=== PATIENT | male | born 1945 | race Caucasian/White ===

== ENCOUNTER 2022-12-17 23:14 | Inpatient (IN) | payer OTHER, MEDICARE, SELFPAY ==
[2022-12-17 23:16] VITALS: BP 150/90; PULSE 70; RESP 16; TEMP 36.4; O2SAT 97; BMI 28.4
--- NOTE | 2022-12-17 23:30 | PC.NURSE ---
patient states he was at home on the toilet and when he tried to stand up he lost his balance and fell down. patient states he thinks he landed on his left knee, small abrasion observed to left knee, patient states he has pain from upper left thigh down to foot. patient states he has history of neuropathy in bilateral feet and has no feeling, bilateral feet also noted to be swollen and pale, patient states this is normal for him. after fall patient was able to scoot self out of bathroom and used walker to get up and sit in chair, partially bearing weight, and then called EMS. patient states when he fell he also thinks he hit the side of his head on the shower but no obvious injury to head. patient denies any head, neck, or back pain. denies LOC.
--- NOTE | 2022-12-17 23:42 | ED.LOWEXI1 ---
HPI - Extremity Injury (Lower) General Chief Complaint: Extremity Injury, Lower Stated Complaint: FALL LT LEG PAIN Time Seen by Provider: 12/17/22 23:42 Source: patient Mode of arrival: ambulance Limitations: physical limitation History of Present Illness HPI Narrative: patient has neuropathy and chronic swelling of his lower extremities. Fell tonight and injured his left leg. Not able to get up because of the pain. pain mainly at the left knee. States he has no feeling of his feet or ankles denies striking his head. No headache or neck pain. No injury of his chest, back or arms Related Data Home Medications Medication Instructions Recorded Confirmed No Known Home Medications 12/17/22 12/17/22 Allergies Allergy/AdvReac Type Severity Reaction Status Date / Time No Known Drug Allergies Allergy Verified 12/17/22 23:21 Review of Systems ROS Status of ROS 10 or more systems reviewed and unremarkable except as noted in history and below [facility] Social History Smoking status: Never smoker Exam Constitutional Vital Signs, click to edit/add: Last Vital Signs Temp 97.5 F L 12/17/22 23:16 Pulse 70 12/17/22 23:16 Resp 16 12/17/22 23:16 BP 150/90 H 12/17/22 23:16 Pulse Ox 97 12/17/22 23:16 O2 Del Method Room Air 12/17/22 23:16 Common normals: no apparent distress, oriented x3, healthy appearing and alert [facility] Common normals: normocephalic and head/scalp atraumatic Eye Common normals: EOMs intact bilaterally and conjunctivae normal Chest Common normals: inspection of chest normal and palpation of chest normal Respiratory Common normals: normal respiratory effort, no use of accessory muscles and clear to auscultation bilaterally Cardio Common normals: regular rate, regular rhythm, S1 normal heart sound and S2 normal heart sound GI Common normals: Normal to inspection, nondistended, normoactive bowel sounds present, soft to palpation and non-tender Extremity Other: minor abrasion left knee. Resist ROM left knee due to pain. left hip and ankle/foot nontender 1+ edema of his left lower ext/ankle/foot. nontender left knee is tender Neuro Common normals: oriented x3, CN's II-XII intact bilaterally and moves all extremities Psych Appearance: grossly normal Course Vital Signs Vital signs: Vital Signs Temperature 97.5 F L 12/17/22 23:16 Pulse Rate 70 12/17/22 23:16 Respiratory Rate 16 12/17/22 23:16 Blood Pressure 150/90 H 12/17/22 23:16 Pulse Oximetry 97 12/17/22 23:16 Oxygen Delivery Method Room Air 12/17/22 23:16 Temperature 97.5 F L 12/17/22 23:16 Pulse Rate 70 12/17/22 23:16 Respiratory Rate 16 12/17/22 23:16 Blood Pressure 150/90 H 12/17/22 23:16 Pulse Oximetry 97 12/17/22 23:16 Oxygen Delivery Method Room Air 12/17/22 23:16 MDM - Extremity Injury (Lower) MDM Narrative Medical decision making narrative: patient has history of neuropathy of his lower extremities and edema of his legs and feet. Fell this AM and fractured his left hip. Discussed with Dr Ochoa who requested admission to the hospitalist service and he would consult. Discussed with Dr Villarreal and patient accepted for admission Discharge Plan Discharge Chief Complaint: Extremity Injury, Lower Clinical Impression: Closed fracture of left hip, Abrasion of knee, left, Bilateral edema of lower extremity, Peripheral neuropathy Patient Disposition: Admitted As Inpatient
--- NOTE | 2022-12-17 23:46 | XR_ITS ---
The [place] [id number] Patient Name: LEIGH ANN HENNESSY MRN: [id number] date: 1945 Sex: M Assigned Patient Location: ER Current Patient Location: ER Accession/Order Number: [id number] Exam Date: 12/17/2022 23:39 Report Date: 12/18/2022 01:37 At the request of: MARC ANDRADE Procedure: XR hip LT min 2V EXAM: XR femur LT 2V, XR knee LT 3V, XR hip LT min 2V HISTORY: injury COMPARISON: None. TECHNIQUE: 2 views of the left hip, 2 views of the left femur, and 3 views of the left knee were obtained. FINDINGS: There is a possible acute nondisplaced left intertrochanteric femur fracture though this is not well evaluated due to patient positioning. The left femoral head is well-seated in the acetabulum. There are mild degenerative changes of the left sacroiliac joint and left hip joint. The pubic symphysis is preserved. Evaluation for a left knee joint effusion is limited due to technique. XR/XR hip LT min 2V IMPRESSION: 1. Possible acute nondisplaced left intertrochanteric femur fracture though this is not well evaluated due to patient positioning. Please correlate with point tenderness. Consider cross-sectional imaging as clinically indicated. Electronically authenticated by: Nikkie TAI Date: 12/18/2022 01:37
--- NOTE | 2022-12-17 23:46 | XR_ITS ---
The [place] [id number] Patient Name: LEIGH ANN HENNESSY MRN: [id number] date: 1945 Sex: M Assigned Patient Location: ER Current Patient Location: ER Accession/Order Number: [id number] Exam Date: 12/17/2022 23:39 Report Date: 12/18/2022 01:37 At the request of: MARC ANDRADE Procedure: XR femur LT 2V EXAM: XR femur LT 2V, XR knee LT 3V, XR hip LT min 2V HISTORY: injury COMPARISON: None. TECHNIQUE: 2 views of the left hip, 2 views of the left femur, and 3 views of the left knee were obtained. FINDINGS: There is a possible acute nondisplaced left intertrochanteric femur fracture though this is not well evaluated due to patient positioning. The left femoral head is well-seated in the acetabulum. There are mild degenerative changes of the left sacroiliac joint and left hip joint. The pubic symphysis is preserved. Evaluation for a left knee joint effusion is limited due to technique. XR/XR femur LT 2V IMPRESSION: 1. Possible acute nondisplaced left intertrochanteric femur fracture though this is not well evaluated due to patient positioning. Please correlate with point tenderness. Consider cross-sectional imaging as clinically indicated. Electronically authenticated by: Nikkie TAI Date: 12/18/2022 01:37
--- NOTE | 2022-12-17 23:46 | XR_ITS ---
The [place] [id number] Patient Name: LEIGH ANN HENNESSY MRN: [id number] date: 1945 Sex: M Assigned Patient Location: ER Current Patient Location: ER Accession/Order Number: [id number] Exam Date: 12/17/2022 23:39 Report Date: 12/18/2022 01:37 At the request of: MARC ANDRADE Procedure: XR knee LT 3V EXAM: XR femur LT 2V, XR knee LT 3V, XR hip LT min 2V HISTORY: injury COMPARISON: None. TECHNIQUE: 2 views of the left hip, 2 views of the left femur, and 3 views of the left knee were obtained. FINDINGS: There is a possible acute nondisplaced left intertrochanteric femur fracture though this is not well evaluated due to patient positioning. The left femoral head is well-seated in the acetabulum. There are mild degenerative changes of the left sacroiliac joint and left hip joint. The pubic symphysis is preserved. Evaluation for a left knee joint effusion is limited due to technique. XR/XR knee LT 3V IMPRESSION: 1. Possible acute nondisplaced left intertrochanteric femur fracture though this is not well evaluated due to patient positioning. Please correlate with point tenderness. Consider cross-sectional imaging as clinically indicated. Electronically authenticated by: Nikkie TAI Date: 12/18/2022 01:37
--- NOTE | 2022-12-17 23:46 | XR_ITS ---
The [address] [address] Patient Name: LEIGH ANN HENNESSY MRN: [id number] date: 1945 Sex: M Assigned Patient Location: ER Current Patient Location: ER Accession/Order Number: [id number] Exam Date: 12/17/2022 23:39 Report Date: 12/18/2022 01:09 At the request of: MRAC ANDRADE Procedure: XR ankle LT min 3V EXAM: XR ankle LT min 3V HISTORY: injury COMPARISON: None. TECHNIQUE: Oblique AP and lateral radiographs of the ankle at the left FINDINGS: Soft tissue swelling about the ankle. The inferior margin of the calcaneus and base of fifth metatarsal not included in field of view. Demineralization. Small Achilles calcaneal enthesophyte. A Radiopaque density 0.6 cm at the medial posterior aspect of the right lower leg. XR/XR ankle LT min 3V IMPRESSION: 1. Soft tissue swelling about the ankle. 2. No acute osseous abnormality of the ankle. 3. The inferior aspect of the calcaneus is excluded. Electronically authenticated by: KEVIN RM Date: 12/18/2022 01:09
[2022-12-18] VITALS (22 sets, daily range): BP systolic 87–145; BP diastolic 50–84; PULSE 66–91; RESP 14–20; TEMP 36.6–37; O2SAT 90–99; BMI 28.2
--- NOTE | 2022-12-18 | XR_ITS ---
[address] [address] Patient Name: LEIGH ANN HENNESSY MRN: [id number] date: 1945 Sex: M Assigned Patient Location: MS Current Patient Location: MS Accession/Order Number: [id number] Exam Date: 12/18/2022 15:30 Report Date: 12/18/2022 17:49 At the request of: MICHELLE JONES Procedure: XR hip LT min 2V EXAM: XR hip LT min 2V HISTORY: Left proximal femur fracture. COMPARISON: X-rays 12/18/2022 TECHNIQUE: 4 views FINDINGS: IMPRESSION: 4 intraoperative fluoroscopic spot views for a gamma nail placement. Films are made available to the surgeon. Electronically authenticated by: GIRMA VARGAS Date: 12/18/2022 17:49
[2022-12-18] MEDS: ONDANSETRON PF 4 MG/2 ML VIAL IV (00:06)
[2022-12-18] MEDS: MORPHINE SULFATE 4 MG/ML VIAL IV ×2 (00:06→05:04)
--- NOTE | 2022-12-18 01:47 | CT_ITS ---
The [address] [address] Patient Name: LEIGH ANN HENNESSY MRN: [id number] date: 1945 Sex: M Assigned Patient Location: ER Current Patient Location: ER Accession/Order Number: [id number] Exam Date: 12/18/2022 02:57 Report Date: 12/18/2022 03:26 At the request of: MARC ANDRADE Procedure: CT hip LT wo con EXAM: CT hip LT wo con HISTORY: injury . Fall. Left leg pain from hip to ankle. COMPARISON: Left femur x-rays, 12/17/2022. TECHNIQUE: Nonenhanced CT imaging of the left hip was performed with sagittal and coronal reconstructions. FINDINGS: There is an acute comminuted and displaced intertrochanteric left hip fracture. No additional acute osseous injury is seen. The femoral head is well positioned in the acetabulum. The imaged left hemipelvis appears intact. CT/CT hip LT wo con IMPRESSION: Acute comminuted and mildly displaced intertrochanteric left hip fracture. No additional acute osseous injury is seen. Electronically authenticated by: ABRAN CHAIDEZ Date: 12/18/2022 03:26
[2022-12-18 04:01] LABS: Basophils Percent Auto 0.2 % (0.2-2.0); Eosinophils Absolute Auto 0.4 10^3/uL (0.0-0.7); Eosinophils Percent Auto 5.3 % (0.9-7.0); Hematocrit 38.7 % (42.0-54.0); Hemoglobin 12.1 g/dL (14.0-18.0); Immature Granulocytes Abs Auto 0.02 10^3/uL (0.00-0.03); Immature Granulocytes Pct Auto 0.2 % (0.0-0.5); Lymphocytes Absolute Auto 1.9 10^3/uL (1.2-3.8); Lymphocytes Percent Auto 23.5 % (20.5-60.0); Mean Corpuscular HGB Conc 31.3 g/dL (29.9-35.2); Mean Corpuscular Hemoglobin 30.8 pg (25.9-34.0); Mean Corpuscular Volume 98.5 fL (80.0-94.0); Mean Platelet Volume 12.1 fL (9.5-13.5); Monocytes Absolute Auto 0.7 10^3/uL (0.3-0.8); Monocytes Percent Auto 8.3 % (1.7-12.0); Neutrophils Percent Auto 62.5 % (43.0-75.0); Platelet Count 253 10^3/uL (150-450); Red Blood Count 3.93 10^6/uL (4.70-6.10); Red Cell Distribution Width 13.4 % (11.0-15.0); White Blood Count 8.1 10^3/uL (4.0-11.0)
[2022-12-18 04:04] LABS: INR 0.97; Prothrombin Time 10.3 sec (9.0-11.6)
[2022-12-18 04:13] LABS: Alanine Aminotransferase 20 U/L (16-63); Albumin Globulin Ratio 0.8; Albumin Level 3.3 g/dL (3.4-5.0); Alkaline Phosphatase 107 U/L (46-116); Anion Gap 11.3; Aspartate Amino Transferase 23 U/L (15-37); BUN Creatinine Ratio 18.2; Bilirubin Total 0.2 mg/dL (0.2-1.0); Calcium 8.4 mg/dL (8.5-10.1); Carbon Dioxide 29.1 mmol/L (21.0-32.0); Chloride 106 mmol/L (98-107); Estimated GFR (African America >60 (>=60); Estimated GFR (Non-African Ame 50 (>=60); Globulin 4.4 g/dL; Glucose 114 mg/dL (74-106); Potassium 4.4 mmol/L (3.5-5.1); Sodium 142 mmol/L (136-145); Total Protein 7.7 g/dL (6.4-8.2)
[2022-12-18] MEDS: 0.9 % SODIUM CHLORIDE 1,000 ML 100 ML IV (05:04)
[2022-12-18 05:14] LABS: Bilirubin Urine NEGATIVE (NEGATIVE); Blood Urine NEGATIVE (NEGATIVE); Clarity Urine CLEAR (CLEAR); Color Urine YELLOW (YELLOW); Glucose Urine UA NEGATIVE (NEGATIVE); Ketones Urine 15 mg/dL (NEGATIVE); Leukocyte Esterase Urine NEGATIVE (NEGATIVE); Nitrite Urine NEGATIVE (NEGATIVE); Protein Urine NEGATIVE (NEG/TRACE); Specific Gravity Urine >=1.030 (1.005-1.025); Urobilinogen Urine 0.2 EU/dL (0.2-1.0); pH Urine 5.5 (5.0-9.0)
[2022-12-18 05:27] LABS: Urine Microscopic Indicated NO
--- NOTE | 2022-12-18 07:13 | CA_ITS ---
Patient: LEIGH ANN HENNESSY Exam Date: 12/18/2022 : 1945 Gender:M Ordering : Shaikh Link Villarreal . Admission #: [id number] Family : MANUEL SHEIKH Order #: [id number] CLICK HERE TO VIEW EXAM ECHOCARDIOGRAM REPORT PROCEDURE: CA ECHO DOPPLER COMPLETE INDICATIONS: Pre op clearance COMPARISON: None. DESCRIPTION: COMPLETE ECHOCARDIOGRAM Real-time transthoracic echocardiography with 2D, M-mode, spectral and color flow Doppler performed. QUALITY: Technical quality was good. LEFT VENTRICLE: Normal chamber size. Mild concentric left ventricular hypertrophy. LV EF: Normal left ventricular ejection fraction, (>55%). DIASTOLIC: Unable to assess diastolic function. ATRIAL SEPTUM: Inadequately seen. LEFT ATRIUM: Normal chamber size. RIGHT ATRIUM: Normal chamber size. RIGHT VENTRICLE: Normal chamber size. Normal right ventricular systolic function. TRICUSPID VALVE: Normal mobility and thickness. No stenosis with no regurgitation. MITRAL VALVE: Normal mobility and thickness. No evidence of mitral valve stenosis. There is no mitral annular calcification. No mitral regurgitation. AORTIC VALVE: Normal trileaflet appearance. Mildly calcified aortic valve. Normal leaflet mobility. No evidence of aortic valve stenosis. No aortic regurgitation. AORTIC ROOT: Normal diameter and appearance. PULMONIC VALVE: Normal thickness and mobility. No stenosis. PERICARDIUM: No evidence of pericardial effusion. IVC: Not well visualized. CONCLUSION: Global left ventricular systolic function is normal; visually estimated ejection fraction is 55 to 60%.The right ventricle is normal in size and systolic function. No significant valvular abnormalities. Adult Echocardiography Procedure Report Left Ventricle LVEDD (3.7 - 5.6 cm): 4.30 cm LVESD (2.2 - 4.0 cm): 2.90 cm LVIVS thickness (0.6 - 1.2 cm): 1.15 cm LVPW thickness (0.5 - 1.0 cm): 1.15 cm LVOT Max Gradient: 3 mm[Hg] Peak Velocity (LVOT): 80.50 cm/s LVOT Diameter 2.50 cm , 2.50 cm Left Ventricular Ejection Fraction: 61.30 % Left Atrium LA Volume Index (2D A2C): 68442 mm3 Left Atrium Systolic Dimension: 4.60 cm Mitral Valve MV E to A Ratio: 0.90 Mitral Valve A-Wave Peak Velocity: 69.60 cm/s Mitral Valve E-Wave Peak Velocity: 60.70 cm/s Right Ventricle Aorta AO Root Diam: 3.70 cm Aortic Valve AoV Area (Peak Demetri): 3.27 cm2 Peak Velocity(Antegrade Flow): 121.00 cm/s Peak Gradient(Antegrade Flow): 6 mm[Hg] Tricuspid Valve Peak Velocity: 85.30 cm/s Pulmonic Valve Peak Velocity: 130.00 cm/s Peak Gradient: 7 mm[Hg] Right Atrium Dictated by: Janis Bronw M.D. on 12/19/2022 at 16:41 Approved by: Janis Brown M.D. on 12/19/2022 at 16:44
--- NOTE | 2022-12-18 07:57 | P.HP_ITS ---
H&P: HPI History of Present Illness Chief complaint: FALL LT LEG PAIN Narrative: Patient states he does slipped and fell at home, no prodromal symptoms, no chest pain no shortness of breath no syncope, did not hit his head, in ER evaluation shows left femur fracture. Case discussed with Dr. Hyde who agreed to accept patient for surgery later today. Review of Systems ROS Status of ROS 10 or more systems reviewed and unremarkable except as noted in history and below Constitutional Denies: fever or chills Ears, nose, mouth, and throat Denies: throat pain Cardiovascular Denies: chest pain Respiratory Denies: shortness of breath Gastrointestinal Denies: abdominal pain PFSH PFSH Medical History (Updated 12/18/22 @ 06:44 by Nilsa Arzate) Surgical History (Updated 12/18/22 @ 06:44 by Nilsa Arzate) Family History (Updated 12/18/22 @ 06:42 by Nilsa Arzate) Father Family history of hypertension Family history of stroke Social History (Updated 12/18/22 @ 06:41 by Nilsa Arzate) Within the past year, how often did you have a drink containing alcohol: never Score interpretation: A score less than 4 is consistent with normal alcohol c onsumption. Smoking status: Never smoker Non-prescribed substance use: denies use Previous occupational history: retired Highest level of school completed/degree received: some college, no degree Are you now , , , , never or living with a partner: In a typical week, how many times do you talk on the telephone with family, friends, or neighbors: 3 or more times per week How often do you get together with friends or relatives: 3 or more times per week How often do you attend temple or voodoo services: 1-3 times per year Little interest or pleasure in doing things: not at all Feeling down, depressed, or hopeless: not at all Feel stressed/tense/nervous/anxious/difficulty sleeping: not at all Do you think of yourself as: straight/heterosexual Gender Identity: male Meds Home Medications and Allergies Home Medications Medication Instructions Recorded Confirmed Type No Known Home Medications 12/17/22 12/17/22 History Allergies Allergy/AdvReac Type Severity Reaction Status Date / Time No Known Drug Allergies Allergy Verified 12/17/22 23:21 Exam Constitutional Vital Signs, click to edit/add: Last Vital Signs Temp 97.8 F 12/18/22 07:45 Pulse 79 12/18/22 07:45 Resp 18 12/18/22 07:45 BP 125/76 12/18/22 07:45 Pulse Ox 92 L 12/18/22 07:45 O2 Del Method Room Air 12/18/22 07:45 Documenting provider has reviewed patient's vital signs: yes Common normals: apparent distress (Mild painful distress) Respiratory Common normals: normal respiratory effort and clear to auscultation bilaterally Cardio Common normals: regular rate, regular rhythm and no murmurs Neuro Common normals: oriented x3 and CN's II-XII intact bilaterally Psych Common normals: mental status grossly normal Results Labs Labs: Short CBC 12/18/22 Range/Units 00:00 WBC 8.1 (4.0-11.0) 10^3/uL Hgb 12.1 L (14.0-18.0) g/dL Hct 38.7 L (42.0-54.0) % Plt Count 253 (150-450) 10^3/uL BMP 12/18/22 00:00 Sodium 142 Potassium 4.4 Chloride 106 Carbon Dioxide 29.1 BUN 25.0 H Creatinine 1.37 H Glucose 114 H Calcium 8.4 L Liver Function 12/18/22 Range/Units 00:00 Total Bilirubin 0.2 (0.2-1.0) mg/dL AST 23 (15-37) U/L ALT 20 (16-63) U/L Alkaline Phosphatase 107 (46-116) U/L Albumin 3.3 L (3.4-5.0) g/dL Urine 12/18/22 Range/Units 03:58 Urine Color Yellow (YELLOW) Urine Clarity Clear (CLEAR) Urine pH 5.5 (5.0-9.0) Ur Specific [place] >=1.030 A (1.005-1.025) Urine Protein Negative (NEG/TRACE) mg/dL Urine Glucose (UA) Negative (NEGATIVE) mg/dL Assessment and Plan Assessment and Plan (1) Closed fracture of left hip: (2) Peripheral neuropathy: Plan Left femur fracture-surgery later today, n.p.o. for now, resume regular diet after surgery Iron deficiency anemia on top of possible anemia of acute blood loss secondary to the hip fracture, will monitor daily Elevated BUN and creatinine possible mild dehydration-on IV fluids-monitor daily History of hypertension in the past-we will check on medications taking, blood pressure improved after initial ER evaluation Hip fracture-admit to inpatient status, will need placement postsurgery
[2022-12-18 08:15] LABS: Estimated Average Glucose 117 mg/dL; Glycohemoglobin A1C 5.7 % (4.5-6.2); INR 0.93; Partial Thromboplastin Time 23.3 sec (22.3-36.2); Prothrombin Time 9.9 sec (9.0-11.6)
--- NOTE | 2022-12-18 08:59 | ECG_ITS ---
The [facility] Test Date: 2022-12-18 Pat Name: LEIGH ANN HENNESSY Department: Room: [facility] Gender: Male Trucksmith: : 1945 Requested By: JONATHAN GIORDANO Order Number: [id number] Reading MD: JONATHAN GIORDANO Measurements Intervals [place] Rate: 84 P: 52 MN: 179 QRS: -37 QRSD: 109 T: 57 QT: 373 QTc: 441 Interpretive Statements SINUS RHYTHM WITH OCCASIONAL VENTRICULAR PREMATURE COMPLEXES MARKED LEFT AXIS DEVIATION [QRS AXIS < -30] MINIMAL VOLTAGE CRITERIA FOR LVH, CONSIDER NORMAL VARIANT [MEETS CRITERIA IN ONE OF: R(aVL), S(V1), R(V5), R(V5/V6)+S(V1)] No previous ECG available for comparison Electronically Signed On 12-19-2022 5:52:46 EDT by JONATHAN GIORDANO
--- NOTE | 2022-12-18 11:47 | SWNOTE1 ---
SW met with pt to discuss dc needs. Pt did answer a few questions, but was pretty lethargic. Pt did give permission for SW to talk with . Pt has a hip fracture and going to the OR today at 3:30. Will need SNF for therapy, pt is a precert. SW was able to speak with a daughter via phone as she was talking with nursing. Pt did give permission for nursing to speak with daughter. Daughter lives in [place] and she voiced her mother has some confusion and her step sister is in [place] right now for her birthday. Daughter is trying to be pro-active and pick a facility. During covid pt went to [facility], they wanted him to go to [facility] but he could not. They would like the [facility] this time. SW let her know SW will send referral and pt is a precert. Precert will likely get started tomorrow since surgery is at 3:30 today and therapy notes will be needed. Daughter did ask if approval happens over the weekend, SW let her know it has been happening. Pt's daughter is coming from [place] today and will be staying with pt's at the home. SW to send referral to [facility].
--- NOTE | 2022-12-18 13:21 | SWNOTE1 ---
[facility] needs pt's insurance card as we have [facility]. JERMAIN was able to find card in old system and sent to [facility].
[2022-12-18] MEDS: CEFAZOLIN SODIUM/DEXTROSE,ISO 2 GM/50 ML PIGGYBACK IV (15:33)
--- NOTE | 2022-12-18 15:33 | PM.ORCN ---
History of Present Illness HPI Consult date: 12/18/22 Consult reason: fracture Chief complaint: FALL LT LEG PAIN Narrative: Patient is a 77-year-old who reports history of bilateral lower extremity neuropathy. He slipped on the floor today fell on his left hip with acute onset of pain. He denies chest pain or shortness of breath. He denies pain elsewhere. He presented to the emergency room where x-rays and a CT scan revealed a left hip intertrochanteric fracture. Patient is being admitted for operative treatment of this injury. Review of Systems ROS Status of ROS 10 or more systems reviewed and unremarkable except as noted in history and below [facility] Medical History (Updated 12/18/22 @ 06:44 by Nilsa Arzate) Surgical History (Updated 12/18/22 @ 06:44 by Nilsa Arzate) Family History (Updated 12/18/22 @ 06:42 by Nilsa Arzate) Father Family history of hypertension Family history of stroke Social History (Updated 12/18/22 @ 06:41 by Nilsa Arzate) Within the past year, how often did you have a drink containing alcohol: never Score interpretation: A score less than 4 is consistent with normal alcohol consumption. Smoking status: Never smoker Non-prescribed substance use: denies use Previous occupational history: retired Highest level of school completed/degree received: some college, no degree Are you now , , , , never or living with a partner: In a typical week, how many times do you talk on the telephone with family, friends, or neighbors: 3 or more times per week How often do you get together with friends or relatives: 3 or more times per week How often do you attend buddhism or jewish services: 1-3 times per year Little interest or pleasure in doing things: not at all Feeling down, depressed, or hopeless: not at all Feel stressed/tense/nervous/anxious/difficulty sleeping: not at all Do you think of yourself as: straight/heterosexual Gender Identity: male Meds Home Medications and Allergies Home Medications Medication Instructions Recorded Confirmed Type No Known Home Medications 12/17/22 12/17/22 History Allergies Allergy/AdvReac Type Severity Reaction Status Date / Time No Known Drug Allergies Allergy Verified 12/17/22 23:21 Exam Narrative Exam Narrative: On exam he is in no obvious distress. Skin is intact over his left lower extremity. [place] of the left leg causes groin pain. Diminished sensation to light touch in a stocking distribution in the bilateral lower extremities. Moderate lower extremity edema. Good capillary refill. Is able to wiggle his toes. No knee or ankle tenderness. Right lower extremity has painless range of motion. Bilateral upper extremities have painless range of motion. Constitutional Vital Signs, click to edit/add: Last Vital Signs Temp 98.3 F 12/18/22 14:06 Pulse 90 12/18/22 14:45 Resp 16 12/18/22 14:45 BP 145/84 H 12/18/22 14:45 Pulse Ox 95 12/18/22 14:45 O2 Del Method Room Air 12/18/22 14:45 Results Labs Labs: Abnormal lab results 12/18/22 12/18/22 Range/Units 00:00 03:58 RBC 3.93 L (4.70-6.10) 10^6/uL Hgb 12.1 L (14.0-18.0) g/dL Hct 38.7 L (42.0-54.0) % MCV 98.5 H (80.0-94.0) fL BUN 25.0 H (7.0-18.0) mg/dL Creatinine 1.37 H (0.70-1.30) mg/dL Est GFR (Non-Af Amer) 50 L (>=60) Glucose 114 H (74-106) mg/dL Calcium 8.4 L (8.5-10.1) mg/dL Albumin 3.3 L (3.4-5.0) g/dL Ur Specific [place] >=1.030 A (1.005-1.025) Urine Ketones 15 A (NEGATIVE) mg/dL H & H 12/18/22 Range/Units 00:00 Hgb 12.1 L (14.0-18.0) g/dL Hct 38.7 L (42.0-54.0) % Coagulation 12/18/22 12/18/22 Range/Units 00:00 07:38 INR 0.97 0.93 All other labs normal. Diagnostic results Hip CT: other (CT scan of his left hip was reviewed and shows a intertrochanteric fracture) Assessment and Plan Assessment and Plan (1) Closed fracture of left hip: (2) Peripheral neuropathy: Plan For his left hip intertrochanteric fracture I recommended an intramedullary nailing. I discussed risks and benefits of this surgery with the patient. He has elected to proceed.
--- NOTE | 2022-12-18 17:31 | PC.NURSE ---
Bilateral feet warm and pink with brisk capillary refill; 3-4+ pitting edema of left foot; no edema noted in leg
--- NOTE | 2022-12-18 17:36 | P.ORPRC_ITS ---
Procedure Note Date of procedure: 12/18/22 Pre-op diagnosis: Left hip intertrochanteric fracture Post-op diagnosis: same as pre-op Procedure: Operation performed: Left hip intramedullary nailing Operative procedure: After informed consent was obtained the patient brought to the operating room where a spinal anesthetic was administered. The patient was placed on the fracture table and using traction the fracture was reduced on both AP and lateral planes. The left hip was prepped and draped in the usual sterile fashion. A 5 cm incision is made proximal to the greater trochanter in line with the femur. Hemostasis was achieved with Bovie. Fascia was incised in line with the incision. The guidepin for the Synthes TFN a was next placed at the appropriate position of the greater trochanter and confirmed in both AP and lateral planes. This was overreamed in the intertrochanteric region. Preoperatively the nail was sized to 12 mm diameter 130 degree angle. The 12 mm Synthes short nail was next placed without difficulty. Through a more distal incision the guidepin was placed in the appropriate position in the femoral head. This was measured, overreamed and then a 95 mm spiral blade was placed. The fracture site was compressed. The nail was locked and then a counterclockwise turn 180 degrees to allow for some additional compression. Through the distal incision the distal locking screw was placed in the standard fashion. The wound was irrigated. Fascia was repaired with a #2 FiberWire suture. Skin was closed in standard fashion in layers. Sterile dressing was placed. Patient was brought to the recovery room in stable condition. There were no intraoperative or immediate postoperative complications. Anesthesia: spinal Surgeon: Phong Ochoa Tractor Trailer Moving Van Driver: Roselyn Bland Estimated blood loss (mL): 75 Pathology: none sent Condition: stable Disposition: PACU
--- NOTE | 2022-12-18 17:38 | PC.NURSE ---
Spinal level lower abdomen
[2022-12-18] MEDS: LACTATED RINGER'S SOLUTION 1,000 ML 100 ML IV (18:04)
--- NOTE | 2022-12-18 18:08 | PC.NURSE ---
Spinal level at lower abdomen; bilateral lower extremities pink and warm; heels elevated off bed
--- NOTE | 2022-12-18 18:14 | PC.NURSE ---
Having tingling sensation bilateral hips; lower extremities pink and warm; unable to move legs or feet yet; anesthesia aware
[2022-12-19] VITALS (10 sets, daily range): BP systolic 92–138; BP diastolic 56–78; PULSE 72–87; RESP 15–18; TEMP 36.9–37.6; O2SAT 90–100
[2022-12-19] MEDS: LACTATED RINGER'S SOLUTION 1,000 ML 100 ML IV (03:22)
[2022-12-19 05:39] LABS: Basophils Percent Auto 0.2 % (0.2-2.0); Eosinophils Absolute Auto 0.1 10^3/uL (0.0-0.7); Eosinophils Percent Auto 1.3 % (0.9-7.0); Hematocrit 31.8 % (42.0-54.0); Hemoglobin 9.9 g/dL (14.0-18.0); Immature Granulocytes Abs Auto 0.02 10^3/uL (0.00-0.03); Immature Granulocytes Pct Auto 0.2 % (0.0-0.5); Lymphocytes Absolute Auto 1.4 10^3/uL (1.2-3.8); Lymphocytes Percent Auto 16.4 % (20.5-60.0); Mean Corpuscular HGB Conc 31.1 g/dL (29.9-35.2); Mean Corpuscular Hemoglobin 30.3 pg (25.9-34.0); Mean Corpuscular Volume 97.2 fL (80.0-94.0); Mean Platelet Volume 12.6 fL (9.5-13.5); Monocytes Absolute Auto 1.3 10^3/uL (0.3-0.8); Monocytes Percent Auto 14.6 % (1.7-12.0); Neutrophils Absolute Auto 5.7 10^3/uL (1.4-6.5); Neutrophils Percent Auto 67.3 % (43.0-75.0); Platelet Count 127 10^3/uL (150-450); Red Blood Count 3.27 10^6/uL (4.70-6.10); Red Cell Distribution Width 13.5 % (11.0-15.0); White Blood Count 8.5 10^3/uL (4.0-11.0)
[2022-12-19 06:05] LABS: Alanine Aminotransferase 24 U/L (16-63); Albumin Globulin Ratio 0.7; Albumin Level 2.5 g/dL (3.4-5.0); Alkaline Phosphatase 82 U/L (46-116); Anion Gap 8.7; Aspartate Amino Transferase 39 U/L (15-37); BUN Creatinine Ratio 16.7; Bilirubin Total 0.5 mg/dL (0.2-1.0); Calcium 7.7 mg/dL (8.5-10.1); Carbon Dioxide 27.5 mmol/L (21.0-32.0); Chloride 105 mmol/L (98-107); Estimated GFR (African America >60 (>=60); Estimated GFR (Non-African Ame >60 (>=60); Globulin 3.7 g/dL; Glucose 106 mg/dL (74-106); Potassium 4.2 mmol/L (3.5-5.1); Sodium 137 mmol/L (136-145); Total Protein 6.2 g/dL (6.4-8.2)
--- NOTE | 2022-12-19 07:17 | PM.ORPN ---
Progress Note: A&P Assessment and Plan (1) Closed fracture of left hip: Assessment and Plan: POD#1 from Left hip IM nail doing well PT for WBAT DVT prophylixs (2) Peripheral neuropathy: Subjective Subjective Interval history: Patient reports he feels better today than yesterday Exam Narrative Exam Narrative: LLE: Dressing C/D/I Wiggles toes Good cap refill thigh soft Hgb:9.9 Constitutional Vital Signs, click to edit/add: Last Vital Signs Temp 99.7 F 12/19/22 04:53 Pulse 77 12/19/22 04:53 Resp 18 12/19/22 04:53 BP 138/78 12/19/22 04:53 Pulse Ox 92 L 12/19/22 04:53 O2 Del Method Nasal Cannula 12/19/22 04:53 O2 Flow Rate 2 12/19/22 04:53 Urinary Catheter Management Urinary Catheter Management Urethral: Cath placed during this visit: yes Urethral indwelling: Yes Reason for continuing: surgical procedure Insertion date: 12/18/22 Insertion time: 12:29
[2022-12-19] MEDS: OXYCODONE HCL 5 MG TABLET PO (07:33)
--- NOTE | 2022-12-19 08:00 | P.PN_ITS ---
Progress Note: Subjective Subjective Interval history: Patient feels better than yesterday. Pain fairly well controlled. Exam Constitutional Vital Signs, click to edit/add: Last Vital Signs Temp 99.7 F 12/19/22 04:53 Pulse 72 12/19/22 07:40 Resp 18 12/19/22 07:40 BP 138/78 12/19/22 04:53 Pulse Ox 92 L 12/19/22 04:53 O2 Del Method Nasal Cannula 12/19/22 04:53 O2 Flow Rate 2 12/19/22 04:53 Documenting provider has reviewed patient's vital signs: yes Common normals: apparent distress (Mild painful distress) Respiratory Common normals: normal respiratory effort and clear to auscultation bilaterally Cardio Common normals: regular rate, regular rhythm and no murmurs Neuro Common normals: oriented x3 and CN's II-XII intact bilaterally Psych Common normals: mental status grossly normal Progress Note: Objective Labs Labs: Short CBC 12/19/22 Range/Units 04:25 WBC 8.5 (4.0-11.0) 10^3/uL Hgb 9.9 L (14.0-18.0) g/dL Hct 31.8 L (42.0-54.0) % Plt Count 127 L (150-450) 10^3/uL BMP 12/19/22 04:25 Sodium 137 Potassium 4.2 Chloride 105 Carbon Dioxide 27.5 BUN 16.0 Creatinine 0.96 Glucose 106 Calcium 7.7 L Liver Function 12/19/22 Range/Units 04:25 Total Bilirubin 0.5 (0.2-1.0) mg/dL AST 39 H (15-37) U/L ALT 24 (16-63) U/L Alkaline Phosphatase 82 (46-116) U/L Albumin 2.5 L (3.4-5.0) g/dL Progress Note: A&P Assessment and Plan (1) Closed fracture of left hip: (2) Peripheral neuropathy: Plan Left femur fracture-surgery completed yesterday, see notes from orthopedics Iron deficiency anemia on top of possible anemia of acute blood loss secondary to the hip fracture, down somewhat today, continue to monitor no need for transfusion Elevated BUN and creatinine possible mild dehydration-on IV fluids-monitor daily-saline lock History of hypertension in the past-we will check on medications taking, blood pressure improved after initial ER evaluation Hip fracture-admit to inpatient status, will need placement postsurgery
[2022-12-19] MEDS: ENSURE HP 237 ML LIQUID PO ×2 (10:07→21:15)
--- NOTE | 2022-12-19 10:40 | RESP.RT ---
use ear probe
--- NOTE | 2022-12-19 11:54 | SWNOTE1 ---
All updates and PT/OT notes sent to [facility] for precert to be started.
[2022-12-19] MEDS: CALCIUM CARBONATE 500 MG (200MG ELEMENTAL) TAB CHEW PO ×2 (15:53→21:15)
[2022-12-19] MEDS: 0.9 % SODIUM CHLORIDE 250 ML 10 ML IV (16:23)
[2022-12-19] MEDS: ENOXAPARIN SODIUM 40 MG/0.4 ML SYRINGE SUBQ (17:56)
[2022-12-20 04:51] LABS: Basophils Percent Auto 0.1 % (0.2-2.0); Eosinophils Absolute Auto 0.1 10^3/uL (0.0-0.7); Hematocrit 30.5 % (42.0-54.0); Hemoglobin 9.8 g/dL (14.0-18.0); Immature Granulocytes Abs Auto 0.04 10^3/uL (0.00-0.03); Immature Granulocytes Pct Auto 0.4 % (0.0-0.5); Lymphocytes Absolute Auto 1.6 10^3/uL (1.2-3.8); Lymphocytes Percent Auto 16.6 % (20.5-60.0); Mean Corpuscular HGB Conc 32.1 g/dL (29.9-35.2); Mean Corpuscular Hemoglobin 30.6 pg (25.9-34.0); Mean Corpuscular Volume 95.3 fL (80.0-94.0); Mean Platelet Volume 11.5 fL (9.5-13.5); Monocytes Absolute Auto 1.5 10^3/uL (0.3-0.8); Monocytes Percent Auto 16.1 % (1.7-12.0); Neutrophils Absolute Auto 6.2 10^3/uL (1.4-6.5); Neutrophils Percent Auto 65.8 % (43.0-75.0); Platelet Count 177 10^3/uL (150-450); Red Cell Distribution Width 13.2 % (11.0-15.0); White Blood Count 9.4 10^3/uL (4.0-11.0)
[2022-12-20 04:55] VITALS: BP 128/66; PULSE 82; RESP 18; TEMP 37.1; O2SAT 93
[2022-12-20 05:08] LABS: Alanine Aminotransferase 22 U/L (16-63); Albumin Globulin Ratio 0.6; Albumin Level 2.5 g/dL (3.4-5.0); Alkaline Phosphatase 75 U/L (46-116); Anion Gap 9.3; Aspartate Amino Transferase 43 U/L (15-37); BUN Creatinine Ratio 16.2; Bilirubin Total 0.5 mg/dL (0.2-1.0); Calcium 7.9 mg/dL (8.5-10.1); Carbon Dioxide 28.3 mmol/L (21.0-32.0); Chloride 103 mmol/L (98-107); Estimated GFR (African America >60 (>=60); Estimated GFR (Non-African Ame >60 (>=60); Glucose 115 mg/dL (74-106); Potassium 3.6 mmol/L (3.5-5.1); Sodium 137 mmol/L (136-145); Total Protein 6.5 g/dL (6.4-8.2)
[2022-12-20] MEDS: CALCIUM CARBONATE 500 MG (200MG ELEMENTAL) TAB CHEW PO (05:43)
[2022-12-20 08:00] VITALS: RESP 18
--- NOTE | 2022-12-20 08:08 | P.DS_ITS ---
DS: Providers Provider Date of admission: 12/18/22 12:20 Primary care physician: Tawanda Galvez MD Consults: 12/18/22 07:14 Occupational Therapy Eval and Treat Routine Reason for consultation: Hip fracture Physical Therapy Eval and Treat Routine Reason for consultation: Hip fracture 12/18/22 07:15 Consult to Orthopedics Routine Consulting Provider: Phong Ochoa Reason for consultation: hip fracture 12/18/22 07:56 Consult to Specimen Processor Routine Reason for consult:: Fpc 12/18/22 17:37 Physical Therapy Eval and Treat Routine Reason for consultation: hip fracture WBAT Has provider been notified: No DS: Diagnosis Discharge Diagnosis (1) Closed fracture of left hip: (2) Peripheral neuropathy: Plan Left femur fracture-surgery completed yesterday, see notes from orthopedics Iron deficiency anemia on top of possible anemia of acute blood loss secondary to the hip fracture, down somewhat today, continue to monitor no need for transfusion Elevated BUN and creatinine possible mild dehydration-on IV fluids-monitor daily-saline lock History of hypertension in the past-we will check on medications taking, blood pressure improved after initial ER evaluation DS: Summary Hospital Course Hospital Course: Patient was admitted status post fall resulting in left femur fracture. Was taken to the operating room the following day. No issues throughout the hospitalization. Pain well controlled at time of discharge to rehab. Time Spent with Patient Time attestation: Total time spent providing and/or coordinating discharge services: Exam Constitutional Vital Signs, click to edit/add: Last Vital Signs Temp 98.7 F 12/20/22 04:55 Pulse 82 12/20/22 04:55 Resp 18 12/20/22 04:55 BP 128/66 12/20/22 04:55 Pulse Ox 93 L 12/20/22 04:55 O2 Del Method Room Air 12/20/22 04:55 O2 Flow Rate 2 12/19/22 04:53 Documenting provider has reviewed patient's vital signs: yes Common normals: apparent distress (Mild painful distress) Respiratory Common normals: normal respiratory effort and clear to auscultation bilaterally Cardio Common normals: regular rate, regular rhythm and no murmurs Neuro Common normals: oriented x3 and CN's II-XII intact bilaterally Psych Common normals: mental status grossly normal DS: Data Data Completed and Pending Labs on day of discharge: Labs from last 24 hours 12/20/22 04:13 WBC 9.4 RBC 3.20 L Hgb 9.8 L Hct 30.5 L MCV 95.3 H MCH 30.6 MCHC 32.1 RDW 13.2 Plt Count 177 MPV 11.5 Neut % (Auto) 65.8 Lymph % (Auto) 16.6 L [place] % (Auto) 16.1 H Eos % (Auto) 1.0 Baso % (Auto) 0.1 L Neut # (Auto) 6.2 Lymph # (Auto) 1.6 [place] # (Auto) 1.5 H Eos # (Auto) 0.1 Baso # (Auto) 0.0 Abs Immat Gran (auto) 0.04 H Imm/Tot Granulo (auto) 0.4 Sodium 137 Potassium 3.6 Chloride 103 Carbon Dioxide 28.3 Anion Gap 9.3 BUN 17.0 Creatinine 1.05 Est GFR ( Amer) >60 Est GFR (Non-Af Amer) >60 BUN/Creatinine Ratio 16.2 Glucose 115 H Calcium 7.9 L Total Bilirubin 0.5 AST 43 H ALT 22 Alkaline Phosphatase 75 Total Protein 6.5 Albumin 2.5 L Globulin 4.0 Albumin/Globulin Ratio 0.6 Discharge Plan Discharge Disposition: Xfer SNF Discharge Medications: New calcium carbonate 200 mg calcium (500 mg) Tablet,Chewable 500 mg PO TID Qty: 90 11RF hydrocodone-acetaminophen 5-325 mg tablet 1 tab PO Q6H MDD 4 PRN (Reason: pain (scale score 7-10)) Qty: 120 0RF ferrous sulfate 325 mg (65 mg iron) tablet 325 mg PO BID Qty: 60 11RF No Action No Known Home Medications Metal Furrer/Vb 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 Forms: Portal Instructions Follow Up Appointments: Follow up appt. with Dr. Ochoa on Dec. 2 @ 9:10am [facility] Office #: [phone] Discharge Date/Time: 12/20/22 12:26
--- NOTE | 2022-12-20 08:17 | US_ITS ---
The [address] [address] Patient Name: LEIGH ANN HENNESSY MRN: [id number] date: 1945 Sex: M Assigned Patient Location: [place] Current Patient Location: [place] Accession/Order Number: [id number] Exam Date: 12/20/2022 08:19 Report Date: 12/20/2022 09:01 At the request of: JONATHAN GIORDANO Procedure: US venous doppler LE LT Ultrasound venous duplex scan left lower extremity CLINICAL: Left foot edema, surgery on left hip yesterday TECHNIQUE: Armenta-scale, color Doppler and Duplex examination of the left lower extremity was performed with and without provocative maneuvers. FINDINGS: Comparison: None. Sonographic examination of the left lower extremity deep venous system to include the common femoral, superficial femoral and popliteal veins, demonstrates normal compressibility, color-flow, respiratory variation, and augmentation. Normal compression of the greater saphenous vein. There is normal color-flow in the proximal profunda femoral vein. There is normal color-flow in the peroneal, posterior tibial, and anterior tibial veins. There is subcutaneous edema in the left calf. US/US venous doppler LE LT IMPRESSION: 1. No deep venous thrombosis in the left lower extremity. 2. Subcutaneous edema left calf. Electronically authenticated by: JOHNNIE MERCHANT Date: 12/20/2022 09:01
[2022-12-20] MEDS: ENSURE HP 237 ML LIQUID PO (09:50)
--- NOTE | 2022-12-20 10:16 | SWNOTE1 ---
JERMAIN completed HENS and sent over [place] med rec to [place].
--- NOTE | 2022-12-20 10:43 | SWNOTE1 ---
JERMAIN set up transportation for with trips, [facility] had no transport available. SW called and notified pt's , she will be coming with her son shortly to see pt. SW notified [facility] and nursing of time. Pt is going to [facility] skilled.
[2022-12-20] MEDS: OXYCODONE HCL 5 MG TABLET PO (11:41)
--- NOTE | 2022-12-20 11:45 | PT.DAILY ---
Physical Therapy Daily Note PT Daily Note/Assess Start: 12/20/22 11:43 Freq: Status: Active Protocol: Document 12/20/22 11:43 MARYLOU (Rec: 12/20/22 11:45 MARYLOU [id number]) Visit Not Completed Visit Not Completed Visit Not Completed Due to: Other Other Reason Visit Not Completed Pt pleasantly decline PT at this time as he is about to be DC'd to the [facility] at 1200 and would like to preserve his energy at this time. Pt edu on importance of PT and that he will need to participate in skilled setting - pt verbalized understanding . Physical Therapy Daily Note/Assessment Time In/Time Out Time In 11:43 Time Out 11:43 Pain In Pain N/A Pain Out Pain N/A GG. Functional Abilities and Goals-Complete for Swing Bed Patients Only [id number]. Self-Care [id number]. Mobility
[2022-12-20 12:12] VITALS: O2SAT 95
== END 2022-12-20 12:26 | DRG 481 ==
LOC: ER 12-18 06:14 → MS 12-18 07:59
PROVIDERS: Internal Medicine; Orthopaedic Surgery; Admitting Provider Family Medicine; Emergency Provider Internal Medicine; PCP Family Medicine; Visit Provider Family Medicine
PROC: 0QS736Z Reposition Left Upper Femur with Intramedullary Internal Fixation Device, Percutaneous Approach (ICD-10-PCS; principal; 2022-12-18 15:30)
DX: S72.142A Displaced intertrochanteric fracture of left femur, initial encounter for closed fracture (principal); D62 Acute posthemorrhagic anemia; E86.0 Dehydration; I10 Essential (primary) hypertension; G62.9 Polyneuropathy, unspecified; W01.0XXA Fall on same level from slipping, tripping and stumbling without subsequent striking against object, initial encounter; Y92.009 Unspecified place in unspecified non-institutional (private) residence as the place of occurrence of the external cause; Y93.9 Activity, unspecified; Y99.9 Unspecified external cause status; Z82.3 Family history of stroke; Z82.49 Family history of ischemic heart disease and other diseases of the circulatory system
CPT/HCPCS: 36415; 51702; 73502; 73552; 73562; 73610; 73700; 76000; 80053; 81003; 83036; 85025; 85610; 85730; 93005; 93306; 93971; 94761; 96372; 96374; 96375; 96376; 97161; 97165; 99285; C1713

== ENCOUNTER 2023-02-03 08:58 | Outpatient (OUT) | payer MEDICARE, SELFPAY ==
--- NOTE | 2023-02-03 09:07 | XR_ITS ---
The [address] [address] Patient Name: LEIGH ANN HENNESSY MRN: [id number] date: 1945 Sex: M Assigned Patient Location: [facility] Current Patient Location: [facility] Accession/Order Number: [id number] Exam Date: 02/03/2023 09:22 Report Date: 02/03/2023 13:25 At the request of: MICHELLE JONES Procedure: XR hip LT 2V w/ pelvis XR hip LT 2V w/ pelvis, 02/03/2023 9:22 AM EST, OH001 INDICATION: Intertrochanteric Fracture Of LEft Femur S72.142A COMPARISON: 01/06/2023 TECHNIQUE: 2 views of the hip obtained. An AP view of the pelvis included. FINDINGS: Internal fixation across proximal left femoral fracture is again noted. The components appear intact and unchanged in position. The osseous structures appear intact. There is normal alignment. The articular surfaces and joint spaces are preserved. There are no obvious blastic or lytic lesions. There is no evidence of significant soft tissue swelling. Evidence of old L4 compression fracture with vertebroplasty is noted. XR/XR hip LT 2V w/ pelvis IMPRESSION: Stable status post internal fixation of proximal left femoral fracture. No acute fracture or component failure is seen. Electronically authenticated by: WILFREDO RAGSDALE Date: 02/03/2023 13:25
== END 2023-02-03 08:59 | disposition home or self-care (01) ==
LOC: RAD 08:58
PROVIDERS: PCP Family Medicine; Visit Provider Orthopaedic Surgery
DX: S72.142A Displaced intertrochanteric fracture of left femur, initial encounter for closed fracture (principal)
CPT/HCPCS: 73502

== ENCOUNTER 2023-03-03 09:36 | Outpatient (OUT) | payer MEDICARE, SELFPAY ==
--- NOTE | 2023-03-03 09:52 | XR_ITS ---
The [address] [address] Patient Name: LEIGH ANN HENNESSY MRN: [id number] date: 1945 Sex: M Assigned Patient Location: [facility] Current Patient Location: Accession/Order Number: [id number] Exam Date: 03/03/2023 09:42 Report Date: 03/04/2023 07:44 At the request of: MICHELLE JONES Procedure: XR hip LT 2V w/ pelvis EXAM: XR hip LT 2V w/ pelvis HISTORY: Fracture Of Left Femur COMPARISON: 02/03/2023. TECHNIQUE: Routine views of the XR hip LT 2V w/ pelvis FINDINGS/ XR/XR hip LT 2V w/ pelvis IMPRESSION: 1. Internal fixation of the left femoral neck/ intertrochanteric fracture. Alignment is near-anatomic. Fracture lucency is less conspicuous and there is increased callus formation suggestive of healing. No evidence for hardware complication. 2. Unremarkable soft tissues. 3. Mild bilateral hip osteoarthritis. Electronically authenticated by: YECENIA GONZALEZ Date: 03/04/2023 07:44
== END 2023-03-03 09:37 | disposition home or self-care (01) ==
LOC: RAD 09:36
PROVIDERS: Visit Provider Orthopaedic Surgery
DX: S72.142D Displaced intertrochanteric fracture of left femur, subsequent encounter for closed fracture with routine healing (principal)
CPT/HCPCS: 73502

== ENCOUNTER 2023-04-03 21:10 | Inpatient (IN) | payer MEDICARE, SELFPAY ==
[2023-04-03] VITALS (24 sets, daily range): BP systolic 119–154; BP diastolic 73–91; PULSE 92–108; RESP 16–36; TEMP 36.9; O2SAT 84–100; BMI 31.2
--- OUTSIDE RECORDS SUMMARY | 2023-04-03 21:15 | XMS_ITS | CCD ---
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 Name Role Phone Unavailable Primary Care Provider Unavailabl e GIULIANA ., DR CASTILLO Primary Care Unavailable PAY ., DR GREGORY Consulting Unavailable PAY ., DR GREGORY Admitting Unavailable PAY ., DR GREGORY Attending Unavailable HOY ., DR CASTILLO Primary Care Unavailable HOY ., DR CASTILLO Admitting Unavailable HOY ., DR CASTILLO Attending Unavailable HOY ., DR CASTILLO Consulting Unavailable PAY ., DR GREGORY Consulting Unavailable [employer]ef[employer] belle Consulting Unavailable HUSAM ., RAFAEL Consulting Unavailable Problems Problem Classification Problem Date Documented Da te Episodic/Chronic Deficiency and other anemia (1 source) Iron deficiency anemia, unspecified; Translations: [IRON DEFICIENCY ANEMIA UNSPECIFIED] Onset: 05-24-2022 Episodic Diseases of white blood cells (1 source) Neutropenia, unspecified; Translations: [NEUTROPENIA UNSPECIFIED] Onset: 05-24-2022 Chronic E Codes: Fall (1 source) Fall in (into) shower or empty bathtub, initial encounter; Translations: [FALL IN SHOWER/EMPTY BATHTUB INIT] Onset: 07-15-2022 Episodic Fluid and electrolyte disorders (1 source) Dehydration; Translations: [DEHYDRATION] Onset: 05-24-2022 Episodic Malaise and fatigue (1 source) Weakness; Translations: [WEAKNESS] Onset: 05-24-2022 Episodic Open wounds of head; neck; and trunk (2 sources) Laceration without foreign body of right eyelid and periocular area, initial encounter; Translations: [Laceration without foreign body of nose, initial encounter] Onset: 07-15-2022 Episodic Other aftercare (1 source) Other intermediate frame tender (current) drug therapy; Translations: [OTH SNF CURRENT DRUG THERAPY] Onset: 05-24-2022 Episodic Other aftercare (1 source) detention (current) use of aspirin; Translations: [SNF CURRENT USE OF ASPIRIN] Onset: 05-24-2022 Episodic Other connective tissue disease (1 source) Repeated falls; Translations: [REPEATED FALLS] Onset: 05-24-2022 Episodic Other injuries and conditions due to external causes (4 sources) Other specified injuries of head, initial encounter; Translations: [OTH SPEC INJURIES HEAD INITIAL ENC] Onset: 07-10-2022 Episodic Other injuries and conditions due to external causes (1 source) History of falling; Translations: [HISTORY OF FALLING] Onset: 05-24-2022 Episodic Other nervous system disorders (1 source) Polyneuropathy, unspecified; Translations: [POLYNEUROPATHY UNSPECIFIED] Onset: 05-24-2022 Chronic Other screening for suspected conditions (not mental disorders or infectious disease) (1 source) Other specified abnormal findings of blood chemistry; Translations: [OTH SPEC ABNORMAL FINDINGS BLD CHEM] Onset: 05-24-2022 Episodic Residual codes; unclassified (1 source) Family history of asthma and other chronic lower respiratory diseases; Translations: [FAM HX ASTHMA AND OTH CHRON LOW RESP DZ] Onset: 05-24-2022 Episodic Superficial injury; contusion (3 sources) Contusion of right knee, initial encounter; Translations: [Contusion of nose, initial encounter] Onset: 07-15-2022 Episodic Viral infection (3 sources) COVID-19; Translations: [COVID-19] Onset: 04-12-2022 Results Test Name Value Interpretation Reference Range Facil ity CBC AUTO DIFFon 04-15-2022 BASO # 0.0 103/ul Normal 0.0-0.1 [facility] Comment on above: Performed By: #### M YO #### [facility] [address] [address] [address] Preeti Hyman Basophils/100 WBC (Bld) 0.2 % Normal 0.2-2.0 [facility] Comment on above: Performed By: #### M YO #### [facility] [address] [address] [address] Preeti Hyman EO # 0.2 103/ul Normal 0.0-0.7 [facility] Comment on above: Performed By: #### M YO #### [facility] [address] [place] [address] Dr. Preeti Hyman Eosinophils/100 WBC (Bld) 3.7 % Normal 0.9-7.0 [facility] Comment on above: Performed By: #### M YO #### [facility] [address] [place] [address] Dr. Preeti Hyman Erythrocyte distribution width (RBC) [Ratio] 13.5 % Normal 11.0-15.0 [facility] Comment on above: Performed By: #### M YO #### [facility] [address] [place] [address] Dr. Preeti Hyman Hematocrit (Bld) [Volume fraction] 38.3 % Critically low 42.0-54.0 [facility] Comment on above: Performed By: #### M YO #### [facility] [address] [place] [address] Dr. Preeti Hyman Hemoglobin (Bld) [Mass/Vol] 12.3 g/dL Critically low 14.0-18.0 [facility] Comment on above: Performed By: #### M YO #### [facility] [address] [place] [address] Dr. Preeti Hyman IG # 0.01 10e3/ul Normal 0.00-0.03 [facility] Comment on above: Performed By: #### M YO #### [facility] [address] [place] [address] Dr. Preeti Hyman IG % 0.2 % Normal 0.0-0.5 [facility] Comment on above: Performed By: #### M YO #### [facility] [address] [place] [address] Dr. Preeti Hyman LYMPH # 2.4 103/ul Normal 1.2-3.8 [facility] Comment on above: Performed By: #### M YO #### [facility] [address] [place] [address] Dr. Preeti Hyman Lymphocytes/100 WBC (Bld) 58.9 % Normal 20.5-60.0 [facility] Comment on above: Performed By: #### M YO #### [facility] [address] [place] [address] Dr. Preeti Hyman MANUAL DIFF REQ NO Normal [facility] Comment on above: Performed By: #### M YO #### [facility] [address] [place] [address] Dr. Preeti Hyman MCH (RBC) [Entitic mass] 29.6 pg Normal 25.9-34.0 [facility] Comment on above: Performed By: #### M YO #### [facility] [address] [place] [address] Dr. Preeti Hyman MCHC (RBC) [Mass/Vol] 32.1 g/dL Normal 29.9-35.2 [facility] Comment on above: Performed By: #### M YO #### [facility] [address] [place] [address] Dr. Preeti Hyman MCV (RBC) [Entitic vol] 92.3 fL Normal 80.0-94.0 [facility] Comment on above: Performed By: #### M YO #### [facility] [address] [place] [address] Dr. Preeti Hyman MONO # 0.5 103/ul Normal 0.3-0.8 [facility] Comment on above: Performed By: #### M YO #### [facility] [address] [place] [address] Dr. Preeti Hyman Monocytes/100 WBC (Bld) 11.6 % Normal 1.7-12.0 [facility] Comment on above: Performed By: #### M YO #### [facility] [address] [place] [address] Dr. Preeti Hyman NEUT # 1.0 103/ul Critically low 1.4-6.5 [facility] Comment on above: Performed By: #### M YO #### [facility] [address] [place] [address] Dr. Preeti Hyman Neutrophils/100 WBC (Bld) 25.4 % Critically low 43.0-75.0 [facility] Comment on above: Performed By: #### M YO #### [facility] [address] [place] [address] Dr. Preeti Hyman Platelet mean volume (Bld) [Entitic vol] 10.5 fL Normal 9.5-13.5 [facility] Comment on above: Performed By: #### M YO #### [facility] [address] [address] [address] Preeti Hyman PLT 207 103/ul Normal 150-450 [facility] Comment on above: Performed By: #### M YO #### [facility] [address] [place] [address] Dr. Preeti Hyman RBC 4.15 106/ul Critically low 4.70-6.10 [facility] Comment on above: Performed By: #### M YO #### [facility] [address] [place] [address] Dr. Preeti Hyman WBC 4.0 103/ul Normal 4.0-11.0 [facility] Comment on above: Performed By: #### M YO #### [facility] [address] [place] [address] Dr. Preeti Hyman PROF 14(COMP METB)on 023 Albumin [Mass/Vol] 3.0 g/dL Critically low 3.4-5.0 [facility] Comment on above: Performed By: #### C MP #### [facility] [address] [place] [address] Dr. Preeti Hyman Albumin/Globulin [Mass ratio] 0.8 {ratio} Normal [facility] Comment on above: Performed By: #### C MP #### [facility] [address] [place] [address] Dr. Preeti Hyman ALP [Catalytic activity/Vol] 103 U/L Normal 46-116 [facility] Comment on above: Performed By: #### C MP #### [facility] [address] [place] [address] Dr. Preeti Hyman ALT [Catalytic activity/Vol] 20 U/L Normal 16-63 [facility] Comment on above: Performed By: #### C MP #### [facility] [address] [address] [address] Preeti Hyman Anion gap [Moles/Vol] 11.2 mmol/L Normal [facility] Comment on above: Performed By: #### C MP #### [facility] [address] [address] [address] Preeti Hyman AST [Catalytic activity/Vol] 28 U/L Normal 15-37 [facility] Comment on above: Performed By: #### C MP #### [facility] [address] [address] [address] Preeti Hyman Bilirubin [Mass/Vol] 0.3 mg/dL Normal 0.2-1.0 [facility] Comment on above: Performed By: #### C MP #### [facility] [address] [place] [address] Dr. Preeti Hyman Calcium [Mass/Vol] 8.3 mg/dL Critically low 8.5-10.1 [facility] Comment on above: Performed By: #### C MP #### [facility] [address] [place] [address] Dr. Preeti Hyman Chloride [Moles/Vol] 105 mmol/L Normal 98-107 [facility] Comment on above: Performed By: #### C MP #### [facility] [address] [place] [address] Dr. Preeti Hyman CO2 [Moles/Vol] 27.5 mmol/L Normal 21.0-32.0 [facility] Comment on above: Performed By: #### C MP #### [facility] [address] [address] [address] Preeti Hyman Creatinine [Mass/Vol] 0.87 mg/dL Normal 0.70-1.30 [facility] Comment on above: Performed By: #### C MP #### [facility] [address] [place] [address] Dr. Preeti Hyman EGFR-AF [place] >60 Normal >=60 [facility] Comment on above: Performed By: #### C MP #### [facility] [address] [place] [address] Dr. Preeit Hyman EGFR-NON AF [place] >60 Normal >=60 [facility] Comment on above: Performed By: #### C MP #### [facility] [address] [address] [address] Preeti Hyman Globulin (S) [Mass/Vol] 4.0 g/dL Normal [facility] Comment on above: Performed By: #### C MP #### [facility] [address] [address] [address] Preeti Hyman Glucose [Mass/Vol] 93 mg/dL Normal 74-106 [facility] Comment on above: Performed By: #### C MP #### [facility] [address] [address] [address] Preeti Hyman Potassium [Moles/Vol] 3.7 mmol/L Normal 3.5-5.1 [facility] Comment on above: Performed By: #### C MP #### [facility] [address] [place] [address] Dr. Preeti Hyman Protein [Mass/Vol] 7.0 g/dL Normal 6.4-8.2 [facility] Comment on above: Performed By: #### C MP #### [facility] [address] [address] [address] Preeti Hyman Sodium [Moles/Vol] 140 mmol/L Normal 136-145 [facility] Comment on above: Performed By: #### C MP #### [facility] [address] [address] [address] Preeti Hyman Urea nitrogen [Mass/Vol] 16.0 mg/dL Normal 7.0-18.0 [facility] Comment on above: Performed By: #### C MP #### [facility] [address] [address] [address] Preeti Hyman Urea nitrogen/Creatinine [Mass ratio] 18.4 mg/mg Normal [facility] Comment on above: Performed By: #### C MP #### [facility] [address] [place] [address] Dr. Preeti Hyman CBC AUTO DIFFon 04-14-2022 BASO # 0.0 103/ul Normal 0.0-0.1 [facility] Comment on above: Performed By: #### C BC #### [facility] [address] [address] [address] Preeti Hyman Basophils/100 WBC (Bld) 0.2 % Normal 0.2-2.0 [facility] Comment on above: Performed By: #### C BC #### [facility] [address] [place] [address] Dr. Preeti Hyman EO # 0.1 103/ul Normal 0.0-0.7 [facility] Comment on above: Performed By: #### C BC #### [facility] [address] [place] [address] Dr. Preeti Hyman Eosinophils/100 WBC (Bld) 2.2 % Normal 0.9-7.0 [facility] Comment on above: Performed By: #### C BC #### [facility] [address] [place] [address] Dr. Preeti Hyman Erythrocyte distribution width (RBC) [Ratio] 13.4 % Normal 11.0-15.0 [facility] Comment on above: Performed By: #### C BC #### [facility] [address] [place] [address] Dr. Preeti Hyman Hematocrit (Bld) [Volume fraction] 36.3 % Critically low 42.0-54.0 [facility] Comment on above: Performed By: #### C BC #### [facility] [address] [place] [address] Dr. Preeti Hyman Hemoglobin (Bld) [Mass/Vol] 12.1 g/dL Critically low 14.0-18.0 [facility] Comment on above: Performed By: #### C BC #### [facility] [address] [place] [address] Dr. Preeti Hyman IG # 0.01 10e3/ul Normal 0.00-0.03 [facility] Comment on above: Performed By: #### C BC #### [facility] [address] [place] [address] Dr. Preeti Hyman IG % 0.2 % Normal 0.0-0.5 [facility] Comment on above: Performed By: #### C BC #### [facility] [address] [address] [address] Preeti Hyman LYMPH # 2.0 103/ul Normal 1.2-3.8 [facility] Comment on above: Performed By: #### C BC #### [facility] [address] [place] [address] Dr. Preeti Hyman Lymphocytes/100 WBC (Bld) 49.0 % Normal 20.5-60.0 [facility] Comment on above: Performed By: #### C BC #### [facility] [address] [place] [address] Dr. Preeti Hyman MANUAL DIFF REQ NO Normal [facility] Comment on above: Performed By: #### C BC #### [facility] [address] [place] [address] Dr. Preeti Hyman MCH (RBC) [Entitic mass] 30.6 pg Normal 25.9-34.0 [facility] Comment on above: Performed By: #### C BC #### [facility] [address] [place] [address] Dr. Preeti Hyman MCHC (RBC) [Mass/Vol] 33.3 g/dL Normal 29.9-35.2 [facility] Comment on above: Performed By: #### C BC #### [facility] [address] [place] [address] Dr. Preeti Hyman MCV (RBC) [Entitic vol] 91.7 fL Normal 80.0-94.0 [facility] Comment on above: Performed By: #### C BC #### [facility] [address] [place] [address] Dr. Preeti Hyman MONO # 0.5 103/ul Normal 0.3-0.8 [facility] Comment on above: Performed By: #### C BC #### [facility] [address] [place] [address] Dr. Preeti Hyman Monocytes/100 WBC (Bld) 12.1 % Critically high 1.7-12.0 [facility] Comment on above: Performed By: #### C BC #### [facility] [address] [address] [address] Preeti Hyman NEUT # 1.5 103/ul Normal 1.4-6.5 [facility] Comment on above: Performed By: #### C BC #### [facility] [address] [address] [address] Preeti Hyman Neutrophils/100 WBC (Bld) 36.3 % Critically low 43.0-75.0 [facility] Comment on above: Performed By: #### C BC #### [facility] [address] [address] [address] Preeti Hyman Platelet mean volume (Bld) [Entitic vol] 10.6 fL Normal 9.5-13.5 [facility] Comment on above: Performed By: #### C BC #### [facility] [address] [place] [address] Dr. Preeti Hyman PLT 203 103/ul Normal 150-450 [facility] Comment on above: Performed By: #### C BC #### [facility] [address] [place] [address] Dr. Preeti Hyman RBC 3.96 106/ul Critically low 4.70-6.10 [facility] Comment on above: Performed By: #### C BC #### [facility] [address] [address] [address] Preeti Hyman WBC 4.1 103/ul Normal 4.0-11.0 [facility] Comment on above: Performed By: #### C BC #### [facility] [address] [place] [address] Dr. Preeti Hyman PROF 14(COMP METB)on 023 Albumin [Mass/Vol] 2.9 g/dL Critically low 3.4-5.0 [facility] Comment on above: Performed By: #### C MP #### [facility] [address] [place] [address] Dr. Preeti Hyman Albumin/Globulin [Mass ratio] 0.8 {ratio} Normal [facility] Comment on above: Performed By: #### C MP #### [facility] [address] [address] [address] Preeti Hyman ALP [Catalytic activity/Vol] 99 U/L Normal 46-116 [facility] Comment on above: Performed By: #### C MP #### [facility] [address] [address] [address] Preeti Hyman ALT [Catalytic activity/Vol] 16 U/L Normal 16-63 [facility] Comment on above: Performed By: #### C MP #### [facility] [address] [place] [address] Dr. Preeti Hyman Anion gap [Moles/Vol] 11.2 mmol/L Normal [facility] Comment on above: Performed By: #### C MP #### [facility] [address] [place] [address] Dr. Preeti Hyman AST [Catalytic activity/Vol] 27 U/L Normal 15-37 [facility] Comment on above: Performed By: #### C MP #### [facility] [address] [place] [address] Dr. Preeti Hyman Bilirubin [Mass/Vol] 0.2 mg/dL Normal 0.2-1.0 [facility] Comment on above: Performed By: #### C MP #### [facility] [address] [place] [address] Dr. Preeti Hyman Calcium [Mass/Vol] 8.1 mg/dL Critically low 8.5-10.1 [facility] Comment on above: Performed By: #### C MP #### [facility] [address] [place] [address] Dr. Preeti Hyman Chloride [Moles/Vol] 106 mmol/L Normal 98-107 [facility] Comment on above: Performed By: #### C MP #### [facility] [address] [place] [address] Dr. Preeti Hyman CO2 [Moles/Vol] 26.5 mmol/L Normal 21.0-32.0 [facility] Comment on above: Performed By: #### C MP #### [facility] [address] [place] [address] Dr. Preeti Hyman Creatinine [Mass/Vol] 0.98 mg/dL Normal 0.70-1.30 [facility] Comment on above: Performed By: #### C MP #### [facility] [address] [place] [address] Dr. Preeti Hyman EGFR-AF [place] >60 Normal >=60 [facility] Comment on above: Performed By: #### C MP #### [facility] [address] [address] [address] Preeti Hyman EGFR-NON AF [place] >60 Normal >=60 [facility] Comment on above: Performed By: #### C MP #### [facility] [address] [place] [address] Dr. Preeti Hyman Globulin (S) [Mass/Vol] 3.7 g/dL Normal [facility] Comment on above: Performed By: #### C MP #### [facility] [address] [place] [address] Dr. Pereti Hyman Glucose [Mass/Vol] 94 mg/dL Normal 74-106 [facility] Comment on above: Performed By: #### C MP #### [facility] [address] [place] [address] Dr. Preeti Hyman Potassium [Moles/Vol] 3.7 mmol/L Normal 3.5-5.1 [facility] Comment on above: Performed By: #### C MP #### [facility] [address] [place] [address] Dr. Preeti Hyman Protein [Mass/Vol] 6.6 g/dL Normal 6.4-8.2 [facility] Comment on above: Performed By: #### C MP #### [facility] [address] [place] [address] Dr. Preeti Hyman Sodium [Moles/Vol] 140 mmol/L Normal 136-145 [facility] Comment on above: Performed By: #### C MP #### [facility] [address] [place] [address] Dr. Preeti Hyman Urea nitrogen [Mass/Vol] 12.0 mg/dL Normal 7.0-18.0 [facility] Comment on above: Performed By: #### C MP #### [facility] [address] [place] [address] Dr. Preeti Hyman Urea nitrogen/Creatinine [Mass ratio] 12.2 mg/mg Normal [facility] Comment on above: Performed By: #### C MP #### [facility] [address] [place] [address] Dr. Preeti Hyman CBC AUTO DIFFon 04-13-2022 BASO # 0.0 103/ul Normal 0.0-0.1 [facility] Comment on above: Performed By: #### M YO #### [facility] [address] [place] [address] Dr. Preeti Hyman Basophils/100 WBC (Bld) 0.5 % Normal 0.2-2.0 [facility] Comment on above: Performed By: #### M YO #### [facility] [address] [place] [address] Dr. Preeti Hyman EO # 0.2 103/ul Normal 0.0-0.7 [facility] Comment on above: Performed By: #### M YO #### [facility] [address] [place] [address] Dr. Preeti Hyman Eosinophils/100 WBC (Bld) 3.9 % Normal 0.9-7.0 [facility] Comment on above: Performed By: #### M YO #### [facility] [address] [place] [address] Dr. Preeti Hyman Erythrocyte distribution width (RBC) [Ratio] 13.6 % Normal 11.0-15.0 [facility] Comment on above: Performed By: #### M YO #### [facility] [address] [place] [address] Dr. Preeti Hyman Hematocrit (Bld) [Volume fraction] 38.5 % Critically low 42.0-54.0 [facility] Comment on above: Performed By: #### M YO #### [facility] [address] [place] [address] Dr. Preeti Hyman Hemoglobin (Bld) [Mass/Vol] 12.8 g/dL Critically low 14.0-18.0 [facility] Comment on above: Performed By: #### M YO #### [facility] [address] [place] [address] Dr. Preeti Hyman IG # 0.01 10e3/ul Normal 0.00-0.03 [facility] Comment on above: Performed By: #### M YO #### [facility] [address] [place] [address] Dr. Preeti Hyman IG % 0.3 % Normal 0.0-0.5 [facility] Comment on above: Performed By: #### M YO #### [facility] [address] [place] [address] Dr. Preeti Hyman LYMPH # 1.7 103/ul Normal 1.2-3.8 [facility] Comment on above: Performed By: #### M YO #### [facility] [address] [place] [address] Dr. Preeti Hyman Lymphocytes/100 WBC (Bld) 43.6 % Normal 20.5-60.0 [facility] Comment on above: Performed By: #### M YO #### [facility] [address] [place] [address] Dr. Preeti Hyman MANUAL DIFF REQ NO Normal [facility] Comment on above: Performed By: #### M YO #### [facility] [address] [place] [address] Dr. Preeti Hyman MCH (RBC) [Entitic mass] 30.8 pg Normal 25.9-34.0 [facility] Comment on above: Performed By: #### M YO #### [facility] [address] [place] [address] Dr. Preeti Hyman MCHC (RBC) [Mass/Vol] 33.2 g/dL Normal 29.9-35.2 [facility] Comment on above: Performed By: #### M YO #### [facility] [address] [place] [address] Dr. Preeti Hyman MCV (RBC) [Entitic vol] 92.5 fL Normal 80.0-94.0 [facility] Comment on above: Performed By: #### M YO #### [facility] [address] [address] [address] Preeti Hyman MONO # 0.7 103/ul Normal 0.3-0.8 [facility] Comment on above: Performed By: #### M YO #### [facility] [address] [address] [address] Preeti Hyman Monocytes/100 WBC (Bld) 17.3 % Critically high 1.7-12.0 [facility] Comment on above: Performed By: #### M YO #### [facility] [address] [address] [address] Preeti Hyman NEUT # 1.3 103/ul Critically low 1.4-6.[address] [facility] Comment on above: Performed By: #### M YO #### [facility] [address] [place] [address] Dr. Preeti Hyman Neutrophils/100 WBC (Bld) 34.4 % Critically low 43.0-75.0 [facility] Comment on above: Performed By: #### M YO #### [facility] [address] [place] [address] Dr. Preeti Hyman Platelet mean volume (Bld) [Entitic vol] 10.8 fL Normal 9.5-13.5 [facility] Comment on above: Performed By: #### M YO #### [facility] [address] [address] [address] Preeti Hyman PLT 192 103/ul Normal 150-450 [facility] Comment on above: Performed By: #### M YO #### [facility] [address] [address] [address] Preeti Hyman RBC 4.16 106/ul Critically low 4.70-6.10 [facility] Comment on above: Performed By: #### M YO #### [facility] [address] [address] [address] Preeti Hyman WBC 3.8 103/ul Critically low 4.0-11.0 [facility] Comment on above: Performed By: #### M YO #### [facility] [address] [address] [address] Preeti Hyman MYOGLOBINon 04-13-2022 MONISHA 107 ng/mL Critically high 16-96 [facility] Comment on above: Performed By: #### M YO #### [facility] [address] [place] [address] Dr. Preeti Hyman PROF 14(COMP METB)on 023 Albumin [Mass/Vol] 3.0 g/dL Critically low 3.4-5.0 [facility] Comment on above: Performed By: #### C MP #### [facility] [address] [place] [address] Dr. Preeti Hyman Albumin/Globulin [Mass ratio] 0.8 {ratio} Normal [facility] Comment on above: Performed By: #### C MP #### [facility] [address] [place] [address] Dr. Preeti Hyman ALP [Catalytic activity/Vol] 107 U/L Normal 46-116 [facility] Comment on above: Performed By: #### C MP #### [facility] [address] [place] [address] Dr. Preeti Hyman ALT [Catalytic activity/Vol] 17 U/L Normal 16-63 [facility] Comment on above: Performed By: #### C MP #### [facility] [address] [place] [address] Dr. Preeti Hyman Anion gap [Moles/Vol] 11.4 mmol/L Normal [facility] Comment on above: Performed By: #### C MP #### [facility] [address] [place] [address] Dr. Preeti Hyman AST [Catalytic activity/Vol] 28 U/L Normal 15-37 [facility] Comment on above: Performed By: #### C MP #### [facility] [address] [place] [address] Dr. Preeti Hyman Bilirubin [Mass/Vol] 0.2 mg/dL Normal 0.2-1.0 [facility] Comment on above: Performed By: #### C MP #### [facility] [address] [address] [address] Preeti Hyman Calcium [Mass/Vol] 8.0 mg/dL Critically low 8.5-10.1 Th e [facility] Comment on above: Performed By: #### C MP #### [facility] [address] [address] [address] Preeti Hyman Chloride [Moles/Vol] 106 mmol/L Normal 98-107 [facility] Comment on above: Performed By: #### C MP #### [facility] [address] [address] [address] Preeti Hyman CO2 [Moles/Vol] 27.5 mmol/L Normal 21.0-32.0 [facility] Comment on above: Performed By: #### C MP #### [facility] [address] [place] [address] Dr. Preeti Hyman Creatinine [Mass/Vol] 1.00 mg/dL Normal 0.70-1.30 [facility] Comment on above: Performed By: #### C MP #### [facility] [address] [place] [address] Dr. Preeti Hyman EGFR-AF [place] >60 Normal >=60 [facility] Comment on above: Performed By: #### C MP #### [facility] [address] [place] [address] Dr. Preeti Hyman EGFR-NON AF [place] >60 Normal >=60 [facility] Comment on above: Performed By: #### C MP #### [facility] [address] [place] [address] Dr. Preeti Hyman Globulin (S) [Mass/Vol] 4.0 g/dL Normal [facility] Comment on above: Performed By: #### C MP #### [facility] [address] [place] [address] Dr. Preeti Hyman Glucose [Mass/Vol] 87 mg/dL Normal 74-106 [facility] Comment on above: Performed By: #### C MP #### [facility] [address] [place] [address] Dr. Preeti Hyman Potassium [Moles/Vol] 3.9 mmol/L Normal 3.5-5.1 [facility] Comment on above: Performed By: #### C MP #### [facility] [address] [place] [address] Dr. Preeti Hyman Protein [Mass/Vol] 7.0 g/dL Normal 6.4-8.2 [facility] Comment on above: Performed By: #### C MP #### [facility] [address] [address] [address] Preeti Hyman Sodium [Moles/Vol] 141 mmol/L Normal 136-145 [facility] Comment on above: Performed By: #### C MP #### [facility] [address] [place] [address] Dr. Preeti Hyman Urea nitrogen [Mass/Vol] 16.0 mg/dL Normal 7.0-18.0 [facility] Comment on above: Performed By: #### C MP #### [facility] [address] [place] [address] Dr. Preeti Hymna Urea nitrogen/Creatinine [Mass ratio] 16.0 mg/mg Normal [facility] Comment on above: Performed By: #### C MP #### [facility] [address] [place] [address] Dr. Preeti Hyman T4on 04-13-2022 T4 [Mass/Vol] 7.20 ug/dL Normal 4.50-12.10 [facility] Comment on above: Performed By: #### T 4 #### [facility] [address] [place] [address] Dr. Preeti Hyman TSHon 04-13-2022 TSH 2.126 uIU/mL Normal 0.358-3.740 [facility] Comment on above: Performed By: #### M YO #### [facility] [address] [place] [address] Dr. Preeti Hyman CARDIAC KALEIGH ADMITon 023 CK [Catalytic activity/Vol] 237 U/L Normal 39-308 [facility] Comment on above: Performed By: #### M YO #### [facility] [address] [place] [address] Dr. Preeti Hyman CK.MB [Mass/Vol] 2.15 ng/mL Normal <=3.60 The [facility] Comment on above: Performed By: #### M YO #### [facility] [address] [place] [address] Dr. Preeti Hyman HSTROP 9.8 pg/mL Normal 4.0-76.1 [facility] Comment on above: Result Comment: CUT- OFF POINTS HAVE BEEN ESTABLISHED BASED ON THE FOURTH UNIVERSAL DEFINITIONS OF MYOCARDIAL INFARCTION. THE UPPER REFERENCE LIMIT (URL) OF TROPONIN, DEFINED THE 99TH PERCENTILE OF cTnI DISTRIBUTION IN A REFERENCE POPULATION, HAS BEEN CONFIRMED THE DECISION THRESHOLD FOR [place] DIAGNOSIS. Performed By: #### M YO #### [facility] [address] [place] [address] Dr. Preeti Hyman MONISHA 191 ng/mL Critically high 16-96 The [facility] Comment on above: Performed By: #### M YO #### [facility] [address] [place] [address] Dr. Preeti Hyman CBC AUTO DIFFon 04-12-2022 BASO # 0.0 103/ul Normal 0.0-0.1 [facility] Comment on above: Performed By: #### C BC #### [facility] [address] [place] [address] Dr. Preeti Hyman Basophils/100 WBC (Bld) 0.2 % Normal 0.2-2.0 [facility] Comment on above: Performed By: #### C BC #### [facility] [address] [place] [address] Dr. Preeti Hyman EO # 0.0 103/ul Normal 0.0-0.7 [facility] Comment on above: Performed By: #### C BC #### [facility] [address] [place] [address] Dr. Preeti Hyman Eosinophils/100 WBC (Bld) 0.5 % Critically low 0.9-7.0 [facility] Comment on above: Performed By: #### C BC #### [facility] [address] [place] [address] Dr. Preeti Hyman Erythrocyte distribution width (RBC) [Ratio] 13.6 % Normal 11.0-15.0 [facility] Comment on above: Performed By: #### C BC #### [facility] [address] [place] [address] Dr. Preeti Hyman Hematocrit (Bld) [Volume fraction] 40.8 % Critically low 42.0-54.0 [facility] Comment on above: Performed By: #### C BC #### [facility] [address] [place] [address] Dr. Preeti Hyman Hemoglobin (Bld) [Mass/Vol] 13.2 g/dL Critically low 14.0-18.0 [facility] Comment on above: Performed By: #### C BC #### [facility] [address] [place] [address] Dr. Preeti Hyman IG # 0.02 10e3/ul Normal 0.00-0.03 [facility] Comment on above: Performed By: #### C BC #### [facility] [address] [place] [address] Dr. Preeti Hyman IG % 0.5 % Normal 0.0-0.5 [facility] Comment on above: Performed By: #### C BC #### [facility] [address] [place] [address] Dr. Preeti Hyman LYMPH # 1.5 103/ul Normal 1.2-3.8 [facility] Comment on above: Performed By: #### C BC #### [facility] [address] [place] [address] Dr. Preeti Hyman Lymphocytes/100 WBC (Bld) 36.1 % Normal 20.5-60.0 [facility] Comment on above: Performed By: #### C BC #### [facility] [address] [place] [address] Dr. Preeti Hyman MANUAL DIFF REQ NO Normal [facility] Comment on above: Performed By: #### C BC #### [facility] [address] [place] [address] Dr. Preeti Hyman MCH (RBC) [Entitic mass] 30.1 pg Normal 25.9-34.0 [facility] Comment on above: Performed By: #### C BC #### [facility] [address] [place] [address] Dr. Preeti Hyman MCHC (RBC) [Mass/Vol] 32.4 g/dL Normal 29.9-35.2 [facility] Comment on above: Performed By: #### C BC #### [facility] [address] [place] [address] Dr. Preeti Hyman MCV (RBC) [Entitic vol] 92.9 fL Normal 80.0-94.0 [facility] Comment on above: Performed By: #### C BC #### [facility] [address] [place] [address] Dr. Preeti Hyman MONO # 1.0 103/ul Critically high 0.3-0.8 [facility] Comment on above: Performed By: #### C BC #### [facility] [address] [place] [address] Dr. Preeti Hyman Monocytes/100 WBC (Bld) 23.6 % Critically high 1.7-12.0 [facility] Comment on above: Performed By: #### C BC #### [facility] [address] [place] [address] Dr. Preeti Hyman NEUT # 1.6 103/ul Normal 1.4-6.5 [facility] Comment on above: Performed By: #### C BC #### [facility] [address] [place] [address] Dr. Preeti Hyman Neutrophils/100 WBC (Bld) 39.1 % Critically low 43.0-75.0 [facility] Comment on above: Performed By: #### C BC #### [facility] [address] [place] [address] Dr. Preeti Hyman Platelet mean volume (Bld) [Entitic vol] 10.9 fL Normal 9.5-13.5 [facility] Comment on above: Performed By: #### C BC #### [facility] [address] [place] [address] Dr. Preeti Hyman PLT 171 103/ul Normal 150-450 [facility] Comment on above: Performed By: #### C BC #### [facility] [address] [place] [address] Dr. Preeti Hyman RBC 4.39 106/ul Critically low 4.70-6.10 [facility] Comment on above: Performed By: #### C BC #### [facility] [address] [place] [address] Dr. Preeti Hyman WBC 4.2 103/ul Normal 4.0-11.0 [facility] Comment on above: Performed By: #### C BC #### [facility] [address] [place] [address] Dr. Preeti Hyman [facility] SARS-CoV-2 (COVID-19) RNA GAVINO+probe Ql (Unsp spec) Detected Abnormal NOT DETECTED [facility] Comment on above: Result Comment: This test is not yet approved or cleared by the [place] FDA. When there are no FDA-approved or cleared tests available, and other criteria are met, FDA can make tests available under an emergency access mechanism called an Emergency Use Authorization (EUA). The EUA for this test is supported by the [place] of Health and Human Service's declaration that circumstances exist to justify the emergency use of in vitro diagnostics for the detection and/or diagnosis of the virus that causes COVID-19. This EUA will remain in effect for the duration of the COVID-19 declaration justifying emergency of IVDs, unless it is terminated or revoked by the FDA (after which the test may no longer be used). Performed By: #### M YO #### [facility] [address] [place] [address] Dr. Preeti Hyman ER URINE PROFILEon 3 Bilirubin Ql (U) Negative Normal NEGATIVE The [facility] Comment on above: Performed By: #### E RUR #### [facility] [address] [place] [address] Dr. Preeti Hyman Clarity (U) CLEAR Normal CLEAR [facility] Comment on above: Performed By: #### E RUR #### [facility] [address] [place] [address] Dr. Preeti Hyman Color (U) LT. YELLOW Normal YELLOW [facility] Comment on above: Performed By: #### E RUR #### [facility] [address] [place] [address] Dr. Preeti MADERA A micrscopic examination will be performed if indicated. Normal [facility] Comment on above: Performed By: #### E RUR #### [facility] [address] [place] [address] Dr. Preeti Hyman Glucose Ql (U) Negative Normal NEGATIVE [facility] Comment on above: Performed By: #### E RUR #### [facility] [address] [place] [address] Dr. Preeti Hyman Hemoglobin Ql (U) Negative Normal NEGATIVE [facility] Comment on above: Performed By: #### E RUR #### [facility] [address] [place] [address] Dr. Preeti Hyman Ketones Ql (U) Negative Normal NEGATIVE [facility] Comment on above: Performed By: #### E RUR #### [facility] [address] [place] [address] Dr. Preeti Hyman LEUKOCYTES Negative Normal NEGATIVE [facility] Comment on above: Performed By: #### E RUR #### [facility] [address] [place] [address] Dr. Preeti Hyman Nitrite Ql (U) Negative Normal NEGATIVE [facility] Comment on above: Performed By: #### E RUR #### [facility] [address] [place] [address] Dr. Preeti Hyman pH (U) 5.5 [pH] Normal 5-9 [facility] Comment on above: Performed By: #### E RUR #### [facility] [address] [place] [address] Dr. Preeti Hyman SPEC GRAVITY 1.015 Normal 1.005-<=1.025 The [facility] Comment on above: Performed By: #### E RUR #### [facility] [address] [place] [address] Dr. Preeti Hyman UA PROTEIN Negative Normal NEGATIVE/ TRACE [facility] Comment on above: Performed By: #### E RUR #### [facility] [address] [place] [address] Dr. Preeti Hyman UR MICRO IND NOT INDICATED Normal [facility] Comment on above: Performed By: #### E RUR #### [facility] [address] [place] [address] Dr. Preeti Hyman Urobilinogen Qn (U) 0.2 {Comfort'U}/dL Normal 0.2 - 1. 0 [facility] Comment on above: Performed By: #### E RUR #### [facility] [address] [place] [address] Dr. Preeti Hyman INFLUENZA A AND B AGon 04-12 INFLUANE SEE BELOW Normal [facility] Comment on above: Result Comment: Nega tive for Flu A protein angiten. Infection due to Flu A cannot be ruled out. Flu A angiten in the sample may be below the detection limit of the test. Performed By: #### I NFLUAB #### [facility] [address] [place] [address] Dr. Preeti Hyman INFLUBNEGH SEE BELOW Normal [facility] Comment on above: Result Comment: Nega tive for Flu B protein antigen. Infection due to Flu B cannot be ruled out. Flu B antigen in the sample may be below the detection limit of the test. Performed By: #### I NFLUAB #### [facility] [address] [place] [address] Dr. Preeti Hyman INFLUENZA A AG Negative Normal NEGATIVE SEE COMMENT [facility] Comment on above: Performed By: #### I NFLUAB #### [facility] [address] [place] [address] Dr. Preeti Hyman INFLUENZA B AG Negative Normal NEGATIVE SEE COMMENT [facility] Comment on above: Performed By: #### I NFLUAB #### [facility] [address] [place] [address] Dr. Preeit Hyman LIPASEon 04-12-2022 Lipase [Catalytic activity/Vol] 101.0 U/L Normal 73.0-393.0 [facility] Comment on above: Performed By: #### C MP, CMADM, LIPA #### [facility] [address] [place] [address] Dr. Preeti Hyman PROF 14(COMP METB)on 023 Albumin [Mass/Vol] 3.3 g/dL Critically low 3.4-5.0 Th e [facility] Comment on above: Performed By: #### M YO #### [facility] [address] [place] [address] Dr. Preeti Hyman Albumin/Globulin [Mass ratio] 0.8 {ratio} Normal [facility] Comment on above: Performed By: #### M YO #### [facility] [address] [place] [address] Dr. Preeti Hyman ALP [Catalytic activity/Vol] 114 U/L Normal 46-116 [facility] Comment on above: Performed By: #### M YO #### [facility] [address] [place] [address] Dr. Preeti Hyman ALT [Catalytic activity/Vol] 19 U/L Normal 16-63 [facility] Comment on above: Performed By: #### M YO #### [facility] [address] [place] [address] Dr. Preeti Hyman Anion gap [Moles/Vol] 10.2 mmol/L Normal [facility] Comment on above: Performed By: #### M YO #### [facility] [address] [place] [address] Dr. Preeti Hyman AST [Catalytic activity/Vol] 25 U/L Normal 15-37 [facility] Comment on above: Performed By: #### M YO #### [facility] [address] [place] [address] Dr. Preeti Hyman Bilirubin [Mass/Vol] 0.1 mg/dL Critically low 0.2-1.0 [facility] Comment on above: Performed By: #### M YO #### [facility] [address] [place] [address] Dr. Preeti Hyman Calcium [Mass/Vol] 8.2 mg/dL Critically low 8.5-10.1 Th [facility] Comment on above: Performed By: #### M YO #### [facility] [address] [place] [address] Dr. Preeti Hyman Chloride [Moles/Vol] 103 mmol/L Normal 98-107 [facility] Comment on above: Performed By: #### M YO #### [facility] [address] [place] [address] Dr. Preeti Hyman CO2 [Moles/Vol] 29.3 mmol/L Normal 21.0-32.0 [facility] Comment on above: Performed By: #### M YO #### [facility] [address] [place] [address] Dr. Preeti Hyman Creatinine [Mass/Vol] 1.24 mg/dL Normal 0.70-1.30 [facility] Comment on above: Performed By: #### M YO #### [facility] [address] [place] [address] Dr. Preeti Hyman EGFR-AF [place] >60 Normal >=60 [facility] Comment on above: Performed By: #### M YO #### [facility] [address] [place] [address] Dr. Preeti Hyman EGFR-NON AF [place] 57 mL/min/1.73m2 Critically low >=60 [facility] Comment on above: Performed By: #### M YO #### [facility] [address] [place] [address] Dr. Preeti Hyman Globulin (S) [Mass/Vol] 4.3 g/dL Normal [facility] Comment on above: Performed By: #### M YO #### [facility] [address] [address] [address] Preeti Hyman Glucose [Mass/Vol] 129 mg/dL Critically high 74-106 T [facility] Comment on above: Performed By: #### M YO #### [facility] [address] [place] [address] Dr. Preeti Hyman Potassium [Moles/Vol] 4.3 mmol/L Normal 3.5-5.1 [facility] Comment on above: Performed By: #### M YO #### [facility] [address] [address] [address] Preeti Hyman Protein [Mass/Vol] 7.6 g/dL Normal 6.4-8.2 [facility] Comment on above: Performed By: #### M YO #### [facility] [address] [address] [address] Preeti Hyman Sodium [Moles/Vol] 139 mmol/L Normal 136-145 [facility] Comment on above: Performed By: #### M YO #### [facility] [address] [address] [address] Preeti Hyman Urea nitrogen [Mass/Vol] 16.0 mg/dL Normal 7.0-18.0 [facility] Comment on above: Performed By: #### M YO #### [facility] [address] [address] [address] Preeti Hyman Urea nitrogen/Creatinine [Mass ratio] 12.9 mg/mg Normal [facility] Comment on above: Performed By: #### M YO #### [facility] [address] [address] [address] Preeti Hyman XR CHEST 1 Von 04-12-2022 XR CHEST 1 V EXAM: XR CHEST 1 V a t 1504 hours HISTORY: COUGH COMPARISON: 06/04/2019 TECHNIQUE: AP upright portable chest x-ray FINDINGS: The study is limited by shallow inspiration. The heart appears enlarged with some prominence of the central pulmonary vasculature. There is no clear evidence of a focal infiltrate, effusion or pneumothorax. The osseous structures are grossly intact. IMPRESSION: The mild cardiac enlargement and prominence of the central pulmonary vasculature are probably related to shallow inspiration. A definite infiltrate or overt cardiac decompensation is not identified in the overall appearance is essentially unchanged. A follow-up study encouraging the patient to take a deep inspiration is recommended. Electronically authenticated by: KOKO HUNTLEY Date: 2022-04-12 15:35 Normal [facility] Encounters Encounter Date Encounter Type Care Provider Facility Start: 07-10-2022 End: 07-10-[address] JONATHAN GIORDANO . Facility:[facility] Start: 04-23-2022 Patient encounter procedure David Matos ELECTRIC FRYING PAN REPAIRER.SHOE SINGER Work Phone: [facility] Start: 04-23-2022 Progress Note David OWENS RN.SHOE SINGER Work Phone: [facility] Start: 04-19-2022 Patient encounter procedure David Matos APRN.SHOE SINGER Work Phone: [facility] Start: 04-19-2022 Progress Note David OWENS RN.SHOE SINGER Work Phone: [facility] Start: 04-17-2022 Patient encounter procedure Itri Regino Rodney Work Phone: [facility] Start: 04-17-2022 Progress Note Itri A Rodney Work Phone: [facility] [employer] Start: 04-12-2022 End: 04-17-2022 Evaluation and management of inpatient DR JONATHAN GIORDANO . Facility: Payers Date Payer Category Payer Medicare UHC MEDICARE UHC MEDICARE ADVANTAGE PPO [id number] 2022-Present [phone] [address] [address] [place] [address] PPO [id number] 2019 Unknown [id number] 1960 Medicare [id number] 1945 Unknown [id number] 1945 Unknown [id number] Social History Date Type Detail Facility [facility] Start: 1945 Sex Assigned At Not on file [facility] History of Present illness Narrative 04-23-2022 David Matos APRN.SHOE SINGER - 04/23/2022 12:00 AM EST Note Date & Type Note Facility 04-23-2022 History of Presen t illness Narrative [facility] NOTE NAME: JONNY HENNESSY NO.: [id number] DATE OF SERVICE: 04/23/2022 [facility] DATE OF : 1945 REASON FOR VISIT: The patient is a resident of [facility]. This is a skilled visit for COVID-19, recurrent falls and other medical concerns. The patient has graduated from isolation yesterday, is now off of isolation precautions. Patient's roommate continues to be in isolation until Friday. Prior to entering the room, donned full PPE, entered patient's room and found patient calm, alert, sitting that in chair and taking morning meal. The patient states he has no concerns and is requesting to go home. The patient states he has been up walking around with assistance of walker in his room. The patient states does have neuropathy and does have some elements of unsteadiness, but states this is not unusual. States he lives in a single roni dwelling and does have a handicap accessible bathroom. The patient states at this time he has no pain. No cough, no shortness of breath. No fever, chills, or nausea. States he has been eating and drinking well, states bowels have been moving. Denies urinary symptoms. Medications have been reviewed. EXAMINATION: Temperature is 97.5, blood pressure 149/71, pulse 78, respirations 18, and pulse ox 95% on room air. Weight 217 pounds. Respiratory: Respirations are easy and unlabored with patient at rest. Lung sounds are clear. Heart: Heart rate and rhythm regular. Abdomen: Soft, nontender to palpation. Bowel sounds are present x4. Extremities: Not edematous with some compression stockings noted to be on. IMPRESSION AND PLAN: 1. Personal history of coronavirus disease-19. The patient has no symptoms at this time. He has albuterol inhaler as needed. Continue to encourage fluids. The patient is being looked on for discharge at this time. 2. Recurrent falls with generalized weakness. No fall have been reported since being in the [facility]. The patient states has been up and ambulating normally. 3. Peripheral neuropathy. This is not new for patient and does take Tylenol as needed. 4. Anemia. Hemoglobin is 13.7, hematocrit 40.6. 5. Abnormal laboratory findings. BUN and creatinine ratio is slightly high. Hemoglobin and hematocrit are slightly low. All other laboratories are within normal range. LABORATORY DATA: Labs reviewed from April 19, 2022. Basic metabolic panel; abnormals are BUN, creatinine ratio 23. All other labs are within normal range. CBC without diff; abnormals are hemoglobin 13.7 and hematocrit 40.6. All other labs are within normal range. DICTATED BY: JULIA Bates JOB# [id number] cc:[facility] documented in this encounter [facility] History of Present illness Narrative 04-19-2022 David Matos APRN.SHOE SINGER - 04/19/2022 12:00 AM EST Note Date & Type Note Facility 04-19-2022 History of Presen t illness Narrative [facility] NOTE NAME: JONNY HENNESSY NO.: [id number] DATE OF SERVICE: 04/19/2022 [facility] DATE OF : 1945 REASON FOR VISIT: The patient is a resident of [facility]. This is a skilled visit for COVID-19 and other medical concerns. Prior to entering the room, donned full PPE, entered patient's room and found the patient calm, alert, sitting in chair. The patient does not appear to be in distress or discomfort. The patient is pleasant in conversation and smiling, appears to be in good spirits. The patient states he has no complaints and states has been up walking with a walker and states feels also he has increased in his stamina. The patient states no pain, no cough, no shortness of breath. No fever, chills, or nausea. States appetite is good and bowels have been moving. States has been drinking fluids. Denies urinary symptoms. MEDICATIONS: Have been reviewed. EXAMINATION: Temp 98.0, blood pressure 137/79, pulse 74, respirations 17, pulse ox 96% on room air, weight 217 pounds. Respiratory: Respirations are easy and unlabored with patient at rest. Lung sounds are clear. Heart: Heart rate and rhythm regular. Abdomen: Soft and nontender with palpation. Bowel sounds present x4. Extremities: Very mildly edematous with compression stockings noted to be on. IMPRESSION AND PLAN: 1. COVID-19. The patient is currently under isolation, has guaifenesin and albuterol. Continue to encourage fluids. The patient is stable without complaints at this time. 2. Recurrent falls. The patient will continue with therapy services. 3. Peripheral neuropathy, on Tylenol as needed. 4. Iron deficiency anemia and abnormal lab findings. The patient will have followup lab work performed. DICTATED BY: JULIA Bates/Ozzy JOB# [id number] cc:[facility] documented in this encounter [facility] History of Present illness Narrative 04-17-2022 Itri A Rodney - 04/17/2022 12:00 AM EST Note Date & Type Note Facility 04-17-2022 History of Presen t illness Narrative [facility] NOTE NAME: JONNY HENNESSY NO.: [id number] DATE OF SERVICE: 04/17/2022 [facility] DATE OF : 1945 NEW PATIENT HISTORY AND PHYSICAL HISTORY OF PRESENT ILLNESS: The patient is a 76-year-old male who is admitted to us from [facility] with a diagnosis of acute COVID infection, acute/recurrent falls, dehydration, severe peripheral neuropathy, history of bronchitis, previous cataract surgery, status post lumbar spine L4 kyphoplasty 2018, and generalized weakness. He initially presented to the hospital with progressive weakness with recurrent falls. Evaluation in the hospital did reveal him to be positive for COVID infection. Family members at home currently were also positive. The patient was started on Paxlovid. He was also given IV fluids for mild dehydration. He was also noted to have mild anemia. His condition stabilized and improved and he is now admitted to our facility for continued therapy prior to returning back to his home where he lives with family. REVIEW OF SYSTEMS: He is currently sitting up in bed. He is alert and responsive. He does admit to still feeling quite weak. He has had a slight cough and sore throat with his COVID infection. He denies any past smoking history. No change in his vision or hearing. He denies any head trauma or loss of consciousness with his recent falls. He is not aware of any heart problems. No chest pain or angina, palpitations, previous heart attacks, heart surgeries or pacemakers. He denies hypertension. His appetite has been fair. No bleeding ulcers, hepatitis, or melena. No prior strokes or seizures, diabetes mellitus, bleeding problems or blood clots. Once again, he has had severe neuropathy involving his lower extremities, for which he has undergone workup in the past as an outpatient. FAMILY HISTORY: Significant for hypertension. SOCIAL/FUNCTIONAL HISTORY: He denies smoking or alcohol abuse. 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 Once again, he has been living with family. MEDICATIONS: Albuterol inhaler p.r.n., aspirin 81 mg 2 tablets daily, Paxlovid b.i.d. through April 17, 2022, and MiraLax p.r.n. ALLERGIES: No known drug allergies. EXAMINATION: Afebrile, vital signs are stable. He is in no distress. He appears chronically ill. HEENT: Extraocular muscles intact, sclerae are nonicteric. Ears intact. Lungs: Clear with decreased breath sounds at the bases. Heart: Regular. Abdomen: Soft. Nontender. Extremities: With no edema. No ischemia or cyanosis. He does have significant generalized weakness in his lower extremities. IMPRESSIONS: 1. Acute COVID infection - the patient will complete current course of Paxlovid. Monitor his respiratory status closely. His only symptoms at this time include a mild cough and a sore throat. He is vaccinated and booster x2. 2. Acute/recurrent falls - most likely related to his generalized weakness as well as underlying peripheral neuropathy involving his lower extremities. Fall precautions are present. He will be receiving rehab services including physical therapy for gait training and strengthening. 3. Mild iron deficiency anemia - no signs of active bleeding. We will obtain followup CBC, monitor blood counts closely. 4. Elevated myoglobin - most likely related to his falls. His overall condition and prognosis is quite guarded. We will obtain followup labs including CBC and BMP. He will be returning home upon completion of his therapy. DICTATED BY: MD ROXANE Pierce/Ozzy JOB# [id number] cc:[facility] documented in this encounter [facility] Summary Purpose Family History No Family History Records Found Advance Directives No Advanced Directives Records Found Additional Source Comments Source Comments (unrecognize d section and content) In the event this informatio n is protected by the Federal Confidentiality of Alcohol and Drug Abuse Patient Records regulations: The Federal rules restrict any use of the information to criminally investigate or prosecute any alcohol or drug abuse patient.[facility] the event this information is protected by the Federal Confidentiality of Alcohol and Drug Abuse Patient Records regulations: The Federal rules restrict any use of the information to criminally investigate or prosecute any alcohol or drug abuse patient.[facility] the event this information is protected by the Federal Confidentiality of Alcohol and Drug Abuse Patient Records regulations: The Federal rules restrict any use of the information to criminally investigate or prosecute any alcohol or drug abuse patient.[facility] (unrecognized sect ion and content) No Status Records Found INFORMATION SOURCE (unrecogn ized section and content) DATE CREATED AUTHOR 07/15/2022 [facility] FOR RECORDS PERTAINING TO PATIENTS WHO ARE OR HAVE BEEN ENROLLED IN A CHEMICAL DEPENDENCY/SUBSTANCEABUSE PROGRAM, SOME INFORMATION MAY BE OMITTED. This clinical summary was aggregated from multiple sources. Caution should be exercised in using it in the provision of clinical care. This summary normalizes information from multiple sources, and as a consequence, information in this document may materially change the coding, format and clinical context of patient data. In addition, data may be omitted in some cases. CLINICAL DECISIONS SHOULD BE BASED ON THE PRIMARY CLINICAL RECORDS. [facility] [employer] [facility] provides no warranty or guarantee of the accuracy or completeness of information in this document.
--- NOTE | 2023-04-03 21:21 | XR_ITS ---
The [address] [address] Patient Name: LEIGH ANN HENNESSY MRN: [id number] date: 1945 Sex: M Assigned Patient Location: ED.MAIN Current Patient Location: ER Accession/Order Number: [id number] Exam Date: 04/03/2023 22:33 Report Date: 04/03/2023 22:58 At the request of: CLARITA MARKER Procedure: XR chest 1V EXAM: XR chest 1V HISTORY: SOB COMPARISON: Chest x-ray 04/12/2022 TECHNIQUE: Single AP radiograph of the chest FINDINGS: No pneumothorax. Left basilar linear opacities favored to represent atelectasis. Normal heart size. No effusion. No acute osseous abnormality. XR/XR chest 1V IMPRESSION: Linear opacity at the left lung base favored to represent atelectasis. Otherwise, no acute cardiopulmonary process. Electronically authenticated by: ANGELO PATE Date: 04/03/2023 22:58
--- NOTE | 2023-04-03 21:21 | ECG_ITS ---
The [facility] Test Date: 2023-04-03 Pat Name: LEIGH ANN HENNESSY Department: Room: - Gender: Male Band Tacker: : 1945 Requested By: [id number] Order Number: [id number] Reading MD: CHUCK MILLAN Measurements Intervals [place] Rate: 100 P: 70 [place]: 162 QRS: -43 QRSD: 110 T: 72 QT: 348 QTc: 405 Interpretive Statements 1120 Sinus tachycardia 7200 Abnormal left axis deviation 9140 abnormal rhythm ECG Compared to ECG 12/18/2022 09:33:12 Sinus rhythm no longer present Ventricular premature complex(es) no longer present Electronically Signed On 04-04-2023 7:08:20 EST by CHUCK MILLAN
[2023-04-03] MEDS: 0.9 % SODIUM CHLORIDE 1,000 ML 1000 ML IV (21:33)
[2023-04-03] MEDS: ONDANSETRON PF 4 MG/2 ML VIAL IV (21:33)
--- NOTE | 2023-04-03 21:33 | ED_ITS ---
HPI - SOB/Dyspnea General Chief Complaint: Shortness of Breath/Dyspnea Stated Complaint: cough Time Seen by Provider: 04/03/23 21:19 Source: family and other Source comment: ems REPORT Mode of arrival: ambulance Limitations: other Limitations comment: Pt on CPAP on arrival History of Present Illness HPI Narrative: This 77-year-old male is brought to emergency department by EMS from home. History is obtained from the paramedics who obtained information from the patient's daughter. Apparently he has recently been admitted to the [facility] for pneumonia. He was home tonight and was in the shower when his daughter heard him vomiting and then he had trouble breathing. Upon EMS arrival he was having difficulty breathing and was given 2 nebulizer treatments of placed on CPAP. Upon arrival he states he is having trouble breathing but denies any chest pain. He does not recall if he choked on his vomit when he threw up. Patient's [id number] arrived after he arrived. He has been home from the [facility] for 3 weeks. He has been having respiratory issues for the past several weeks and has chronic respiratory issues. She states that coughs very thick, caffeine like clear and sometimes yellow secretions and has trouble sometimes coughing them up. She is fairly certain that he aspirated tonight after vomiting. She states that he requested her to call the ambulance because he could not breathe. She states she now appears to be doing better and has pinked up and appears to be breathing more easily. He has been on Augmentin for 15 days[address] PCP [address] Dr Galvez Related Data Home Medications Medication Instructions Recorded Confirmed No Known Home Medications 12/17/22 12/17/22 Previous Rx's Medication Instructions Recorded calcium carbonate 200 mg calcium 500 mg (2.5 x 200 mg calcium (500 12/20/22 (500 mg) chewable tablet mg)) PO TID #90 tabs ferrous sulfate 325 mg (65 mg 325 mg PO BID #60 tabs 12/20/22 iron) tablet hydrocodone 5 mg-acetaminophen 325 1 tab PO Q6H PRN pain (scale score 12/20/22 mg tablet 7-10) #120 tabs Allergies Allergy/AdvReac Type Severity Reaction Status Date / Time No Known Drug Allergies Allergy Verified 12/17/22 23:21 Review of Systems ROS Status of ROS 10 or more systems reviewed and unremark able except as noted in history and below [facility] Medical History (Updated 04/04/23 @ 00:51 by Gloria Castillo MD) Neuropathy ?G62.9 - Polyneuropathy, unspecified (ICD-10) Peripheral neuropathy ?G62.9 - Polyneuropathy, unspecified (ICD-10) Bilateral edema of lower extremity ?R60.0 - Localized edema (ICD-10) Abrasion of knee, left ?S80.212A - Abrasion, left knee, initial encounter (ICD-10) Closed fracture of left hip ?S72.002A - Fracture of unspecified part of neck of left femur, initial encounter for closed fracture (ICD-10) Surgical History (Updated 12/18/22 @ 06:44 by Nilsa Arzate) Hx of tonsillectomy ?Z90.89 - Acquired absence of other organs (ICD-10) Previous back surgery ?Z98.890 - Other specified postprocedural states (ICD-10) Family History (Updated 12/18/22 @ 06:42 by Nilsa Arzate) Father Family history of hypertension Family history of stroke Social History (Updated 12/18/22 @ 06:41 by Nilsa Arzate) Within the past year, how often did you have a drink containing alcohol: never Score interpretation: A score less than 4 is consistent with normal alcohol consumption. Smoking status: Never smoker Non-prescribed substance use: denies use Previous occupational history: retired Highest level of school completed/degree received: some college, no degree Are you now , , , , never or living with a partner: In a typical week, how many times do you talk on the telephone with family, friends, or neighbors: 3 or more times per week How often do you get together with friends or relatives: 3 or more times per week How often do you attend druze or sikhism services: 1-3 times per year Little interest or pleasure in doing things: not at all Feeling down, depressed, or hopeless: not at all Feel stressed/tense/nervous/anxious/difficulty sleeping: not at all Do you think of yourself as: straight/heterosexual Gender Identity: male Exam Narrative Exam Narrative: Nurses note and vital signs reviewed; Patient is afebrile, mildly tachycardic with a pulse of 106, he is on CPAP, blood gas pending General: Skin: Warm, dry, no pallor noted. There is no rash noted. Head: Normocephalic, atraumatic Eye: Normal conjunctiva, no drainage, EOMI. PERRL Ears, Nose, Mouth, and Throat: oral mucosa is moist. Nares patent. Mouth without vesicles. Ear canals patent. Tm's without Erythema Cardiovascular: Regular Rate and Rhythm Respiratory: Patient is in no distress, no accessory muscle use, lungs are clear to auscultation, no wheezing, rales or rhonchi Back: non-tender, no CVA tenderness bilaterally to percussion. GI: Normal bowel sounds, no tenderness to palpation, no masses appreciated. No rebound, guarding, or rigidity noted. Musculoskeletal: The patient has no evidence of calf tenderness, no pitting edema, symmetrical pulses noted bilaterally Neurological: A&O x4, normal speech Psychiatric: Cooperative Constitutional Vital Signs, click to edit/add: Last Vital Signs Temp 98.5 F 04/03/23 23:27 Pulse 95 H 04/04/23 00:20 Resp 22 04/04/23 00:20 BP 123/76 04/04/23 00:15 Pulse Ox 98 04/04/23 00:20 O2 Del Method CPAP 04/03/23 21:52 FiO2 50 04/03/23 21:10 Course Vital Signs Vital signs: Vital Signs Pulse Oximetry 84 L 04/03/23 21:08 Temperature 98.5 F 04/03/23 23:27 Pulse Rate 95 H 04/04/23 00:20 Respiratory Rate 22 04/04/23 00:20 Blood Pressure 123/76 04/04/23 00:15 Pulse Oximetry 98 04/04/23 00:20 Oxygen Delivery Method CPAP 04/03/23 21:52 Fraction of Inspired Oxygen 50 04/03/23 21:10 MDM - SOB/Dyspnea MDM Narrative Medical decision making narrative: This 77-year-old male with a history of chronic lung disease who was recently at the [facility] after he was diagnosed with pneumonia. The patient is nonweightbearing and wheelchair bound due to severe neuropathy. He is currently living at home. He was in the shower tonight and his stepdaughter heard him vomiting and then he had severe difficulty breathing. She called EMS his request. Upon EMS arrival they stated that he was almost agonal. He was given 2 breathing treatments and placed on CPAP with clinical improvement. His stepdaughter is fairly certain that he aspirated when he vomited. Upon arrival he was taken to room 4. He was maintained on the CPAP except when he has to cough and spit up phlegm. An EKG done upon arrival Sinus tachycardia. An IV had been placed by EMS and he had been given 125 mg of Solu-Medrol prior to arrival. Routine labs were ordered and are reviewed. He has a normal white count and hemoglobin. He has a normal troponin. 2 sets of blood cultures were ordered and are pending. Lactic acid was slightly elevated at 2.3. He had a normal pH on his blood gas, with a mild elevation in his pCO2 at 48, oxygen saturation was 99% on his ABG however he was on CPAP when it was drawn. When he was briefly removed from the CPAP, he was noted to desaturate. Chest x-ray was reviewed by radiology and does not show any sign of acute infiltrate at this time however does show some chronic changes. In light of the witness aspiration he was medicated with IV Zosyn, empiric coverage for aspiration pneumonia. He has remained awake and alert and hemodynamic stable in the emergency department. He is alert, conversant and appropriate without respiratory distress on the CPAP. The case was discussed with the hospitalist and he is accepted for admission to the ICU. Medical Records Medical records narrative: The [address] [address] XRay Report Signed Patient: LEIGH ANN HENNESSY MR#: [id number] : 1945 Acct:[id number] Age/Sex: 77 / M ADM Date: 04/03/23 Loc: ER Attending Dr: Ordering Physician: Gloria Castillo Date of Service: 04/03/23 Procedure(s): XR chest 1V Accession Number(s): [id number] cc: Gloria Castillo; Physician,Non-Staff M.D.~ The [address] [id number] Patient Name: LEIGH ANN HENNESSY MRN: [id number] date: 1945 Sex: M Assigned Patient Location: ED.MAIN Current Patient Location: ER Accession/Order Number: [id number] Exam Date: 04/03/2023 22:33 Report Date: 04/03/2023 22:58 At the request of: GLORIA CASTILLO Procedure: XR chest 1V EXAM: XR chest 1V HISTORY: SOB COMPARISON: Chest x-ray 04/12/2022 TECHNIQUE: Single AP radiograph of the chest FINDINGS: No pneumothorax. Left basilar linear opacities favored to represent atelectasis. Normal heart size. No effusion. No acute osseous abnormality. XR/XR chest 1V IMPRESSION: Linear opacity at the left lung base favored to represent atelectasis. Otherwise, no acute cardiopulmonary process. Electronically authenticated by: ANGELO PATE Date: 04/03/2023 22:58 Lab Data Attestation: I reviewed the patient's lab results. Labs: Lab Results 04/03/23 04/03/23 Range/Units 21:36 22:04 WBC 10.4 (4.0-11.0) 10^3/uL RBC 4.11 L (4.70-6.10) 10^6/uL Hgb 12.4 L (14.0-18.0) g/dL Hct 39.6 L (42.0-54.0) % MCV 96.4 H (80.0-94.0) fL MCH 30.2 (25.9-34.0) pg MCHC 31.3 (29.9-35.2) g/dL RDW 13.5 (11.0-15.0) % Plt Count 285 (150-450) 10^3/uL MPV 10.5 (9.5-13.5) fL Neut % (Auto) 83.7 H (43.0-75.0) % Lymph % (Auto) 9.8 L (20.5-60.0) % [place] % (Auto) 3.5 (1.7-12.0) % Eos % (Auto) 2.4 (0.9-7.0) % Baso % (Auto) 0.2 (0.2-2.0) % Neut # (Auto) 8.7 H (1.4-6.5) 10^3/uL Lymph # (Auto) 1.0 L (1.2-3.8) 10^3/uL [place] # (Auto) 0.4 (0.3-0.8) 10^3/uL Eos # (Auto) 0.3 (0.0-0.7) 10^3/uL Baso # (Auto) 0.0 (0.0-0.1) 10^3/uL Abs Immat Gran (auto) 0.04 H (0.00-0.03) 10^3/uL Imm/Tot Granulo (auto) 0.4 (0.0-0.5) % Puncture Site R radial ABG pH 7.344 L (7.350-7.450) ABG pCO2 48.8 H (35.0-45.0) mmHg ABG pO2 125.0 H (80.0-100.0) mmHg ABG HCO3 26.5 H (22.0-26.0) mmol/L ABG O2 Saturation 99.2 % ABG Base Excess 0.8 (-2.0-2.0) mmol/L Cesar Test Positive (POSITIVE) FiO2 50 % BiPAP 16/8 Sodium 137 (136-145) mmol/L Potassium 4.1 (3.5-5.1) mmol/L Chloride 102 (98-107) mmol/L Carbon Dioxide 30.3 (21.0-32.0) mmol/L Anion Gap 8.8 BUN 14.0 (7.0-18.0) mg/dL Creatinine 1.08 (0.70-1.30) mg/dL Est GFR ( Amer) >60 (>=60) Est GFR (Non-Af Amer) >60 (>=60) BUN/Creatinine Ratio 13.0 Glucose 156 H (74-106) mg/dL Lactate 2.3 H* (0.4-2.0) mmol/L Calcium 9.1 (8.5-10.1) mg/dL Total Bilirubin 0.2 (0.2-1.0) mg/dL AST 32 (15-37) U/L ALT 33 (16-63) U/L Alkaline Phosphatase 152 H (46-116) U/L Troponin I High Sens 30.4 (4.0-76.1) pg/mL NT-Pro-B Natriuret Pep 39.0 (<=1800.0) pg/mL Total Protein 8.7 H (6.4-8.2) g/dL Albumin 3.2 L (3.4-5.0) g/dL Globulin 5.5 g/dL Albumin/Globulin Ratio 0.6 ECG Data Attestation: I personally reviewed and interpreted this ECG as follows: (Sinus tachycardia at 100 bpm, left axis deviation, nonspecific ST changes, no acute ST segment elevation or T-wave inversion) Critical Care Time Critical Care Time Total Critical Care Time: 35 Attestation: . Discharge Plan Discharge Chief Complaint: Shortness of Breath/Dyspnea Clinical Impression: Aspiration into airway, Acute respiratory distress Patient Disposition: Admitted as Observation Time of Disposition Decision: 00:50 Condition: Fair Discharge Date/Time: 04/04/23 00:36
--- NOTE | 2023-04-03 21:42 | PC.NURSE ---
Pt presents to ER via EMS on CPAP Transferred to out CPAP Machine by RT Noble - Current settings 13/11 at 50% Pt has been home from the [facility] for 3 weeks Pt was at the [facility] hip fracture for rehab where he contracted pneumonia Per step daughter at bedside pt has been having a lot of thick mucus over the last several weeks that prevents him from wanting to eat or drink Pt's step daughter states tonight she was in the shower and heard him yelling for her Pt had thrown up and seemingly choked on it She states pt was anxious, flailing, and unable to breathe EMS arrived and immediately placed him on CPAP Pt has been on Augmenting for 15 days, 5 days left of treatment prophylactically prescribed by Dr. Galvez due to his respiratory symptoms On arrival pt is A&Ox4 able to follow commands pt is anxious and fearful An 18 gauge IV was established by squad in route, pt was given 125 of solu medrol and 2 breathing treatments by EMS Pt's daughter also states that pt has to sit up all the time, if he lies back he is unable to breathe, pt is wheelchair bound due to severe neuropathy and sleeps in a recliner
[2023-04-03 21:44] LABS: ABG PCO2 48.8 mmHg (35.0-45.0); Allen Test POSITIVE (POSITIVE); BIPAP Pressure 16/8; Base Excess ABG 0.8 mmol/L (-2.0-2.0); Fractionated Inspired Oxygen 50 %; HCO3 ABG 26.5 mmol/L (22.0-26.0); O2 Mode BIPAP; Oxygen Saturation ABG 99.2 %; Puncture Site R RADIAL; pH ABG 7.344 (7.350-7.450)
[2023-04-03] MEDS: PIPERACILLIN SODIUM/TAZOBACTAM 3.375 GM in 0.9 % SODIUM CHLORIDE 50 ML IV (22:14)
[2023-04-03 22:29] LABS: Basophils Percent Auto 0.2 % (0.2-2.0); Eosinophils Absolute Auto 0.3 10^3/uL (0.0-0.7); Eosinophils Percent Auto 2.4 % (0.9-7.0); Hematocrit 39.6 % (42.0-54.0); Hemoglobin 12.4 g/dL (14.0-18.0); Immature Granulocytes Abs Auto 0.04 10^3/uL (0.00-0.03); Immature Granulocytes Pct Auto 0.4 % (0.0-0.5); Lymphocytes Percent Auto 9.8 % (20.5-60.0); Mean Corpuscular HGB Conc 31.3 g/dL (29.9-35.2); Mean Corpuscular Hemoglobin 30.2 pg (25.9-34.0); Mean Corpuscular Volume 96.4 fL (80.0-94.0); Mean Platelet Volume 10.5 fL (9.5-13.5); Monocytes Absolute Auto 0.4 10^3/uL (0.3-0.8); Monocytes Percent Auto 3.5 % (1.7-12.0); Neutrophils Absolute Auto 8.7 10^3/uL (1.4-6.5); Neutrophils Percent Auto 83.7 % (43.0-75.0); Platelet Count 285 10^3/uL (150-450); Red Blood Count 4.11 10^6/uL (4.70-6.10); Red Cell Distribution Width 13.5 % (11.0-15.0); White Blood Count 10.4 10^3/uL (4.0-11.0)
[2023-04-03 22:55] LABS: Troponin I High Sensitivity 30.4 pg/mL (4.0-76.1)
[2023-04-03 22:56] LABS: Alanine Aminotransferase 33 U/L (16-63); Albumin Globulin Ratio 0.6; Albumin Level 3.2 g/dL (3.4-5.0); Alkaline Phosphatase 152 U/L (46-116); Anion Gap 8.8; Aspartate Amino Transferase 32 U/L (15-37); Bilirubin Total 0.2 mg/dL (0.2-1.0); Calcium 9.1 mg/dL (8.5-10.1); Carbon Dioxide 30.3 mmol/L (21.0-32.0); Chloride 102 mmol/L (98-107); Estimated GFR (African America >60 (>=60); Estimated GFR (Non-African Ame >60 (>=60); Globulin 5.5 g/dL; Glucose 156 mg/dL (74-106); Potassium 4.1 mmol/L (3.5-5.1); Sodium 137 mmol/L (136-145); Total Protein 8.7 g/dL (6.4-8.2)
[2023-04-03 22:57] LABS: Lactate/Lactic Acid 2.3 mmol/L (0.4-2.0)
[2023-04-03] MEDS: MAGNESIUM SULFATE IN WATER 2 GM/50 ML PREMIX IV (23:08)
[2023-04-04] VITALS (110 sets, daily range): BP systolic 111–146; BP diastolic 66–87; PULSE 86–108; RESP 0–33; TEMP 36.6–37.2; O2SAT 91–99; BMI 29.3
--- OUTSIDE RECORDS SUMMARY | 2023-04-04 00:42 | XMS_ITS | CCD ---
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 Preeti Hyman Basophils/100 WBC (Bld) 0.2 % Normal 0.2-2.0 [facility] Comment on above: Performed By: #### M YO #### [facility] [address] [address] [address] Preeti Hyman EO # 0.2 103/ul Normal 0.0-0.7 [facility] Comment on above: Performed By: #### M YO #### [facility] [address] [place] [address] Dr. Preeti Hyman Eosinophils/100 WBC (Bld) 3.7 % Normal 0.9-7.0 [facility] Comment on above: Performed By: #### M YO #### [facility] [address] [place] [address] Dr. Preeti Hyman Erythrocyte distribution width (RBC) [Ratio] 13.5 % Normal 11.0-15.0 [facility] Comment on above: Performed By: #### M YO #### [facility] [address] [place] [address] Dr. Preeti Hyman Hematocrit (Bld) [Volume fraction] 38.3 % Critically low 42.0-54.0 [facility] Comment on above: Performed By: #### M YO #### [facility] [address] [place] [address] Dr. Preeti Hyman Hemoglobin (Bld) [Mass/Vol] 12.3 g/dL Critically low 14.0-18.0 [facility] Comment on above: Performed By: #### M YO #### [facility] [address] [place] [address] Dr. Preeti Hyman IG # 0.01 10e3/ul Normal 0.00-0.03 [facility] Comment on above: Performed By: #### M YO #### [facility] [address] [place] [address] Dr. Preeti Hyman IG % 0.2 % Normal 0.0-0.5 [facility] Comment on above: Performed By: #### M YO #### [facility] [address] [place] [address] Dr. Preeti Hyman LYMPH # 2.4 103/ul Normal 1.2-3.8 [facility] Comment on above: Performed By: #### M YO #### [facility] [address] [place] [address] Dr. Preeti Hyman Lymphocytes/100 WBC (Bld) 58.9 % Normal 20.5-60.0 [facility] Comment on above: Performed By: #### M YO #### [facility] [address] [place] [address] Dr. Preeti Hyman MANUAL DIFF REQ NO Normal [facility] Comment on above: Performed By: #### M YO #### [facility] [address] [place] [address] Dr. Preeti Hyman MCH (RBC) [Entitic mass] 29.6 pg Normal 25.9-34.0 [facility] Comment on above: Performed By: #### M YO #### [facility] [address] [place] [address] Dr. Preeti Hyman MCHC (RBC) [Mass/Vol] 32.1 g/dL Normal 29.9-35.2 [facility] Comment on above: Performed By: #### M YO #### [facility] [address] [place] [address] Dr. Preeti Hyman MCV (RBC) [Entitic vol] 92.3 fL Normal 80.0-94.0 [facility] Comment on above: Performed By: #### M YO #### [facility] [address] [place] [address] Dr. Preeti Hyman MONO # 0.5 103/ul Normal 0.3-0.8 [facility] Comment on above: Performed By: #### M YO #### [facility] [address] [place] [address] Dr. Preeti Hyman Monocytes/100 WBC (Bld) 11.6 % Normal 1.7-12.0 [facility] Comment on above: Performed By: #### M YO #### [facility] [address] [place] [address] Dr. Preeti Hyman NEUT # 1.0 103/ul Critically low 1.4-6.5 [facility] Comment on above: Performed By: #### M YO #### [facility] [address] [place] [address] Dr. Preeti Hyman Neutrophils/100 WBC (Bld) 25.4 % Critically low 43.0-75.0 [facility] Comment on above: Performed By: #### M YO #### [facility] [address] [place] [address] Dr. Preeti Hyman Platelet mean volume (Bld) [Entitic vol] 10.5 fL Normal 9.5-13.5 [facility] Comment on above: Performed By: #### M YO #### [facility] [address] [address] [address] Preeti Hyman PLT 207 103/ul Normal 150-450 [facility] Comment on above: Performed By: #### M YO #### [facility] [address] [place] [address] Dr. Preeti Hyman RBC 4.15 106/ul Critically low 4.70-6.10 [facility] Comment on above: Performed By: #### M YO #### [facility] [address] [place] [address] Dr. Preeti Hyamn WBC 4.0 103/ul Normal 4.0-11.0 [facility] Comment on above: Performed By: #### M YO #### [facility] [address] [place] [address] Dr. Preeti Hyman PROF 14(COMP METB)on 023 Albumin [Mass/Vol] 3.0 g/dL Critically low 3.4-5.0 [facility] Comment on above: Performed By: #### C MP #### [facility] [address] [place] [address] Dr. Preeti Hyman Albumin/Globulin [Mass ratio] 0.8 {ratio} Normal [facility] Comment on above: Performed By: #### C MP #### [facility] [address] [place] [address] Dr. Preeti Hyman ALP [Catalytic activity/Vol] 103 U/L Normal 46-116 [facility] Comment on above: Performed By: #### C MP #### [facility] [address] [place] [address] Dr. Preeti Hyman ALT [Catalytic activity/Vol] 20 U/L Normal 16-63 [facility] Comment on above: Performed By: #### C MP #### [facility] [address] [address] [address] Preeti yHman Anion gap [Moles/Vol] 11.2 mmol/L Normal [facility] Comment on above: Performed By: #### C MP #### [facility] [address] [address] [address] Preeti Hyman AST [Catalytic activity/Vol] 28 U/L Normal 15-37 [facility] Comment on above: Performed By: #### C MP #### [facility] [address] [address] [address] Preeti Hyman Bilirubin [Mass/Vol] 0.3 mg/dL Normal 0.2-1.0 [facility] Comment on above: Performed By: #### C MP #### [facility] [address] [place] [address] Dr. Preeti Hyman Calcium [Mass/Vol] 8.3 mg/dL Critically low 8.5-10.1 [facility] Comment on above: Performed By: #### C MP #### [facility] [address] [place] [address] Dr. Preeti Hyman Chloride [Moles/Vol] 105 mmol/L Normal 98-107 [facility] Comment on above: Performed By: #### C MP #### [facility] [address] [place] [address] Dr. Preeti Hyman CO2 [Moles/Vol] 27.5 mmol/L Normal 21.0-32.0 [facility] Comment on above: Performed By: #### C MP #### [facility] [address] [address] [address] Preeti Hyman Creatinine [Mass/Vol] 0.87 mg/dL Normal 0.70-1.30 [facility] Comment on above: Performed By: #### C MP #### [facility] [address] [place] [address] Dr. Preeti Hyman EGFR-AF SWISS >60 Normal >=60 [facility] Comment on above: Performed By: #### C MP #### [facility] [address] [place] [address] Dr. Preeti Hyman EGFR-NON AF SWISS >60 Normal >=60 [facility] Comment on above: Performed By: #### C MP #### [facility] [address] [address] [address] Preeti Hyman Globulin (S) [Mass/Vol] 4.0 g/dL Normal [facility] Comment on above: Performed By: #### C MP #### [facility] [address] [address] [address] Preeti Hyman Glucose [Mass/Vol] 93 mg/dL Normal 74-106 [facility] Comment on above: Performed By: #### C MP #### [facility] [address] [address] [address] Preeti Hyman Potassium [Moles/Vol] 3.7 mmol/L Normal 3.5-5.1 [facility] Comment on above: Performed By: #### C MP #### [facility] [address] [place] [address] Dr. Preeti Hyman Protein [Mass/Vol] 7.0 g/dL Normal 6.4-8.2 [facility] Comment on above: Performed By: #### C MP #### [facility] [address] [address] [address] Preeti Hyman Sodium [Moles/Vol] 140 mmol/L Normal 136-145 [facility] Comment on above: Performed By: #### C MP #### [facility] [address] [address] [address] Preeti Hyman Urea nitrogen [Mass/Vol] 16.0 mg/dL Normal 7.0-18.0 [facility] Comment on above: Performed By: #### C MP #### [facility] [address] [address] [address] Preeti Hyman Urea nitrogen/Creatinine [Mass ratio] 18.4 mg/mg Normal [facility] Comment on above: Performed By: #### C MP #### [facility] [address] [place] [address] Dr. Preeti Hyman CBC AUTO DIFFon 04-14-2022 BASO # 0.0 103/ul Normal 0.0-0.1 [facility] Comment on above: Performed By: #### C BC #### [facility] [address] [address] [address] Preeti Hyman Basophils/100 WBC (Bld) 0.2 % Normal 0.2-2.0 [facility] Comment on above: Performed By: #### C BC #### [facility] [address] [place] [address] Dr. Preeti Hyman EO # 0.1 103/ul Normal 0.0-0.7 [facility] Comment on above: Performed By: #### C BC #### [facility] [address] [place] [address] Dr. Preeti Hyman Eosinophils/100 WBC (Bld) 2.2 % Normal 0.9-7.0 [facility] Comment on above: Performed By: #### C BC #### [facility] [address] [place] [address] Dr. Preeti Hyman Erythrocyte distribution width (RBC) [Ratio] 13.4 % Normal 11.0-15.0 [facility] Comment on above: Performed By: #### C BC #### [facility] [address] [place] [address] Dr. Preeti Hyman Hematocrit (Bld) [Volume fraction] 36.3 % Critically low 42.0-54.0 [facility] Comment on above: Performed By: #### C BC #### [facility] [address] [place] [address] Dr. Preeti Hyman Hemoglobin (Bld) [Mass/Vol] 12.1 g/dL Critically low 14.0-18.0 [facility] Comment on above: Performed By: #### C BC #### [facility] [address] [place] [address] Dr. Preeti Hyman IG # 0.01 10e3/ul Normal 0.00-0.03 [facility] Comment on above: Performed By: #### C BC #### [facility] [address] [place] [address] Dr. Preeti Hyman IG % 0.2 % Normal 0.0-0.5 [facility] Comment on above: Performed By: #### C BC #### [facility] [address] [address] [address] Preeti Hyman LYMPH # 2.0 103/ul Normal 1.2-3.8 [facility] Comment on above: Performed By: #### C BC #### [facility] [address] [place] [address] Dr. Preeti Hyman Lymphocytes/100 WBC (Bld) 49.0 % Normal 20.5-60.0 [facility] Comment on above: Performed By: #### C BC #### [facility] [address] [place] [address] Dr. Preeti Hyman MANUAL DIFF REQ NO Normal [facility] Comment on above: Performed By: #### C BC #### [facility] [address] [place] [address] Dr. Preeti Hyman MCH (RBC) [Entitic mass] 30.6 pg Normal 25.9-34.0 [facility] Comment on above: Performed By: #### C BC #### [facility] [address] [place] [address] Dr. Preeti Hyman MCHC (RBC) [Mass/Vol] 33.3 g/dL Normal 29.9-35.2 [facility] Comment on above: Performed By: #### C BC #### [facility] [address] [place] [address] Dr. Preeti Hyman MCV (RBC) [Entitic vol] 91.7 fL Normal 80.0-94.0 [facility] Comment on above: Performed By: #### C BC #### [facility] [address] [place] [address] Dr. Preeti Hyman MONO # 0.5 103/ul Normal 0.3-0.8 [facility] Comment on above: Performed By: #### C BC #### [facility] [address] [place] [address] Dr. Preeti Hyman Monocytes/100 WBC (Bld) 12.1 % Critically high 1.7-12.0 [facility] Comment on above: Performed By: #### C BC #### [facility] [address] [address] [address] Preeti Hyman NEUT # 1.5 103/ul Normal 1.4-6.5 [facility] Comment on above: Performed By: #### C BC #### [facility] [address] [address] [address] Preeti Hyman Neutrophils/100 WBC (Bld) 36.3 % Critically low 43.0-75.0 [facility] Comment on above: Performed By: #### C BC #### [facility] [address] [address] [address] Preeti Hyman Platelet mean volume (Bld) [Entitic vol] 10.6 fL Normal 9.5-13.5 [facility] Comment on above: Performed By: #### C BC #### [facility] [address] [place] [address] Dr. Preeti Hyman PLT 203 103/ul Normal 150-450 [facility] Comment on above: Performed By: #### C BC #### [facility] [address] [place] [address] Dr. Preeti Hyman RBC 3.96 106/ul Critically low 4.70-6.10 [facility] Comment on above: Performed By: #### C BC #### [facility] [address] [address] [address] Preeti Hyman WBC 4.1 103/ul Normal 4.0-11.0 [facility] Comment on above: Performed By: #### C BC #### [facility] [address] [place] [address] Dr. Preeti Hyman PROF 14(COMP METB)on 023 Albumin [Mass/Vol] 2.9 g/dL Critically low 3.4-5.0 [facility] Comment on above: Performed By: #### C MP #### [facility] [address] [place] [address] Dr. Preeti Hyman Albumin/Globulin [Mass ratio] 0.8 {ratio} Normal [facility] Comment on above: Performed By: #### C MP #### [facility] [address] [address] [address] Preeti Hyman ALP [Catalytic activity/Vol] 99 U/L Normal 46-116 [facility] Comment on above: Performed By: #### C MP #### [facility] [address] [address] [address] Preeti Hyman ALT [Catalytic activity/Vol] 16 U/L Normal 16-63 [facility] Comment on above: Performed By: #### C MP #### [facility] [address] [place] [address] Dr. Preeti Hyman Anion gap [Moles/Vol] 11.2 mmol/L Normal [facility] Comment on above: Performed By: #### C MP #### [facility] [address] [place] [address] Dr. Preeti Hyman AST [Catalytic activity/Vol] 27 U/L Normal 15-37 [facility] Comment on above: Performed By: #### C MP #### [facility] [address] [place] [address] Dr. Preeti Hyman Bilirubin [Mass/Vol] 0.2 mg/dL Normal 0.2-1.0 [facility] Comment on above: Performed By: #### C MP #### [facility] [address] [place] [address] Dr. Preeti Hyman Calcium [Mass/Vol] 8.1 mg/dL Critically low 8.5-10.1 Th [facility] Comment on above: Performed By: #### C MP #### [facility] [address] [place] [address] Dr. Preeti Hyman Chloride [Moles/Vol] 106 mmol/L Normal 98-107 [facility] Comment on above: Performed By: #### C MP #### [facility] [address] [place] [address] Dr. Preeti Hyman CO2 [Moles/Vol] 26.5 mmol/L Normal 21.0-32.0 [facility] Comment on above: Performed By: #### C MP #### [facility] [address] [place] [address] Dr. Preeti Hyman Creatinine [Mass/Vol] 0.98 mg/dL Normal 0.70-1.30 [facility] Comment on above: Performed By: #### C MP #### [facility] [address] [place] [address] Dr. Preeti Hyman EGFR-AF SWISS >60 Normal >=60 [facility] Comment on above: Performed By: #### C MP #### [facility] [address] [address] [address] Preeti Hyman EGFR-NON AF SWISS >60 Normal >=60 [facility] Comment on above: Performed By: #### C MP #### [facility] [address] [place] [address] Dr. Preeti Hyman Globulin (S) [Mass/Vol] 3.7 g/dL Normal [facility] Comment on above: Performed By: #### C MP #### [facility] [address] [place] [address] Dr. Preeti Hyman Glucose [Mass/Vol] 94 mg/dL Normal 74-106 [facility] Comment on above: Performed By: #### C MP #### [facility] [address] [place] [address] Dr. Preeti Hyman Potassium [Moles/Vol] 3.7 mmol/L Normal 3.5-5.1 [facility] Comment on above: Performed By: #### C MP #### [facility] [address] [place] [address] Dr. Preeti Hyman Protein [Mass/Vol] 6.6 g/dL Normal 6.4-8.2 [facility] Comment on above: Performed By: #### C MP #### [facility] [address] [place] [address] Dr. Preeti Hyman Sodium [Moles/Vol] 140 mmol/L Normal 136-145 [facility] Comment on above: Performed By: #### C MP #### [facility] [address] [place] [address] Dr. Preeti Hyman Urea nitrogen [Mass/Vol] 12.0 mg/dL Normal 7.0-18.0 [facility] Comment on above: Performed By: #### C MP #### [facility] [address] [place] [address] Dr. Preeti Hyman Urea nitrogen/Creatinine [Mass ratio] 12.2 mg/mg Normal [facility] Comment on above: Performed By: #### C MP #### [facility] [address] [place] [address] Dr. Preeti Hyman CBC AUTO DIFFon 04-13-2022 BASO # 0.0 103/ul Normal 0.0-0.1 [facility] Comment on above: Performed By: #### M YO #### [facility] [address] [place] [address] Dr. Preeti Hyman Basophils/100 WBC (Bld) 0.5 % Normal 0.2-2.0 [facility] Comment on above: Performed By: #### M YO #### [facility] [address] [place] [address] Dr. Preeti Hyman EO # 0.2 103/ul Normal 0.0-0.7 [facility] Comment on above: Performed By: #### M YO #### [facility] [address] [place] [address] Dr. Preeti Hyman Eosinophils/100 WBC (Bld) 3.9 % Normal 0.9-7.0 [facility] Comment on above: Performed By: #### M YO #### [facility] [address] [place] [address] Dr. Preeti Hyman Erythrocyte distribution width (RBC) [Ratio] 13.6 % Normal 11.0-15.0 [facility] Comment on above: Performed By: #### M YO #### [facility] [address] [place] [address] Dr. Preeti Hyman Hematocrit (Bld) [Volume fraction] 38.5 % Critically low 42.0-54.0 [facility] Comment on above: Performed By: #### M YO #### [facility] [address] [place] [address] Dr. Preeti Hyman Hemoglobin (Bld) [Mass/Vol] 12.8 g/dL Critically low 14.0-18.0 [facility] Comment on above: Performed By: #### M YO #### [facility] [address] [place] [address] Dr. Preeti Hyman IG # 0.01 10e3/ul Normal 0.00-0.03 [facility] Comment on above: Performed By: #### M YO #### [facility] [address] [place] [address] Dr. Preeti Hyman IG % 0.3 % Normal 0.0-0.5 [facility] Comment on above: Performed By: #### M YO #### [facility] [address] [place] [address] Dr. Preeti Hyman LYMPH # 1.7 103/ul Normal 1.2-3.8 [facility] Comment on above: Performed By: #### M YO #### [facility] [address] [place] [address] Dr. Preeti Hyman Lymphocytes/100 WBC (Bld) 43.6 % Normal 20.5-60.0 [facility] Comment on above: Performed By: #### M YO #### [facility] [address] [place] [address] Dr. Preeti Hyman MANUAL DIFF REQ NO Normal [facility] Comment on above: Performed By: #### M YO #### [facility] [address] [place] [address] Dr. Preeti Hyman MCH (RBC) [Entitic mass] 30.8 pg Normal 25.9-34.0 [facility] Comment on above: Performed By: #### M YO #### [facility] [address] [place] [address] Dr. Preeti Hyman MCHC (RBC) [Mass/Vol] 33.2 g/dL Normal 29.9-35.2 [facility] Comment on above: Performed By: #### M YO #### [facility] [address] [place] [address] Dr. Preeti Hyman MCV (RBC) [Entitic vol] 92.5 fL Normal 80.0-94.0 [facility] Comment on above: Performed By: #### M YO #### [facility] [address] [address] [address] Preeti Hyman MONO # 0.7 103/ul Normal 0.3-0.8 [facility] Comment on above: Performed By: #### M YO #### [facility] [address] [address] [address] Preeti Hyman Monocytes/100 WBC (Bld) 17.3 % Critically high 1.7-12.0 [facility] Comment on above: Performed By: #### M YO #### [facility] [address] [address] [address] Preeti Hyman NEUT # 1.3 103/ul Critically low 1.4-6.5 [facility] Comment on above: Performed By: #### M YO #### [facility] [address] [place] [address] Dr. Preeti Hyman Neutrophils/100 WBC (Bld) 34.4 % Critically low 43.0-75.0 [facility] Comment on above: Performed By: #### M YO #### [facility] [address] [place] [address] Dr. Preeti Hyman Platelet mean volume (Bld) [Entitic vol] 10.8 fL Normal 9.5-13.5 [facility] Comment on above: Performed By: #### M YO #### [facility] [address] [address] [address] Preeti Hyman PLT 192 103/ul Normal 150-450 [facility] Comment on above: Performed By: #### M YO #### [facility] [address] [address] [address] Preeti Hyman RBC 4.16 106/ul Critically low 4.70-6.10 [facility] Comment on above: Performed By: #### M YO #### [facility] [address] [address] [address] Preeti Hyman WBC 3.8 103/ul Critically low 4.0-11.0 The [facility] Comment on above: Performed By: #### M YO #### [facility] [address] [address] [address] Preeti Hyman MYOGLOBINon 04-13-2022 MONISHA 107 ng/mL Critically high 16-96 [facility] Comment on above: Performed By: #### M YO #### [facility] [address] [place] [address] Dr. Preeti Hyman PROF 14(COMP METB)on 023 Albumin [Mass/Vol] 3.0 g/dL Critically low 3.4-5.0 Th [facility] Comment on above: Performed By: #### C MP #### [facility] [address] [place] [address] Dr. Preeti Hyman Albumin/Globulin [Mass ratio] 0.8 {ratio} Normal [facility] Comment on above: Performed By: #### C MP #### [facility] [address] [place] [address] Dr. Preeti Hyman ALP [Catalytic activity/Vol] 107 U/L Normal 46-116 [facility] Comment on above: Performed By: #### C MP #### [facility] [address] [place] [address] Dr. Preeti Hyman ALT [Catalytic activity/Vol] 17 U/L Normal 16-63 [facility] Comment on above: Performed By: #### C MP #### [facility] [address] [place] [address] Dr. Preeti Hyman Anion gap [Moles/Vol] 11.4 mmol/L Normal [facility] Comment on above: Performed By: #### C MP #### [facility] [address] [place] [address] Dr. Preeti Hyman AST [Catalytic activity/Vol] 28 U/L Normal 15-37 [facility] Comment on above: Performed By: #### C MP #### [facility] [address] [place] [address] Dr. Preeti Hyman Bilirubin [Mass/Vol] 0.2 mg/dL Normal 0.2-1.0 [facility] Comment on above: Performed By: #### C MP #### [facility] [address] [address] [address] Preeti Hyman Calcium [Mass/Vol] 8.0 mg/dL Critically low 8.5-10.1 Th e [facility] Comment on above: Performed By: #### C MP #### [facility] [address] [address] [address] Preeti Hyman Chloride [Moles/Vol] 106 mmol/L Normal 98-107 [facility] Comment on above: Performed By: #### C MP #### [facility] [address] [address] [address] Preeti Hyman CO2 [Moles/Vol] 27.5 mmol/L Normal 21.0-32.0 [facility] Comment on above: Performed By: #### C MP #### [facility] [address] [place] [address] Dr. Preeti Hyman Creatinine [Mass/Vol] 1.00 mg/dL Normal 0.70-1.30 [facility] Comment on above: Performed By: #### C MP #### [facility] [address] [place] [address] Dr. Preeti Hyman EGFR-AF SWISS >60 Normal >=60 [facility] Comment on above: Performed By: #### C MP #### [facility] [address] [place] [address] Dr. Preeti Hyman EGFR-NON AF SWISS >60 Normal >=60 [facility] Comment on above: Performed By: #### C MP #### [facility] [address] [place] [address] Dr. Preeti Hyman Globulin (S) [Mass/Vol] 4.0 g/dL Normal [facility] Comment on above: Performed By: #### C MP #### [facility] [address] [place] [address] Dr. Preeti Hyman Glucose [Mass/Vol] 87 mg/dL Normal 74-106 [facility] Comment on above: Performed By: #### C MP #### [facility] [address] [place] [address] Dr. Preeti Hyman Potassium [Moles/Vol] 3.9 mmol/L Normal 3.5-5.1 [facility] Comment on above: Performed By: #### C MP #### [facility] [address] [place] [address] Dr. Preeti Hyman Protein [Mass/Vol] 7.0 g/dL Normal 6.4-8.2 [facility] Comment on above: Performed By: #### C MP #### [facility] [address] [address] [address] Preeti Hyman Sodium [Moles/Vol] 141 mmol/L Normal 136-145 The [facility] Comment on above: Performed By: #### C MP #### [facility] [address] [place] [address] Dr. Preeit Hyman Urea nitrogen [Mass/Vol] 16.0 mg/dL Normal 7.0-18.0 [facility] Comment on above: Performed By: #### C MP #### [facility] [address] [place] [address] Dr. Preeti Hyman Urea nitrogen/Creatinine [Mass ratio] 16.0 mg/mg Normal [facility] Comment on above: Performed By: #### C MP #### [facility] [address] [place] [address] Dr. Preeti Hyman T4on 04-13-2022 T4 [Mass/Vol] 7.20 ug/dL Normal 4.50-12.10 [facility] Comment on above: Performed By: #### T 4 #### [facility] [address] [place] [address] Dr. Preeti Hyman TSHon 04-13-2022 TSH 2.126 uIU/mL Normal 0.358-3.740 [facility] Comment on above: Performed By: #### M YO #### [facility] [address] [place] [address] Dr. Preeti Hyman CARDIAC KALEIGH ADMITon 023 CK [Catalytic activity/Vol] 237 U/L Normal 39-308 [facility] Comment on above: Performed By: #### M YO #### [facility] [address] [place] [address] Dr. Preeti Hyman CK.MB [Mass/Vol] 2.15 ng/mL Normal <=3.60 [facility] Comment on above: Performed By: #### M YO #### [facility] [address] [place] [address] Dr. Preeti Hyman HSTROP 9.8 pg/mL Normal 4.0-76.1 The [facility] Comment on above: Result Comment: CUT- OFF POINTS HAVE BEEN ESTABLISHED BASED ON THE FOURTH UNIVERSAL DEFINITIONS OF MYOCARDIAL INFARCTION. THE UPPER REFERENCE LIMIT (URL) OF TROPONIN, DEFINED THE 99TH PERCENTILE OF cTnI DISTRIBUTION IN A REFERENCE POPULATION, HAS BEEN CONFIRMED THE DECISION THRESHOLD FOR CO DIAGNOSIS. Performed By: #### M YO #### [facility] [address] [place] [address] Dr. Preeti Hyman MONISHA 191 ng/mL Critically high 16-96 [facility] Comment on above: Performed By: #### M YO #### [facility] [address] [place] [address] Dr. Preeti Hyman CBC AUTO DIFFon 04-12-2022 BASO # 0.0 103/ul Normal 0.0-0.1 [facility] Comment on above: Performed By: #### C BC #### [facility] [address] [place] [address] Dr. Preeti Hyman Basophils/100 WBC (Bld) 0.2 % Normal 0.2-2.0 [facility] Comment on above: Performed By: #### C BC #### [facility] [address] [place] [address] Dr. Preeti Hyman EO # 0.0 103/ul Normal 0.0-0.7 The [facility] Comment on above: Performed By: #### C BC #### [facility] [address] [place] [address] Dr. Preeti Hyman Eosinophils/100 WBC (Bld) 0.5 % Critically low 0.9-7.0 The [facility] Comment on above: Performed By: #### C BC #### [facility] [address] [place] [address] Dr. Preeti Hyman Erythrocyte distribution width (RBC) [Ratio] 13.6 % Normal 11.0-15.0 [facility] Comment on above: Performed By: #### C BC #### [facility] [address] [place] [address] Dr. Preeti Hyman Hematocrit (Bld) [Volume fraction] 40.8 % Critically low 42.0-54.0 [facility] Comment on above: Performed By: #### C BC #### [facility] [address] [place] [address] Dr. Preeti Hyman Hemoglobin (Bld) [Mass/Vol] 13.2 g/dL Critically low 14.0-18.0 [facility] Comment on above: Performed By: #### C BC #### [facility] [address] [place] [address] Dr. Preeti Hyman IG # 0.02 10e3/ul Normal 0.00-0.03 [facility] Comment on above: Performed By: #### C BC #### [facility] [address] [place] [address] Dr. Preeti Hyman IG % 0.5 % Normal 0.0-0.5 [facility] Comment on above: Performed By: #### C BC #### [facility] [address] [place] [address] Dr. Preeti Hyman LYMPH # 1.5 103/ul Normal 1.2-3.8 [facility] Comment on above: Performed By: #### C BC #### [facility] [address] [place] [address] Dr. Preeti Hyman Lymphocytes/100 WBC (Bld) 36.1 % Normal 20.5-60.0 [facility] Comment on above: Performed By: #### C BC #### [facility] [address] [place] [address] Dr. Preeti Hyman MANUAL DIFF REQ NO Normal [facility] Comment on above: Performed By: #### C BC #### [facility] [address] [place] [address] Dr. Preeti Hyman MCH (RBC) [Entitic mass] 30.1 pg Normal 25.9-34.0 [facility] Comment on above: Performed By: #### C BC #### [facility] [address] [place] [address] Dr. Preeti Hyman MCHC (RBC) [Mass/Vol] 32.4 g/dL Normal 29.9-35.2 [facility] Comment on above: Performed By: #### C BC #### [facility] [address] [place] [address] Dr. Preeti Hyman MCV (RBC) [Entitic vol] 92.9 fL Normal 80.0-94.0 [facility] Comment on above: Performed By: #### C BC #### [facility] [address] [place] [address] Dr. Preeti Hyman MONO # 1.0 103/ul Critically high 0.3-0.8 [facility] Comment on above: Performed By: #### C BC #### [facility] [address] [place] [address] Dr. Preeti Hyman Monocytes/100 WBC (Bld) 23.6 % Critically high 1.7-12.0 [facility] Comment on above: Performed By: #### C BC #### [facility] [address] [place] [address] Dr. Preeti Hyman NEUT # 1.6 103/ul Normal 1.4-6.5 The [facility] Comment on above: Performed By: #### C BC #### [facility] [address] [place] [address] Dr. Preeti Hyman Neutrophils/100 WBC (Bld) 39.1 % Critically low 43.0-75.0 The [facility] Comment on above: Performed By: #### C BC #### [facility] [address] [place] [address] Dr. Preeti Hyman Platelet mean volume (Bld) [Entitic vol] 10.9 fL Normal 9.5-13.5 [facility] Comment on above: Performed By: #### C BC #### [facility] [address] [place] [address] Dr. Preeti Hyman PLT 171 103/ul Normal 150-450 The [facility] Comment on above: Performed By: #### C BC #### [facility] [address] [place] [address] Dr. Preeti Hyman RBC 4.39 106/ul Critically low 4.70-6.10 [facility] Comment on above: Performed By: #### C BC #### [facility] [address] [place] [address] Dr. Preeti Hyman WBC 4.2 103/ul Normal 4.0-11.0 [facility] Comment on above: Performed By: #### C BC #### [facility] [address] [place] [address] Dr. Preeti Hyman [facility] SARS-CoV-2 (COVID-19) RNA GAVINO+probe Ql (Unsp spec) Detected Abnormal NOT DETECTED The [facility] Comment on above: Result Comment: This test is not yet approved or cleared by the [place] FDA. When there are no FDA-approved or cleared tests available, and other criteria are met, FDA can make tests available under an emergency access mechanism called an Emergency Use Authorization (EUA). The EUA for this test is supported by the [place] of Health and Human Service's declaration that [...] used). Performed By: #### M YO #### [facility] [address] [place] [address] Dr. Preeti Hyman ER URINE PROFILEon 3 Bilirubin Ql (U) Negative Normal NEGATIVE [facility] Comment on above: Performed By: #### E RUR #### [facility] [address] [place] [address] Dr. Preeti Hyman Clarity (U) CLEAR Normal CLEAR The [facility] Comment on above: Performed By: #### E RUR #### [facility] [address] [place] [address] Dr. Preeti Hyman Color (U) LT. YELLOW Normal YELLOW The [facility] Comment on above: Performed By: #### E RUR #### [facility] [address] [place] [address] Dr. Preeti MADERA A micrscopic examination will be performed if indicated. Normal The [facility] Comment on above: Performed By: #### E RUR #### [facility] [address] [place] [address] Dr. Preeti Hyman Glucose Ql (U) Negative Normal NEGATIVE [facility] Comment on above: Performed By: #### E RUR #### [facility] [address] [place] [address] Dr. Preeti Hyman Hemoglobin Ql (U) Negative Normal NEGATIVE [facility] Comment on above: Performed By: #### E RUR #### [facility] [address] [place] [address] Dr. Preeti Hyman Ketones Ql (U) Negative Normal NEGATIVE [facility] Comment on above: Performed By: #### E RUR #### [facility] [address] [place] [address] Dr. Preeti Hyman LEUKOCYTES Negative Normal NEGATIVE [facility] Comment on above: Performed By: #### E RUR #### [facility] [address] [place] [address] Dr. Preeti Hyman Nitrite Ql (U) Negative Normal NEGATIVE [facility] Comment on above: Performed By: #### E RUR #### [facility] [address] [place] [address] Dr. Preeti Hyman pH (U) 5.5 [pH] Normal 5-9 The [facility] Comment on above: Performed By: #### E RUR #### [facility] [address] [place] [address] Dr. Preeti Hyman SPEC GRAVITY 1.015 Normal 1.005-<=1.025 [facility] Comment on above: Performed By: #### E RUR #### [facility] [address] [place] [address] Dr. Preeti Hyman UA PROTEIN Negative Normal NEGATIVE/ TRACE [facility] Comment on above: Performed By: #### E RUR #### [facility] [address] [place] [address] Dr. Preeti Hyman UR MICRO IND NOT INDICATED Normal [facility] Comment on above: Performed By: #### E RUR #### [facility] [address] [place] [address] Dr. Preeti Hyman Urobilinogen Qn (U) 0.2 {Comfort'U}/dL Normal 0.2 - 1. 0 The [facility] Comment on above: Performed By: #### E RUR #### [facility] [address] [place] [address] Dr. Preeti Hyman INFLUENZA A AND B AGon 04-12 INFLUANE SEE BELOW Normal [facility] Comment on above: Result Comment: Nega tive for Flu A protein angiten. Infection due to Flu A cannot be ruled out. Flu A angiten in the sample may be below the detection limit of the test. Performed By: #### I NFLUAB #### [facility] [address] [place] [address] Dr. Preeti Hyman INFLUBNEGH SEE BELOW Normal [facility] Comment on above: Result Comment: Nega tive for Flu B protein antigen. Infection due to Flu B cannot be ruled out. Flu B antigen in the sample may be below the detection limit of the test. Performed By: #### I NFLUAB #### [facility] [address] [place] [address] Dr. Preeti Hyman INFLUENZA A AG Negative Normal NEGATIVE SEE COMMENT [facility] Comment on above: Performed By: #### I NFLUAB #### [facility] [address] [place] [address] Dr. Preeti Hyman INFLUENZA B AG Negative Normal NEGATIVE SEE COMMENT [facility] Comment on above: Performed By: #### I NFLUAB #### [facility] [address] [place] [address] Dr. Preeti Hyman LIPASEon 04-12-2022 Lipase [Catalytic activity/Vol] 101.0 U/L Normal 73.0-393.0 [facility] Comment on above: Performed By: #### C MP, CMADM, LIPA #### [facility] [address] [place] [address] Dr. Preeti Hyman PROF 14(COMP METB)on 023 Albumin [Mass/Vol] 3.3 g/dL Critically low 3.4-5.0 Th e [facility] Comment on above: Performed By: #### M YO #### [facility] [address] [place] [address] Dr. Preeti Hyman Albumin/Globulin [Mass ratio] 0.8 {ratio} Normal [facility] Comment on above: Performed By: #### M YO #### [facility] [address] [place] [address] Dr. Preeti Hyman ALP [Catalytic activity/Vol] 114 U/L Normal 46-116 [facility] Comment on above: Performed By: #### M YO #### [facility] [address] [place] [address] Dr. Preeti Hyman ALT [Catalytic activity/Vol] 19 U/L Normal 16-63 [facility] Comment on above: Performed By: #### M YO #### [facility] [address] [place] [address] Dr. Preeti Hyman Anion gap [Moles/Vol] 10.2 mmol/L Normal [facility] Comment on above: Performed By: #### M YO #### [facility] [address] [place] [address] Dr. Preeti Hyman AST [Catalytic activity/Vol] 25 U/L Normal 15-37 [facility] Comment on above: Performed By: #### M YO #### [facility] [address] [place] [address] Dr. Preeti Hyman Bilirubin [Mass/Vol] 0.1 mg/dL Critically low 0.2-1.0 [facility] Comment on above: Performed By: #### M YO #### [facility] [address] [place] [address] Dr. Preeti Hyman Calcium [Mass/Vol] 8.2 mg/dL Critically low 8.5-10.1 Th [facility] Comment on above: Performed By: #### M YO #### [facility] [address] [place] [address] Dr. Preeti Hyman Chloride [Moles/Vol] 103 mmol/L Normal 98-107 [facility] Comment on above: Performed By: #### M YO #### [facility] [address] [place] [address] Dr. Preeti Hyman CO2 [Moles/Vol] 29.3 mmol/L Normal 21.0-32.0 [facility] Comment on above: Performed By: #### M YO #### [facility] [address] [place] [address] Dr. Preeti Hyman Creatinine [Mass/Vol] 1.24 mg/dL Normal 0.70-1.30 [facility] Comment on above: Performed By: #### M YO #### [facility] [address] [place] [address] Dr. Preeti Hyman EGFR-AF SWISS >60 Normal >=60 [facility] Comment on above: Performed By: #### M YO #### [facility] [address] [place] [address] Dr. Preeti Hyman EGFR-NON AF SWISS 57 mL/min/1.73m2 Critically low >=60 [facility] Comment on above: Performed By: #### M YO #### [facility] [address] [place] [address] Dr. Preeti Hyman Globulin (S) [Mass/Vol] 4.3 g/dL Normal [facility] Comment on above: Performed By: #### M YO #### [facility] [address] [address] [address] Preeti Hyman Glucose [Mass/Vol] 129 mg/dL Critically high 74-106 T [facility] Comment on above: Performed By: #### M YO #### [facility] [address] [place] [address] Dr. Preeti Hyman Potassium [Moles/Vol] 4.3 mmol/L Normal 3.5-5.1 [facility] Comment on above: Performed By: #### M YO #### [facility] [address] [address] [address] Preeti Hyman Protein [Mass/Vol] 7.6 g/dL Normal 6.4-8.2 [facility] Comment on above: Performed By: #### M YO #### [facility] [address] [address] Dr. Preeti Hyman Sodium [Moles/Vol] 139 mmol/L Normal 136-145 [facility] Comment on above: Performed By: #### M YO #### [facility] [address] [address] [address] Preeti Hyman Urea nitrogen [Mass/Vol] 16.0 mg/dL Normal 7.0-18.0 [facility] Comment on above: Performed By: #### M YO #### [facility] [address] [address] [address] Preeti Hyman Urea nitrogen/Creatinine [Mass ratio] 12.9 mg/mg Normal [facility] Comment on above: Performed By: #### M YO #### [facility] [address] [address] [address] Preeti Hyman XR CHEST 1 Von [...] by: KOKO HUNTLEY Date: 2022-04-12 15:35 Normal [facility] Encounters Encounter Date Encounter Type Care Provider Facility Start: 07-10-2022 End: 07-10-[address] JONATHAN GIORDANO . Facility:[facility] Start: 04-23-2022 Patient encounter procedure David Matos TAB CARD PRESS OPERATOR.EXTRA GANG SUPERVISOR Work Phone: [facility] Start: 04-23-2022 Progress Note David OWENS RN.EXTRA GANG SUPERVISOR Work Phone: [facility] Start: 04-19-2022 Patient encounter procedure David Matos APRN.EXTRA GANG SUPERVISOR Work Phone: [facility] Start: 04-19-2022 Progress Note David OWENS RN.EXTRA GANG SUPERVISOR Work Phone: [facility] Start: 04-17-2022 Patient encounter procedure Itri Regino Rodney Work Phone: [facility] Start: 04-17-2022 Progress Note Itri A Rodney Work Phone: [facility] Start: 04-12-2022 End: 04-17-2022 Evaluation and management of inpatient DR JONATHAN GIORDANO . Facility: Payers Date Payer Category Payer Medicare UHC MEDICARE UHC MEDICARE ADVANTAGE PPO [id number] 2022-Present [phone] [address] [address] [place] [address] PPO [id number] 2019 Unknown [id number] 1960 Medicare [id number] 1945 Unknown [id number] 1945 Unknown [id number] Social History Date Type Detail Facility [facility] Start: 1945 Sex Assigned At Not on file [facility] History of Present illness Narrative 04-23-2022 David Matos APRN.EXTRA GANG SUPERVISOR - 04/23/2022 12:00 AM EST Note Date & Type Note Facility 04-23-2022 History of Presen t illness Narrative [facility] NOTE NAME: JONNY HENNESSY NO.: [id number] DATE OF SERVICE: 04/23/2022 [facility] DATE OF : 1945 REASON FOR VISIT: The patient is a resident of [facility]. This is a skilled visit for [...] have been reported since being in the [facility]. The patient states has been up [...] normal range. DICTATED BY: JULIA Bates JOB# [id number] cc:[facility] documented in this encounter [facility] History of Present illness Narrative 04-19-2022 David Matos APRN.EXTRA GANG SUPERVISOR - 04/19/2022 12:00 AM EST Note Date & Type Note Facility 04-19-2022 History of Presen t illness Narrative [facility] NOTE NAME: JONNY HENNESSY NO.: [id number] DATE OF SERVICE: 04/19/2022 [facility] DATE OF : 1945 REASON FOR VISIT: The patient is a resident of [facility]. This is a skilled visit for [...] work performed. DICTATED BY: JULIA Bates/Ozzy JOB# [id number] cc:[facility] documented in this encounter [facility] History of Present illness Narrative 04-17-2022 Itri A Rodney - 04/17/2022 12:00 AM EST Note Date & Type Note Facility 04-17-2022 History of Presen t illness Narrative [facility] NOTE NAME: JONNY HENNESSY NO.: [id number] DATE OF SERVICE: 04/17/2022 [facility] DATE OF : 1945 NEW PATIENT HISTORY AND PHYSICAL HISTORY OF PRESENT ILLNESS: The patient is a 76-year-old male who is admitted to us from [facility] with a diagnosis of acute COVID [...] therapy. DICTATED BY: MD ROXANE Pierce/Ozzy JOB# [id number] cc:[facility] documented in this encounter [facility] Summary Purpose Family History No Family [...] or prosecute any alcohol or drug abuse patient.[facility] the event this information is protected by the Federal Confidentiality of Alcohol and Drug Abuse Patient Records regulations: The Federal rules restrict any use of the information to criminally investigate or prosecute any alcohol or drug abuse patient.[facility] the event this information is protected by the Federal Confidentiality of Alcohol and Drug Abuse Patient Records regulations: The Federal rules restrict any use of the information to criminally investigate or prosecute any alcohol or drug abuse patient.[facility] (unrecognized sect ion and content) No Status Records Found INFORMATION SOURCE (unrecogn ized section and content) DATE CREATED AUTHOR 07/15/2022 [facility] RECORDS PERTAINING TO PATIENTS WHO [...] BE BASED ON THE PRIMARY CLINICAL RECORDS. [facility] [employer] [facility]. provides no warranty or guarantee of the accuracy or completeness of information in this document.
[2023-04-04] MEDS: METHYLPREDNISOLONE SOD SUCC PF 40 MG/ML VIAL IVP ×4 (02:04→22:19)
[2023-04-04] MEDS: 0.9 % SODIUM CHLORIDE 1,000 ML 100 ML IV ×3 (02:04→22:20)
[2023-04-04 02:30] LABS: Lactate/Lactic Acid 1.7 mmol/L (0.4-2.0)
[2023-04-04] MEDS: IPRATROPIUM/ALBUTEROL SULFATE 3 ML AMPUL.NEB IH ×5 (03:49→23:37)
[2023-04-04 04:03] LABS: Basophils Percent Auto 0.1 % (0.2-2.0); Hematocrit 36.5 % (42.0-54.0); Hemoglobin 11.6 g/dL (14.0-18.0); Immature Granulocytes Abs Auto 0.08 10^3/uL (0.00-0.03); Immature Granulocytes Pct Auto 0.5 % (0.0-0.5); Lymphocytes Absolute Auto 0.5 10^3/uL (1.2-3.8); Lymphocytes Percent Auto 2.9 % (20.5-60.0); Mean Corpuscular HGB Conc 31.8 g/dL (29.9-35.2); Mean Corpuscular Hemoglobin 30.2 pg (25.9-34.0); Mean Corpuscular Volume 95.1 fL (80.0-94.0); Mean Platelet Volume 10.4 fL (9.5-13.5); Monocytes Absolute Auto 0.4 10^3/uL (0.3-0.8); Monocytes Percent Auto 2.8 % (1.7-12.0); Neutrophils Absolute Auto 14.4 10^3/uL (1.4-6.5); Neutrophils Percent Auto 93.7 % (43.0-75.0); Platelet Count 265 10^3/uL (150-450); Red Blood Count 3.84 10^6/uL (4.70-6.10); Red Cell Distribution Width 13.5 % (11.0-15.0); White Blood Count 15.4 10^3/uL (4.0-11.0)
[2023-04-04 04:23] LABS: Alanine Aminotransferase 31 U/L (16-63); Albumin Globulin Ratio 0.6; Albumin Level 2.7 g/dL (3.4-5.0); Alkaline Phosphatase 125 U/L (46-116); Anion Gap 8.9; Aspartate Amino Transferase 27 U/L (15-37); BUN Creatinine Ratio 14.3; Bilirubin Total 0.2 mg/dL (0.2-1.0); Calcium 8.6 mg/dL (8.5-10.1); Chloride 103 mmol/L (98-107); Estimated GFR (African America >60 (>=60); Estimated GFR (Non-African Ame >60 (>=60); Globulin 4.9 g/dL; Glucose 171 mg/dL (74-106); Potassium 3.9 mmol/L (3.5-5.1); Sodium 135 mmol/L (136-145); Total Protein 7.6 g/dL (6.4-8.2)
[2023-04-04 04:26] LABS: Lactate/Lactic Acid 1.3 mmol/L (0.4-2.0)
[2023-04-04] MEDS: PIPERACILLIN SODIUM/TAZOBACTAM 3.375 GM in 0.9 % SODIUM CHLORIDE 50 ML IV ×3 (06:10→22:19)
--- NOTE | 2023-04-04 09:27 | CM.NOTE ---
Rounding with Dr. Sterling, pt. is on oxygen at this time. Discussed looking into medications and possible medication changes. RN ordered respiratory panel at this time per Dr. Sterling's request. No plan for dischage today. RN also reports she ordered PT and OT eval for the patient this morning. Will continue to await their recommendations for discharge.
[2023-04-04] MEDS: FERROUS SULFATE 325 MG TABLET PO ×2 (09:40→22:19)
[2023-04-04] MEDS: ENOXAPARIN SODIUM 40 MG/0.4 ML SYRINGE SUBQ (09:40)
[2023-04-04 09:49] LABS: Adenovirus NOT DETECTED (NOT DETECTE); Bordetella parapertussis NOT DETECTED (NOT DETECTE); Coronavirus 229E NOT DETECTED (NOT DETECTE); Coronavirus HKU1 NOT DETECTED (NOT DETECTE); Coronavirus NL63 NOT DETECTED (NOT DETECTE); Coronavirus OC43 NOT DETECTED (NOT DETECTE); Human Metapneumovirus NOT DETECTED (NOT DETECTE); Human Rhinovirus/Enterovirus NOT DETECTED (NOT DETECTE); Influenza A NOT DETECTED (NOT DETECTE); Influenza B NOT DETECTED (NOT DETECTE); Mycoplasma pneumoniae NOT DETECTED (NOT DETECTE); Parainfluenza Virus 1 NOT DETECTED (NOT DETECTE); Parainfluenza Virus 2 NOT DETECTED (NOT DETECTE); Parainfluenza Virus 3 NOT DETECTED (NOT DETECTE); Parainfluenza Virus 4 NOT DETECTED (NOT DETECTE); Respiratory Syncytial Virus NOT DETECTED (NOT DETECTE); SARS-CoV-2 NOT DETECTED (NOT DETECTE)
--- NOTE | 2023-04-04 11:22 | P.HP_ITS ---
H&P: HPI History of Present Illness Chief complaint: cough Narrative: 77 y/o male to ER with SOB. Recently treated for pneumonia and c/o thick sputum since. Denies history of COPD or prior breathing problems. Patient was in bathroom and had emesis. Noted to have severe SOB and problems breathing after and called EMS. Daughter was concerned patient aspirated. EMS noted severe respiratory distress and placed on CPAP. To ER and transitioned to BiPAP. Chest x-ray with questionable opacity and normal WBC. Lactate elevated. Given IV fluid and antibiotics then admitted. Started zosyn for likely aspiration pneumonia. Started steroids and breathing treatments. Feels much better this am. Off BiPAP and on nasal canula. Less SOB and mild cough. WBC elevated this am. Review of Systems ROS Constitutional Denies: fever, chills or fatigue Cardiovascular Denies: chest pain, palpitations or edema Respiratory Reports: shortness of breath, cough and wheezing Gastrointestinal Reports: vomiting; Denies: abdominal pain, nausea or diarrhea Genitourinary Denies: painful urination [facility] Medical History (Updated 04/04/23 @ 08:17 by Cordell Sterling MD) Aspiration into airway ?T17.908A - Unspecified foreign body in respiratory tract, part unspecified causing other injury, initial encounter (ICD-10) Neuropathy ?G62.9 - Polyneuropathy, unspecified (ICD-10) Peripheral neuropathy ?G62.9 - Polyneuropathy, unspecified (ICD-10) Bilateral edema of lower extremity ?R60.0 - Localized edema (ICD-10) Abrasion of knee, left ?S80.212A - Abrasion, left knee, initial encounter (ICD-10) Closed fracture of left hip ?S72.002A - Fracture of unspecified part of neck of left femur, initial encounter for closed fracture (ICD-10) Surgical History (Updated 12/18/22 @ 06:44 by Nilsa Arzate) Hx of tonsillectomy ?Z90.89 - Acquired absence of other organs (ICD-10) Previous back surgery ?Z98.890 - Other specified postprocedural states (ICD-10) Family History (Updated 12/18/22 @ 06:42 by Nilsa Arzate) Father Family history of hypertension Family history of stroke Social History (Updated 12/18/22 @ 06:41 by Nilsa Arzate) Within the past year, how often did you have a drink containing alcohol: never Score interpretation: A score less than 4 is consistent with normal alcohol consumption. Smoking status: Never smoker Non-prescribed substance use: denies use Previous occupational history: retired Highest level of school completed/degree received: some college, no degree Are you now , , , , never or living with a partner: In a typical week, how many times do you talk on the telephone with family, friends, or neighbors: 3 or more times per week How often do you get together with friends or relatives: 3 or more times per week How often do you attend sikh or yazdanism services: 1-3 times per year Little interest or pleasure in doing things: not at all Feeling down, depressed, or hopeless: not at all Feel stressed/tense/nervous/anxious/difficulty sleeping: not at all Do you think of yourself as: straight/heterosexual Gender Identity: male Meds Home Medications and Allergies Home Medications Medication Instructions Recorded Confirmed Type calcium carbonate 200 mg calcium 500 mg (2.5 x 200 mg calcium (500 12/20/22 Rx (500 mg) chewable tablet mg)) PO TID #90 tabs ferrous sulfate 325 mg (65 mg 325 mg PO BID #60 tabs 12/20/22 Rx iron) tablet albuterol sulfate 2.5 mg/3 mL 2.5 mg inhalation Q6H PRN 04/04/23 04/04/23 History (0.083 %) solution for nebulization shortness of breath or wheezing amoxicillin 875 mg-potassium 1 tab PO Q12H 04/04/23 04/04/23 History clavulanate 125 mg tablet Allergies Allergy/AdvReac Type Severity Reaction Status Date / Time No Known Drug Allergies Allergy Verified 12/17/22 23:21 Exam Constitutional Vital Signs, click to edit/add: Last Vital Signs Temp 98.8 F 04/04/23 00:57 Pulse 106 H 04/04/23 10:30 Resp 22 04/04/23 04:01 BP 113/69 04/04/23 07:09 Pulse Ox 91 L 04/04/23 10:20 O2 Del Method Room Air 04/04/23 10:10 O2 Flow Rate 3 04/04/23 07:54 FiO2 50 04/03/23 21:10 Documenting provider has reviewed patient's vital signs: yes Common normals: no apparent distress, oriented x3 and alert HENMT Common normals: normocephalic Eye Common normals: PERRL and EOMs intact bilaterally Respiratory Common normals: normal respiratory effort and clear to auscultation bilaterally Cardio Common normals: regular rate, regular rhythm, no gallops, no murmurs and no rub GI Common normals: Normal to inspection, nondistended, normoactive bowel sounds present and non-tender Extremity Common normals: no pedal edema Results Labs Labs: Short CBC 04/03/23 04/04/23 Range/Units 22:04 03:55 WBC 10.4 15.4 H (4.0-11.0) 10^3/uL Hgb 12.4 L 11.6 L (14.0-18.0) g/dL Hct 39.6 L 36.5 L (42.0-54.0) % Plt Count 285 265 (150-450) 10^3/uL BMP 04/03/23 04/04/23 22:04 03:55 Sodium 137 135 L Potassium 4.1 3.9 Chloride 102 103 Carbon Dioxide 30.3 27.0 BUN 14.0 14.0 Creatinine 1.08 0.98 Glucose 156 H 171 H Calcium 9.1 8.6 Liver Function 04/03/23 04/04/23 Range/Units 22:04 03:55 Total Bilirubin 0.2 0.2 (0.2-1.0) mg/dL AST 32 27 (15-37) U/L ALT 33 31 (16-63) U/L Alkaline Phosphatase 152 H 125 H (46-116) U/L Albumin 3.2 L 2.7 L (3.4-5.0) g/dL ABG ABG results: 04/03/23 21:36 ABG pH 7.344 L ABG pCO2 48.8 H ABG pO2 125.0 H ABG HCO3 26.5 H ABG O2 Saturation 99.2 ABG Base Excess 0.8 Assessment and Plan Assessment and Plan (1) Aspiration pneumonitis: (2) Acute hypoxic respiratory failure: (3) Acute respiratory distress: Plan Recent emesis and likely aspiration pneumonia. Continue antibiotics, steroids, and breathing treatments. Wean O2 as tolerated. Resume home medication. Start PT/OT for weakness. Plan at least a 2 midnight stay for inpatient medially necessary services.
--- NOTE | 2023-04-04 11:37 | CM.NOTE ---
Important Message From Medicare discussed with pt, pt verbalizes understanding and signs paper. Original given to pt and copy placed in pt's chart.
[2023-04-04] MEDS: POLYETHYLENE GLYCOL 3350 17 GM POWDER PACKET PO (13:34)
[2023-04-04] MEDS: CALCIUM CARBONATE 500 MG (200MG ELEMENTAL) TAB CHEW PO ×2 (13:35→22:19)
--- NOTE | 2023-04-04 14:38 | DIETREC ---
Recommendation: Ensure clear 1 container po daily for additional protein R/T serum albumin 2.7 low
[2023-04-05] VITALS (21 sets, daily range): BP systolic 140–164; BP diastolic 75–90; PULSE 87–102; RESP 18–24; TEMP 36.5–36.7; O2SAT 92–96
[2023-04-05] MEDS: METHYLPREDNISOLONE SOD SUCC PF 40 MG/ML VIAL IVP ×4 (03:29→20:30)
[2023-04-05] MEDS: IPRATROPIUM/ALBUTEROL SULFATE 3 ML AMPUL.NEB IH ×6 (03:37→23:51)
--- NOTE | 2023-04-05 05:00 | XR_ITS ---
The [address] [address] Patient Name: LEIGH ANN HENNESSY MRN: [id number] date: 1945 Sex: M Assigned Patient Location: [place] Current Patient Location: [place] Accession/Order Number: [id number] Exam Date: 04/05/2023 05:17 Report Date: 04/05/2023 07:56 At the request of: ROBERT SEAY Procedure: XR chest 1V PROCEDURE: XR chest 1V DATE: 04/05/2023 4:17 AM LINING REPAIRER COMPARISONS: 04/03/2023 CLINICAL INDICATION: 77 years Male Aspiration FINDINGS: Diaphragms are elevated consistent with less than optimal inspiratory radiograph. This diaphragm elevation is even more prominent than previous exam. The heart appears somewhat prominent but is accentuated by high diaphragm position. Perihilar and infrahilar increased interstitial markings likely represent atelectasis due to limited inspiratory radiograph. Possible small left pleural effusion. No evidence of right pleural effusion. No evidence of pneumothorax. XR/XR chest 1V IMPRESSION: Limited inspiratory radiograph as discussed above. Electronically authenticated by: SUHAIL HARRIS Date: 04/05/2023 07:56
[2023-04-05] MEDS: CALCIUM CARBONATE 500 MG (200MG ELEMENTAL) TAB CHEW PO ×3 (05:34→21:21)
[2023-04-05] MEDS: PIPERACILLIN SODIUM/TAZOBACTAM 3.375 GM in 0.9 % SODIUM CHLORIDE 50 ML IV ×3 (05:34→21:21)
[2023-04-05 07:35] LABS: Basophils Percent Auto 0.1 % (0.2-2.0); Hematocrit 33.1 % (42.0-54.0); Hemoglobin 10.1 g/dL (14.0-18.0); Immature Granulocytes Abs Auto 0.07 10^3/uL (0.00-0.03); Immature Granulocytes Pct Auto 0.6 % (0.0-0.5); Lymphocytes Absolute Auto 0.5 10^3/uL (1.2-3.8); Lymphocytes Percent Auto 4.3 % (20.5-60.0); Mean Corpuscular HGB Conc 30.5 g/dL (29.9-35.2); Mean Corpuscular Hemoglobin 29.2 pg (25.9-34.0); Mean Corpuscular Volume 95.7 fL (80.0-94.0); Mean Platelet Volume 10.7 fL (9.5-13.5); Monocytes Absolute Auto 0.3 10^3/uL (0.3-0.8); Monocytes Percent Auto 2.6 % (1.7-12.0); Neutrophils Absolute Auto 11.1 10^3/uL (1.4-6.5); Neutrophils Percent Auto 92.4 % (43.0-75.0); Platelet Count 235 10^3/uL (150-450); Red Blood Count 3.46 10^6/uL (4.70-6.10); Red Cell Distribution Width 13.8 % (11.0-15.0)
[2023-04-05 07:50] LABS: Anion Gap 12.6; BUN Creatinine Ratio 19.8; Calcium 8.6 mg/dL (8.5-10.1); Carbon Dioxide 24.4 mmol/L (21.0-32.0); Chloride 105 mmol/L (98-107); Estimated GFR (African America >60 (>=60); Estimated GFR (Non-African Ame >60 (>=60); Glucose 164 mg/dL (74-106); Sodium 138 mmol/L (136-145)
[2023-04-05] MEDS: 0.9 % SODIUM CHLORIDE 1,000 ML 100 ML IV (08:50)
[2023-04-05] MEDS: ENOXAPARIN SODIUM 40 MG/0.4 ML SYRINGE SUBQ (08:51)
[2023-04-05] MEDS: FERROUS SULFATE 325 MG TABLET PO ×2 (08:51→20:30)
--- NOTE | 2023-04-05 09:49 | P.PN_ITS ---
Progress Note: Subjective Subjective Interval history: Patient feels breathing is somewhat better. Able to be weaned off of supplemental oxygen. Exam Constitutional Vital Signs, click to edit/add: Last Vital Signs Temp 97.8 F 04/05/23 05:57 Pulse 91 H 04/05/23 08:04 Resp 18 04/05/23 05:57 BP 140/75 04/05/23 05:57 Pulse Ox 94 L 04/05/23 08:04 O2 Del Method Room Air 04/05/23 08:04 O2 Flow Rate 3 04/04/23 07:54 FiO2 50 04/03/23 21:10 Documenting provider has reviewed patient's vital signs: yes Common normals: no apparent distress Chest Common normals: inspection of chest normal Respiratory Common normals: normal respiratory effort Auscultation: rhonchi Cardio Common normals: regular rate and regular rhythm Progress Note: Objective Labs Labs: Short CBC 04/05/23 Range/Units 06:34 WBC 12.0 H (4.0-11.0) 10^3/uL Hgb 10.1 L (14.0-18.0) g/dL Hct 33.1 L (42.0-54.0) % Plt Count 235 (150-450) 10^3/uL BMP 04/05/23 06:34 Sodium 138 Potassium 4.0 Chloride 105 Carbon Dioxide 24.4 BUN 20.0 H Creatinine 1.01 Glucose 164 H Calcium 8.6 Progress Note: A&P Assessment and Plan (1) Aspiration pneumonitis: (2) Acute hypoxic respiratory failure: (3) Acute respiratory distress: Plan Sinus tachycardia, respiratory distress, lactic acidosis with acute hypoxic respiratory failure with acute respiratory distress secondary to aspiration pneumonia-continue with current care is able to be weaned off of supplemental oxygen., If continues to improve between today and tomorrow likely discharge back home tomorrow Iron deficiency anemia-monitor daily Hyponatremia-monitor daily Hyperglycemia-monitor daily Urinary Catheter Management Urinary Catheter Management Urethral: Cath placed during this visit: yes Urethral indwelling: No Insertion date: 04/05/23 Insertion time: 05:54
--- NOTE | 2023-04-05 10:07 | PT.DAILY ---
Physical Therapy Daily Note PT Daily Note/Assess Start: 04/05/23 10:03 Freq: Status: Active Protocol: Document 04/05/23 10:04 MARYLOU (Rec: 04/05/23 10:07 MARYLOU [id number]) Physical Therapy Daily Note/Assessment Time In/Time Out Time In 09:01 Time Out 09:15 Pain In Pain N/A Pain Out Pain N/A Subjective Subjective Pt supine upon arrival. Agrees to PT. Therapeutic Exercise Time Therapeutic Exercise Minutes (minutes) 3 Therapeutic Exercise Units 0 Therapeutic Exercise Treatment Therapeutic Exercise Treatment Seated bilat LE strengthening ex complete while sitting unsupported at EOB 10x ea. No LOB. Therapeutic Activity Time Therapeutic Activity Minutes (minutes) 8 Therapeutic Activity Units 1 Therapeutic Activity Treatment Bed Mobility Ability Moderate Assist Chair Transfer Ability Minimum Assist Therapeutic Activity Comments Supine>sit ModA to advance upper body to sit EOB. While sitting EOB pt completes bilat LE strengthening ex without LOB. Sit>stand to RW Cristel with initial posterior LOB with Cristel to correct. Static standing 3 min. Then steps taken, 4x steps forward 4x steps back this was complete 5x without rest break. CGA with dynamic gait activity while pt using RW. Pt then returned to sitting EOB. HE is able to perform sit>supine SBA. Remains supine with call light in reach and needs met. Total Physical Therapy Time Total Therapy Minutes 11 Total Physical Therapy Units 1 Summary Daily Note Summary Improved transfer ability/ stability today.
[2023-04-06] VITALS (7 sets, daily range): BP systolic 129; BP diastolic 70; PULSE 80–103; RESP 18–24; TEMP 36.7; O2SAT 91–93
[2023-04-06] MEDS: METHYLPREDNISOLONE SOD SUCC PF 40 MG/ML VIAL IVP ×2 (02:46→09:56)
[2023-04-06] MEDS: IPRATROPIUM/ALBUTEROL SULFATE 3 ML AMPUL.NEB IH ×2 (03:48→07:15)
[2023-04-06] MEDS: CALCIUM CARBONATE 500 MG (200MG ELEMENTAL) TAB CHEW PO (05:03)
[2023-04-06] MEDS: PIPERACILLIN SODIUM/TAZOBACTAM 3.375 GM in 0.9 % SODIUM CHLORIDE 50 ML IV (05:03)
[2023-04-06 06:14] LABS: Basophils Percent Auto 0.1 % (0.2-2.0); Hematocrit 33.3 % (42.0-54.0); Hemoglobin 10.4 g/dL (14.0-18.0); Immature Granulocytes Abs Auto 0.03 10^3/uL (0.00-0.03); Immature Granulocytes Pct Auto 0.3 % (0.0-0.5); Lymphocytes Absolute Auto 0.6 10^3/uL (1.2-3.8); Lymphocytes Percent Auto 5.6 % (20.5-60.0); Mean Corpuscular HGB Conc 31.2 g/dL (29.9-35.2); Mean Corpuscular Hemoglobin 29.5 pg (25.9-34.0); Mean Corpuscular Volume 94.6 fL (80.0-94.0); Mean Platelet Volume 10.8 fL (9.5-13.5); Monocytes Absolute Auto 0.4 10^3/uL (0.3-0.8); Monocytes Percent Auto 3.3 % (1.7-12.0); Neutrophils Absolute Auto 9.5 10^3/uL (1.4-6.5); Neutrophils Percent Auto 90.7 % (43.0-75.0); Platelet Count 245 10^3/uL (150-450); Red Blood Count 3.52 10^6/uL (4.70-6.10); Red Cell Distribution Width 14.1 % (11.0-15.0); White Blood Count 10.5 10^3/uL (4.0-11.0)
[2023-04-06 06:25] LABS: Anion Gap 9.3; BUN Creatinine Ratio 20.4; Calcium 8.9 mg/dL (8.5-10.1); Carbon Dioxide 26.4 mmol/L (21.0-32.0); Chloride 107 mmol/L (98-107); Estimated GFR (African America >60 (>=60); Estimated GFR (Non-African Ame >60 (>=60); Glucose 149 mg/dL (74-106); Potassium 3.7 mmol/L (3.5-5.1); Sodium 139 mmol/L (136-145)
[2023-04-06] MEDS: ENOXAPARIN SODIUM 40 MG/0.4 ML SYRINGE SUBQ (09:56)
[2023-04-06] MEDS: FERROUS SULFATE 325 MG TABLET PO (09:56)
--- NOTE | 2023-04-06 10:10 | P.DS_ITS ---
DS: Providers Provider Date of admission: 04/04/23 00:42 Primary care physician: Tawanda Galvez MD Consults: 04/04/23 Occupational Therapy Eval and Treat Routine Reason for consultation: NWCindy L Hip Fracture Has provider been notified: Yes Physical Therapy Eval and Treat Routine Reason for consultation: NWB L Hip fracture Has provider been notified: Yes Speech Therapy Eval and Treat Routine Reason for consultation: aspiration concerns Has provider been notified: Yes DS: Diagnosis Discharge Diagnosis (1) Aspiration pneumonitis: (2) Acute hypoxic respiratory failure: (3) Acute respiratory distress: Plan Sinus tachycardia, respiratory distress, lactic acidosis with acute hypoxic r espiratory failure with acute respiratory distress secondary to aspiration pneumonia Iron deficiency anemia Hyponatremia Hyperglycemia DS: Summary Hospital Course Hospital Course: Admitted with increasing cough and shortness of breath, in ER found to have acute hypoxia secondary to aspiration pneumonia. Patient was admitted and treated with IV antibiotics and aerosol treatments. Improved slowly. Able to be weaned off of supplemental oxygen in the last 24 hours. At this point is ambulating safely in the room he will be able to be discharged home in improving condition. Medications see list. Follow-up with me in the office within the next week. Time Spent with Patient Time attestation: Total time spent providing and/or coordinating discharge services: Exam Constitutional Vital Signs, click to edit/add: Last Vital Signs Temp 98.0 F 04/06/23 05:30 Pulse 97 H 04/06/23 08:00 Resp 18 04/06/23 05:30 BP 129/70 04/06/23 05:30 Pulse Ox 91 L 04/06/23 05:30 O2 Del Method Room Air 04/06/23 05:30 O2 Flow Rate 3 04/04/23 07:54 FiO2 50 04/03/23 21:10 Documenting provider has reviewed patient's vital signs: yes Common normals: no apparent distress Chest Common normals: inspection of chest normal Respiratory Common normals: normal respiratory effort Auscultation: rhonchi Cardio Common normals: regular rate and regular rhythm DS: Data Data Completed and Pending Labs on day of discharge: Labs from last 24 hours 04/06/23 04:58 WBC 10.5 RBC 3.52 L Hgb 10.4 L Hct 33.3 L MCV 94.6 H MCH 29.5 MCHC 31.2 RDW 14.1 Plt Count 245 MPV 10.8 Neut % (Auto) 90.7 H Lymph % (Auto) 5.6 L Hidalgo % (Auto) 3.3 Eos % (Auto) 0.0 L Baso % (Auto) 0.1 L Neut # (Auto) 9.5 H Lymph # (Auto) 0.6 L Hidalgo # (Auto) 0.4 Eos # (Auto) 0.0 Baso # (Auto) 0.0 Abs Immat Gran (auto) 0.03 Imm/Tot Granulo (auto) 0.3 Sodium 139 Potassium 3.7 Chloride 107 Carbon Dioxide 26.4 Anion Gap 9.3 BUN 19.0 H Creatinine 0.93 Est GFR ( Amer) >60 Est GFR (Non-Af Amer) >60 BUN/Creatinine Ratio 20.4 Glucose 149 H Calcium 8.9 Preliminary micro results at discharge 04/03/23 22:14 - Preliminary Blood NO GROWTH AT 36-48 HOURS. FINAL TO FOLLOW. 04/03/23 22:04 Blood Culture Result 1 - Preliminary Blood NO GROWTH AT 36-48 HOURS. FINAL TO FOLLOW. Discharge Plan Discharge Disposition: Home, Self-Care Condition: Fair Discharge Medications: New prednisone 10 mg tablet 40 mg PO DAILY Qty: 32 0RF Rx Instructions: 4/day for 3 days, 3/day for 3 days, 2/day for 3 days, 1/day for 3 days, 1/2 /day for 4 days levofloxacin 500 mg tablet 500 mg PO DAILY 10 Days Qty: 10 0RF Continued albuterol sulfate 2.5 mg /3 mL (0.083 %) solution for nebulization 2.5 mg inhalation Q6H PRN (Reason: shortness of breath or wheezing) calcium carbonate 200 mg calcium (500 mg) Tablet,Chewable 500 mg PO TID Qty: 90 11RF ferrous sulfate 325 mg (65 mg iron) tablet 325 mg PO BID Qty: 60 11RF Discontinued amoxicillin-pot clavulanate 875-125 mg tablet 1 tab PO Q12H Rx Instructions: STARTED ON 03/25/23 FOR 10 DAYS Activity: increase activity as tolerated Diet: advance to your usual diet Patient Instructions: Aspiration Pneumonia (DC) 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
--- NOTE | 2023-04-07 13:52 | CM.NOTE ---
Attempted to do Discharge follow up phone call. No answer.
--- NOTE | 2023-04-08 14:56 | CM.DCFOLLOWU ---
2nd attempt- straight to voicemail
--- NOTE | 2023-04-09 14:10 | CM.DCFOLLOWU ---
3rd attempt no answer
== END 2023-04-06 12:00 | disposition home health service (06) | DRG 177 ==
LOC: ER 22:23 → ICU 04-04 00:40 → MS 04-04 14:42
PROVIDERS: Family Medicine; Nurse Practitioner Acute Care; Admitting Provider Family Medicine; Emergency Provider Emergency Medicine; PCP Family Medicine; Visit Provider Family Medicine
DX: J69.0 Pneumonitis due to inhalation of food and vomit (principal); J96.01 Acute respiratory failure with hypoxia; E87.20 Acidosis, unspecified; E87.1 Hypo-osmolality and hyponatremia; D50.9 Iron deficiency anemia, unspecified; R73.9 Hyperglycemia, unspecified; G62.9 Polyneuropathy, unspecified; Z87.01 Personal history of pneumonia (recurrent); Z82.49 Family history of ischemic heart disease and other diseases of the circulatory system; Z82.3 Family history of stroke; Z99.3 Dependence on wheelchair
CPT/HCPCS: 0202U; 36415; 36600; 51702; 51798; 71045; 80048; 80053; 82805; 83605; 83880; 84484; 85025; 87040; 87070; 92610; 93005; 94640; 94660; 94667; 94668; 94761; 96361; 96365; 96366; 96367; 96372; 96375; 96376; 97161; 97165; 97530; 97535; 99285; J1650; J2405; J2543; J2920; J3475

== ENCOUNTER 2023-04-21 08:50 | Outpatient (OUT) | payer MEDICARE, SELFPAY ==
--- NOTE | 2023-04-21 | XR_ITS ---
[address] [address] Patient Name: LEIGH ANN HENNESSY MRN: [id number] date: 1945 Sex: M Assigned Patient Location: [facility] Current Patient Location: [facility] Accession/Order Number: [id number] Exam Date: 04/21/2023 08:55 Report Date: 04/21/2023 09:33 At the request of: MICHELLE JONES Procedure: XR hip LT 2V w/ pelvis EXAM: XR hip LT 2V w/ pelvis HISTORY: LEFT HIP PAIN COMPARISON: 03/03/2023 TECHNIQUE: 2 views Findings/impression: Redemonstration of intertrochanteric fracture status post internal fixation with evidence of continued healing. Mild degenerative changes of the hip joint. No dislocation. Mild soft tissue swelling. Electronically authenticated by: KALEIGH GUARDADO Date: 04/21/2023 09:33
--- OUTSIDE RECORDS SUMMARY | 2023-04-21 08:53 | XMS_ITS | CCD ---
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 Preeti Hyman Basophils/100 WBC (Bld) 0.2 % Normal 0.2-2.0 [facility] Comment on above: Performed By: #### M YO #### [facility] [address] [address] [address] Preeti Hyman EO # 0.2 103/ul Normal 0.0-0.7 [facility] Comment on above: Performed By: #### M YO #### [facility] [address] [place] [address] Dr. Preeti Hyman Eosinophils/100 WBC (Bld) 3.7 % Normal 0.9-7.0 [facility] Comment on above: Performed By: #### M YO #### [facility] [address] [place] [address] Dr. Preeti Hyman Erythrocyte distribution width (RBC) [Ratio] 13.5 % Normal 11.0-15.0 [facility] Comment on above: Performed By: #### M YO #### [facility] [address] [place] [address] Dr. Preeti Hyman Hematocrit (Bld) [Volume fraction] 38.3 % Critically low 42.0-54.0 [facility] Comment on above: Performed By: #### M YO #### [facility] [address] [place] [address] Dr. Preeti Hyman Hemoglobin (Bld) [Mass/Vol] 12.3 g/dL Critically low 14.0-18.0 [facility] Comment on above: Performed By: #### M YO #### [facility] [address] [place] [address] Dr. Preeti Hyman IG # 0.01 10e3/ul Normal 0.00-0.03 [facility] Comment on above: Performed By: #### M YO #### [facility] [address] [place] [address] Dr. Preeti Hyman IG % 0.2 % Normal 0.0-0.5 [facility] Comment on above: Performed By: #### M YO #### [facility] [address] [place] [address] Dr. Preeti Hyman LYMPH # 2.4 103/ul Normal 1.2-3.8 [facility] Comment on above: Performed By: #### M YO #### [facility] [address] [place] [address] Dr. Preeti Hyman Lymphocytes/100 WBC (Bld) 58.9 % Normal 20.5-60.0 [facility] Comment on above: Performed By: #### M YO #### [facility] [address] [place] [address] Dr. Preeti Hyman MANUAL DIFF REQ NO Normal [facility] Comment on above: Performed By: #### M YO #### [facility] [address] [place] [address] Dr. Preeti Hyman MCH (RBC) [Entitic mass] 29.6 pg Normal 25.9-34.0 [facility] Comment on above: Performed By: #### M YO #### [facility] [address] [place] [address] Dr. Preeti Hyman MCHC (RBC) [Mass/Vol] 32.1 g/dL Normal 29.9-35.2 [facility] Comment on above: Performed By: #### M YO #### [facility] [address] [place] [address] Dr. Preeti Hyman MCV (RBC) [Entitic vol] 92.3 fL Normal 80.0-94.0 [facility] Comment on above: Performed By: #### M YO #### [facility] [address] [place] [address] Dr. Preeti Hyman MONO # 0.5 103/ul Normal 0.3-0.8 [facility] Comment on above: Performed By: #### M YO #### [facility] [address] [place] [address] Dr. Preeti Hyman Monocytes/100 WBC (Bld) 11.6 % Normal 1.7-12.0 [facility] Comment on above: Performed By: #### M YO #### [facility] [address] [place] [address] Dr. Preeti Hyman NEUT # 1.0 103/ul Critically low 1.4-6.5 [facility] Comment on above: Performed By: #### M YO #### [facility] [address] [place] [address] Dr. Preeti Hyman Neutrophils/100 WBC (Bld) 25.4 % Critically low 43.0-75.0 [facility] Comment on above: Performed By: #### M YO #### [facility] [address] [place] [address] Dr. Preeti Hyman Platelet mean volume (Bld) [Entitic vol] 10.5 fL Normal 9.5-13.5 [facility] Comment on above: Performed By: #### M YO #### [facility] [address] [address] [address] Preeti Hyman PLT 207 103/ul Normal 150-450 [facility] Comment on above: Performed By: #### M YO #### [facility] [address] [place] [address] Dr. Preeti Hyman RBC 4.15 106/ul Critically low 4.70-6.10 [facility] Comment on above: Performed By: #### M YO #### [facility] [address] [place] [address] Dr. Preeti Hyman WBC 4.0 103/ul Normal 4.0-11.0 [facility] Comment on above: Performed By: #### M YO #### [facility] [address] [place] [address] Dr. Preeti Hyman PROF 14(COMP METB)on 023 Albumin [Mass/Vol] 3.0 g/dL Critically low 3.4-5.0 [facility] Comment on above: Performed By: #### C MP #### [facility] [address] [place] [address] Dr. Preeti Hyman Albumin/Globulin [Mass ratio] 0.8 {ratio} Normal [facility] Comment on above: Performed By: #### C MP #### [facility] [address] [place] [address] Dr. Preeti Hyman ALP [Catalytic activity/Vol] 103 U/L Normal 46-116 [facility] Comment on above: Performed By: #### C MP #### [facility] [address] [place] [address] Dr. Preeti Hyman ALT [Catalytic activity/Vol] 20 U/L Normal 16-63 [facility] Comment on above: Performed By: #### C MP #### [facility] [address] [address] [address] Preeti Hyman Anion gap [Moles/Vol] 11.2 mmol/L Normal [facility] Comment on above: Performed By: #### C MP #### [facility] [address] [address] [address] Preeti Hyman AST [Catalytic activity/Vol] 28 U/L Normal 15-37 [facility] Comment on above: Performed By: #### C MP #### [facility] [address] [address] [address] Preeti Hyman Bilirubin [Mass/Vol] 0.3 mg/dL Normal 0.2-1.0 [facility] Comment on above: Performed By: #### C MP #### [facility] [address] [place] [address] Dr. Preeti Hyman Calcium [Mass/Vol] 8.3 mg/dL Critically low 8.5-10.1 [facility] Comment on above: Performed By: #### C MP #### [facility] [address] [place] [address] Dr. Preeti Hyman Chloride [Moles/Vol] 105 mmol/L Normal 98-107 [facility] Comment on above: Performed By: #### C MP #### [facility] [address] [place] [address] Dr. Preeti Hyman CO2 [Moles/Vol] 27.5 mmol/L Normal 21.0-32.0 [facility] Comment on above: Performed By: #### C MP #### [facility] [address] [address] [address] Preeti Hyman Creatinine [Mass/Vol] 0.87 mg/dL Normal 0.70-1.30 [facility] Comment on above: Performed By: #### C MP #### [facility] [address] [place] [address] Dr. Preeti Hyman EGFR-AF BARBADIAN >60 Normal >=60 [facility] Comment on above: Performed By: #### C MP #### [facility] [address] [place] [address] Dr. Preeti Hyman EGFR-NON AF BARBADIAN >60 Normal >=60 [facility] Comment on above: Performed By: #### C MP #### [facility] [address] [address] [address] Preeti Hyman Globulin (S) [Mass/Vol] 4.0 g/dL Normal [facility] Comment on above: Performed By: #### C MP #### [facility] [address] [address] [address] Preeti Hyman Glucose [Mass/Vol] 93 mg/dL Normal 74-106 [facility] Comment on above: Performed By: #### C MP #### [facility] [address] [address] [address] Preeti Hyman Potassium [Moles/Vol] 3.7 mmol/L Normal 3.5-5.1 [facility] Comment on above: Performed By: #### C MP #### [facility] [address] [place] [address] Dr. Preeti Hyman Protein [Mass/Vol] 7.0 g/dL Normal 6.4-8.2 [facility] Comment on above: Performed By: #### C MP #### [facility] [address] [address] [address] Preeti Hyman Sodium [Moles/Vol] 140 mmol/L Normal 136-145 [facility] Comment on above: Performed By: #### C MP #### [facility] [address] [address] [address] Preeti Hyman Urea nitrogen [Mass/Vol] 16.0 mg/dL Normal 7.0-18.0 [facility] Comment on above: Performed By: #### C MP #### [facility] [address] [address] [address] Preeti Hyman Urea nitrogen/Creatinine [Mass ratio] 18.4 mg/mg Normal [facility] Comment on above: Performed By: #### C MP #### [facility] [address] [place] [address] Dr. Preeti Hyman CBC AUTO DIFFon 04-14-2022 BASO # 0.0 103/ul Normal 0.0-0.1 [facility] Comment on above: Performed By: #### C BC #### [facility] [address] [address] [address] Preeti Hyman Basophils/100 WBC (Bld) 0.2 % Normal 0.2-2.0 [facility] Comment on above: Performed By: #### C BC #### [facility] [address] [place] [address] Dr. Preeti Hyman EO # 0.1 103/ul Normal 0.0-0.7 [facility] Comment on above: Performed By: #### C BC #### [facility] [address] [place] [address] Dr. Preeti Hyman Eosinophils/100 WBC (Bld) 2.2 % Normal 0.9-7.0 [facility] Comment on above: Performed By: #### C BC #### [facility] [address] [place] [address] Dr. Preeti Hyman Erythrocyte distribution width (RBC) [Ratio] 13.4 % Normal 11.0-15.0 [facility] Comment on above: Performed By: #### C BC #### [facility] [address] [place] [address] Dr. Preeti Hyman Hematocrit (Bld) [Volume fraction] 36.3 % Critically low 42.0-54.0 [facility] Comment on above: Performed By: #### C BC #### [facility] [address] [place] [address] Dr. Preeti Hyman Hemoglobin (Bld) [Mass/Vol] 12.1 g/dL Critically low 14.0-18.0 [facility] Comment on above: Performed By: #### C BC #### [facility] [address] [place] [address] Dr. Preeti Hyman IG # 0.01 10e3/ul Normal 0.00-0.03 [facility] Comment on above: Performed By: #### C BC #### [facility] [address] [place] [address] Dr. Preeti Hyman IG % 0.2 % Normal 0.0-0.5 [facility] Comment on above: Performed By: #### C BC #### [facility] [address] [address] [address] Preeti Hyman LYMPH # 2.0 103/ul Normal 1.2-3.8 [facility] Comment on above: Performed By: #### C BC #### [facility] [address] [place] [address] Dr. Preeti Hyman Lymphocytes/100 WBC (Bld) 49.0 % Normal 20.5-60.0 [facility] Comment on above: Performed By: #### C BC #### [facility] [address] [place] [address] Dr. Preeti Hyman MANUAL DIFF REQ NO Normal [facility] Comment on above: Performed By: #### C BC #### [facility] [address] [place] [address] Dr. Preeti Hyman MCH (RBC) [Entitic mass] 30.6 pg Normal 25.9-34.0 [facility] Comment on above: Performed By: #### C BC #### [facility] [address] [place] [address] Dr. Preeti Hyman MCHC (RBC) [Mass/Vol] 33.3 g/dL Normal 29.9-35.2 [facility] Comment on above: Performed By: #### C BC #### [facility] [address] [place] [address] Dr. Preeti Hyman MCV (RBC) [Entitic vol] 91.7 fL Normal 80.0-94.0 [facility] Comment on above: Performed By: #### C BC #### [facility] [address] [place] [address] Dr. Preeti Hyman MONO # 0.5 103/ul Normal 0.3-0.8 [facility] Comment on above: Performed By: #### C BC #### [facility] [address] [place] [address] Dr. Preeti Hyman Monocytes/100 WBC (Bld) 12.1 % Critically high 1.7-12.0 [facility] Comment on above: Performed By: #### C BC #### [facility] [address] [address] [address] Preeti Hyman NEUT # 1.5 103/ul Normal 1.4-6.5 [facility] Comment on above: Performed By: #### C BC #### [facility] [address] [address] [address] Preeti Hyman Neutrophils/100 WBC (Bld) 36.3 % Critically low 43.0-75.0 [facility] Comment on above: Performed By: #### C BC #### [facility] [address] [address] [address] Preeti Hyman Platelet mean volume (Bld) [Entitic vol] 10.6 fL Normal 9.5-13.5 [facility] Comment on above: Performed By: #### C BC #### [facility] [address] [place] [address] Dr. Preeti Hyman PLT 203 103/ul Normal 150-450 [facility] Comment on above: Performed By: #### C BC #### [facility] [address] [place] [address] Dr. Preeti Hyman RBC 3.96 106/ul Critically low 4.70-6.10 [facility] Comment on above: Performed By: #### C BC #### [facility] [address] [address] [address] Preeti Hyman WBC 4.1 103/ul Normal 4.0-11.0 [facility] Comment on above: Performed By: #### C BC #### [facility] [address] [place] [address] Dr. Preeti Hyman PROF 14(COMP METB)on 023 Albumin [Mass/Vol] 2.9 g/dL Critically low 3.4-5.0 [facility] Comment on above: Performed By: #### C MP #### [facility] [address] [place] [address] Dr. Preeti Hyman Albumin/Globulin [Mass ratio] 0.8 {ratio} Normal [facility] Comment on above: Performed By: #### C MP #### [facility] [address] [address] [address] Preeti Hyman ALP [Catalytic activity/Vol] 99 U/L Normal 46-116 [facility] Comment on above: Performed By: #### C MP #### [facility] [address] [address] [address] Preeti Hyman ALT [Catalytic activity/Vol] 16 U/L Normal 16-63 [facility] Comment on above: Performed By: #### C MP #### [facility] [address] [place] [address] Dr. Preeti Hyman Anion gap [Moles/Vol] 11.2 mmol/L Normal [facility] Comment on above: Performed By: #### C MP #### [facility] [address] [place] [address] Dr. Preeti Hyman AST [Catalytic activity/Vol] 27 U/L Normal 15-37 [facility] Comment on above: Performed By: #### C MP #### [facility] [address] [place] [address] Dr. Preeti Hyman Bilirubin [Mass/Vol] 0.2 mg/dL Normal 0.2-1.0 [facility] Comment on above: Performed By: #### C MP #### [facility] [address] [place] [address] Dr. Preeti Hyman Calcium [Mass/Vol] 8.1 mg/dL Critically low 8.5-10.1 [facility] Comment on above: Performed By: #### C MP #### [facility] [address] [place] [address] Dr. Preeti Hyman Chloride [Moles/Vol] 106 mmol/L Normal 98-107 [facility] Comment on above: Performed By: #### C MP #### [facility] [address] [place] [address] Dr. Preeti Hyman CO2 [Moles/Vol] 26.5 mmol/L Normal 21.0-32.0 [facility] Comment on above: Performed By: #### C MP #### [facility] [address] [place] [address] Dr. Preeti Hyman Creatinine [Mass/Vol] 0.98 mg/dL Normal 0.70-1.30 [facility] Comment on above: Performed By: #### C MP #### [facility] [address] [place] [address] Dr. Preeit Hyman EGFR-AF BARBADIAN >60 Normal >=60 [facility] Comment on above: Performed By: #### C MP #### [facility] [address] [address] [address] Preeti Hyman EGFR-NON AF BARBADIAN >60 Normal >=60 [facility] Comment on above: Performed By: #### C MP #### [facility] [address] [place] [address] Dr. Preeti Hyman Globulin (S) [Mass/Vol] 3.7 g/dL Normal [facility] Comment on above: Performed By: #### C MP #### [facility] [address] [place] [address] Dr. Preeti Hyman Glucose [Mass/Vol] 94 mg/dL Normal 74-106 [facility] Comment on above: Performed By: #### C MP #### [facility] [address] [place] [address] Dr. Preeti Hyman Potassium [Moles/Vol] 3.7 mmol/L Normal 3.5-5.1 [facility] Comment on above: Performed By: #### C MP #### [facility] [address] [place] [address] Dr. Preeti Hyman Protein [Mass/Vol] 6.6 g/dL Normal 6.4-8.2 [facility] Comment on above: Performed By: #### C MP #### [facility] [address] [place] [address] Dr. Preeti Hyman Sodium [Moles/Vol] 140 mmol/L Normal 136-145 [facility] Comment on above: Performed By: #### C MP #### [facility] [address] [place] [address] Dr. Preeti Hyman Urea nitrogen [Mass/Vol] 12.0 mg/dL Normal 7.0-18.0 [facility] Comment on above: Performed By: #### C MP #### [facility] [address] [place] [address] Dr. Preeti Hyman Urea nitrogen/Creatinine [Mass ratio] 12.2 mg/mg Normal [facility] Comment on above: Performed By: #### C MP #### [facility] [address] [place] [address] Dr. Preeti Hyman CBC AUTO DIFFon 04-13-2022 BASO # 0.0 103/ul Normal 0.0-0.1 [facility] Comment on above: Performed By: #### M YO #### [facility] [address] [place] [address] Dr. Preeti Hyman Basophils/100 WBC (Bld) 0.5 % Normal 0.2-2.0 [facility] Comment on above: Performed By: #### M YO #### [facility] [address] [place] [address] Dr. Preeti Hyman EO # 0.2 103/ul Normal 0.0-0.7 [facility] Comment on above: Performed By: #### M YO #### [facility] [address] [place] [address] Dr. Preeti Hyman Eosinophils/100 WBC (Bld) 3.9 % Normal 0.9-7.0 [facility] Comment on above: Performed By: #### M YO #### [facility] [address] [place] [address] Dr. Preeti Hyman Erythrocyte distribution width (RBC) [Ratio] 13.6 % Normal 11.0-15.0 [facility] Comment on above: Performed By: #### M YO #### [facility] [address] [place] [address] Dr. Preeti Hyman Hematocrit (Bld) [Volume fraction] 38.5 % Critically low 42.0-54.0 [facility] Comment on above: Performed By: #### M YO #### [facility] [address] [place] [address] Dr. Preeti Hyman Hemoglobin (Bld) [Mass/Vol] 12.8 g/dL Critically low 14.0-18.0 [facility] Comment on above: Performed By: #### M YO #### [facility] [address] [place] [address] Dr. Preeti Hyman IG # 0.01 10e3/ul Normal 0.00-0.03 [facility] Comment on above: Performed By: #### M YO #### [facility] [address] [place] [address] Dr. Preeti Hyman IG % 0.3 % Normal 0.0-0.5 [facility] Comment on above: Performed By: #### M YO #### [facility] [address] [place] [address] Dr. Preeti Hyman LYMPH # 1.7 103/ul Normal 1.2-3.8 [facility] Comment on above: Performed By: #### M YO #### [facility] [address] [place] [address] Dr. Preeti Hyman Lymphocytes/100 WBC (Bld) 43.6 % Normal 20.5-60.0 [facility] Comment on above: Performed By: #### M YO #### [facility] [address] [place] [address] Dr. Preeti Hyman MANUAL DIFF REQ NO Normal [facility] Comment on above: Performed By: #### M YO #### [facility] [address] [place] [address] Dr. Preeti Hyman MCH (RBC) [Entitic mass] 30.8 pg Normal 25.9-34.0 [facility] Comment on above: Performed By: #### M YO #### [facility] [address] [place] [address] Dr. Preeti Hyman MCHC (RBC) [Mass/Vol] 33.2 g/dL Normal 29.9-35.2 [facility] Comment on above: Performed By: #### M YO #### [facility] [address] [place] [address] Dr. Preeti Hyman MCV (RBC) [Entitic vol] 92.5 fL Normal 80.0-94.0 [facility] Comment on above: Performed By: #### M YO #### [facility] [address] [address] [address] Preeti Hyman MONO # 0.7 103/ul Normal 0.3-0.8 [facility] Comment on above: Performed By: #### M YO #### [facility] [address] [address] [address] Preeti Hyman Monocytes/100 WBC (Bld) 17.3 % Critically high 1.7-12.0 [facility] Comment on above: Performed By: #### M YO #### [facility] [address] [address] [address] Preeti Hyman NEUT # 1.3 103/ul Critically low 1.4-6.5 [facility] Comment on above: Performed By: #### M YO #### [facility] [address] [place] [address] Dr. Preeti Hyman Neutrophils/100 WBC (Bld) 34.4 % Critically low 43.0-75.0 [facility] Comment on above: Performed By: #### M YO #### [facility] [address] [place] [address] Dr. Preeti Hyman Platelet mean volume (Bld) [Entitic vol] 10.8 fL Normal 9.5-13.5 [facility] Comment on above: Performed By: #### M YO #### [facility] [address] [address] [address] Preeti Hyman PLT 192 103/ul Normal 150-450 [facility] Comment on above: Performed By: #### M YO #### [facility] [address] [address] [address] Preeti Hyman RBC 4.16 106/ul Critically low 4.70-6.10 [facility] Comment on above: Performed By: #### M YO #### [facility] [address] [address] [address] Preeti Hyman WBC 3.8 103/ul Critically low 4.0-11.0 [facility] Comment on above: Performed By: #### M YO #### [facility] [address] [address] [address] Preeti Hyman MYOGLOBINon 04-13-2022 MONISHA 107 ng/mL Critically high 16-96 [facility] Comment on above: Performed By: #### M YO #### [facility] [address] [place] [address] Dr. Preeti Hyman PROF 14(COMP METB)on 023 Albumin [Mass/Vol] 3.0 g/dL Critically low 3.4-5.0 [facility] Comment on above: Performed By: #### C MP #### [facility] [address] [place] [address] Dr. Preeti Hyman Albumin/Globulin [Mass ratio] 0.8 {ratio} Normal [facility] Comment on above: Performed By: #### C MP #### [facility] [address] [place] [address] Dr. Preeti Hyman ALP [Catalytic activity/Vol] 107 U/L Normal 46-116 [facility] Comment on above: Performed By: #### C MP #### [facility] [address] [place] [address] Dr. Preeti Hyman ALT [Catalytic activity/Vol] 17 U/L Normal 16-63 [facility] Comment on above: Performed By: #### C MP #### [facility] [address] [place] [address] Dr. Preeti Hyman Anion gap [Moles/Vol] 11.4 mmol/L Normal [facility] Comment on above: Performed By: #### C MP #### [facility] [address] [place] [address] Dr. Preeti Hyman AST [Catalytic activity/Vol] 28 U/L Normal 15-37 [facility] Comment on above: Performed By: #### C MP #### [facility] [address] [place] [address] Dr. Preeti Hyman Bilirubin [Mass/Vol] 0.2 mg/dL Normal 0.2-1.0 [facility] Comment on above: Performed By: #### C MP #### [facility] [address] [address] [address] Preeti Hyman Calcium [Mass/Vol] 8.0 mg/dL Critically low 8.5-10.1 [facility] Comment on above: Performed By: #### C MP #### [facility] [address] [address] [address] Preeti Hyman Chloride [Moles/Vol] 106 mmol/L Normal 98-107 [facility] Comment on above: Performed By: #### C MP #### [facility] [address] [address] [address] Preeti Hyman CO2 [Moles/Vol] 27.5 mmol/L Normal 21.0-32.0 [facility] Comment on above: Performed By: #### C MP #### [facility] [address] [place] [address] Dr. Preeti Hyman Creatinine [Mass/Vol] 1.00 mg/dL Normal 0.70-1.30 [facility] Comment on above: Performed By: #### C MP #### [facility] [address] [place] [address] Dr. Preeti Hyman EGFR-AF BARBADIAN >60 Normal >=60 [facility] Comment on above: Performed By: #### C MP #### [facility] [address] [place] [address] Dr. Preeti Hyman EGFR-NON AF BARBADIAN >60 Normal >=60 [facility] Comment on above: Performed By: #### C MP #### [facility] [address] [place] [address] Dr. Preeti Hyman Globulin (S) [Mass/Vol] 4.0 g/dL Normal [facility] Comment on above: Performed By: #### C MP #### [facility] [address] [place] [address] Dr. Preeti Hyman Glucose [Mass/Vol] 87 mg/dL Normal 74-106 [facility] Comment on above: Performed By: #### C MP #### [facility] [address] [place] [address] Dr. Preeti Hyman Potassium [Moles/Vol] 3.9 mmol/L Normal 3.5-5.1 [facility] Comment on above: Performed By: #### C MP #### [facility] [address] [place] [address] Dr. Preeti Hyman Protein [Mass/Vol] 7.0 g/dL Normal 6.4-8.2 [facility] Comment on above: Performed By: #### C MP #### [facility] [address] [address] [address] Preeti Hyman Sodium [Moles/Vol] 141 mmol/L Normal 136-145 [facility] Comment on above: Performed By: #### C MP #### [facility] [address] [place] [address] Dr. Preeti Hyman Urea nitrogen [Mass/Vol] 16.0 mg/dL Normal 7.0-18.0 [facility] Comment on above: Performed By: #### C MP #### [facility] [address] [place] [address] Dr. Preeti Hyman Urea nitrogen/Creatinine [Mass ratio] 16.0 mg/mg Normal [facility] Comment on above: Performed By: #### C MP #### [facility] [address] [place] [address] Dr. Preeti Hyman T4on 04-13-2022 T4 [Mass/Vol] 7.20 ug/dL Normal 4.50-12.10 [facility] Comment on above: Performed By: #### T 4 #### [facility] [address] [place] [address] Dr. Preeti Hyman TSHon 04-13-2022 TSH 2.126 uIU/mL Normal 0.358-3.740 [facility] Comment on above: Performed By: #### M YO #### [facility] [address] [place] [address] Dr. Preeti Hyman CARDIAC KALEIGH ADMITon 023 CK [Catalytic activity/Vol] 237 U/L Normal 39-308 [facility] Comment on above: Performed By: #### M YO #### [facility] [address] [place] [address] Dr. Preeti Hyman CK.MB [Mass/Vol] 2.15 ng/mL Normal <=3.60 [facility] Comment on above: Performed By: #### M YO #### [facility] [address] [place] [address] Dr. Preeti Hyman HSTROP 9.8 pg/mL Normal 4.0-76.1 [facility] Comment on above: Result Comment: CUT- OFF POINTS HAVE BEEN ESTABLISHED BASED ON THE FOURTH UNIVERSAL DEFINITIONS OF MYOCARDIAL INFARCTION. THE UPPER REFERENCE LIMIT (URL) OF TROPONIN, DEFINED THE 99TH PERCENTILE OF cTnI DISTRIBUTION IN A REFERENCE POPULATION, HAS BEEN CONFIRMED THE DECISION THRESHOLD FOR NM DIAGNOSIS. Performed By: #### M YO #### [facility] [address] [place] [address] Dr. Preeti Hyman MONISHA 191 ng/mL Critically high 16-96 [facility] Comment on above: Performed By: #### M YO #### [facility] [address] [place] [address] Dr. Preeti Hyman CBC AUTO DIFFon 04-12-2022 BASO # 0.0 103/ul Normal 0.0-0.1 [facility] Comment on above: Performed By: #### C BC #### [facility] [address] [place] [address] Dr. Preeti Hyman Basophils/100 WBC (Bld) 0.2 % Normal 0.2-2.0 [facility] Comment on above: Performed By: #### C BC #### [facility] [address] [place] [address] Dr. Preeti Hyman EO # 0.0 103/ul Normal 0.0-0.7 [facility] Comment on above: Performed By: #### C BC #### [facility] [address] [place] [address] Dr. Preeti Hyman Eosinophils/100 WBC (Bld) 0.5 % Critically low 0.9-7.0 [facility] Comment on above: Performed By: #### C BC #### [facility] [address] [place] [address] Dr. Preeti Hyman Erythrocyte distribution width (RBC) [Ratio] 13.6 % Normal 11.0-15.0 [facility] Comment on above: Performed By: #### C BC #### [facility] [address] [place] [address] Dr. Preeti Hyman Hematocrit (Bld) [Volume fraction] 40.8 % Critically low 42.0-54.0 [facility] Comment on above: Performed By: #### C BC #### [facility] [address] [place] [address] Dr. Preeti Hyman Hemoglobin (Bld) [Mass/Vol] 13.2 g/dL Critically low 14.0-18.0 [facility] Comment on above: Performed By: #### C BC #### [facility] [address] [place] [address] Dr. Preeti Hyman IG # 0.02 10e3/ul Normal 0.00-0.03 [facility] Comment on above: Performed By: #### C BC #### [facility] [address] [place] [address] Dr. Preeti Hyman IG % 0.5 % Normal 0.0-0.5 [facility] Comment on above: Performed By: #### C BC #### [facility] [address] [place] [address] Dr. Preeti Hyman LYMPH # 1.5 103/ul Normal 1.2-3.8 [facility] Comment on above: Performed By: #### C BC #### [facility] [address] [place] [address] Dr. Preeti Hyman Lymphocytes/100 WBC (Bld) 36.1 % Normal 20.5-60.0 [facility] Comment on above: Performed By: #### C BC #### [facility] [address] [place] [address] Dr. Preeti Hyman MANUAL DIFF REQ NO Normal [facility] Comment on above: Performed By: #### C BC #### [facility] [address] [place] [address] Dr. Preeti Hyman MCH (RBC) [Entitic mass] 30.1 pg Normal 25.9-34.0 [facility] Comment on above: Performed By: #### C BC #### [facility] [address] [place] [address] Dr. Preeti Hyman MCHC (RBC) [Mass/Vol] 32.4 g/dL Normal 29.9-35.2 [facility] Comment on above: Performed By: #### C BC #### [facility] [address] [place] [address] Dr. Preeti Hyman MCV (RBC) [Entitic vol] 92.9 fL Normal 80.0-94.0 [facility] Comment on above: Performed By: #### C BC #### [facility] [address] [place] [address] Dr. Preeti Hyman MONO # 1.0 103/ul Critically high 0.3-0.8 [facility] Comment on above: Performed By: #### C BC #### [facility] [address] [place] [address] Dr. Preeti Hyman Monocytes/100 WBC (Bld) 23.6 % Critically high 1.7-12.0 [facility] Comment on above: Performed By: #### C BC #### [facility] [address] [place] [address] Dr. Preeti Hyman NEUT # 1.6 103/ul Normal 1.4-6.5 [facility] Comment on above: Performed By: #### C BC #### [facility] [address] [place] [address] Dr. Preeti Hyman Neutrophils/100 WBC (Bld) 39.1 % Critically low 43.0-75.0 [facility] Comment on above: Performed By: #### C BC #### [facility] [address] [place] [address] Dr. Preeti Hyman Platelet mean volume (Bld) [Entitic vol] 10.9 fL Normal 9.5-13.5 [facility] Comment on above: Performed By: #### C BC #### [facility] [address] [place] [address] Dr. Preeti Hyman PLT 171 103/ul Normal 150-450 [facility] Comment on above: Performed By: #### C BC #### [facility] [address] [place] [address] Dr. Preeti Hyman RBC 4.39 106/ul Critically low 4.70-6.10 [facility] Comment on above: Performed By: #### C BC #### [facility] [address] [place] [address] Dr. Preeti Hyman WBC 4.2 103/ul Normal 4.0-11.0 [facility] Comment on above: Performed By: #### C BC #### [facility] [address] [place] [address] Dr. Preeti Hyman [facility]-19 [facility]31 SARS-CoV-2 (COVID-19) RNA GAVINO+probe Ql (Unsp spec) Detected Abnormal NOT DETECTED [facility] Comment on above: Result Comment: This test is not yet approved or cleared by the [place] FDA. When there are no FDA-approved or cleared tests available, and other criteria are met, FDA can make tests available under an emergency access mechanism called an Emergency Use Authorization (EUA). The EUA for this test is supported by the Museum Assistant of Health and Human Service's declaration that [...] used). Performed By: #### M YO #### [facility] [address] [place] [address] Dr. Preeti Hyman ER URINE PROFILEon 3 Bilirubin Ql (U) Negative Normal NEGATIVE [facility] Comment on above: Performed By: #### E RUR #### [facility] [address] [place] [address] Dr. Preeti Hyman Clarity (U) CLEAR Normal CLEAR [facility] Comment on above: Performed By: #### E RUR #### [facility] [address] [place] [address] Dr. Preeti Hyman Color (U) LT. YELLOW Normal YELLOW [facility] Comment on above: Performed By: #### E RUR #### [facility] [address] [place] [address] Dr. Preeti MADERA A micrscopic examination will be performed if indicated. Normal [facility] Comment on above: Performed By: #### E RUR #### [facility] [address] [place] [address] Dr. Preeti Hyman Glucose Ql (U) Negative Normal NEGATIVE [facility] Comment on above: Performed By: #### E RUR #### [facility] [address] [place] [address] Dr. Preeti Hyman Hemoglobin Ql (U) Negative Normal NEGATIVE [facility] Comment on above: Performed By: #### E RUR #### [facility] [address] [place] [address] Dr. Preeti Hyman Ketones Ql (U) Negative Normal NEGATIVE [facility] Comment on above: Performed By: #### E RUR #### [facility] [address] [place] [address] Dr. Preeti Hyman LEUKOCYTES Negative Normal NEGATIVE [facility] Comment on above: Performed By: #### E RUR #### [facility] [address] [place] [address] Dr. Preeti Hyman Nitrite Ql (U) Negative Normal NEGATIVE [facility] Comment on above: Performed By: #### E RUR #### [facility] [address] [place] [address] Dr. Preeti Hyman pH (U) 5.5 [pH] Normal 5-9 [facility] Comment on above: Performed By: #### E RUR #### [facility] [address] [place] [address] Dr. Preeti Hyman SPEC GRAVITY 1.015 Normal 1.005-<=1.025 [facility] Comment on above: Performed By: #### E RUR #### [facility] [address] [place] [address] Dr. Preeti Hyman UA PROTEIN Negative Normal NEGATIVE/ TRACE [facility] Comment on above: Performed By: #### E RUR #### [facility] [address] [place] [address] Dr. Preeti Hyman UR MICRO IND NOT INDICATED Normal [facility] Comment on above: Performed By: #### E RUR #### [facility] [address] [place] [address] Dr. Preeti Hyman Urobilinogen Qn (U) 0.2 {Comfort'U}/dL Normal 0.2 - 1. 0 [facility] Comment on above: Performed By: #### E RUR #### [facility] [address] [place] [address] Dr. Preeti Hyman INFLUENZA A AND B AGon 04-12 INFLUANE SEE BELOW Normal [facility] Comment on above: Result Comment: Nega tive for Flu A protein angiten. Infection due to Flu A cannot be ruled out. Flu A angiten in the sample may be below the detection limit of the test. Performed By: #### I NFLUAB #### [facility] [address] [place] [address] Dr. Preeti Hyman INFLUBNEGH SEE BELOW Normal [facility] Comment on above: Result Comment: Nega tive for Flu B protein antigen. Infection due to Flu B cannot be ruled out. Flu B antigen in the sample may be below the detection limit of the test. Performed By: #### I NFLUAB #### [facility] [address] [place] [address] Dr. Preeti Hyman INFLUENZA A AG Negative Normal NEGATIVE SEE COMMENT [facility] Comment on above: Performed By: #### I NFLUAB #### [facility] [address] [place] [address] Dr. Preeti Hyman INFLUENZA B AG Negative Normal NEGATIVE SEE COMMENT [facility] Comment on above: Performed By: #### I NFLUAB #### [facility] [address] [place] [address] Dr. Preeti Hyman LIPASEon 04-12-2022 Lipase [Catalytic activity/Vol] 101.0 U/L Normal 73.0-393.0 [facility] Comment on above: Performed By: #### C MP, CMADM, LIPA #### [facility] [address] [place] [address] Dr. Preeti Hyman PROF 14(COMP METB)on 023 Albumin [Mass/Vol] 3.3 g/dL Critically low 3.4-5.0 [facility] Comment on above: Performed By: #### M YO #### [facility] [address] [place] [address] Dr. Preeti Hyman Albumin/Globulin [Mass ratio] 0.8 {ratio} Normal [facility] Comment on above: Performed By: #### M YO #### [facility] [address] [place] [address] Dr. Preeti Hyman ALP [Catalytic activity/Vol] 114 U/L Normal 46-116 [facility] Comment on above: Performed By: #### M YO #### [facility] [address] [place] [address] Dr. Preeti Hyman ALT [Catalytic activity/Vol] 19 U/L Normal 16-63 [facility] Comment on above: Performed By: #### M YO #### [facility] [address] [place] [address] Dr. Preeti Hyman Anion gap [Moles/Vol] 10.2 mmol/L Normal [facility] Comment on above: Performed By: #### M YO #### [facility] [address] [place] [address] Dr. Preeti Hyman AST [Catalytic activity/Vol] 25 U/L Normal 15-37 [facility] Comment on above: Performed By: #### M YO #### [facility] [address] [place] [address] Dr. Preeti Hyman Bilirubin [Mass/Vol] 0.1 mg/dL Critically low 0.2-1.0 [facility] Comment on above: Performed By: #### M YO #### [facility] [address] [place] [address] Dr. Preeti Hyman Calcium [Mass/Vol] 8.2 mg/dL Critically low 8.5-10.1 [facility] Comment on above: Performed By: #### M YO #### [facility] [address] [place] [address] Dr. Preeti Hyman Chloride [Moles/Vol] 103 mmol/L Normal 98-107 [facility] Comment on above: Performed By: #### M YO #### [facility] [address] [place] [address] Dr. Preeti Hyman CO2 [Moles/Vol] 29.3 mmol/L Normal 21.0-32.0 [facility] Comment on above: Performed By: #### M YO #### [facility] [address] [place] [address] Dr. Preeti Hyman Creatinine [Mass/Vol] 1.24 mg/dL Normal 0.70-1.30 [facility] Comment on above: Performed By: #### M YO #### [facility] [address] [place] [address] Dr. Preeti Hyman EGFR-AF BARBADIAN >60 Normal >=60 [facility] Comment on above: Performed By: #### M YO #### [facility] [address] [place] [address] Dr. Preeti Hyman EGFR-NON AF BARBADIAN 57 mL/min/1.73m2 Critically low >=60 [facility] Comment on above: Performed By: #### M YO #### [facility] [address] [place] [address] Dr. Preeti Hyman Globulin (S) [Mass/Vol] 4.3 g/dL Normal [facility] Comment on above: Performed By: #### M YO #### [facility] [address] [address] [address] Preeti Hyman Glucose [Mass/Vol] 129 mg/dL Critically high 74-106 [facility] Comment on above: Performed By: #### M YO #### [facility] [address] [place] [address] Dr. Preeti Hyman Potassium [Moles/Vol] 4.3 mmol/L Normal 3.5-5.1 [facility] Comment on above: Performed By: #### M YO #### [facility] [address] [address] [address] Preeti Hyman Protein [Mass/Vol] 7.6 g/dL Normal 6.4-8.2 [facility] Comment on above: Performed By: #### M YO #### [facility] [address] [address] [address] Preeti Hyman Sodium [Moles/Vol] 139 mmol/L Normal 136-145 [facility] Comment on above: Performed By: #### M YO #### [facility] [address] [address] [address] Preeti Hyman Urea nitrogen [Mass/Vol] 16.0 mg/dL Normal 7.0-18.0 [facility] Comment on above: Performed By: #### M YO #### [facility] [address] [address] [address] Preeti Hyman Urea nitrogen/Creatinine [Mass ratio] 12.9 mg/mg Normal [facility] Comment on above: Performed By: #### M YO #### [facility] [address] [address] [address] Preeti Hyman XR CHEST 1 Von [...] by: KOKO HUNTLEY Date: 2022-04-12 15:35 Normal [facility] Encounters Encounter Date Encounter Type Care Provider Facility Start: 07-10-2022 End: 07-10-[address] JONATHAN GIORDANO . Facility:[facility] Start: 04-23-2022 Patient encounter procedure David Matos EMOTIONAL SUPPORT TEACHER.EVENTS ADMINISTRATIVE ASSISTANT Work Phone: [facility] Start: 04-23-2022 Progress Note David OWENS RN.EVENTS ADMINISTRATIVE ASSISTANT Work Phone: [facility] Start: 04-19-2022 Patient encounter procedure David Matos APRN.EVENTS ADMINISTRATIVE ASSISTANT Work Phone: [facility] Start: 04-19-2022 Progress Note David OWENS RN.EVENTS ADMINISTRATIVE ASSISTANT Work Phone: [facility] Start: 04-17-2022 Patient encounter procedure Itri Regino Rodney Work Phone: [facility] Start: 04-17-2022 Progress Note Itri A Rodney Work Phone: [facility] Start: 04-12-2022 End: 04-17-2022 Evaluation and management of inpatient DR JONATHAN GIORDANO . Facility: Payers Date Payer Category Payer Medicare UHC MEDICARE UHC MEDICARE ADVANTAGE PPO [id number] 2022-Present [phone] [address] [address] [place] [address] PPO [id number] 2019 Unknown [id number] 1960 Medicare [id number] 1945 Unknown [id number] 1945 Unknown [id number] Social History Date Type Detail Facility Tobacco smoking stat [email or web address] Tobacco smoking consumption unknown [facility] Start: 1945 Sex Assigned At Not on file [facility] History of Present illness Narrative 04-23-2022 David Matos APRN.EVENTS ADMINISTRATIVE ASSISTANT - 04/23/2022 12:00 AM EST Note Date & Type Note Facility 04-23-2022 History of Presen t illness Narrative [facility] NOTE NAME: JONNY HENNESSY NO.: [id number] DATE OF SERVICE: 04/23/2022 [facility] DATE OF : 1945 REASON FOR VISIT: The patient is a resident of [facility]. This is a skilled visit for [...] have been reported since being in the [facility]. The patient states has been up [...] normal range. DICTATED BY: JULIA Bates JOB# [id number] cc:[facility] documented in this encounter [facility] History of Present illness Narrative 04-19-2022 David Matos APRN.EVENTS ADMINISTRATIVE ASSISTANT - 04/19/2022 12:00 AM EST Note Date & Type Note Facility 04-19-2022 History of Presen t illness Narrative [facility] NOTE NAME: JONNY HENNESSY NO.: [id number] DATE OF SERVICE: 04/19/2022 [facility] DATE OF : 1945 REASON FOR VISIT: The patient is a resident of [facility]. This is a skilled visit for [...] work performed. DICTATED BY: JULIA Bates/Ozzy JOB# [id number] cc:[facility] documented in this encounter [facility] History of Present illness Narrative 04-17-2022 Itri A Rodney - 04/17/2022 12:00 AM EST Note Date & Type Note Facility 04-17-2022 History of Presen t illness Narrative [facility] NOTE NAME: JONNY HENNESSY NO.: [id number] DATE OF SERVICE: 04/17/2022 [facility] DATE OF : 1945 NEW PATIENT HISTORY AND PHYSICAL HISTORY OF PRESENT ILLNESS: The patient is a 76-year-old male who is admitted to us from [facility] with a diagnosis of acute COVID [...] therapy. DICTATED BY: MD ROXANE Pierce/Ozzy JOB# [id number] cc:[facility] documented in this encounter [facility] Summary Purpose Family History No Family History [...] or prosecute any alcohol or drug abuse patient.[facility] the event this information is protected by the Federal Confidentiality of Alcohol and Drug Abuse Patient Records regulations: The Federal rules restrict any use of the information to criminally investigate or prosecute any alcohol or drug abuse patient.[facility] the event this information is protected by the Federal Confidentiality of Alcohol and Drug Abuse Patient Records regulations: The Federal rules restrict any use of the information to criminally investigate or prosecute any alcohol or drug abuse patient.[facility] (unrecognized sect ion and content) No Status Records Found INFORMATION SOURCE (unrecogn ized section and content) DATE CREATED AUTHOR 07/15/2022 [facility] PERTAINING TO PATIENTS WHO [...] BE BASED ON THE PRIMARY CLINICAL RECORDS. [facility] [employer]. provides no warranty or guarantee of the accuracy or completeness of information in this document.
== END 2023-04-21 08:51 | disposition home or self-care (01) ==
LOC: RAD 08:50
PROVIDERS: PCP Family Medicine; Visit Provider Orthopaedic Surgery
DX: S72.142D Displaced intertrochanteric fracture of left femur, subsequent encounter for closed fracture with routine healing (principal)
CPT/HCPCS: 73502

== ENCOUNTER 2023-05-31 05:49 | Inpatient (IN) | payer MEDICARE, SELFPAY ==
[2023-05-31] VITALS (25 sets, daily range): BP systolic 101–148; BP diastolic 61–78; PULSE 70–98; RESP 18–32; TEMP 36.4–37.2; O2SAT 90–100; BMI 29.7; BMI 28.4
--- OUTSIDE RECORDS SUMMARY | 2023-05-31 05:56 | XMS_ITS | CCD ---
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 Preeti Hyman Basophils/100 WBC (Bld) 0.2 % Normal 0.2-2.0 [facility] Comment on above: Performed By: #### M YO #### [facility] [address] [address] [address] Preeti Hyman EO # 0.2 103/ul Normal 0.0-0.7 [facility] Comment on above: Performed By: #### M YO #### [facility] [address] [place] [address] Dr. Preeti Hyman Eosinophils/100 WBC (Bld) 3.7 % Normal 0.9-7.0 [facility] Comment on above: Performed By: #### M YO #### [facility] [address] [place] [address] Dr. Preeti Hyman Erythrocyte distribution width (RBC) [Ratio] 13.5 % Normal 11.0-15.0 [facility] Comment on above: Performed By: #### M YO #### [facility] [address] [place] [address] Dr. Preeti Hyman Hematocrit (Bld) [Volume fraction] 38.3 % Critically low 42.0-54.0 [facility] Comment on above: Performed By: #### M YO #### [facility] [address] [place] [address] Dr. Preeti Hyman Hemoglobin (Bld) [Mass/Vol] 12.3 g/dL Critically low 14.0-18.0 [facility] Comment on above: Performed By: #### M YO #### [facility] [address] [place] [address] Dr. Preeti Hyman IG # 0.01 10e3/ul Normal 0.00-0.03 [facility] Comment on above: Performed By: #### M YO #### [facility] [address] [place] [address] Dr. Preeti Hyman IG % 0.2 % Normal 0.0-0.5 [facility] Comment on above: Performed By: #### M YO #### [facility] [address] [place] [address] Dr. Preeti Hyman LYMPH # 2.4 103/ul Normal 1.2-3.8 [facility] Comment on above: Performed By: #### M YO #### [facility] [address] [place] [address] Dr. Preeti Hyman Lymphocytes/100 WBC (Bld) 58.9 % Normal 20.5-60.0 [facility] Comment on above: Performed By: #### M YO #### [facility] [address] [place] [address] Dr. Preeti Hyman MANUAL DIFF REQ NO Normal [facility] Comment on above: Performed By: #### M YO #### [facility] [address] [place] [address] Dr. Preeti Hyman MCH (RBC) [Entitic mass] 29.6 pg Normal 25.9-34.0 [facility] Comment on above: Performed By: #### M YO #### [facility] [address] [place] [address] Dr. Preeti Hyman MCHC (RBC) [Mass/Vol] 32.1 g/dL Normal 29.9-35.2 [facility] Comment on above: Performed By: #### M YO #### [facility] [address] [place] [address] Dr. Preeti Hyman MCV (RBC) [Entitic vol] 92.3 fL Normal 80.0-94.0 [facility] Comment on above: Performed By: #### M YO #### [facility] [address] [place] [address] Dr. Preeti Hyman MONO # 0.5 103/ul Normal 0.3-0.8 [facility] Comment on above: Performed By: #### M YO #### [facility] [address] [place] [address] Dr. Preeti Hyman Monocytes/100 WBC (Bld) 11.6 % Normal 1.7-12.0 [facility] Comment on above: Performed By: #### M YO #### [facility] [address] [place] [address] Dr. Preeti Hyman NEUT # 1.0 103/ul Critically low 1.4-6.5 [facility] Comment on above: Performed By: #### M YO #### [facility] [address] [place] [address] Dr. Preeti Hyman Neutrophils/100 WBC (Bld) 25.4 % Critically low 43.0-75.0 [facility] Comment on above: Performed By: #### M YO #### [facility] [address] [place] [address] Dr. Preeti Hyman Platelet mean volume (Bld) [Entitic vol] 10.5 fL Normal 9.5-13.5 [facility] Comment on above: Performed By: #### M YO #### [facility] [address] [address] [address] Preeti Hyman PLT 207 103/ul Normal 150-450 [facility] Comment on above: Performed By: #### M YO #### [facility] [address] [place] [address] Dr. Preeti Hyman RBC 4.15 106/ul Critically low 4.70-6.10 [facility] Comment on above: Performed By: #### M YO #### [facility] [address] [place] [address] Dr. Preeti Hyman WBC 4.0 103/ul Normal 4.0-11.0 [facility] Comment on above: Performed By: #### M YO #### [facility] [address] [place] [address] Dr. Preeti Hyman PROF 14(COMP METB)on 023 Albumin [Mass/Vol] 3.0 g/dL Critically low 3.4-5.0 [facility] Comment on above: Performed By: #### C MP #### [facility] [address] [place] [address] Dr. Preeti Hyman Albumin/Globulin [Mass ratio] 0.8 {ratio} Normal [facility] Comment on above: Performed By: #### C MP #### [facility] [address] [place] [address] Dr. Preeti Hyman ALP [Catalytic activity/Vol] 103 U/L Normal 46-116 [facility] Comment on above: Performed By: #### C MP #### [facility] [address] [place] [address] Dr. Preeti Hyman ALT [Catalytic activity/Vol] 20 U/L Normal 16-63 [facility] Comment on above: Performed By: #### C MP #### [facility] [address] [address] [address] Preeti Hyman Anion gap [Moles/Vol] 11.2 mmol/L Normal [facility] Comment on above: Performed By: #### C MP #### [facility] [address] [address] [address] Preeti Hyman AST [Catalytic activity/Vol] 28 U/L Normal 15-37 [facility] Comment on above: Performed By: #### C MP #### [facility] [address] [address] [address] Preeti Hyman Bilirubin [Mass/Vol] 0.3 mg/dL Normal 0.2-1.0 [facility] Comment on above: Performed By: #### C MP #### [facility] [address] [place] [address] Dr. Preeti Hyman Calcium [Mass/Vol] 8.3 mg/dL Critically low 8.5-10.1 [facility] Comment on above: Performed By: #### C MP #### [facility] [address] [place] [address] Dr. Preeti Hyman Chloride [Moles/Vol] 105 mmol/L Normal 98-107 [facility] Comment on above: Performed By: #### C MP #### [facility] [address] [place] [address] Dr. Preeti Hyman CO2 [Moles/Vol] 27.5 mmol/L Normal 21.0-32.0 [facility] Comment on above: Performed By: #### C MP #### [facility] [address] [address] [address] Preeti Hyman Creatinine [Mass/Vol] 0.87 mg/dL Normal 0.70-1.30 [facility] Comment on above: Performed By: #### C MP #### [facility] [address] [place] [address] Dr. Preeti Hyman EGFR-AF BELIZEAN >60 Normal >=60 [facility] Comment on above: Performed By: #### C MP #### [facility] [address] [place] [address] Dr. Preeti Hyman EGFR-NON AF BELIZEAN >60 Normal >=60 [facility] Comment on above: Performed By: #### C MP #### [facility] [address] [address] [address] Preeti Hyman Globulin (S) [Mass/Vol] 4.0 g/dL Normal [facility] Comment on above: Performed By: #### C MP #### [facility] [address] [address] [address] Preeti Hyman Glucose [Mass/Vol] 93 mg/dL Normal 74-106 [facility] Comment on above: Performed By: #### C MP #### [facility] [address] [address] [address] Preeti Hyman Potassium [Moles/Vol] 3.7 mmol/L Normal 3.5-5.1 [facility] Comment on above: Performed By: #### C MP #### [facility] [address] [place] [address] Dr. Preeti Hyman Protein [Mass/Vol] 7.0 g/dL Normal 6.4-8.2 [facility] Comment on above: Performed By: #### C MP #### [facility] [address] [address] [address] Preeti Hyman Sodium [Moles/Vol] 140 mmol/L Normal 136-145 [facility] Comment on above: Performed By: #### C MP #### [facility] [address] [address] [address] Preeti Hyman Urea nitrogen [Mass/Vol] 16.0 mg/dL Normal 7.0-18.0 [facility] Comment on above: Performed By: #### C MP #### [facility] [address] [address] [address] Preeti Hyman Urea nitrogen/Creatinine [Mass ratio] 18.4 mg/mg Normal [facility] Comment on above: Performed By: #### C MP #### [facility] [address] [place] [address] Dr. Preeti Hyman CBC AUTO DIFFon 04-14-2022 BASO # 0.0 103/ul Normal 0.0-0.1 [facility] Comment on above: Performed By: #### C BC #### [facility] [address] [address] [address] Preeti Hyman Basophils/100 WBC (Bld) 0.2 % Normal 0.2-2.0 [facility] Comment on above: Performed By: #### C BC #### [facility] [address] [place] [address] Dr. Preeti Hyman EO # 0.1 103/ul Normal 0.0-0.7 [facility] Comment on above: Performed By: #### C BC #### [facility] [address] [place] [address] Dr. Preeti Hyman Eosinophils/100 WBC (Bld) 2.2 % Normal 0.9-7.0 [facility] Comment on above: Performed By: #### C BC #### [facility] [address] [place] [address] Dr. Preeti Hyman Erythrocyte distribution width (RBC) [Ratio] 13.4 % Normal 11.0-15.0 [facility] Comment on above: Performed By: #### C BC #### [facility] [address] [place] [address] Dr. Preeti Hyman Hematocrit (Bld) [Volume fraction] 36.3 % Critically low 42.0-54.0 [facility] Comment on above: Performed By: #### C BC #### [facility] [address] [place] [address] Dr. Preeti Hyman Hemoglobin (Bld) [Mass/Vol] 12.1 g/dL Critically low 14.0-18.0 [facility] Comment on above: Performed By: #### C BC #### [facility] [address] [place] [address] Dr. Preeti Hyman IG # 0.01 10e3/ul Normal 0.00-0.03 [facility] Comment on above: Performed By: #### C BC #### [facility] [address] [place] [address] Dr. Preeti Hyman IG % 0.2 % Normal 0.0-0.5 [facility] Comment on above: Performed By: #### C BC #### [facility] [address] [address] [address] Preeti Hyman LYMPH # 2.0 103/ul Normal 1.2-3.8 [facility] Comment on above: Performed By: #### C BC #### [facility] [address] [place] [address] Dr. Preeti Hyman Lymphocytes/100 WBC (Bld) 49.0 % Normal 20.5-60.0 [facility] Comment on above: Performed By: #### C BC #### [facility] [address] [place] [address] Dr. Preeti Hyman MANUAL DIFF REQ NO Normal [facility] Comment on above: Performed By: #### C BC #### [facility] [address] [place] [address] Dr. Preeti Hyman MCH (RBC) [Entitic mass] 30.6 pg Normal 25.9-34.0 [facility] Comment on above: Performed By: #### C BC #### [facility] [address] [place] [address] Dr. Preeti Hyman MCHC (RBC) [Mass/Vol] 33.3 g/dL Normal 29.9-35.2 [facility] Comment on above: Performed By: #### C BC #### [facility] [address] [place] [address] Dr. Preeti Hyman MCV (RBC) [Entitic vol] 91.7 fL Normal 80.0-94.0 [facility] Comment on above: Performed By: #### C BC #### [facility] [address] [place] [address] Dr. Preeti Hyman MONO # 0.5 103/ul Normal 0.3-0.8 [facility] Comment on above: Performed By: #### C BC #### [facility] [address] [place] [address] Dr. Preeti Hyman Monocytes/100 WBC (Bld) 12.1 % Critically high 1.7-12.0 [facility] Comment on above: Performed By: #### C BC #### [facility] [address] [address] [address] Preeti Hyman NEUT # 1.5 103/ul Normal 1.4-6.5 [facility] Comment on above: Performed By: #### C BC #### [facility] [address] [address] [address] Preeti Hyman Neutrophils/100 WBC (Bld) 36.3 % Critically low 43.0-75.0 [facility] Comment on above: Performed By: #### C BC #### [facility] [address] [address] [address] Preeti Hyman Platelet mean volume (Bld) [Entitic vol] 10.6 fL Normal 9.5-13.5 [facility] Comment on above: Performed By: #### C BC #### [facility] [address] [place] [address] Dr. Preeti Hyman PLT 203 103/ul Normal 150-450 [facility] Comment on above: Performed By: #### C BC #### [facility] [address] [place] [address] Dr. Preeti Hyman RBC 3.96 106/ul Critically low 4.70-6.10 [facility] Comment on above: Performed By: #### C BC #### [facility] [address] [address] [address] Preeti Hyman WBC 4.1 103/ul Normal 4.0-11.0 [facility] Comment on above: Performed By: #### C BC #### [facility] [address] [place] [address] Dr. Preeti Hyman PROF 14(COMP METB)on 023 Albumin [Mass/Vol] 2.9 g/dL Critically low 3.4-5.0 [facility] Comment on above: Performed By: #### C MP #### [facility] [address] [place] [address] Dr. Preeti Hyman Albumin/Globulin [Mass ratio] 0.8 {ratio} Normal [facility] Comment on above: Performed By: #### C MP #### [facility] [address] [address] [address] Preeti Hyman ALP [Catalytic activity/Vol] 99 U/L Normal 46-116 [facility] Comment on above: Performed By: #### C MP #### [facility] [address] [address] [address] Preeti Hyman ALT [Catalytic activity/Vol] 16 U/L Normal 16-63 [facility] Comment on above: Performed By: #### C MP #### [facility] [address] [place] [address] Dr. Preeti Hyman Anion gap [Moles/Vol] 11.2 mmol/L Normal [facility] Comment on above: Performed By: #### C MP #### [facility] [address] [place] [address] Dr. Preeti Hyman AST [Catalytic activity/Vol] 27 U/L Normal 15-37 [facility] Comment on above: Performed By: #### C MP #### [facility] [address] [place] [address] Dr. Preeti Hyman Bilirubin [Mass/Vol] 0.2 mg/dL Normal 0.2-1.0 [facility] Comment on above: Performed By: #### C MP #### [facility] [address] [place] [address] Dr. Preeti Hyman Calcium [Mass/Vol] 8.1 mg/dL Critically low 8.5-10.1 [facility] Comment on above: Performed By: #### C MP #### [facility] [address] [place] [address] Dr. Preeti Hyman Chloride [Moles/Vol] 106 mmol/L Normal 98-107 [facility] Comment on above: Performed By: #### C MP #### [facility] [address] [place] [address] Dr. Preeti Hyman CO2 [Moles/Vol] 26.5 mmol/L Normal 21.0-32.0 [facility] Comment on above: Performed By: #### C MP #### [facility] [address] [place] [address] Dr. Preeti Hyman Creatinine [Mass/Vol] 0.98 mg/dL Normal 0.70-1.30 [facility] Comment on above: Performed By: #### C MP #### [facility] [address] [place] [address] Dr. Preeti Hyman EGFR-AF BELIZEAN >60 Normal >=60 [facility] Comment on above: Performed By: #### C MP #### [facility] [address] [address] [address] Preeti Hyman EGFR-NON AF BELIZEAN >60 Normal >=60 [facility] Comment on above: Performed By: #### C MP #### [facility] [address] [place] [address] Dr. Preeti Hyman Globulin (S) [Mass/Vol] 3.7 g/dL Normal [facility] Comment on above: Performed By: #### C MP #### [facility] [address] [place] [address] Dr. Preeti Hyman Glucose [Mass/Vol] 94 mg/dL Normal 74-106 [facility] Comment on above: Performed By: #### C MP #### [facility] [address] [place] [address] Dr. Preeti Hyman Potassium [Moles/Vol] 3.7 mmol/L Normal 3.5-5.1 [facility] Comment on above: Performed By: #### C MP #### [facility] [address] [place] [address] Dr. Preeti Hyman Protein [Mass/Vol] 6.6 g/dL Normal 6.4-8.2 [facility] Comment on above: Performed By: #### C MP #### [facility] [address] [place] [address] Dr. Preeti Hyman Sodium [Moles/Vol] 140 mmol/L Normal 136-145 [facility] Comment on above: Performed By: #### C MP #### [facility] [address] [place] [address] Dr. Preeti Hyman Urea nitrogen [Mass/Vol] 12.0 mg/dL Normal 7.0-18.0 [facility] Comment on above: Performed By: #### C MP #### [facility] [address] [place] [address] Dr. Preeti Hyman Urea nitrogen/Creatinine [Mass ratio] 12.2 mg/mg Normal [facility] Comment on above: Performed By: #### C MP #### [facility] [address] [place] [address] Dr. Preeti Hyman CBC AUTO DIFFon 04-13-2022 BASO # 0.0 103/ul Normal 0.0-0.1 [facility] Comment on above: Performed By: #### M YO #### [facility] [address] [place] [address] Dr. Preeti Hyman Basophils/100 WBC (Bld) 0.5 % Normal 0.2-2.0 [facility] Comment on above: Performed By: #### M YO #### [facility] [address] [place] [address] Dr. Preeti Hyman EO # 0.2 103/ul Normal 0.0-0.7 [facility] Comment on above: Performed By: #### M YO #### [facility] [address] [place] [address] Dr. Preeti Hyman Eosinophils/100 WBC (Bld) 3.9 % Normal 0.9-7.0 [facility] Comment on above: Performed By: #### M YO #### [facility] [address] [place] [address] Dr. Preeti Hyman Erythrocyte distribution width (RBC) [Ratio] 13.6 % Normal 11.0-15.0 [facility] Comment on above: Performed By: #### M YO #### [facility] [address] [place] [address] Dr. Preeti Hyman Hematocrit (Bld) [Volume fraction] 38.5 % Critically low 42.0-54.0 [facility] Comment on above: Performed By: #### M YO #### [facility] [address] [place] [address] Dr. Preeti Hyman Hemoglobin (Bld) [Mass/Vol] 12.8 g/dL Critically low 14.0-18.0 [facility] Comment on above: Performed By: #### M YO #### [facility] [address] [place] [address] Dr. Preeti Hyman IG # 0.01 10e3/ul Normal 0.00-0.03 [facility] Comment on above: Performed By: #### M YO #### [facility] [address] [place] [address] Dr. Preeti Hyman IG % 0.3 % Normal 0.0-0.5 [facility] Comment on above: Performed By: #### M YO #### [facility] [address] [place] [address] Dr. Preeti Hyman LYMPH # 1.7 103/ul Normal 1.2-3.8 [facility] Comment on above: Performed By: #### M YO #### [facility] [address] [place] [address] Dr. Preeti Hyman Lymphocytes/100 WBC (Bld) 43.6 % Normal 20.5-60.0 [facility] Comment on above: Performed By: #### M YO #### [facility] [address] [place] [address] Dr. Preeti Hyman MANUAL DIFF REQ NO Normal [facility] Comment on above: Performed By: #### M YO #### [facility] [address] [place] [address] Dr. Preeti Hyman MCH (RBC) [Entitic mass] 30.8 pg Normal 25.9-34.0 [facility] Comment on above: Performed By: #### M YO #### [facility] [address] [place] [address] Dr. Preeti Hyman MCHC (RBC) [Mass/Vol] 33.2 g/dL Normal 29.9-35.2 [facility] Comment on above: Performed By: #### M YO #### [facility] [address] [place] [address] Dr. Preeti Hyman MCV (RBC) [Entitic vol] 92.5 fL Normal 80.0-94.0 [facility] Comment on above: Performed By: #### M YO #### [facility] [address] [address] [address] Preeti Hyman MONO # 0.7 103/ul Normal 0.3-0.8 [facility] Comment on above: Performed By: #### M YO #### [facility] [address] [address] [address] Preeti Hyman Monocytes/100 WBC (Bld) 17.3 % Critically high 1.7-12.0 [facility] Comment on above: Performed By: #### M YO #### [facility] [address] [address] [address] Preeti Hyman NEUT # 1.3 103/ul Critically low 1.4-6.5 [facility] Comment on above: Performed By: #### M YO #### [facility] [address] [place] [address] Dr. Preeti Hyman Neutrophils/100 WBC (Bld) 34.4 % Critically low 43.0-75.0 [facility] Comment on above: Performed By: #### M YO #### [facility] [address] [place] [address] Dr. Preeti Hyman Platelet mean volume (Bld) [Entitic vol] 10.8 fL Normal 9.5-13.5 [facility] Comment on above: Performed By: #### M YO #### [facility] [address] [address] [address] Preeti Hyman PLT 192 103/ul Normal 150-450 [facility] Comment on above: Performed By: #### M YO #### [facility] [address] [address] [address] Preeti Hyman RBC 4.16 106/ul Critically low 4.70-6.10 [facility] Comment on above: Performed By: #### M YO #### [facility] [address] [address] [address] Preeti Hyman WBC 3.8 103/ul Critically low 4.0-11.0 [facility] Comment on above: Performed By: #### M YO #### [facility] [address] [address] [address] Preeti Hyman MYOGLOBINon 04-13-2022 MONISHA 107 ng/mL Critically high 16-96 [facility] Comment on above: Performed By: #### M YO #### [facility] [address] [place] [address] Dr. Preeti Hyman PROF 14(COMP METB)on 023 Albumin [Mass/Vol] 3.0 g/dL Critically low 3.4-5.0 Th [facility] Comment on above: Performed By: #### C MP #### [facility] [address] [place] [address] Dr. Preeti Hyman Albumin/Globulin [Mass ratio] 0.8 {ratio} Normal [facility] Comment on above: Performed By: #### C MP #### [facility] [address] [place] [address] Dr. Preeti Hyman ALP [Catalytic activity/Vol] 107 U/L Normal 46-116 [facility] Comment on above: Performed By: #### C MP #### [facility] [address] [place] [address] Dr. Preeti Hyman ALT [Catalytic activity/Vol] 17 U/L Normal 16-63 [facility] Comment on above: Performed By: #### C MP #### [facility] [address] [place] [address] Dr. Preeti Hyman Anion gap [Moles/Vol] 11.4 mmol/L Normal [facility] Comment on above: Performed By: #### C MP #### [facility] [address] [place] [address] Dr. Preeti Hyman AST [Catalytic activity/Vol] 28 U/L Normal 15-37 [facility] Comment on above: Performed By: #### C MP #### [facility] [address] [place] [address] Dr. Preeti Hyman Bilirubin [Mass/Vol] 0.2 mg/dL Normal 0.2-1.0 [facility] Comment on above: Performed By: #### C MP #### [facility] [address] [address] [address] Preeti Hyman Calcium [Mass/Vol] 8.0 mg/dL Critically low 8.5-10.1 Th e [facility] Comment on above: Performed By: #### C MP #### [facility] [address] [address] [address] Preeti Hyman Chloride [Moles/Vol] 106 mmol/L Normal 98-107 [facility] Comment on above: Performed By: #### C MP #### [facility] [address] [address] [address] Preeti Hyman CO2 [Moles/Vol] 27.5 mmol/L Normal 21.0-32.0 [facility] Comment on above: Performed By: #### C MP #### [facility] [address] [place] [address] Dr. Preeti Hyman Creatinine [Mass/Vol] 1.00 mg/dL Normal 0.70-1.30 [facility] Comment on above: Performed By: #### C MP #### [facility] [address] [place] [address] Dr. Preeti Hyman EGFR-AF BELIZEAN >60 Normal >=60 [facility] Comment on above: Performed By: #### C MP #### [facility] [address] [place] [address] Dr. Preeti Hyman EGFR-NON AF BELIZEAN >60 Normal >=60 [facility] Comment on above: Performed By: #### C MP #### [facility] [address] [place] [address] Dr. Preeti Hyman Globulin (S) [Mass/Vol] 4.0 g/dL Normal [facility] Comment on above: Performed By: #### C MP #### [facility] [address] [place] [address] Dr. Preeti Hyman Glucose [Mass/Vol] 87 mg/dL Normal 74-106 [facility] Comment on above: Performed By: #### C MP #### [facility] [address] [place] [address] Dr. Preeti Hyman Potassium [Moles/Vol] 3.9 mmol/L Normal 3.5-5.1 [facility] Comment on above: Performed By: #### C MP #### [facility] [address] [place] [address] Dr. Preeti Hyman Protein [Mass/Vol] 7.0 g/dL Normal 6.4-8.2 [facility] Comment on above: Performed By: #### C MP #### [facility] [address] [address] [address] Preeti Hyman Sodium [Moles/Vol] 141 mmol/L Normal 136-145 [facility] Comment on above: Performed By: #### C MP #### [facility] [address] [place] [address] Dr. Preeti Hyman Urea nitrogen [Mass/Vol] 16.0 mg/dL Normal 7.0-18.0 [facility] Comment on above: Performed By: #### C MP #### [facility] [address] [place] [address] Dr. Preeti Hyman Urea nitrogen/Creatinine [Mass ratio] 16.0 mg/mg Normal [facility] Comment on above: Performed By: #### C MP #### [facility] [address] [place] [address] Dr. Preeti Hyman T4on 04-13-2022 T4 [Mass/Vol] 7.20 ug/dL Normal 4.50-12.10 [facility] Comment on above: Performed By: #### T 4 #### [facility] [address] [place] [address] Dr. Preeti Hyman TSHon 04-13-2022 TSH 2.126 uIU/mL Normal 0.358-3.740 [facility] Comment on above: Performed By: #### M YO #### [facility] [address] [place] [address] Dr. Preeti Hyman CARDIAC KALEIGH ADMITon 023 CK [Catalytic activity/Vol] 237 U/L Normal 39-308 [facility] Comment on above: Performed By: #### M YO #### [facility] [address] [place] [address] Dr. Preeti Hyman CK.MB [Mass/Vol] 2.15 ng/mL Normal <=3.60 [facility] Comment on above: Performed By: #### M YO #### [facility] [address] [place] [address] Dr. Preeti Hyman HSTROP 9.8 pg/mL Normal 4.0-76.1 [facility] Comment on above: Result Comment: CUT- OFF POINTS HAVE BEEN ESTABLISHED BASED ON THE FOURTH UNIVERSAL DEFINITIONS OF MYOCARDIAL INFARCTION. THE UPPER REFERENCE LIMIT (URL) OF TROPONIN, DEFINED THE 99TH PERCENTILE OF cTnI DISTRIBUTION IN A REFERENCE POPULATION, HAS BEEN CONFIRMED THE DECISION THRESHOLD FOR MO DIAGNOSIS. Performed By: #### M YO #### [facility] [address] [place] [address] Dr. Preeti Hyman MONISHA 191 ng/mL Critically high 16-96 [facility] Comment on above: Performed By: #### M YO #### [facility] [address] [place] [address] Dr. Preeti Hyman CBC AUTO DIFFon 04-12-2022 BASO # 0.0 103/ul Normal 0.0-0.1 [facility] Comment on above: Performed By: #### C BC #### [facility] [address] [place] [address] Dr. Preeti Hyman Basophils/100 WBC (Bld) 0.2 % Normal 0.2-2.0 [facility] Comment on above: Performed By: #### C BC #### [facility] [address] [place] [address] Dr. Preeti Hyman EO # 0.0 103/ul Normal 0.0-0.7 [facility] Comment on above: Performed By: #### C BC #### [facility] [address] [place] [address] Dr. Preeti Hyman Eosinophils/100 WBC (Bld) 0.5 % Critically low 0.9-7.0 [facility] Comment on above: Performed By: #### C BC #### [facility] [address] [place] [address] Dr. Preeti Hyman Erythrocyte distribution width (RBC) [Ratio] 13.6 % Normal 11.0-15.0 [facility] Comment on above: Performed By: #### C BC #### [facility] [address] [place] [address] Dr. Preeti Hyman Hematocrit (Bld) [Volume fraction] 40.8 % Critically low 42.0-54.0 [facility] Comment on above: Performed By: #### C BC #### [facility] [address] [place] [address] Dr. Preeti Hyman Hemoglobin (Bld) [Mass/Vol] 13.2 g/dL Critically low 14.0-18.0 [facility] Comment on above: Performed By: #### C BC #### [facility] [address] [place] [address] Dr. Preeti Hyman IG # 0.02 10e3/ul Normal 0.00-0.03 [facility] Comment on above: Performed By: #### C BC #### [facility] [address] [place] [address] Dr. Preeti Hyman IG % 0.5 % Normal 0.0-0.5 [facility] Comment on above: Performed By: #### C BC #### [facility] [address] [place] [address] Dr. Preeti Hyman LYMPH # 1.5 103/ul Normal 1.2-3.8 [facility] Comment on above: Performed By: #### C BC #### [facility] [address] [place] [address] Dr. Preeti Hyman Lymphocytes/100 WBC (Bld) 36.1 % Normal 20.5-60.0 [facility] Comment on above: Performed By: #### C BC #### [facility] [address] [place] [address] Dr. Preeti Hyman MANUAL DIFF REQ NO Normal [facility] Comment on above: Performed By: #### C BC #### [facility] [address] [place] [address] Dr. Preeti Hyman MCH (RBC) [Entitic mass] 30.1 pg Normal 25.9-34.0 [facility] Comment on above: Performed By: #### C BC #### [facility] [address] [place] [address] Dr. Preeti Hyman MCHC (RBC) [Mass/Vol] 32.4 g/dL Normal 29.9-35.2 [facility] Comment on above: Performed By: #### C BC #### [facility] [address] [place] [address] Dr. Preeti Hyman MCV (RBC) [Entitic vol] 92.9 fL Normal 80.0-94.0 [facility] Comment on above: Performed By: #### C BC #### [facility] [address] [place] [address] Dr. Preeti Hyman MONO # 1.0 103/ul Critically high 0.3-0.8 [facility] Comment on above: Performed By: #### C BC #### [facility] [address] [place] [address] Dr. Preeti Hyman Monocytes/100 WBC (Bld) 23.6 % Critically high 1.7-12.0 [facility] Comment on above: Performed By: #### C BC #### [facility] [address] [place] [address] Dr. Preeti Hyman NEUT # 1.6 103/ul Normal 1.4-6.5 [facility] Comment on above: Performed By: #### C BC #### [facility] [address] [place] [address] Dr. Preeti Hyman Neutrophils/100 WBC (Bld) 39.1 % Critically low 43.0-75.0 [facility] Comment on above: Performed By: #### C BC #### [facility] [address] [place] [address] Dr. Preeti Hyman Platelet mean volume (Bld) [Entitic vol] 10.9 fL Normal 9.5-13.5 [facility] Comment on above: Performed By: #### C BC #### [facility] [address] [place] [address] Dr. Preeti Hyman PLT 171 103/ul Normal 150-450 [facility] Comment on above: Performed By: #### C BC #### [facility] [address] [place] [address] Dr. Preeti Hyman RBC 4.39 106/ul Critically low 4.70-6.10 [facility] Comment on above: Performed By: #### C BC #### [facility] [address] [place] [address] Dr. Preeti Hyman WBC 4.2 103/ul Normal 4.0-11.0 [facility] Comment on above: Performed By: #### C BC #### [facility] [address] [place] [address] Dr. Preeti Hyman [facility] SARS-CoV-2 (COVID-19) RNA GAVINO+probe Ql (Unsp spec) Detected Abnormal NOT DETECTED [facility] Comment on above: Result Comment: This test is not yet approved or cleared by the [place] FDA. When there are no FDA-approved or cleared tests available, and other criteria are met, FDA can make tests available under an emergency access mechanism called an Emergency Use Authorization (EUA). The EUA for this test is supported by the Manager Mission of Health and Human Service's declaration that [...] used). Performed By: #### M YO #### [facility] [address] [place] [address] Dr. Preeti Hyman ER URINE PROFILEon 3 Bilirubin Ql (U) Negative Normal NEGATIVE [facility] Comment on above: Performed By: #### E RUR #### [facility] [address] [place] [address] Dr. Preeti Hyman Clarity (U) CLEAR Normal CLEAR [facility] Comment on above: Performed By: #### E RUR #### [facility] [address] [place] [address] Dr. Preeti Hyman Color (U) LT. YELLOW Normal YELLOW [facility] Comment on above: Performed By: #### E RUR #### [facility] [address] [place] [address] Dr. Preeti MADERA A micrscopic examination will be performed if indicated. Normal [facility] Comment on above: Performed By: #### E RUR #### [facility] [address] [place] [address] Dr. Preeti Hyman Glucose Ql (U) Negative Normal NEGATIVE [facility] Comment on above: Performed By: #### E RUR #### [facility] [address] [place] [address] Dr. Preeti Hyman Hemoglobin Ql (U) Negative Normal NEGATIVE [facility] Comment on above: Performed By: #### E RUR #### [facility] [address] [place] [address] Dr. Preeti Hyman Ketones Ql (U) Negative Normal NEGATIVE [facility] Comment on above: Performed By: #### E RUR #### [facility] [address] [place] [address] Dr. Preeti Hyman LEUKOCYTES Negative Normal NEGATIVE [facility] Comment on above: Performed By: #### E RUR #### [facility] [address] [place] [address] Dr. Preeti Hyman Nitrite Ql (U) Negative Normal NEGATIVE [facility] Comment on above: Performed By: #### E RUR #### [facility] [address] [place] [address] Dr. Preeti Hyman pH (U) 5.5 [pH] Normal 5-9 [facility] Comment on above: Performed By: #### E RUR #### [facility] [address] [place] [address] Dr. Preeti Hyman SPEC GRAVITY 1.015 Normal 1.005-<=1.025 [facility] Comment on above: Performed By: #### E RUR #### [facility] [address] [place] [address] Dr. Preeti Hyman UA PROTEIN Negative Normal NEGATIVE/ TRACE [facility] Comment on above: Performed By: #### E RUR #### [facility] [address] [place] [address] Dr. Preeti Hyman UR MICRO IND NOT INDICATED Normal [facility] Comment on above: Performed By: #### E RUR #### [facility] [address] [place] [address] Dr. Preeti Hyman Urobilinogen Qn (U) 0.2 {Comfort'U}/dL Normal 0.2 - 1. 0 [facility] Comment on above: Performed By: #### E RUR #### [facility] [address] [place] [address] Dr. Preeti Hyman INFLUENZA A AND B AGon 04-12 INFLUANE SEE BELOW Normal [facility] Comment on above: Result Comment: Nega tive for Flu A protein angiten. Infection due to Flu A cannot be ruled out. Flu A angiten in the sample may be below the detection limit of the test. Performed By: #### I NFLUAB #### [facility] [address] [place] [address] Dr. Preeti Hyman INFLUBNEGH SEE BELOW Normal [facility] Comment on above: Result Comment: Nega tive for Flu B protein antigen. Infection due to Flu B cannot be ruled out. Flu B antigen in the sample may be below the detection limit of the test. Performed By: #### I NFLUAB #### [facility] [address] [place] [address] Dr. Preeti Hyman INFLUENZA A AG Negative Normal NEGATIVE SEE COMMENT [facility] Comment on above: Performed By: #### I NFLUAB #### [facility] [address] [place] [address] Dr. Preeti Hyman INFLUENZA B AG Negative Normal NEGATIVE SEE COMMENT [facility] Comment on above: Performed By: #### I NFLUAB #### [facility] [address] [place] [address] Dr. Preeti Hyman LIPASEon 04-12-2022 Lipase [Catalytic activity/Vol] 101.0 U/L Normal 73.0-393.0 [facility] Comment on above: Performed By: #### C MP, CMADM, LIPA #### [facility] [address] [place] [address] Dr. Preeti Hyman PROF 14(COMP METB)on 023 Albumin [Mass/Vol] 3.3 g/dL Critically low 3.4-5.0 Th e [facility] Comment on above: Performed By: #### M YO #### [facility] [address] [place] [address] Dr. Preeti Hyman Albumin/Globulin [Mass ratio] 0.8 {ratio} Normal [facility] Comment on above: Performed By: #### M YO #### [facility] [address] [place] [address] Dr. Preeti Hyman ALP [Catalytic activity/Vol] 114 U/L Normal 46-116 [facility] Comment on above: Performed By: #### M YO #### [facility] [address] [place] [address] Dr. Preeti Hyman ALT [Catalytic activity/Vol] 19 U/L Normal 16-63 [facility] Comment on above: Performed By: #### M YO #### [facility] [address] [place] [address] Dr. Preeti Hyman Anion gap [Moles/Vol] 10.2 mmol/L Normal [facility] Comment on above: Performed By: #### M YO #### [facility] [address] [place] [address] Dr. Preeti Hyman AST [Catalytic activity/Vol] 25 U/L Normal 15-37 [facility] Comment on above: Performed By: #### M YO #### [facility] [address] [place] [address] Dr. Preeti Hyman Bilirubin [Mass/Vol] 0.1 mg/dL Critically low 0.2-1.0 [facility] Comment on above: Performed By: #### M YO #### [facility] [address] [place] [address] Dr. Preeti Hyman Calcium [Mass/Vol] 8.2 mg/dL Critically low 8.5-10.1 Th [facility] Comment on above: Performed By: #### M YO #### [facility] [address] [place] [address] Dr. Preeti Hyman Chloride [Moles/Vol] 103 mmol/L Normal 98-107 [facility] Comment on above: Performed By: #### M YO #### [facility] [address] [place] [address] Dr. Preeti Hyman CO2 [Moles/Vol] 29.3 mmol/L Normal 21.0-32.0 [facility] Comment on above: Performed By: #### M YO #### [facility] [address] [place] [address] Dr. Preeti Hyman Creatinine [Mass/Vol] 1.24 mg/dL Normal 0.70-1.30 [facility] Comment on above: Performed By: #### M YO #### [facility] [address] [place] [address] Dr. Preeti Hyman EGFR-AF BELIZEAN >60 Normal >=60 [facility] Comment on above: Performed By: #### M YO #### [facility] [address] [place] [address] Dr. Preeti Hyman EGFR-NON AF BELIZEAN 57 mL/min/1.73m2 Critically low >=60 [facility] Comment on above: Performed By: #### M YO #### [facility] [address] [place] [address] Dr. Preeti Hyman Globulin (S) [Mass/Vol] 4.3 g/dL Normal [facility] Comment on above: Performed By: #### M YO #### [facility] [address] [address] [address] Preeti Hyman Glucose [Mass/Vol] 129 mg/dL Critically high 74-106 [facility] Comment on above: Performed By: #### M YO #### [facility] [address] [place] [address] Dr. Preeti Hyman Potassium [Moles/Vol] 4.3 mmol/L Normal 3.5-5.1 [facility] Comment on above: Performed By: #### M YO #### [facility] [address] [address] [address] Preeti Hyman Protein [Mass/Vol] 7.6 g/dL Normal 6.4-8.2 [facility] Comment on above: Performed By: #### M YO #### [facility] [address] [address] [address] Preeti Hyman Sodium [Moles/Vol] 139 mmol/L Normal 136-145 [facility] Comment on above: Performed By: #### M YO #### [facility] [address] [address] [address] Preeti Hyman Urea nitrogen [Mass/Vol] 16.0 mg/dL Normal 7.0-18.0 [facility] Comment on above: Performed By: #### M YO #### [facility] [address] [address] [address] Preeti Hyman Urea nitrogen/Creatinine [Mass ratio] 12.9 mg/mg Normal [facility] Comment on above: Performed By: #### M YO #### [facility] [address] [address] [address] Preeti Hyman XR CHEST 1 Von [...] by: KOKO HUNTLEY Date: 2022-04-12 15:35 Normal [facility] Encounters Encounter Date Encounter Type Care Provider Facility Start: 07-10-2022 End: 07-10-[address] JONATHAN GIORDANO . 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[employer] Work Phone: [facility] Start: 04-23-2022 Progress Note Dvaid OWENS RN.[employer] Work Phone: [facility] Start: 04-19-2022 Patient encounter procedure David Matos APRN.[employer] Work Phone: [facility] Start: 04-19-2022 Progress Note David OWENS RN.POSTMASTER RELIEF Work Phone: [facility] Department Start: 04-17-2022 Patient encounter procedure Itri Regino Rodney Work Phone: [facility] Start: 04-17-2022 Progress Note Itri A Rodney Work Phone: [facility] Start: 04-12-2022 End: 04-17-2022 Evaluation and management of inpatient DR JONATHAN GIORDANO . Facility: Payers Date Payer Category Payer Medicare UHC MEDICARE UHC MEDICARE ADVANTAGE PPO [id number] 2022-Present [phone] [address] [address] [place] [address] PPO [id number] 2019 Unknown [id number] 1960 Medicare [id number] 1945 Unknown [id number] 1945 Unknown [id number] Social History Date Type Detail Facility [facility] consumption [facility] Start: 1945 Sex Assigned At Not on file [facility] History of Present illness Narrative 04-23-2022 David Matos APRN.POSTMASTER RELIEF - 04/23/2022 12:00 AM EST Note Date & Type Note Facility 04-23-2022 History of Presen t illness Narrative [facility] NOTE NAME: JONNY HENNESSY NO.: [id number] DATE OF SERVICE: 04/23/2022 [facility] DATE OF : 1945 REASON FOR VISIT: The patient is a resident of [facility]. This is a skilled visit for [...] have been reported since being in the [facility]. The patient states has been up [...] normal range. DICTATED BY: JULIA Bates JOB# [id number] cc:[facility] documented in this encounter [facility] History of Present illness Narrative 04-19-2022 David Matos APRN.[employer]MASTER RELIEF - 04/19/2022 12:00 AM EST Note Date & Type Note Facility 04-19-2022 History of Presen t illness Narrative [facility] NOTE NAME: JONNY HENNESSY NO.: [id number] DATE OF SERVICE: 04/19/2022 [facility] DATE OF : 1945 REASON FOR VISIT: The patient is a resident of [facility]. This is a skilled visit for [...] work performed. DICTATED BY: JULIA Bates/Ozzy JOB# [id number] cc:[facility] documented in this encounter [facility] History of Present illness Narrative 04-17-2022 Itri A Rodney - 04/17/2022 12:00 AM EST Note Date & Type Note Facility 04-17-2022 History of Presen t illness Narrative [facility] NOTE NAME: JONNY HENNESSY NO.: [id number] DATE OF SERVICE: 04/17/2022 Supa Foy DATE OF : 1945 NEW PATIENT HISTORY AND PHYSICAL HISTORY OF PRESENT ILLNESS: The patient is a 76-year-old male who is admitted to us from [facility] with a diagnosis of acute COVID infection, [...] therapy. DICTATED BY: MD ROXANE Pierce/Ozzy JOB# [id number] cc:Supa Foy documented in this encounter [facility] Summary Purpose Family History No Family History [...] or prosecute any alcohol or drug abuse patient.[facility] the event this information is protected by the Federal Confidentiality of Alcohol and Drug Abuse Patient Records regulations: The Federal rules restrict any use of the information to criminally investigate or prosecute any alcohol or drug abuse patient.[facility] the event this information is protected by the Federal Confidentiality of Alcohol and Drug Abuse Patient Records regulations: The Federal rules restrict any use of the information to criminally investigate or prosecute any alcohol or drug abuse patient.[facility] (unrecognized sect ion and content) No Status Records Found INFORMATION SOURCE (unrecogn ized section and content) DATE CREATED AUTHOR 07/15/2022 [facility] FOR RECORDS PERTAINING TO PATIENTS WHO ARE [...] BE BASED ON THE PRIMARY CLINICAL RECORDS. [facility] [employer] [facility]. provides no warranty or guarantee of the accuracy or completeness of information in this document.
--- NOTE | 2023-05-31 06:05 | XR_ITS ---
The [address] [address] Patient Name: LEIGH ANN HENNESSY MRN: [id number] date: 1945 Sex: M Assigned Patient Location: ER Current Patient Location: ER Accession/Order Number: [id number] Exam Date: 05/31/2023 06:24 Report Date: 05/31/2023 06:38 At the request of: LIN DACOSTA Procedure: XR chest 1V EXAMINATION: XR chest 1V HISTORY: shortness of breath COMPARISON: 04/05/2023 TECHNIQUE: AP portable erect FINDINGS: LUNGS: Low lung volumes. Left basilar infiltrate obscuring the hemidiaphragm VASCULATURE: No increased pulmonary vasculature. PLEURA: No pneumothorax, effusion, or pleural thickening. CARDIAC: No cardiomegaly or cardiac silhouette abnormality. MEDIASTINUM: No visible mass or adenopathy. BONES: No fracture or visible bone lesion. OTHER: Negative. XR/XR chest 1V IMPRESSION: Left basilar infiltrate Electronically authenticated by: GIRMA GUERRA Date: 05/31/2023 06:38
--- NOTE | 2023-05-31 06:05 | ECG_ITS ---
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
--- NOTE | 2023-05-31 06:11 | ED.SOB1 ---
HPI - SOB/Dyspnea General Chief Complaint: Shortness of Breath/Dyspnea Stated Complaint: Congestion Time Seen by Provider: 05/31/23 06:00 Source: patient Mode of arrival: ambulance Limitations: no limitations History of Present Illness HPI Narrative: Patient brought in by EMS for evaluation and treatment. CC = shortness of breath. Patient states that he has been having harsh cough for several days. This morning he woke with increased shortness of breath and pain in my lungs . He is producing clear white sputum. He has harsh breath sounds and audible wheezes. EMS reported borderline room air pulse ox - around 90%. They gave him IV Solumedrol and a duoneb treatment in route from [place]. On arrival he states that he is not any better . Related Data Home Medications Medication Instructions Recorded Confirmed albuterol sulfate 2.5 mg/3 mL 2.5 mg inhalation Q6H PRN 04/04/23 05/31/23 (0.083 %) solution for nebulization shortness of breath or wheezing Previous Rx's Medication Instructions Recorded calcium carbonate 200 mg calcium 500 mg (2.5 x 200 mg calcium (500 12/20/22 (500 mg) chewable tablet mg)) PO TID #90 tabs Allergies Allergy/AdvReac Type Severity Reaction Status Date / Time No Known Drug Allergies Allergy Verified 05/31/23 06:02 [facility] Medical History (Updated 05/31/23 @ 06:55 by Zion Casillas) Acute hypoxic respiratory failure ?J96.01 - Acute respiratory failure with hypoxia (ICD-10) Aspiration pneumonitis ?J69.0 - Pneumonitis due to inhalation of food and vomit (ICD-10) Acute respiratory distress ?R06.03 - Acute respiratory distress (ICD-10) Aspiration into airway ?T17.908A - Unspecified foreign body in respiratory tract, part unspecified causing other injury, initial encounter (ICD-10) Neuropathy ?G62.9 - Polyneuropathy, unspecified (ICD-10) Peripheral neuropathy ?G62.9 - Polyneuropathy, unspecified (ICD-10) Bilateral edema of lower extremity ?R60.0 - Localized edema (ICD-10) Abrasion of knee, left ?S80.212A - Abrasion, left knee, initial encounter (ICD-10) Closed fracture of left hip ?S72.002A - Fracture of unspecified part of neck of left femur, initial encounter for closed fracture (ICD-10) Surgical History (Updated 12/18/22 @ 06:44 by Nilsa Arzate) Hx of tonsillectomy ?Z90.89 - Acquired absence of other organs (ICD-10) Previous back surgery ?Z98.890 - Other specified postprocedural states (ICD-10) Family History (Updated 12/18/22 @ 06:42 by Nilsa Arzate) Father Family history of hypertension Family history of stroke Social History (Updated 12/18/22 @ 06:41 by Nilsa Arzate) Within the past year, how often did you have a drink containing alcohol: never Score interpretation: A score less than 4 is consistent with normal alcohol consumption. Smoking status: Never smoker Non-prescribed substance use: denies use Previous occupational history: retired Highest level of school completed/degree received: some college, no degree Are you now , , , , never or living with a partner: In a typical week, how many times do you talk on the telephone with family, friends, or neighbors: 3 or more times per week How often do you get together with friends or relatives: 3 or more times per week How often do you attend protestant or congregational services: 1-3 times per year Little interest or pleasure in doing things: not at all Feeling down, depressed, or hopeless: not at all Feel stressed/tense/nervous/anxious/difficulty sleeping: not at all Do you think of yourself as: straight/heterosexual Gender Identity: male Exam Narrative Exam Narrative: Nurses notes and vital signs reviewed and patient is not hypoxic - 93% on RA. afebrile General: Well-appearing and in no apparent distress. Skin: Warm, dry, no pallor noted. Eye: Pupils are equal, round and EOMI. No scleral icterus. Ears, Nose, Mouth, and Throat: Oral mucosa is moist Cardiovascular: Regular Rate and Rhythm without murmur, gallop or rub. Respiratory: Tachypnea with mild accessory muscle use but no respiratory distress. Lungs with harsh sounds throughout - rhonchi with expiratory wheezes and bibasilar crackles. Musculoskeletal: normal ROM, no calf or popliteal tenderness, no lower extremity edema/swelling GI: Abdomen is soft, non-distended. Normal bowel sounds. No tenderness to palpation. No rebound, guarding, or rigidity noted. Neurological: A&O x4. No cranial nerve dysfunction observed. No truncal ataxia. Moves all extremities. Sensation intact. Psychiatric: Cooperative and interactive. Normal mood and affect. Constitutional Vital Signs, click to edit/add: Last Vital Signs Temp 98.2 F 05/31/23 05:54 Pulse 73 05/31/23 05:54 Resp 26 H 05/31/23 05:54 BP 101/61 05/31/23 05:54 Pulse Ox 93 L 05/31/23 05:54 O2 Del Method Room Air 05/31/23 06:09 O2 Flow Rate 93 05/31/23 06:09 Course Vital Signs Vital signs: Vital Signs Temperature 98.2 F 05/31/23 05:54 Pulse Rate 73 05/31/23 05:54 Respiratory Rate 26 H 05/31/23 05:54 Blood Pressure 101/61 05/31/23 05:54 Pulse Oximetry 93 L 05/31/23 05:54 Oxygen Delivery Method Room Air 05/31/23 05:54 Temperature 98.2 F 05/31/23 05:54 Pulse Rate 73 05/31/23 05:54 Respiratory Rate 26 H 05/31/23 05:54 Blood Pressure 101/61 05/31/23 05:54 Pulse Oximetry 93 L 05/31/23 05:54 Oxygen Delivery Method Room Air 05/31/23 06:09 Oxygen Delivery Flow Rate 93 05/31/23 06:09 MDM - SOB/Dyspnea MDM Narrative Medical decision making narrative: Patient was placed on medical record consultant and EKG obtained. Blood drawn and sent for evaluation, including procalcitonin, lactate and blood cultures per sepsis protocol due to tachypnea. Portable chest x-ray obtained. Albuterol neb treatment ordered. CBC normal. CXR with Left Basilar Infiltrate. Blood cultures pending. He was ordered to receive IV Rocephin. Remainder of blood test results and urine results pending. Patient signed out to Dr Nascimento at 7am shift change. Plan is to admit the patient to Dr Galvez's service. Medical Records Attestation: I reviewed the patient's medical records. Medical records narrative: I reviewed the patient's visit from April 03, 2023 in which she had pneumonia, respiratory distress and was admitted Lab Data Attestation: I reviewed the patient's lab results. Labs: Lab Results 05/31/23 Range/Units 06:00 WBC 8.9 (4.0-11.0) 10^3/uL RBC 3.97 L (4.70-6.10) 10^6/uL Hgb 11.7 L (14.0-18.0) g/dL Hct 37.4 L (42.0-54.0) % MCV 94.2 H (80.0-94.0) fL MCH 29.5 (25.9-34.0) pg MCHC 31.3 (29.9-35.2) g/dL RDW 13.3 (11.0-15.0) % Plt Count 289 (150-450) 10^3/uL MPV 10.8 (9.5-13.5) fL Neut % (Auto) 57.0 (43.0-75.0) % Lymph % (Auto) 25.3 (20.5-60.0) % Mellette % (Auto) 10.8 (1.7-12.0) % Eos % (Auto) 6.3 (0.9-7.0) % Baso % (Auto) 0.4 (0.2-2.0) % Neut # (Auto) 5.1 (1.4-6.5) 10^3/uL Lymph # (Auto) 2.3 (1.2-3.8) 10^3/uL Mellette # (Auto) 1.0 H (0.3-0.8) 10^3/uL Eos # (Auto) 0.6 (0.0-0.7) 10^3/uL Baso # (Auto) 0.0 (0.0-0.1) 10^3/uL Abs Immat Gran (auto) 0.02 (0.00-0.03) 10^3/uL Imm/Tot Granulo (auto) 0.2 (0.0-0.5) % Imaging Data Chest x-ray: Radiologist's impression: ITS Impressions Chest X-Ray 05/31/23 06:05 IMPRESSION: Left basilar infiltrate Electronically authenticated by: GIRMA GUERRA Date: 05/31/2023 06:38 ECG Data Attestation: I personally reviewed and interpreted this ECG as follows: Interpretation: EKG interpretation: Emergency Department physician interpretation. Normal sinus rhythm at 74bpm. RVH. No ST segment elevation or depression. Discharge Plan Discharge Chief Complaint: Shortness of Breath/Dyspnea Clinical Impression: Community acquired pneumonia Patient Disposition: Still a Patient Prescriptions / Home Meds: No Action albuterol sulfate 2.5 mg /3 mL (0.083 %) solution for nebulization 2.5 mg inhalation Q6H PRN (Reason: shortness of breath or wheezing) calcium carbonate 200 mg calcium (500 mg) Tablet,Chewable 500 mg PO TID Qty: 90 11RF Referrals: Tawanda Galvez MD [Primary Care Provider] - 1 week
[2023-05-31 06:31] LABS: Basophils Percent Auto 0.4 % (0.2-2.0); Eosinophils Absolute Auto 0.6 10^3/uL (0.0-0.7); Eosinophils Percent Auto 6.3 % (0.9-7.0); Hematocrit 37.4 % (42.0-54.0); Hemoglobin 11.7 g/dL (14.0-18.0); Immature Granulocytes Abs Auto 0.02 10^3/uL (0.00-0.03); Immature Granulocytes Pct Auto 0.2 % (0.0-0.5); Lymphocytes Absolute Auto 2.3 10^3/uL (1.2-3.8); Lymphocytes Percent Auto 25.3 % (20.5-60.0); Mean Corpuscular HGB Conc 31.3 g/dL (29.9-35.2); Mean Corpuscular Hemoglobin 29.5 pg (25.9-34.0); Mean Corpuscular Volume 94.2 fL (80.0-94.0); Mean Platelet Volume 10.8 fL (9.5-13.5); Monocytes Percent Auto 10.8 % (1.7-12.0); Neutrophils Absolute Auto 5.1 10^3/uL (1.4-6.5); Platelet Count 289 10^3/uL (150-450); Red Blood Count 3.97 10^6/uL (4.70-6.10); Red Cell Distribution Width 13.3 % (11.0-15.0); White Blood Count 8.9 10^3/uL (4.0-11.0)
[2023-05-31 06:31] LABS: Adenovirus NOT DETECTED (NOT DETECTE); Bordetella parapertussis NOT DETECTED (NOT DETECTE); Coronavirus 229E NOT DETECTED (NOT DETECTE); Coronavirus HKU1 NOT DETECTED (NOT DETECTE); Coronavirus NL63 NOT DETECTED (NOT DETECTE); Coronavirus OC43 NOT DETECTED (NOT DETECTE); Human Metapneumovirus NOT DETECTED (NOT DETECTE); Human Rhinovirus/Enterovirus NOT DETECTED (NOT DETECTE); Influenza A NOT DETECTED (NOT DETECTE); Influenza B NOT DETECTED (NOT DETECTE); Mycoplasma pneumoniae NOT DETECTED (NOT DETECTE); Parainfluenza Virus 1 NOT DETECTED (NOT DETECTE); Parainfluenza Virus 2 NOT DETECTED (NOT DETECTE); Parainfluenza Virus 3 NOT DETECTED (NOT DETECTE); Parainfluenza Virus 4 NOT DETECTED (NOT DETECTE); Respiratory Syncytial Virus NOT DETECTED (NOT DETECTE); SARS-CoV-2 NOT DETECTED (NOT DETECTE)
[2023-05-31] MEDS: ALBUTEROL SULFATE 2.5 MG/3 ML VIAL NEB IH (06:44)
[2023-05-31 06:53] LABS: Alanine Aminotransferase 19 U/L (16-63); Albumin Globulin Ratio 0.6; Albumin Level 2.8 g/dL (3.4-5.0); Alkaline Phosphatase 124 U/L (46-116); Anion Gap 10.5; Aspartate Amino Transferase 19 U/L (15-37); Bilirubin Total 0.4 mg/dL (0.2-1.0); Calcium 8.6 mg/dL (8.5-10.1); Carbon Dioxide 30.4 mmol/L (21.0-32.0); Chloride 104 mmol/L (98-107); Estimated GFR (African America >60 (>=60); Estimated GFR (Non-African Ame >60 (>=60); Globulin 4.9 g/dL; Glucose 111 mg/dL (74-106); Potassium 3.9 mmol/L (3.5-5.1); Sodium 141 mmol/L (136-145); Total Protein 7.7 g/dL (6.4-8.2)
[2023-05-31 06:55] LABS: Lactate/Lactic Acid 1.7 mmol/L (0.4-2.0)
[2023-05-31 06:55] LABS: Bilirubin Urine NEGATIVE (NEGATIVE); Blood Urine NEGATIVE (NEGATIVE); Clarity Urine CLEAR (CLEAR); Color Urine YELLOW (YELLOW); Glucose Urine UA NEGATIVE (NEGATIVE); Ketones Urine NEGATIVE (NEGATIVE); Leukocyte Esterase Urine NEGATIVE (NEGATIVE); Nitrite Urine NEGATIVE (NEGATIVE); Protein Urine NEGATIVE (NEG/TRACE); Specific Gravity Urine >=1.030 (1.005-1.025); Urobilinogen Urine 0.2 EU/dL (0.2-1.0); pH Urine 5.5 (5.0-9.0)
[2023-05-31 06:58] LABS: Urine Microscopic Indicated NO
[2023-05-31 06:59] LABS: Troponin I High Sensitivity 5.7 pg/mL (4.0-76.1)
[2023-05-31] MEDS: CEFTRIAXONE 1,000 MG in 0.9 % SODIUM CHLORIDE 50 ML 100 MG IV ×2 (07:08→11:57)
[2023-05-31 07:10] LABS: PROCALCITONIN <0.05 ng/mL (0.00-0.50)
--- OUTSIDE RECORDS SUMMARY | 2023-05-31 07:29 | XMS_ITS | CCD ---
Author Name Unknown Address [address] [place] [address] Organization [facility] Care Team Providers Care Senior Qualitative Researcher Name Role Phone Unavailable Primary Care Provider [...] 07-15-2022 Episodic Other aftercare (1 source) Other medical terminologist (current) drug therapy; Translations: [[facility] CURRENT DRUG THERAPY] Onset: 05-24-2022 Episodic Other aftercare (1 source) long-term (current) use of aspirin; Translations: [[employer] CURRENT USE OF ASPIRIN] Onset: 05-24-2022 Episodic [...] 04-15-2022 BASO # 0.0 103/ul Normal 0.0-0.1 [facility] Comment on above: Performed By: #### M YO #### [facility] [address] [address] [address] Preeti Hyman Basophils/100 WBC (Bld) 0.2 % Normal 0.2-2.0 [facility] Comment on above: Performed By: #### M YO #### [facility] [address] [address] [address] Preeti Hyman EO # 0.2 103/ul Normal 0.0-0.7 [facility] Comment on above: Performed By: #### M YO #### [facility] [address] [place] [address] Dr. Preeti Hyman Eosinophils/100 WBC (Bld) 3.7 % Normal 0.9-7.0 [facility] Comment on above: Performed By: #### M YO #### [facility] [address] [place] [address] Dr. Preeti Hyman Erythrocyte distribution width (RBC) [Ratio] 13.5 % Normal 11.0-15.0 [facility] Comment on above: Performed By: #### M YO #### [facility] [address] [place] [address] Dr. Preeti Hyman Hematocrit (Bld) [Volume fraction] 38.3 % Critically low 42.0-54.0 [facility] Comment on above: Performed By: #### M YO #### [facility] [address] [place] [address] Dr. Preeti Hyman Hemoglobin (Bld) [Mass/Vol] 12.3 g/dL Critically low 14.0-18.0 [facility] Comment on above: Performed By: #### M YO #### [facility] [address] [place] [address] Dr. Preeti Hyman IG # 0.01 10e3/ul Normal 0.00-0.03 [facility] Comment on above: Performed By: #### M YO #### [facility] [address] [place] [address] Dr. Preeti Hyman IG % 0.2 % Normal 0.0-0.5 [facility] Comment on above: Performed By: #### M YO #### [facility] [address] [place] [address] Dr. Preeti Hyman LYMPH # 2.4 103/ul Normal 1.2-3.8 [facility] Comment on above: Performed By: #### M YO #### [facility] [address] [place] [address] Dr. Preeti Hyman Lymphocytes/100 WBC (Bld) 58.9 % Normal 20.5-60.0 [facility] Comment on above: Performed By: #### M YO #### [facility] [address] [place] [address] Dr. Preeti Hyman MANUAL DIFF REQ NO Normal [facility] Comment on above: Performed By: #### M YO #### [facility] [address] [place] [address] Dr. Preeti Hyman MCH (RBC) [Entitic mass] 29.6 pg Normal 25.9-34.0 [facility] Comment on above: Performed By: #### M YO #### [facility] [address] [place] [address] Dr. Preeti Hyman MCHC (RBC) [Mass/Vol] 32.1 g/dL Normal 29.9-35.2 [facility] Comment on above: Performed By: #### M YO #### [facility] [address] [place] [address] Dr. Preeti Hyman MCV (RBC) [Entitic vol] 92.3 fL Normal 80.0-94.0 [facility] Comment on above: Performed By: #### M YO #### [facility] [address] [place] [address] Dr. Preeti Hyman MONO # 0.5 103/ul Normal 0.3-0.8 [facility] Comment on above: Performed By: #### M YO #### [facility] [address] [place] [address] Dr. Preeti Hyman Monocytes/100 WBC (Bld) 11.6 % Normal 1.7-12.0 [facility] Comment on above: Performed By: #### M YO #### [facility] [address] [place] [address] Dr. Preeti Hyman NEUT # 1.0 103/ul Critically low 1.4-6.5 [facility] Comment on above: Performed By: #### M YO #### [facility] [address] [place] [address] Dr. Preeti Hyman Neutrophils/100 WBC (Bld) 25.4 % Critically low 43.0-75.0 [facility] Comment on above: Performed By: #### M YO #### [facility] [address] [place] [address] Dr. Preeti Hyman Platelet mean volume (Bld) [Entitic vol] 10.5 fL Normal 9.5-13.5 [facility] Comment on above: Performed By: #### M YO #### [facility] [address] [address] [address] Preeti Hyman PLT 207 103/ul Normal 150-450 [facility] Comment on above: Performed By: #### M YO #### [facility] [address] [place] [address] Dr. Preeti Hyman RBC 4.15 106/ul Critically low 4.70-6.10 [facility] Comment on above: Performed By: #### M YO #### [facility] [address] [place] [address] Dr. Preeti Hyman WBC 4.0 103/ul Normal 4.0-11.0 [facility] Comment on above: Performed By: #### M YO #### [facility] [address] [place] [address] Dr. Preeti Hyman PROF 14(COMP METB)on 023 Albumin [Mass/Vol] 3.0 g/dL Critically low 3.4-5.0 [facility] Comment on above: Performed By: #### C MP #### [facility] [address] [place] [address] Dr. Preeti Hyman Albumin/Globulin [Mass ratio] 0.8 {ratio} Normal [facility] Comment on above: Performed By: #### C MP #### [facility] [address] [place] [address] Dr. Preeti Hyman ALP [Catalytic activity/Vol] 103 U/L Normal 46-116 [facility] Comment on above: Performed By: #### C MP #### [facility] [address] [place] [address] Dr. Preeti Hyman ALT [Catalytic activity/Vol] 20 U/L Normal 16-63 [facility] Comment on above: Performed By: #### C MP #### [facility] [address] [address] [address] Preeti Hyman Anion gap [Moles/Vol] 11.2 mmol/L Normal [facility] Comment on above: Performed By: #### C MP #### [facility] [address] [address] [address] Preeti Hyman AST [Catalytic activity/Vol] 28 U/L Normal 15-37 [facility] Comment on above: Performed By: #### C MP #### [facility] [address] [address] [address] Preeti Hyman Bilirubin [Mass/Vol] 0.3 mg/dL Normal 0.2-1.0 [facility] Comment on above: Performed By: #### C MP #### [facility] [address] [place] [address] Dr. Preeti Hyman Calcium [Mass/Vol] 8.3 mg/dL Critically low 8.5-10.[address] [facility] Comment on above: Performed By: #### C MP #### [facility] [address] [place] [address] Dr. Preeti Hyman Chloride [Moles/Vol] 105 mmol/L Normal 98-107 [facility] Comment on above: Performed By: #### C MP #### [facility] [address] [place] [address] Dr. Preeti Hyman CO2 [Moles/Vol] 27.5 mmol/L Normal 21.0-32.[address] [facility] Comment on above: Performed By: #### C MP #### [facility] [address] [address] [address] Preeti Hyman Creatinine [Mass/Vol] 0.87 mg/dL Normal 0.70-1.30 [facility] Comment on above: Performed By: #### C MP #### [facility] [address] [place] [address] Dr. Preeti Hyman EGFR-AF KITTITIAN >60 Normal >=[address] [facility] Comment on above: Performed By: #### C MP #### [facility] [address] [place] [address] Dr. Preeti Hyman EGFR-NON AF KITT[place]IAN >60 Normal >=60 [facility] Comment on above: Performed By: #### C MP #### [facility] [address] [address] [address] Preeti Hyman Globulin (S) [Mass/Vol] 4.0 g/dL Normal [facility] Comment on above: Performed By: #### C MP #### [facility] [address] [address] [address] Preeti Hyman Glucose [Mass/Vol] 93 mg/dL Normal 74-106 [facility] Comment on above: Performed By: #### C MP #### [facility] [address] [address] [address] Preeti Hyman Potassium [Moles/Vol] 3.7 mmol/L Normal 3.5-5.1 [facility] Comment on above: Performed By: #### C MP #### [facility] [address] [place] [address] Dr. Preeti Hyman Protein [Mass/Vol] 7.0 g/dL Normal 6.4-8.2 [facility] Comment on above: Performed By: #### C MP #### [facility] [address] [address] [address] Preeti Hyman Sodium [Moles/Vol] 140 mmol/L Normal 136-145 [facility] Comment on above: Performed By: #### C MP #### [facility] [address] [address] [address] Preeti Hyman Urea nitrogen [Mass/Vol] 16.0 mg/dL Normal 7.0-18.0 [facility] Comment on above: Performed By: #### C MP #### [facility] [address] [address] [address] Preeti Hyman Urea nitrogen/Creatinine [Mass ratio] 18.4 mg/mg Normal [facility] Comment on above: Performed By: #### C MP #### [facility] [address] [place] [address] Dr. Preeti Hyman CBC AUTO DIFFon 04-14-2022 BASO # 0.0 103/ul Normal 0.0-0.1 [facility] Comment on above: Performed By: #### C BC #### [facility] [address] [address] [address] Preeti Hyman Basophils/100 WBC (Bld) 0.2 % Normal 0.2-2.0 [facility] Comment on above: Performed By: #### C BC #### [facility] [address] [place] [address] Dr. Preeti Hyman EO # 0.1 103/ul Normal 0.0-0.7 [facility] Comment on above: Performed By: #### C BC #### [facility] [address] [place] [address] Dr. Preeti Hyman Eosinophils/100 WBC (Bld) 2.2 % Normal 0.9-7.0 [facility] Comment on above: Performed By: #### C BC #### [facility] [address] [place] [address] Dr. Preeti Hyman Erythrocyte distribution width (RBC) [Ratio] 13.4 % Normal 11.0-15.0 [facility] Comment on above: Performed By: #### C BC #### [facility] [address] [place] [address] Dr. Preeti Hyman Hematocrit (Bld) [Volume fraction] 36.3 % Critically low 42.0-54.0 [facility] Comment on above: Performed By: #### C BC #### [facility] [address] [place] [address] Dr. Preeti Hyman Hemoglobin (Bld) [Mass/Vol] 12.1 g/dL Critically low 14.0-18.0 [facility] Comment on above: Performed By: #### C BC #### [facility] [address] [place] [address] Dr. Preeti Hyman IG # 0.01 10e3/ul Normal 0.00-0.03 [facility] Comment on above: Performed By: #### C BC #### [facility] [address] [place] [address] Dr. Preeti Hyman IG % 0.2 % Normal 0.0-0.5 [facility] Comment on above: Performed By: #### C BC #### [facility] [address] [address] [address] Preeti Hyman LYMPH # 2.0 103/ul Normal 1.2-3.8 [facility] Comment on above: Performed By: #### C BC #### [facility] [address] [place] [address] Dr. Preeti Hyman Lymphocytes/100 WBC (Bld) 49.0 % Normal 20.5-60.0 [facility] Comment on above: Performed By: #### C BC #### [facility] [address] [place] [address] Dr. Preeti Hyman MANUAL DIFF REQ NO Normal [facility] Comment on above: Performed By: #### C BC #### [facility] [address] [place] [address] Dr. Preeti Hyman MCH (RBC) [Entitic mass] 30.6 pg Normal 25.9-34.0 [facility] Comment on above: Performed By: #### C BC #### [facility] [address] [place] [address] Dr. Preeti Hyman MCHC (RBC) [Mass/Vol] 33.3 g/dL Normal 29.9-35.2 [facility] Comment on above: Performed By: #### C BC #### [facility] [address] [place] [address] Dr. Preeti Hyman MCV (RBC) [Entitic vol] 91.7 fL Normal 80.0-94.0 [facility] Comment on above: Performed By: #### C BC #### [facility] [address] [place] [address] Dr. Preeti Hyman MONO # 0.5 103/ul Normal 0.3-0.8 [facility] Comment on above: Performed By: #### C BC #### [facility] [address] [place] [address] Dr. Preeti Hyman Monocytes/100 WBC (Bld) 12.1 % Critically high 1.7-12.0 [facility] Comment on above: Performed By: #### C BC #### [facility] [address] [address] [address] Preeti Hyman NEUT # 1.5 103/ul Normal 1.4-6.5 [facility] Comment on above: Performed By: #### C BC #### [facility] [address] [address] [address] Preeti Hyman Neutrophils/100 WBC (Bld) 36.3 % Critically low 43.0-75.0 [facility] Comment on above: Performed By: #### C BC #### [facility] [address] [address] [address] Preeti Hyman Platelet mean volume (Bld) [Entitic vol] 10.6 fL Normal 9.5-13.5 [facility] Comment on above: Performed By: #### C BC #### [facility] [address] [place] [address] Dr. Preeti Hyman PLT 203 103/ul Normal 150-450 [facility] Comment on above: Performed By: #### C BC #### [facility] [address] [place] [address] Dr. Preeti Hyman RBC 3.96 106/ul Critically low 4.70-6.10 [facility] Comment on above: Performed By: #### C BC #### [facility] [address] [address] [address] Preeti Hyman WBC 4.1 103/ul Normal 4.0-11.0 [facility] Comment on above: Performed By: #### C BC #### [facility] [address] [place] [address] Dr. Preeti Hyman PROF 14(COMP METB)on 023 Albumin [Mass/Vol] 2.9 g/dL Critically low 3.4-5.0 [facility] Comment on above: Performed By: #### C MP #### [facility] [address] [place] [address] Dr. Preeti Hyman Albumin/Globulin [Mass ratio] 0.8 {ratio} Normal [facility] Comment on above: Performed By: #### C MP #### [facility] [address] [address] [address] Preeti Hyman ALP [Catalytic activity/Vol] 99 U/L Normal 46-116 [facility] Comment on above: Performed By: #### C MP #### [facility] [address] [address] [address] Preeti Hyman ALT [Catalytic activity/Vol] 16 U/L Normal 16-63 [facility] Comment on above: Performed By: #### C MP #### [facility] [address] [place] [address] Dr. Preeti Hyman Anion gap [Moles/Vol] 11.2 mmol/L Normal [facility] Comment on above: Performed By: #### C MP #### [facility] [address] [place] [address] Dr. Preeti Hyman AST [Catalytic activity/Vol] 27 U/L Normal 15-37 [facility] Comment on above: Performed By: #### C MP #### [facility] [address] [place] [address] Dr. Preeti Hyman Bilirubin [Mass/Vol] 0.2 mg/dL Normal 0.2-1.0 [facility] Comment on above: Performed By: #### C MP #### [facility] [address] [place] [address] Dr. Preeti Hyman Calcium [Mass/Vol] 8.1 mg/dL Critically low 8.5-10.[address] [facility] Comment on above: Performed By: #### C MP #### [facility] [address] [place] [address] Dr. Preeti Hyman Chloride [Moles/Vol] 106 mmol/L Normal 98-107 [facility] Comment on above: Performed By: #### C MP #### [facility] [address] [place] [address] Dr. Preeti Hyman CO2 [Moles/Vol] 26.5 mmol/L Normal 21.0-32.0 [facility] Comment on above: Performed By: #### C MP #### [facility] [address] [place] [address] Dr. Preeti Hyman Creatinine [Mass/Vol] 0.98 mg/dL Normal 0.70-1.30 [facility] Comment on above: Performed By: #### C MP #### [facility] [address] [place] [address] Dr. Preeti Hyman EGFR-AF [place]ITT[place] >60 Normal >=[address] [facility] Comment on above: Performed By: #### C MP #### [facility] [address] [address] [address] Preeti Hyman EGFR-NON AF [place] >60 Normal >=60 [facility] Comment on above: Performed By: #### C MP #### [facility] [address] [place] [address] Dr. Preeti Hyman Globulin (S) [Mass/Vol] 3.7 g/dL Normal [facility] Comment on above: Performed By: #### C MP #### [facility] [address] [place] [address] Dr. Preeti Hyman Glucose [Mass/Vol] 94 mg/dL Normal 74-106 [facility] Comment on above: Performed By: #### C MP #### [facility] [address] [place] [address] Dr. Preeti Hyman Potassium [Moles/Vol] 3.7 mmol/L Normal 3.5-5.1 [facility] Comment on above: Performed By: #### C MP #### [facility] [address] [place] [address] Dr. Preeti Hyman Protein [Mass/Vol] 6.6 g/dL Normal 6.4-8.2 [facility] Comment on above: Performed By: #### C MP #### [facility] [address] [place] [address] Dr. Preeti Hyman Sodium [Moles/Vol] 140 mmol/L Normal 136-145 [facility] Comment on above: Performed By: #### C MP #### [facility] [address] [place] [address] Dr. Preeti Hyman Urea nitrogen [Mass/Vol] 12.0 mg/dL Normal 7.0-18.0 [facility] Comment on above: Performed By: #### C MP #### [facility] [address] [place] [address] Dr. Preeti Hyman Urea nitrogen/Creatinine [Mass ratio] 12.2 mg/mg Normal [facility] Comment on above: Performed By: #### C MP #### [facility] [address] [place] [address] Dr. Preeti Hyman CBC AUTO DIFFon 04-13-2022 BASO # 0.0 103/ul Normal 0.0-0.1 [facility] Comment on above: Performed By: #### M YO #### [facility] [address] [place] [address] Dr. Preeti Hyman Basophils/100 WBC (Bld) 0.5 % Normal 0.2-2.0 [facility] Comment on above: Performed By: #### M YO #### [facility] [address] [place] [address] Dr. Preeti Hyman EO # 0.2 103/ul Normal 0.0-0.7 [facility] Comment on above: Performed By: #### M YO #### [facility] [address] [place] [address] Dr. Preeti Hyman Eosinophils/100 WBC (Bld) 3.9 % Normal 0.9-7.0 [facility] Comment on above: Performed By: #### M YO #### [facility] [address] [place] [address] Dr. Preeti Hyman Erythrocyte distribution width (RBC) [Ratio] 13.6 % Normal 11.0-15.0 [facility] Comment on above: Performed By: #### M YO #### [facility] [address] [place] [address] Dr. Preeti Hyman Hematocrit (Bld) [Volume fraction] 38.5 % Critically low 42.0-54.0 [facility] Comment on above: Performed By: #### M YO #### [facility] [address] [place] [address] Dr. Preeti Hyman Hemoglobin (Bld) [Mass/Vol] 12.8 g/dL Critically low 14.0-18.0 [facility] Comment on above: Performed By: #### M YO #### [facility] [address] [place] [address] Dr. Preeti Hyman IG # 0.01 10e3/ul Normal 0.00-0.03 [facility] Comment on above: Performed By: #### M YO #### [facility] [address] [place] [address] Dr. Preeti Hyman IG % 0.3 % Normal 0.0-0.5 [facility] Comment on above: Performed By: #### M YO #### [facility] [address] [place] [address] Dr. Preeti Hyman LYMPH # 1.7 103/ul Normal 1.2-3.8 [facility] Comment on above: Performed By: #### M YO #### [facility] [address] [place] [address] Dr. Preeti Hyman Lymphocytes/100 WBC (Bld) 43.6 % Normal 20.5-60.0 [facility] Comment on above: Performed By: #### M YO #### [facility] [address] [place] [address] Dr. Preeti Hyman MANUAL DIFF REQ NO Normal [facility] Comment on above: Performed By: #### M YO #### [facility] [address] [place] [address] Dr. Preeti Hyman MCH (RBC) [Entitic mass] 30.8 pg Normal 25.9-34.0 [facility] Comment on above: Performed By: #### M YO #### [facility] [address] [place] [address] Dr. Preeti Hyman MCHC (RBC) [Mass/Vol] 33.2 g/dL Normal 29.9-35.2 [facility] Comment on above: Performed By: #### M YO #### [facility] [address] [place] [address] Dr. Preeti Hyman MCV (RBC) [Entitic vol] 92.5 fL Normal 80.0-94.0 [facility] Comment on above: Performed By: #### M YO #### [facility] [address] [address] [address] Preeti Hyman MONO # 0.7 103/ul Normal 0.3-0.8 [facility] Comment on above: Performed By: #### M YO #### [facility] [address] [address] [address] Preeti Hyman Monocytes/100 WBC (Bld) 17.3 % Critically high 1.7-12.0 [facility] Comment on above: Performed By: #### M YO #### [facility] [address] [address] [address] Preeti Hyman NEUT # 1.3 103/ul Critically low 1.4-6.5 [facility] Comment on above: Performed By: #### M YO #### [facility] [address] [place] [address] Dr. Preeti Hyman Neutrophils/100 WBC (Bld) 34.4 % Critically low 43.0-75.0 [facility] Comment on above: Performed By: #### M YO #### [facility] [address] [place] [address] Dr. Preeti Hyman Platelet mean volume (Bld) [Entitic vol] 10.8 fL Normal 9.5-13.5 [facility] Comment on above: Performed By: #### M YO #### [facility] [address] [address] [address] Preeti Hyman PLT 192 103/ul Normal 150-450 [facility] Comment on above: Performed By: #### M YO #### [facility] [address] [address] [address] Preeti Hymna RBC 4.16 106/ul Critically low 4.70-6.10 [facility] Comment on above: Performed By: #### M YO #### [facility] [address] [address] [address] Preeti Hyman WBC 3.8 103/ul Critically low 4.0-11.0 [facility] Comment on above: Performed By: #### M YO #### [facility] [address] [address] [address] Preeti Hyman MYOGLOBINon 04-13-2022 MONISHA 107 ng/mL Critically high 16-96 [facility] Comment on above: Performed By: #### M YO #### [facility] [address] [place] [address] Dr. Preeti Hyman PROF 14(COMP METB)on 023 Albumin [Mass/Vol] 3.0 g/dL Critically low 3.4-5.[address] [facility] Comment on above: Performed By: #### C MP #### [facility] [address] [place] [address] Dr. Preeti Hyman Albumin/Globulin [Mass ratio] 0.8 {ratio} Normal [facility] Comment on above: Performed By: #### C MP #### [facility] [address] [place] [address] Dr. Preeti Hyman ALP [Catalytic activity/Vol] 107 U/L Normal 46-116 [facility] Comment on above: Performed By: #### C MP #### [facility] [address] [place] [address] Dr. Preeti Hyman ALT [Catalytic activity/Vol] 17 U/L Normal 16-63 [facility] Comment on above: Performed By: #### C MP #### [facility] [address] [place] [address] Dr. Preeti Hyman Anion gap [Moles/Vol] 11.4 mmol/L Normal [facility] Comment on above: Performed By: #### C MP #### [facility] [address] [place] [address] Dr. Preeti Hyman AST [Catalytic activity/Vol] 28 U/L Normal 15-37 [facility] Comment on above: Performed By: #### C MP #### [facility] [address] [place] [address] Dr. Preeti Hyman Bilirubin [Mass/Vol] 0.2 mg/dL Normal 0.2-1.0 [facility] Comment on above: Performed By: #### C MP #### [facility] [address] [address] [address] Preeti Hyman Calcium [Mass/Vol] 8.0 mg/dL Critically low 8.5-10.1 Th e [facility] Comment on above: Performed By: #### C MP #### [facility] [address] [address] [address] Preeti Hyman Chloride [Moles/Vol] 106 mmol/L Normal 98-107 [facility] Comment on above: Performed By: #### C MP #### [facility] [address] [address] [address] Preeti Hyman CO2 [Moles/Vol] 27.5 mmol/L Normal 21.0-32.0 [facility] Comment on above: Performed By: #### C MP #### [facility] [address] [place] [address] Dr. Preeti Hyman Creatinine [Mass/Vol] 1.00 mg/dL Normal 0.70-1.30 [facility] Comment on above: Performed By: #### C MP #### [facility] [address] [place] [address] Dr. Preeti Hyman EGFR-AF KITTITIAN >60 Normal >=60 [facility] Comment on above: Performed By: #### C MP #### [facility] [address] [place] [address] Dr. Preeti Hyman EGFR-NON AF KITTITIAN >60 Normal >=60 [facility] Comment on above: Performed By: #### C MP #### [facility] [address] [place] [address] Dr. Preeti Hyman Globulin (S) [Mass/Vol] 4.0 g/dL Normal [facility] Comment on above: Performed By: #### C MP #### [facility] [address] [place] [address] Dr. Preeti Hyman Glucose [Mass/Vol] 87 mg/dL Normal 74-106 [facility] Comment on above: Performed By: #### C MP #### [facility] [address] [place] [address] Dr. Preeti Hyman Potassium [Moles/Vol] 3.9 mmol/L Normal 3.5-5.1 [facility] Comment on above: Performed By: #### C MP #### [facility] [address] [place] [address] Dr. Preeti Hyman Protein [Mass/Vol] 7.0 g/dL Normal 6.4-8.2 [facility] Comment on above: Performed By: #### C MP #### [facility] [address] [address] [address] Preeti Hyman Sodium [Moles/Vol] 141 mmol/L Normal 136-145 [facility] Comment on above: Performed By: #### C MP #### [facility] [address] [place] [address] Dr. Preeti Hyman Urea nitrogen [Mass/Vol] 16.0 mg/dL Normal 7.0-18.0 [facility] Comment on above: Performed By: #### C MP #### [facility] [address] [place] [address] Dr. Preeti Hyman Urea nitrogen/Creatinine [Mass ratio] 16.0 mg/mg Normal [facility] Comment on above: Performed By: #### C MP #### [facility] [address] [place] [address] Dr. Preeti Hyman T4on 04-13-2022 T4 [Mass/Vol] 7.20 ug/dL Normal 4.50-12.10 [facility] Comment on above: Performed By: #### T 4 #### [facility] [address] [place] [address] Dr. Preeti Hyman TSHon 04-13-2022 TSH 2.126 uIU/mL Normal 0.358-3.740 [facility] Comment on above: Performed By: #### M YO #### [facility] [address] [place] [address] Dr. Preeti Hyman CARDIAC KALEIGH ADMITon 023 CK [Catalytic activity/Vol] 237 U/L Normal 39-308 [facility] Comment on above: Performed By: #### M YO #### [facility] [address] [place] [address] Dr. Preeti Hyman CK.MB [Mass/Vol] 2.15 ng/mL Normal <=3.[address] [facility] Comment on above: Performed By: #### M YO #### [facility] [address] [place] [address] Dr. Preeti Hyman HSTROP 9.8 pg/mL Normal 4.0-76.1 [facility] Comment on above: Result Comment: CUT- OFF POINTS HAVE BEEN ESTABLISHED BASED ON THE FOURTH UNIVERSAL DEFINITIONS OF MYOCARDIAL INFARCTION. THE UPPER REFERENCE LIMIT (URL) OF TROPONIN, DEFINED THE 99TH PERCENTILE OF cTnI DISTRIBUTION IN A REFERENCE POPULATION, HAS BEEN CONFIRMED THE DECISION THRESHOLD FOR PA DIAGNOSIS. Performed By: #### M YO #### [facility] [address] [place] [address] Dr. Preeti Hyman MONISHA 191 ng/mL Critically high 16-96 [facility] Comment on above: Performed By: #### M YO #### [facility] [address] [place] [address] Dr. Preeti Hyman CBC AUTO DIFFon 04-12-2022 BASO # 0.0 103/ul Normal 0.0-0.1 [facility] Comment on above: Performed By: #### C BC #### [facility] [address] [place] [address] Dr. Preeti Hyman Basophils/100 WBC (Bld) 0.2 % Normal 0.2-2.0 [facility] Comment on above: Performed By: #### C BC #### [facility] [address] [place] [address] Dr. Preeti Hyman EO # 0.0 103/ul Normal 0.0-0.7 [facility] Comment on above: Performed By: #### C BC #### [facility] [address] [place] [address] Dr. Preeti Hyman Eosinophils/100 WBC (Bld) 0.5 % Critically low 0.9-7.0 [facility] Comment on above: Performed By: #### C BC #### [facility] [address] [place] [address] Dr. Preeti Hyman Erythrocyte distribution width (RBC) [Ratio] 13.6 % Normal 11.0-15.0 [facility] Comment on above: Performed By: #### C BC #### [facility] [address] [place] [address] Dr. Preeti Hyman Hematocrit (Bld) [Volume fraction] 40.8 % Critically low 42.0-54.0 [facility] Comment on above: Performed By: #### C BC #### [facility] [address] [place] [address] Dr. Preeti Hyman Hemoglobin (Bld) [Mass/Vol] 13.2 g/dL Critically low 14.0-18.0 [facility] Comment on above: Performed By: #### C BC #### [facility] [address] [place] [address] Dr. Preeti Hyman IG # 0.02 10e3/ul Normal 0.00-0.03 [facility] Comment on above: Performed By: #### C BC #### [facility] [address] [place] [address] Dr. Preeti Hyman IG % 0.5 % Normal 0.0-0.5 [facility] Comment on above: Performed By: #### C BC #### [facility] [address] [place] [address] Dr. Preeti Hyman LYMPH # 1.5 103/ul Normal 1.2-3.8 [facility] Comment on above: Performed By: #### C BC #### [facility] [address] [place] [address] Dr. Preeti Hyman Lymphocytes/100 WBC (Bld) 36.1 % Normal 20.5-60.0 [facility] Comment on above: Performed By: #### C BC #### [facility] [address] [place] [address] Dr. Preeti Hyman MANUAL DIFF REQ NO Normal [facility] Comment on above: Performed By: #### C BC #### [facility] [address] [place] [address] Dr. Preeti Hyman MCH (RBC) [Entitic mass] 30.1 pg Normal 25.9-34.0 [facility] Comment on above: Performed By: #### C BC #### [facility] [address] [place] [address] Dr. Preeti Hyman MCHC (RBC) [Mass/Vol] 32.4 g/dL Normal 29.9-35.2 [facility] Comment on above: Performed By: #### C BC #### [facility] [address] [place] [address] Dr. Preeti Hyman MCV (RBC) [Entitic vol] 92.9 fL Normal 80.0-94.0 [facility] Comment on above: Performed By: #### C BC #### [facility] [address] [place] [address] Dr. Preeti Hyman MONO # 1.0 103/ul Critically high 0.3-0.8 [facility] Comment on above: Performed By: #### C BC #### [facility] [address] [place] [address] Dr. Preeti Hyman Monocytes/100 WBC (Bld) 23.6 % Critically high 1.7-12.0 [facility] Comment on above: Performed By: #### C BC #### [facility] [address] [place] [address] Dr. Preeti Hyman NEUT # 1.6 103/ul Normal 1.4-6.5 [facility] Comment on above: Performed By: #### C BC #### [facility] [address] [place] [address] Dr. Preeti Hyman Neutrophils/100 WBC (Bld) 39.1 % Critically low 43.0-75.0 [facility] Comment on above: Performed By: #### C BC #### [facility] [address] [place] [address] Dr. Preeti Hyman Platelet mean volume (Bld) [Entitic vol] 10.9 fL Normal 9.5-13.5 [facility] Comment on above: Performed By: #### C BC #### [facility] [address] [place] [address] Dr. Preeti Hyman PLT 171 103/ul Normal 150-450 [facility] Comment on above: Performed By: #### C BC #### [facility] [address] [place] [address] Dr. Preeti Hyman RBC 4.39 106/ul Critically low 4.70-6.10 [facility] Comment on above: Performed By: #### C BC #### [facility] [address] [place] [address] Dr. Preeit Hyman WBC 4.2 103/ul Normal 4.0-11.0 [facility] Comment on above: Performed By: #### C BC #### [facility] [address] [place] [address] Dr. Preeti Hyman Covid-19 PCR ([facility]on 03-31 SARS-CoV-2 (COVID-19) RNA GAVINO+probe Ql (Unsp spec) Detected Abnormal NOT DETECTED [facility] Comment on above: Result Comment: This test is not yet approved or cleared by the [place] FDA. When there are no FDA-approved or cleared tests available, and other criteria are met, FDA can make tests available under an emergency access mechanism called an Emergency Use Authorization (EUA). The EUA for this test is supported by the Revenue Research Analyst of Health and Human Service's declaration that [...] used). Performed By: #### M YO #### [facility] [address] [place] [address] Dr. Preeti Hyman ER URINE PROFILEon 3 Bilirubin Ql (U) Negative Normal NEGATIVE [facility] Comment on above: Performed By: #### E RUR #### [facility] [address] [place] [address] Dr. Preeti Hyman Clarity (U) CLEAR Normal CLEAR [facility] Comment on above: Performed By: #### E RUR #### [facility] [address] [place] [address] Dr. Preeti Hyman Color (U) LT. YELLOW Normal YELLOW [facility] Comment on above: Performed By: #### E RUR #### [facility] [address] [place] [address] Dr. Preeti MADERA A micrscopic examination will be performed if indicated. Normal [facility] Comment on above: Performed By: #### E RUR #### [facility] [address] [place] [address] Dr. Preeti Hyman Glucose Ql (U) Negative Normal NEGATIVE [facility] Comment on above: Performed By: #### E RUR #### [facility] [address] [place] [address] Dr. Preeti Hyman Hemoglobin Ql (U) Negative Normal NEGATIVE [facility] Comment on above: Performed By: #### E RUR #### [facility] [address] [place] [address] Dr. Preeti Hyman Ketones Ql (U) Negative Normal NEGATIVE [facility] Comment on above: Performed By: #### E RUR #### [facility] [address] [place] [address] Dr. Preeti Hyman LEUKOCYTES Negative Normal NEGATIVE [facility] Comment on above: Performed By: #### E RUR #### [facility] [address] [place] [address] Dr. Preeti Hyman Nitrite Ql (U) Negative Normal NEGATIVE [facility] Comment on above: Performed By: #### E RUR #### [facility] [address] [place] [address] Dr. Preeti Hyman pH (U) 5.5 [pH] Normal 5-9 [facility] Comment on above: Performed By: #### E RUR #### [facility] [address] [place] [address] Dr. Preeti Hyman SPEC GRAVITY 1.015 Normal 1.005-<=1.025 [facility] Comment on above: Performed By: #### E RUR #### [facility] [address] [place] [address] Dr. Preeti Hyman UA PROTEIN Negative Normal NEGATIVE/ TRACE [facility] Comment on above: Performed By: #### E RUR #### [facility] [address] [place] [address] Dr. Preeti Hyman UR MICRO IND NOT INDICATED Normal [facility] Comment on above: Performed By: #### E RUR #### [facility] [address] [place] [address] Dr. Preeti Hyman Urobilinogen Qn (U) 0.2 {Comfort'U}/dL Normal 0.2 - 1. 0 [facility] Comment on above: Performed By: #### E RUR #### [facility] [address] [place] [address] Dr. Preeti Hyman INFLUENZA A AND B AGon 04-12 INFLUANE SEE BELOW Normal [facility] Comment on above: Result Comment: Nega tive for Flu A protein angiten. Infection due to Flu A cannot be ruled out. Flu A angiten in the sample may be below the detection limit of the test. Performed By: #### I NFLUAB #### [facility] [address] [place] [address] Dr. Preeti Hyman INFLUBNEGH SEE BELOW Normal [facility] Comment on above: Result Comment: Nega tive for Flu B protein antigen. Infection due to Flu B cannot be ruled out. Flu B antigen in the sample may be below the detection limit of the test. Performed By: #### I NFLUAB #### [facility] [address] [place] [address] Dr. Preeti Hyman INFLUENZA A AG Negative Normal NEGATIVE SEE COMMENT [facility] Comment on above: Performed By: #### I NFLUAB #### [facility] [address] [place] [address] Dr. Preeti Hyman INFLUENZA B AG Negative Normal NEGATIVE SEE COMMENT [facility] Comment on above: Performed By: #### I NFLUAB #### [facility] [address] [place] [address] Dr. Preeti Hyman LIPASEon 04-12-2022 Lipase [Catalytic activity/Vol] 101.0 U/L Normal 73.0-393.0 [facility] Comment on above: Performed By: #### C MP, CMADM, LIPA #### [facility] [address] [place] [address] Dr. Preeti Hyman PROF 14(COMP METB)on 023 Albumin [Mass/Vol] 3.3 g/dL Critically low 3.4-5.0 Th e [facility] Comment on above: Performed By: #### M YO #### [facility] [address] [place] [address] Dr. Preeti Hyman Albumin/Globulin [Mass ratio] 0.8 {ratio} Normal [facility] Comment on above: Performed By: #### M YO #### [facility] [address] [place] [address] Dr. Preeti Hyman ALP [Catalytic activity/Vol] 114 U/L Normal 46-116 [facility] Comment on above: Performed By: #### M YO #### [facility] [address] [place] [address] Dr. Preeti Hyman ALT [Catalytic activity/Vol] 19 U/L Normal 16-63 [facility] Comment on above: Performed By: #### M YO #### [facility] [address] [place] [address] Dr. Preeti Hyman Anion gap [Moles/Vol] 10.2 mmol/L Normal [facility] Comment on above: Performed By: #### M YO #### [facility] [address] [place] [address] Dr. Preeti Hyman AST [Catalytic activity/Vol] 25 U/L Normal 15-37 [facility] Comment on above: Performed By: #### M YO #### [facility] [address] [place] [address] Dr. Preeti Hyman Bilirubin [Mass/Vol] 0.1 mg/dL Critically low 0.2-1.0 [facility] Comment on above: Performed By: #### M YO #### [facility] [address] [place] [address] Dr. Preeti Hyman Calcium [Mass/Vol] 8.2 mg/dL Critically low 8.5-10.[address] [facility] Comment on above: Performed By: #### M YO #### [facility] [address] [place] [address] Dr. Preeti Hyman Chloride [Moles/Vol] 103 mmol/L Normal 98-107 [facility] Comment on above: Performed By: #### M YO #### [facility] [address] [place] [address] Dr. Preeti Hyman CO2 [Moles/Vol] 29.3 mmol/L Normal 21.0-32.0 [facility] Comment on above: Performed By: #### M YO #### [facility] [address] [place] [address] Dr. Preeti Hyman Creatinine [Mass/Vol] 1.24 mg/dL Normal 0.70-1.30 [facility] Comment on above: Performed By: #### M YO #### [facility] [address] [place] [address] Dr. Preeti Hyman EGFR-AF KITTITIAN >60 Normal >=60 [facility] Comment on above: Performed By: #### M YO #### [facility] [address] [place] [address] Dr. Preeti Hyman EGFR-NON AF KITTITIAN 57 mL/min/1.73m2 Critically low >=60 [facility] Comment on above: Performed By: #### M YO #### [facility] [address] [place] [address] Dr. Preeti Hyman Globulin (S) [Mass/Vol] 4.3 g/dL Normal [facility] Comment on above: Performed By: #### M YO #### [facility] [address] [address] [address] Preeti Hyman Glucose [Mass/Vol] 129 mg/dL Critically high 74-106 [facility] Comment on above: Performed By: #### M YO #### [facility] [address] [place] [address] Dr. Preeti Hyman Potassium [Moles/Vol] 4.3 mmol/L Normal 3.5-5.1 [facility] Comment on above: Performed By: #### M YO #### [facility] [address] [address] [address] Preeti Hyman Protein [Mass/Vol] 7.6 g/dL Normal 6.4-8.2 [facility] Comment on above: Performed By: #### M YO #### [facility] [address] [address] [address] Preeti Hyman Sodium [Moles/Vol] 139 mmol/L Normal 136-145 [facility] Comment on above: Performed By: #### M YO #### [facility] [address] [address] [address] Preeti Hyman Urea nitrogen [Mass/Vol] 16.0 mg/dL Normal 7.0-18.0 [facility] Comment on above: Performed By: #### M YO #### [facility] [address] [address] [address] Preeti Hyman Urea nitrogen/Creatinine [Mass ratio] 12.9 mg/mg Normal [facility] Comment on above: Performed By: #### M YO #### [facility] [address] [address] [address] Preeti Hyman XR CHEST 1 Von [...] by: KOKO HUNTLEY Date: 2022-04-12 15:35 Normal [facility] Encounters Encounter Date Encounter Type Care Provider Facility Start: 07-10-2022 End: 07-10-[address] JONATHAN GIORDANO . 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[employer] CUTTER FINISHER Work Phone: [facility] Start: 04-23-2022 Progress Note David OWENS RN.[employer] CUTTER FINISHER Work Phone: [facility] Start: 04-19-2022 Patient encounter procedure David Matos APRN.[employer] C[employer]TER FINISHER Work Phone: [facility] Start: 04-19-2022 Progress Note David OWENS RN.[employer] CUTTER FINISHER Work Phone: [facility] Start: 04-17-2022 Patient encounter procedure Itri Regino Rodney Work Phone: [facility] Start: 04-17-2022 Progress Note Itri A Rodney Work Phone: [facility] Start: 04-12-2022 End: 04-17-2022 Evaluation and management of inpatient DR JONATHAN GIORDANO . Facility: Payers Date Payer Category Payer Medicare UHC MEDICARE U[employer] MEDICARE ADVANTAGE PPO [id number] 2022-Present [phone] [address] [address] [place] [address] PPO [id number] 2019 Unknown [id number] 1960 Medicare [id number] 1945 Unknown [id number] 1945 Unknown [id number] Social History Date Type Detail Facility [facility] Start: 1945 Sex Assigned At Not on file [facility] History of Present illness Narrative 04-23-2022 David Matos APRN.[employer] - 04/23/2022 12:00 AM EST Note Date & Type Note Facility 04-23-2022 History of Presen t illness Narrative [facility] NOTE NAME: JONNY HENNESSY NO.: [id number] DATE OF SERVICE: 04/23/2022 [facility] DATE OF : 1945 REASON FOR VISIT: The patient is a resident of [facility]. This is a skilled visit for [...] have been reported since being in the [facility]. The patient states has been up [...] normal range. DICTATED BY: JULIA Bates JOB# [id number] cc:[facility] documented in this encounter [facility] History of Present illness Narrative 04-19-2022 David Matos APRN.[employer] - 04/19/2022 12:00 AM EST Note Date & Type Note Facility 04-19-2022 History of Presen t illness Narrative [facility] NOTE NAME: JONNY HENNESSY NO.: [id number] DATE OF SERVICE: 04/19/2022 [facility] DATE OF : 1945 REASON FOR VISIT: The patient is a resident of [facility]. This is a skilled visit for [...] have followup lab work performed. DICTATED BY: JUILA Bates/Ozzy JOB# [id number] cc:Supa Foy documented in this encounter [facility] History of Present illness Narrative 04-17-2022 Itri A Rodney - 04/17/2022 12:00 AM EST Note Date & Type Note Facility 04-17-2022 History of Presen t illness Narrative [facility] NOTE NAME: JONNY HENNESSY NO.: [id number] DATE OF SERVICE: 04/17/2022 Supa Foy DATE OF : 1945 NEW PATIENT HISTORY AND PHYSICAL HISTORY OF PRESENT ILLNESS: The patient is a 76-year-old male who is admitted to us from [facility] with a diagnosis of acute [...] therapy. DICTATED BY: MD ROXANE Pierce/Ozzy JOB# [id number] cc:Supa Foy documented in this encounter [facility] Summary Purpose Family History No Family History [...] or prosecute any alcohol or drug abuse patient.[facility] the event this information is protected by the Federal Confidentiality of Alcohol and Drug Abuse Patient Records regulations: The Federal rules restrict any use of the information to criminally investigate or prosecute any alcohol or drug abuse patient.[facility] the event this information is protected by the Federal Confidentiality of Alcohol and Drug Abuse Patient Records regulations: The Federal rules restrict any use of the information to criminally investigate or prosecute any alcohol or drug abuse patient.[facility] (unrecognized sect ion and content) No Status Records Found INFORMATION SOURCE (unrecogn ized section and content) DATE CREATED AUTHOR 07/15/2022 [facility] FOR RECORDS PERTAINING TO PATIENTS WHO ARE [...] BE BASED ON THE PRIMARY CLINICAL RECORDS. [facility]. provides no warranty or guarantee of the accuracy or completeness of information in this document.
--- NOTE | 2023-05-31 08:58 | RESP.RT ---
Will be done with [facility]
--- NOTE | 2023-05-31 09:00 | RESP.RT ---
To be done with [facility]
--- NOTE | 2023-05-31 09:48 | P.HP_ITS ---
H&P: HPI History of Present Illness Chief complaint: Congestion COMMUNITY ACQUIRED PNEUMONIA [facility]SH [facility] Medical History (Updated 05/31/23 @ 08:13 by Precious Erickson) Fracture of left hip requiring operative repair ?S72.002A - Fracture of unspecified part of neck of left femur, initial encounter for closed fracture (ICD-10) Acute hypoxic respiratory failure ?J96.01 - Acute respiratory failure with hypoxia (ICD-10) Aspiration pneumonitis ?J69.0 - Pneumonitis due to inhalation of food and vomit (ICD-10) Acute respiratory distress ?R06.03 - Acute respiratory distress (ICD-10) Aspiration into airway ?T17.908A - Unspecified foreign body in respiratory tract, part unspecified causing other injury, initial encounter (ICD-10) Neuropathy ?G62.9 - Polyneuropathy, unspecified (ICD-10) Peripheral neuropathy ?G62.9 - Polyneuropathy, unspecified (ICD-10) Bilateral edema of lower extremity ?R60.0 - Localized edema (ICD-10) Abrasion of knee, left ?S80.212A - Abrasion, left knee, initial encounter (ICD-10) Closed fracture of left hip ?S72.002A - Fracture of unspecified part of neck of left femur, initial encounter for closed fracture (ICD-10) Surgical History (Updated 12/18/22 @ 06:44 by Nilsa Arzate) Hx of tonsillectomy ?Z90.89 - Acquired absence of other organs (ICD-10) Previous back surgery ?Z98.890 - Other specified postprocedural states (ICD-10) Family History (Updated 12/18/22 @ 06:42 by Nilsa Arzate) Father Family history of hypertension Family history of stroke Social History (Updated 12/18/22 @ 06:41 by Nilsa Arzate) Within the past year, how often did you have a drink containing alcohol: never Score interpretation: A score less than 4 is consistent with normal alcohol consumption. Smoking status: Never smoker Non-prescribed substance use: denies use Previous occupational history: retired Highest level of school completed/degree received: some college, no degree Are you now , , , , never or living with a partner: In a typical week, how many times do you talk on the telephone with family, friends, or neighbors: 3 or more times per week How often do you get together with friends or relatives: 3 or more times per week How often do you attend scientology or episcopalian services: 1-3 times per year Little interest or pleasure in doing things: not at all Feeling down, depressed, or hopeless: not at all Feel stressed/tense/nervous/anxious/difficulty sleeping: not at all Do you think of yourself as: straight/heterosexual Gender Identity: male Meds Home Medications and Allergies Home Medications Medication Instructions Recorded Confirmed Type calcium carbonate 200 mg calcium 500 mg (2.5 x 200 mg calcium (500 12/20/22 05/31/23 Rx (500 mg) chewable tablet mg)) PO TID #90 tabs albuterol sulfate 2.5 mg/3 mL 2.5 mg inhalation Q6H PRN 04/04/23 05/31/23 History (0.083 %) solution for nebulization shortness of breath or wheezing Allergies Allergy/AdvReac Type Severity Reaction Status Date / Time No Known Drug Allergies Allergy Verified 05/31/23 06:02 Exam Constitutional Vital Signs, click to edit/add: Last Vital Signs Temp 98.3 F 05/31/23 08:00 Pulse 89 05/31/23 08:00 Resp 22 05/31/23 08:00 BP 125/75 05/31/23 08:00 Pulse Ox 94 L 05/31/23 08:00 O2 Del Method Nasal Cannula 05/31/23 09:00 O2 Flow Rate 1 05/31/23 08:00 Results Labs Labs: Short CBC 05/31/23 Range/Units 06:00 WBC 8.9 (4.0-11.0) 10^3/uL Hgb 11.7 L (14.0-18.0) g/dL Hct 37.4 L (42.0-54.0) % Plt Count 289 (150-450) 10^3/uL BMP 05/31/23 06:00 Sodium 141 Potassium 3.9 Chloride 104 Carbon Dioxide 30.4 BUN 16.0 Creatinine 1.14 Glucose 111 H Calcium 8.6 Liver Function 05/31/23 Range/Units 06:00 Total Bilirubin 0.4 (0.2-1.0) mg/dL AST 19 (15-37) U/L ALT 19 (16-63) U/L Alkaline Phosphatase 124 H (46-116) U/L Albumin 2.8 L (3.4-5.0) g/dL Urine 05/31/23 Range/Units 06:34 Urine Color Yellow (YELLOW) Urine Clarity Clear (CLEAR) Urine pH 5.5 (5.0-9.0) Ur Specific [place] >=1.030 A (1.005-1.025) Urine Protein Negative (NEG/TRACE) mg/dL Urine Glucose (UA) Negative (NEGATIVE) mg/dL
--- NOTE | 2023-05-31 09:48 | P.HP_ITS ---
H&P: HPI History of Present Illness Chief complaint: Congestion COMMUNITY ACQUIRED PNEUMONIA Narrative: Patient presented to the emergency room with increasing cough and shortness of breath. Found to have left lower lobe pneumonia I saw patient up on the floor, he was resting in his bed, did have some dyspnea with conversation, persisting cough throughout the conversation as well. Review of Systems ROS Status of ROS 10 or more systems reviewed and unremark able except as noted in history and below [facility] Medical History (Updated 05/31/23 @ 08:13 by Percious Erickson) Fracture of left hip requiring operative repair ?S72.002A - Fracture of unspecified part of neck of left femur, initial encounter for closed fracture (ICD-10) Acute hypoxic respiratory failure ?J96.01 - Acute respiratory failure with hypoxia (ICD-10) Aspiration pneumonitis ?J69.0 - Pneumonitis due to inhalation of food and vomit (ICD-10) Acute respiratory distress ?R06.03 - Acute respiratory distress (ICD-10) Aspiration into airway ?T17.908A - Unspecified foreign body in respiratory tract, part unspecified causing other injury, initial encounter (ICD-10) Neuropathy ?G62.9 - Polyneuropathy, unspecified (ICD-10) Peripheral neuropathy ?G62.9 - Polyneuropathy, unspecified (ICD-10) Bilateral edema of lower extremity ?R60.0 - Localized edema (ICD-10) Abrasion of knee, left ?S80.212A - Abrasion, left knee, initial encounter (ICD-10) Closed fracture of left hip ?S72.002A - Fracture of unspecified part of neck of left femur, initial encounter for closed fracture (ICD-10) Surgical History (Updated 12/18/22 @ 06:44 by Nilsa Arzate) Hx of tonsillectomy ?Z90.89 - Acquired absence of other organs (ICD-10) Previous back surgery ?Z98.890 - Other specified postprocedural states (ICD-10) Family History (Updated 12/18/22 @ 06:42 by Nilsa Arzate) Father Family history of hypertension Family history of stroke Social History (Updated 12/18/22 @ 06:41 by Nilsa Arzate) Within the past year, how often did you have a drink containing alcohol: never Score interpretation: A score less than 4 is consistent with normal alcohol consumption. Smoking status: Never smoker Non-prescribed substance use: denies use Previous occupational history: retired Highest level of school completed/degree received: some college, no degree Are you now , , , , never or living with a partner: In a typical week, how many times do you talk on the telephone with family, friends, or neighbors: 3 or more times per week How often do you get together with friends or relatives: 3 or more times per week How often do you attend moravian or jew services: 1-3 times per year Little interest or pleasure in doing things: not at all Feeling down, depressed, or hopeless: not at all Feel stressed/tense/nervous/anxious/difficulty sleeping: not at all Do you think of yourself as: straight/heterosexual Gender Identity: male Meds Home Medications and Allergies Home Medications Medication Instructions Recorded Confirmed Type calcium carbonate 200 mg calcium 500 mg (2.5 x 200 mg calcium (500 12/20/22 05/31/23 Rx (500 mg) chewable tablet mg)) PO TID #90 tabs albuterol sulfate 2.5 mg/3 mL 2.5 mg inhalation Q6H PRN 04/04/23 05/31/23 History (0.083 %) solution for nebulization shortness of breath or wheezing Allergies Allergy/AdvReac Type Severity Reaction Status Date / Time No Known Drug Allergies Allergy Verified 05/31/23 06:02 Exam Constitutional Vital Signs, click to edit/add: Last Vital Signs Temp 98.3 F 05/31/23 08:00 Pulse 89 05/31/23 08:00 Resp 22 05/31/23 08:00 BP 125/75 05/31/23 08:00 Pulse Ox 94 L 05/31/23 08:00 O2 Del Method Nasal Cannula 05/31/23 09:00 O2 Flow Rate 1 05/31/23 08:00 Documenting provider has reviewed patient's vital signs: yes Common normals: apparent distress (Mild respiratory distress with conversational dyspnea) Chest Common normals: inspection of chest normal Respiratory Common normals: abnormal respiratory effort Effort & inspection: not able to speak in complete sentences (Mild conversational dyspnea) Auscultation: rhonchi left lower Cardio Common normals: regular rate and regular rhythm GI Common normals: Normal to inspection, nondistended, normoactive bowel sounds present, soft to palpation and non-tender Results Labs Labs: Short CBC 05/31/23 Range/Units 06:00 WBC 8.9 (4.0-11.0) 10^3/uL Hgb 11.7 L (14.0-18.0) g/dL Hct 37.4 L (42.0-54.0) % Plt Count 289 (150-450) 10^3/uL BMP 05/31/23 06:00 Sodium 141 Potassium 3.9 Chloride 104 Carbon Dioxide 30.4 BUN 16.0 Creatinine 1.14 Glucose 111 H Calcium 8.6 Liver Function 05/31/23 Range/Units 06:00 Total Bilirubin 0.4 (0.2-1.0) mg/dL AST 19 (15-37) U/L ALT 19 (16-63) U/L Alkaline Phosphatase 124 H (46-116) U/L Albumin 2.8 L (3.4-5.0) g/dL Urine 05/31/23 Range/Units 06:34 Urine Color Yellow (YELLOW) Urine Clarity Clear (CLEAR) Urine pH 5.5 (5.0-9.0) Ur Specific [place] >=1.030 A (1.005-1.025) Urine Protein Negative (NEG/TRACE) mg/dL Urine Glucose (UA) Negative (NEGATIVE) mg/dL Assessment and Plan Assessment and Plan (1) Community acquired pneumonia: (2) Aspiration into airway: (3) Neuropathy: Plan Respiratory distress secondary to left lower lobe pneumonia-IV antibiotics, aerosol treatments. Try to obtain sputum culture. Blood cultures pending. Moderate protein calorie malnutrition-diet supplement Iron deficiency anemia-monitor daily Insomnia-add trazodone Will hold patient as observation status, greater than 50% chance she will be discharged home tomorrow
[2023-05-31] MEDS: IPRATROPIUM/ALBUTEROL SULFATE 3 ML AMPUL.NEB IH ×3 (11:14→22:44)
[2023-05-31] MEDS: METHYLPREDNISOLONE SOD SUCC PF 125 MG/2 ML VIAL 60 MG IVP ×3 (11:23→23:22)
[2023-05-31] MEDS: AZITHROMYCIN 500 MG in 0.9 % SODIUM CHLORIDE 250 ML 250 MG IV (11:57)
[2023-05-31] MEDS: BENZONATATE 100 MG CAPSULE 200 MG PO ×2 (15:00→22:24)
[2023-05-31] MEDS: TAMSULOSIN HCL 0.4 MG CAPSULE 0.400000000000000022 MG PO (16:40)
[2023-05-31] MEDS: TRAZODONE HCL 50 MG TABLET PO (22:24)
[2023-06-01] VITALS (11 sets, daily range): BP systolic 99–135; BP diastolic 6–79; PULSE 74–106; RESP 16–24; TEMP 36.3–36.6; O2SAT 86–96
[2023-06-01] MEDS: BENZONATATE 100 MG CAPSULE 200 MG PO ×3 (04:25→21:03)
[2023-06-01] MEDS: METHYLPREDNISOLONE SOD SUCC PF 125 MG/2 ML VIAL 60 MG IVP ×3 (04:55→21:03)
[2023-06-01] MEDS: IPRATROPIUM/ALBUTEROL SULFATE 3 ML AMPUL.NEB IH ×4 (05:05→23:18)
[2023-06-01 05:41] LABS: Basophils Percent Auto 0.1 % (0.2-2.0); Hematocrit 33.2 % (42.0-54.0); Hemoglobin 10.5 g/dL (14.0-18.0); Immature Granulocytes Abs Auto 0.07 10^3/uL (0.00-0.03); Immature Granulocytes Pct Auto 0.6 % (0.0-0.5); Lymphocytes Absolute Auto 0.8 10^3/uL (1.2-3.8); Lymphocytes Percent Auto 6.6 % (20.5-60.0); Mean Corpuscular HGB Conc 31.6 g/dL (29.9-35.2); Mean Corpuscular Hemoglobin 29.2 pg (25.9-34.0); Mean Corpuscular Volume 92.5 fL (80.0-94.0); Mean Platelet Volume 10.9 fL (9.5-13.5); Monocytes Absolute Auto 0.6 10^3/uL (0.3-0.8); Neutrophils Absolute Auto 10.9 10^3/uL (1.4-6.5); Neutrophils Percent Auto 87.7 % (43.0-75.0); Platelet Count 247 10^3/uL (150-450); Red Blood Count 3.59 10^6/uL (4.70-6.10); Red Cell Distribution Width 13.5 % (11.0-15.0); White Blood Count 12.4 10^3/uL (4.0-11.0)
[2023-06-01 05:52] LABS: Alanine Aminotransferase 12 U/L (16-63); Albumin Globulin Ratio 0.5; Albumin Level 2.4 g/dL (3.4-5.0); Alkaline Phosphatase 95 U/L (46-116); Anion Gap 12.8; Aspartate Amino Transferase 12 U/L (15-37); BUN Creatinine Ratio 18.8; Bilirubin Total 0.3 mg/dL (0.2-1.0); Calcium 8.3 mg/dL (8.5-10.1); Carbon Dioxide 27.1 mmol/L (21.0-32.0); Chloride 106 mmol/L (98-107); Estimated GFR (African America >60 (>=60); Estimated GFR (Non-African Ame >60 (>=60); Glucose 159 mg/dL (74-106); Potassium 3.9 mmol/L (3.5-5.1); Sodium 142 mmol/L (136-145); Total Protein 7.4 g/dL (6.4-8.2)
[2023-06-01] MEDS: TAMSULOSIN HCL 0.4 MG CAPSULE 0.400000000000000022 MG PO (09:18)
[2023-06-01] MEDS: POLYETHYLENE GLYCOL 3350 17 GM POWDER PACKET PO (09:18)
[2023-06-01] MEDS: CEFTRIAXONE 1,000 MG in 0.9 % SODIUM CHLORIDE 50 ML 100 MG IV (09:18)
[2023-06-01] MEDS: AZITHROMYCIN 500 MG in 0.9 % SODIUM CHLORIDE 250 ML 250 MG IV (09:18)
--- NOTE | 2023-06-01 11:13 | P.PN_ITS ---
Progress Note: Subjective Subjective Interval history: Patient up in chair. Feels improved, still with some significant cough throughout the conversation and dyspnea with conversation. Patient has not been up ambulating yet. Exam Constitutional Vital Signs, click to edit/add: Last Vital Signs Temp 97.6 F 06/01/23 08:00 Pulse 75 06/01/23 10:36 Resp 20 06/01/23 08:00 BP 108/62 06/01/23 08:00 Pulse Ox 95 06/01/23 10:36 O2 Del Method Room Air 06/01/23 10:36 O2 Flow Rate 2 06/01/23 05:06 Documenting provider has reviewed patient's vital signs: yes Common normals: apparent distress (Mild respiratory distress with conversational dyspnea) Chest Common normals: inspection of chest normal Respiratory Common normals: abnormal respiratory effort Effort & inspection: not able to speak in complete sentences (Mild conversational dyspnea) Auscultation: rhonchi (Sounds worse today, has not had a recent breathing treatment) left lower Cardio Common normals: regular rate and regular rhythm GI Common normals: Normal to inspection, nondistended, normoactive bowel sounds present, soft to palpation and non-tender Progress Note: Objective Labs Labs: Short CBC 06/01/23 Range/Units 04:23 WBC 12.4 H (4.0-11.0) 10^3/uL Hgb 10.5 L (14.0-18.0) g/dL Hct 33.2 L (42.0-54.0) % Plt Count 247 (150-450) 10^3/uL BMP 06/01/23 04:23 Sodium 142 Potassium 3.9 Chloride 106 Carbon Dioxide 27.1 BUN 18.0 Creatinine 0.96 Glucose 159 H Calcium 8.3 L Liver Function 06/01/23 Range/Units 04:23 Total Bilirubin 0.3 (0.2-1.0) mg/dL AST 12 L (15-37) U/L ALT 12 L (16-63) U/L Alkaline Phosphatase 95 (46-116) U/L Albumin 2.4 L (3.4-5.0) g/dL Progress Note: A&P Assessment and Plan (1) Community acquired pneumonia: (2) Aspiration into airway: (3) Neuropathy: Plan Respiratory distress secondary to left lower lobe pneumonia-IV antibiotics, aerosol treatments. Try to obtain sputum culture. Blood cultures pending.-To started IV antibiotics,'s will maintain current treatment plan, he does sound worse. Oxygen is still fluctuating. He was hypoxic overnight. Better this morning. Leukocytosis with significant left shift, deteriorated from previous day Moderate protein calorie malnutrition-diet supplement Iron deficiency anemia-monitor daily Insomnia-add trazodone Iron deficiency anemia-monitor daily Moderate protein calorie malnutrition-diet management With hypoxia persisting, dyspnea persisting, leukocytosis worse, unable to improve patient in the first midnight. Medically necessary treatment will sustain 2 midnights. Will change patient to inpatient status ?
[2023-06-01] MEDS: TRAZODONE HCL 50 MG TABLET PO (21:03)
[2023-06-02] MEDS: METHYLPREDNISOLONE SOD SUCC PF 125 MG/2 ML VIAL 60 MG IVP ×2 (01:56→09:28)
[2023-06-02 04:00] VITALS: BP 121/63; PULSE 100; RESP 18; TEMP 36.5; O2SAT 91
[2023-06-02 04:33] VITALS: PULSE 102; RESP 24
[2023-06-02] MEDS: IPRATROPIUM/ALBUTEROL SULFATE 3 ML AMPUL.NEB IH ×2 (04:33→10:03)
[2023-06-02] MEDS: BENZONATATE 100 MG CAPSULE 200 MG PO (04:34)
[2023-06-02 05:33] LABS: Hematocrit 33.6 % (42.0-54.0); Hemoglobin 10.6 g/dL (14.0-18.0); Mean Corpuscular HGB Conc 31.5 g/dL (29.9-35.2); Mean Corpuscular Hemoglobin 29.2 pg (25.9-34.0); Mean Corpuscular Volume 92.6 fL (80.0-94.0); Mean Platelet Volume 10.9 fL (9.5-13.5); Platelet Count 276 10^3/uL (150-450); Red Blood Count 3.63 10^6/uL (4.70-6.10); Red Cell Distribution Width 13.8 % (11.0-15.0); White Blood Count 13.8 10^3/uL (4.0-11.0)
[2023-06-02 06:09] LABS: Band Neutrophils Absolute 0.1 10^3/uL (0.0-0.3); Lymphocytes Absolute Manual 0.82 10^3/uL (1.20-3.80); Monocytes Absolute Manual 0.55 10^3/uL (0.30-0.80); Segmented Neut Absolute Manual 12.28 10^3/uL (1.4-6.5)
[2023-06-02 06:10] LABS: Alanine Aminotransferase 16 U/L (16-63); Albumin Globulin Ratio 0.5; Albumin Level 2.4 g/dL (3.4-5.0); Alkaline Phosphatase 85 U/L (46-116); Anion Gap 11.3; Aspartate Amino Transferase 16 U/L (15-37); BUN Creatinine Ratio 21.6; Bilirubin Total 0.2 mg/dL (0.2-1.0); Calcium 8.3 mg/dL (8.5-10.1); Carbon Dioxide 27.6 mmol/L (21.0-32.0); Chloride 105 mmol/L (98-107); Estimated GFR (African America >60 (>=60); Estimated GFR (Non-African Ame >60 (>=60); Globulin 4.9 g/dL; Glucose 163 mg/dL (74-106); Potassium 3.9 mmol/L (3.5-5.1); Sodium 140 mmol/L (136-145); Total Protein 7.3 g/dL (6.4-8.2)
[2023-06-02 08:00] VITALS: BP 114/71; PULSE 107; RESP 16; RESP 18; TEMP 36.6; O2SAT 94
--- NOTE | 2023-06-02 08:50 | P.DS_ITS ---
DS: Providers Provider Date of admission: 06/01/23 11:00 Primary care physician: Tawanda Galvez MD Consults: 05/31/23 08:40 Physical Therapy Eval and Treat Routine Reason for consultation: Eval and Treat Has provider been notified: No DS: Diagnosis Discharge Diagnosis (1) Community acquired pneumonia: (2) Aspiration into airway: (3) Neuropathy: Plan Respiratory distress secondary to left lower lobe pneumonia Moderate protein calorie malnutrition Iron deficiency anemia Insomnia Iron deficiency anemia Moderate protein calorie malnutrition DS: Summary Hospital Course Hospital Course: Patient admitted with increasing cough and shortness of breath, found to have significant hypoxia. Placed on supplemental oxygen, aerosol treatments, antibiotics for community-acquired pneumonia. Still hypoxic yesterday morning so is kept 1 additional day. Received IV antibiotics as well as frequent aerosol treatments. His medically necessary treatment did span 2 midnights. Treatment medically necessary secondary to the hypoxia and lung exam yesterday was deteriorated from previous day.. He is no longer hypoxic, will see how he ambulates this morning, if ambulating safely he will be discharged home in improving condition. Medications see list. Follow-up with me in the office later this week or next Time Spent with Patient Time attestation: Total time spent providing and/or coordinating discharge services: Exam Constitutional Vital Signs, click to edit/add: Last Vital Signs Temp 97.9 F 06/02/23 08:00 Pulse 107 H 06/02/23 08:00 Resp 16 06/02/23 08:00 BP 114/71 06/02/23 08:00 Pulse Ox 94 L 06/02/23 08:00 O2 Del Method Room Air 06/02/23 08:00 O2 Flow Rate 2 06/01/23 05:06 Documenting provider has reviewed patient's vital signs: yes Common normals: apparent distress (Mild respiratory distress with conversational dyspnea) Chest Common normals: inspection of chest normal Respiratory Common normals: abnormal respiratory effort Effort & inspection: not able to speak in complete sentences (Mild conversational dyspnea) Auscultation: rhonchi (Improved from previous day) left lower Cardio Common normals: regular rate and regular rhythm GI Common normals: Normal to inspection, nondistended, normoactive bowel sounds present, soft to palpation and non-tender DS: Data Data Completed and Pending Labs on day of discharge: Labs from last 24 hours 06/02/23 04:29 WBC 13.8 H RBC 3.63 L Hgb 10.6 L Hct 33.6 L MCV 92.6 MCH 29.2 MCHC 31.5 RDW 13.8 Plt Count 276 MPV 10.9 Seg Neuts % (Manual) 89.0 Band Neutrophils % 1.0 Lymphocytes % (Manual) 6.0 L Monocytes % (Manual) 4.0 Eosinophils % (Manual) 0.0 L Basophils % (Manual) 0.0 L Neutrophils # (Manual) 12.28 H Band Neutrophils # 0.1 Lymphocytes # (Manual) 0.82 L Monocytes # (Manual) 0.55 Eosinophils # (Manual) 0.00 Basophils # (Manual) 0.00 Sodium 140 Potassium 3.9 Chloride 105 Carbon Dioxide 27.6 Anion Gap 11.3 BUN 25.0 H Creatinine 1.16 Est GFR ( Amer) >60 Est GFR (Non-Af Amer) >60 BUN/Creatinine Ratio 21.6 Glucose 163 H Calcium 8.3 L Total Bilirubin 0.2 AST 16 ALT 16 Alkaline Phosphatase 85 Total Protein 7.3 Albumin 2.4 L Globulin 4.9 Albumin/Globulin Ratio 0.5 Discharge Plan Discharge Disposition: Home, Self-Care Discharge Medications: New trazodone 50 mg Tablet 50 mg PO QHS Qty: 30 11RF tamsulosin 0.4 mg Capsule 0.4 mg PO QD Qty: 30 11RF cefdinir 300 mg capsule 600 mg PO DAILY Qty: 20 0RF prednisone 10 mg tablet 50 mg PO DAILY Qty: 47 0RF Rx Instructions: 5/day for 3 days. 4/day for 3 days, 3/day for 3 days, 2/day for 3 days, 1/day for 3 days, 1/2 /day for 4 days Continued albuterol sulfate 2.5 mg /3 mL (0.083 %) solution for nebulization 2.5 mg inhalation Q6H PRN (Reason: shortness of breath or wheezing) calcium carbonate 200 mg calcium (500 mg) Tablet,Chewable 500 mg PO TID Qty: 90 11RF Forms: Portal Instructions
[2023-06-02] MEDS: CEFTRIAXONE 1,000 MG in 0.9 % SODIUM CHLORIDE 50 ML 100 MG IV (09:29)
[2023-06-02] MEDS: TAMSULOSIN HCL 0.4 MG CAPSULE 0.400000000000000022 MG PO (09:30)
--- NOTE | 2023-06-02 09:32 | CM.NOTE ---
Rounds made with Dr. Galvez. Plan for discharge later today.
--- NOTE | 2023-06-02 09:33 | CM.NOTE ---
Important Message from Medicare reviewed with Mr. Cool. Verbalizes understanding. Copy to chart original to Mr. Colo.
--- NOTE | 2023-06-02 09:45 | PT.DAILY ---
Physical Therapy Daily Note PT Daily Note/Assess Start: 05/31/23 10:44 Freq: Status: Active Protocol: Document 06/02/23 09:41 MARYLOU (Rec: 06/02/23 09:44 MARYLOU [id number]) Physical Therapy Daily Note/Assessment Time In/Time Out Time In 09:25 Time Out 09:37 Pain In Pain N/A Pain Out Pain N/A Subjective Subjective Pt sitting in BS chair upon arrival. Agrees to PT. Reports not sleeping well last night. Therapeutic Exercise Time Therapeutic Exercise Minutes (minutes) 3 Therapeutic Exercise Units 0 Therapeutic Exercise Treatment Therapeutic Exercise Treatment Seated bilat LE strengthening ex complete in BS chair 10x ea prior to amb. Therapeutic Activity Time Therapeutic Activity Minutes (minutes) 8 Therapeutic Activity Units 1 Therapeutic Activity Treatment Chair Transfer Ability Moderate Assist Therapeutic Activity Comments Sit>stand ModA with heavy posterior postural sway initially. Pt amb 40' in room with RW, Cristel. Occ unsteady but to correct most part with Cristel and self correction. Pt takes seated rest break in BS chair. Sit>stand again ModA with static standing at RW 2 min. Attempts marches but only able to complete 3x reps before fatigue and needs to sit. Remains in BS chair with nursing home physician and sales clerk supervisor present. Total Physical Therapy Time Total Therapy Minutes 11 Total Physical Therapy Units 1 Summary Daily Note Summary Improved gait endurance and transfer ability.
[2023-06-02 10:06] VITALS: PULSE 95; RESP 18; RESP 19; O2SAT 94
--- NOTE | 2023-06-02 10:37 | PC.NURSE ---
iv dc'd catheter intact.
--- NOTE | 2023-06-02 10:40 | SWNOTE1 ---
JERMAIN spoke to pt in regards to discharge planning. Pt lives at home with his , who has dementia. Pt mainly uses his wheelchair at home, but does get up and use a walker when [facility] therapy works with him. Pt has [facility] coming [facility] and his stepdaughter, Momo, used to work for [employer] and is caregiver for them as well. They also have another caregiver coming in as well. Pt and have 24/7caregiving coming in to the home. Pt has [facility] home health coming in as well. JERMAIN called and confirmed with [facility]. Momo will be transporting pt home. SW looked over therapy notes and on Friday they recommended pt go to SNF. JERMAIN spoke with pt about this, at this time he refuses. JERMAIN expressed to pt the benfits of going to SNF for rehab, pt voiced they have caregivers at home and he has home health therapy. At this time SW is resuming his [facility]. JERMAIN sent face sheet, ED note, physician notes, dc med rec, referral form, and therapy notes to [facility].
--- NOTE | 2023-06-02 10:56 | SWNOTE1 ---
JERMAIN spoke to Momo and she will be in between clients around 11:15-11:30 so she will come get pt and take him home. JERMAIN notified pt's nurse.
== END 2023-06-02 12:08 | disposition home health service (06) | DRG 178 ==
LOC: ER 07:08 → MS 07:27
PROVIDERS: Admitting Provider Family Medicine; Emergency Provider Emergency Medicine; PCP Family Medicine; Visit Provider Family Medicine
DX: J69.0 Pneumonitis due to inhalation of food and vomit (principal); E44.0 Moderate protein-calorie malnutrition; Z66 Do not resuscitate; D50.9 Iron deficiency anemia, unspecified; G47.00 Insomnia, unspecified; R09.02 Hypoxemia; Z68.28 Body mass index [BMI] 28.0-28.9, adult; G62.9 Polyneuropathy, unspecified; Z82.49 Family history of ischemic heart disease and other diseases of the circulatory system; Z82.3 Family history of stroke; Z87.01 Personal history of pneumonia (recurrent); Z79.899 Other long term (current) drug therapy
CPT/HCPCS: 0202U; 36415; 71045; 80053; 81003; 83605; 83880; 84145; 84484; 85007; 85025; 85027; 87040; 87070; 93005; 94640; 94667; 94668; 94761; 96365; 96366; 96368; 96375; 96376; 97163; 97530; 99285; G0378; J0456; J2930

== ENCOUNTER 2023-07-21 21:35 | Observation (INO) | payer MEDICARE, SELFPAY ==
[2023-07-21] VITALS (18 sets, daily range): BP systolic 135; BP diastolic 82; PULSE 97–103; TEMP 36.6; O2SAT 88–95; BMI 29.0
--- OUTSIDE RECORDS SUMMARY | 2023-07-21 21:43 | XMS_ITS | CCD ---
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 Preeti Hyman Basophils/100 WBC (Bld) 0.2 % Normal 0.2-2.0 [facility] Comment on above: Performed By: #### M YO #### [facility] [address] [place] [address] Dr. Preeti Hyman EO # 0.2 103/ul Normal 0.0-0.7 [facility] Comment on above: Performed By: #### M YO #### [facility] [address] [place] [address] Dr. Preeti Hyman Eosinophils/100 WBC (Bld) 3.7 % Normal 0.9-7.0 [facility] Comment on above: Performed By: #### M YO #### [facility] [address] [place] [address] Dr. Preeti Hyman Erythrocyte distribution width (RBC) [Ratio] 13.5 % Normal 11.0-15.0 [facility] Comment on above: Performed By: #### M YO #### [facility] [address] [place] [address] Dr. Preeti Hyman Hematocrit (Bld) [Volume fraction] 38.3 % Critically low 42.0-54.0 [facility] Comment on above: Performed By: #### M YO #### [facility] [address] [place] [address] Dr. Preeti Hyman Hemoglobin (Bld) [Mass/Vol] 12.3 g/dL Critically low 14.0-18.0 [facility] Comment on above: Performed By: #### M YO #### [facility] [address] [place] [address] Dr. Preeti Hyman IG # 0.01 10e3/ul Normal 0.00-0.03 [facility] Comment on above: Performed By: #### M YO #### [facility] [address] [place] [address] Dr. Preeti Hyman IG % 0.2 % Normal 0.0-0.5 [facility] Comment on above: Performed By: #### M YO #### [facility] [address] [place] [address] Dr. Preeti Hyman LYMPH # 2.4 103/ul Normal 1.2-3.8 [facility] Comment on above: Performed By: #### M YO #### [facility] [address] [place] [address] Dr. Preeti Hyman Lymphocytes/100 WBC (Bld) 58.9 % Normal 20.5-60.0 [facility] Comment on above: Performed By: #### M YO #### [facility] [address] [place] [address] Dr. Preeti Hyman MANUAL DIFF REQ NO Normal [facility] Comment on above: Performed By: #### M YO #### [facility] [address] [place] [address] Dr. Preeti Hyman MCH (RBC) [Entitic mass] 29.6 pg Normal 25.9-34.0 [facility] Comment on above: Performed By: #### M YO #### [facility] [address] [place] [address] Dr. Preeti Hyman MCHC (RBC) [Mass/Vol] 32.1 g/dL Normal 29.9-35.2 [facility] Comment on above: Performed By: #### M YO #### [facility] [address] [place] [address] Dr. Preeti Hyman MCV (RBC) [Entitic vol] 92.3 fL Normal 80.0-94.0 [facility] Comment on above: Performed By: #### M YO #### [facility] [address] [place] [address] Dr. Preeti Hyman MONO # 0.5 103/ul Normal 0.3-0.8 [facility] Comment on above: Performed By: #### M YO #### [facility] [address] [place] [address] Dr. Preeti Hymna Monocytes/100 WBC (Bld) 11.6 % Normal 1.7-12.0 [facility] Comment on above: Performed By: #### M YO #### [facility] [address] [place] [address] Dr. Preeti Hyman NEUT # 1.0 103/ul Critically low 1.4-6.5 [facility] Comment on above: Performed By: #### M YO #### [facility] [address] [place] [address] Dr. Preeti Hyman Neutrophils/100 WBC (Bld) 25.4 % Critically low 43.0-75.0 [facility] Comment on above: Performed By: #### M YO #### [facility] [address] [place] [address] Dr. Preeti Hyman Platelet mean volume (Bld) [Entitic vol] 10.5 fL Normal 9.5-13.5 [facility] Comment on above: Performed By: #### M YO #### [facility] [address] [place] [address] Dr. Preeti Hyamn PLT 207 103/ul Normal 150-450 [facility] Comment on above: Performed By: #### M YO #### [facility] [address] [place] [address] Dr. Preeti Hyman RBC 4.15 106/ul Critically low 4.70-6.10 [facility] Comment on above: Performed By: #### M YO #### [facility] [address] [place] [address] Dr. Preeti Hyman WBC 4.0 103/ul Normal 4.0-11.0 [facility] Comment on above: Performed By: #### M YO #### [facility] [address] [place] [address] Dr. Preeti Hyman PROF 14(COMP METB)on 023 Albumin [Mass/Vol] 3.0 g/dL Critically low 3.4-5.0 [facility] Comment on above: Performed By: #### C MP #### [facility] [address] [place] [address] Dr. Preeti Hyman Albumin/Globulin [Mass ratio] 0.8 {ratio} Normal [facility] Comment on above: Performed By: #### C MP #### [facility] [address] [place] [address] Dr. Preeti Hyman ALP [Catalytic activity/Vol] 103 U/L Normal 46-116 [facility] Comment on above: Performed By: #### C MP #### [facility] [address] [place] [address] Dr. Preeti Hyman ALT [Catalytic activity/Vol] 20 U/L Normal 16-63 [facility] Comment on above: Performed By: #### C MP #### [facility] [address] [place] [address] Dr. Preeti Hyman Anion gap [Moles/Vol] 11.2 mmol/L Normal [facility] Comment on above: Performed By: #### C MP #### [facility] [address] [address] [address] Preeti Hyman AST [Catalytic activity/Vol] 28 U/L Normal 15-37 [facility] Comment on above: Performed By: #### C MP #### [facility] [address] [address] [address] Preeti Hyman Bilirubin [Mass/Vol] 0.3 mg/dL Normal 0.2-1.0 [facility] Comment on above: Performed By: #### C MP #### [facility] [address] [address] [address] Preeti Hyman Calcium [Mass/Vol] 8.3 mg/dL Critically low 8.5-10.1 [facility] Comment on above: Performed By: #### C MP #### [facility] [address] [address] [address] Preeti Hyman Chloride [Moles/Vol] 105 mmol/L Normal 98-107 [facility] Comment on above: Performed By: #### C MP #### [facility] [address] [address] [address] Preeti Hyman CO2 [Moles/Vol] 27.5 mmol/L Normal 21.0-32.0 [facility] Comment on above: Performed By: #### C MP #### [facility] [address] [address] [address] Preeti Hyman Creatinine [Mass/Vol] 0.87 mg/dL Normal 0.70-1.30 [facility] Comment on above: Performed By: #### C MP #### [facility] [address] [address] [address] Preeti Hyman EGFR-AF SWISS >60 Normal >=60 [facility] Comment on above: Performed By: #### C MP #### [facility] [address] [address] [address] Preeti Hyman EGFR-NON AF SWISS >60 Normal >=60 [facility] Comment on above: Performed By: #### C MP #### [facility] [address] [address] [address] Preeti Hyman Globulin (S) [Mass/Vol] 4.0 g/dL Normal [facility] Comment on above: Performed By: #### C MP #### [facility] [address] [address] [address] Preeti Hyman Glucose [Mass/Vol] 93 mg/dL Normal 74-106 [facility] Comment on above: Performed By: #### C MP #### [facility] [address] [address] [address] Preeti Hyman Potassium [Moles/Vol] 3.7 mmol/L Normal 3.5-5.1 [facility] Comment on above: Performed By: #### C MP #### [facility] [address] [place] [address] Dr. Preeti Hyman Protein [Mass/Vol] 7.0 g/dL Normal 6.4-8.2 [facility] Comment on above: Performed By: #### C MP #### [facility] [address] [place] [address] Dr. Preeti Hyman Sodium [Moles/Vol] 140 mmol/L Normal 136-145 [facility] Comment on above: Performed By: #### C MP #### [facility] [address] [place] [address] Dr. Preeti Hyman Urea nitrogen [Mass/Vol] 16.0 mg/dL Normal 7.0-18.0 [facility] Comment on above: Performed By: #### C MP #### [facility] [address] [place] [address] Dr. Preeti Hyman Urea nitrogen/Creatinine [Mass ratio] 18.4 mg/mg Normal [facility] Comment on above: Performed By: #### C MP #### [facility] [address] [place] [address] Dr. Preeti Hyman CBC AUTO DIFFon 04-14-2022 BASO # 0.0 103/ul Normal 0.0-0.1 [facility] Comment on above: Performed By: #### C BC #### [facility] [address] [address] [address] Preeti Hyman Basophils/100 WBC (Bld) 0.2 % Normal 0.2-2.0 [facility] Comment on above: Performed By: #### C BC #### [facility] [address] [place] [address] Dr. Preeti Hyman EO # 0.1 103/ul Normal 0.0-0.7 [facility] Comment on above: Performed By: #### C BC #### [facility] [address] [place] [address] Dr. Preeti Hyman Eosinophils/100 WBC (Bld) 2.2 % Normal 0.9-7.0 [facility] Comment on above: Performed By: #### C BC #### [facility] [address] [place] [address] Dr. Preeti Hyman Erythrocyte distribution width (RBC) [Ratio] 13.4 % Normal 11.0-15.0 [facility] Comment on above: Performed By: #### C BC #### [facility] [address] [place] [address] Dr. Preeti Hyman Hematocrit (Bld) [Volume fraction] 36.3 % Critically low 42.0-54.0 [facility] Comment on above: Performed By: #### C BC #### [facility] [address] [place] [address] Dr. Preeti Hyman Hemoglobin (Bld) [Mass/Vol] 12.1 g/dL Critically low 14.0-18.0 [facility] Comment on above: Performed By: #### C BC #### [facility] [address] [place] [address] Dr. Preeti Hyman IG # 0.01 10e3/ul Normal 0.00-0.03 [facility] Comment on above: Performed By: #### C BC #### [facility] [address] [place] [address] Dr. Preeti Hyman IG % 0.2 % Normal 0.0-0.5 [facility] Comment on above: Performed By: #### C BC #### [facility] [address] [address] [address] Preeti Hyman LYMPH # 2.0 103/ul Normal 1.2-3.8 [facility] Comment on above: Performed By: #### C BC #### [facility] [address] [place] [address] Dr. Preeti Hyman Lymphocytes/100 WBC (Bld) 49.0 % Normal 20.5-60.0 [facility] Comment on above: Performed By: #### C BC #### [facility] [address] [place] [address] Dr. Preeti Hyman MANUAL DIFF REQ NO Normal [facility] Comment on above: Performed By: #### C BC #### [facility] [address] [place] [address] Dr. Preeti Hyman MCH (RBC) [Entitic mass] 30.6 pg Normal 25.9-34.0 [facility] Comment on above: Performed By: #### C BC #### [facility] [address] [place] [address] Dr. Preeti Hyman MCHC (RBC) [Mass/Vol] 33.3 g/dL Normal 29.9-35.2 [facility] Comment on above: Performed By: #### C BC #### [facility] [address] [place] [address] Dr. Preeti Hyman MCV (RBC) [Entitic vol] 91.7 fL Normal 80.0-94.0 [facility] Comment on above: Performed By: #### C BC #### [facility] [address] [place] [address] Dr. Preeti Hyman MONO # 0.5 103/ul Normal 0.3-0.8 [facility] Comment on above: Performed By: #### C BC #### [facility] [address] [place] [address] Dr. Preeti Hyman Monocytes/100 WBC (Bld) 12.1 % Critically high 1.7-12.0 [facility] Comment on above: Performed By: #### C BC #### [facility] [address] [place], [place] [id number] Dr. Preeti Hyman NEUT # 1.5 103/ul Normal 1.4-6.5 [facility] Comment on above: Performed By: #### C BC #### [facility] [address] [place] [address] Dr. Preeti Hyman Neutrophils/100 WBC (Bld) 36.3 % Critically low 43.0-75.0 [facility] Comment on above: Performed By: #### C BC #### [facility] [address] [place] [address] Dr. Preeti Hyman Platelet mean volume (Bld) [Entitic vol] 10.6 fL Normal 9.5-13.5 [facility] Comment on above: Performed By: #### C BC #### [facility] [address] [place] [address] Dr. Preeti Hyman PLT 203 103/ul Normal 150-450 [facility] Comment on above: Performed By: #### C BC #### [facility] [address] [place] [address] Dr. Preeti Hyman RBC 3.96 106/ul Critically low 4.70-6.10 [facility] Comment on above: Performed By: #### C BC #### [facility] [address] [place] [address] Dr. Preeti Hyman WBC 4.1 103/ul Normal 4.0-11.0 [facility] Comment on above: Performed By: #### C BC #### [facility] [address] [place] [address] Dr. Preeti Hyman PROF 14(COMP METB)on 023 Albumin [Mass/Vol] 2.9 g/dL Critically low 3.4-5.0 [facility] Comment on above: Performed By: #### C MP #### [facility] [address] [place] [address] Dr. Preeti Hyman Albumin/Globulin [Mass ratio] 0.8 {ratio} Normal [facility] Comment on above: Performed By: #### C MP #### [facility] [address] [place] [address] Dr. Preeti Hyman ALP [Catalytic activity/Vol] 99 U/L Normal 46-116 [facility] Comment on above: Performed By: #### C MP #### [facility] [address] [place] [address] Dr. Preeti Hyman ALT [Catalytic activity/Vol] 16 U/L Normal 16-63 [facility] Comment on above: Performed By: #### C MP #### [facility] [address] [address] [address] Preeti Hyman Anion gap [Moles/Vol] 11.2 mmol/L Normal [facility] Comment on above: Performed By: #### C MP #### [facility] [address] [place] [address] Dr. Preeti Hyman AST [Catalytic activity/Vol] 27 U/L Normal 15-37 [facility] Comment on above: Performed By: #### C MP #### [facility] [address] [place] [address] Dr. Preeti Hyman Bilirubin [Mass/Vol] 0.2 mg/dL Normal 0.2-1.0 [facility] Comment on above: Performed By: #### C MP #### [facility] [address] [place] [address] Dr. Preeti Hyman Calcium [Mass/Vol] 8.1 mg/dL Critically low 8.5-10.1 [facility] Comment on above: Performed By: #### C MP #### [facility] [address] [place] [address] Dr. Preeti Hyman Chloride [Moles/Vol] 106 mmol/L Normal 98-107 [facility] Comment on above: Performed By: #### C MP #### [facility] [address] [address] [address] Preeti Hyman CO2 [Moles/Vol] 26.5 mmol/L Normal 21.0-32.0 [facility] Comment on above: Performed By: #### C MP #### [facility] [address] [place] [address] Dr. Preeti Hyman Creatinine [Mass/Vol] 0.98 mg/dL Normal 0.70-1.30 [facility] Comment on above: Performed By: #### C MP #### [facility] [address] [address] [address] Preeti Hyman EGFR-AF SWISS >60 Normal >=60 [facility] Comment on above: Performed By: #### C MP #### [facility] [address] [address] [address] Preeti Hyman EGFR-NON AF SWISS >60 Normal >=60 [facility] Comment on above: Performed By: #### C MP #### [facility] [address] [address] [address] Preeti Hyman Globulin (S) [Mass/Vol] 3.7 g/dL Normal [facility] Comment on above: Performed By: #### C MP #### [facility] [address] [place] [address] Dr. Preeti Hyman Glucose [Mass/Vol] 94 mg/dL Normal 74-106 [facility] Comment on above: Performed By: #### C MP #### [facility] [address] [address] [address] Preeit Hyman Potassium [Moles/Vol] 3.7 mmol/L Normal 3.5-5.1 [facility] Comment on above: Performed By: #### C MP #### [facility] [address] [place] [address] Dr. Preeti Hyman Protein [Mass/Vol] 6.6 g/dL Normal 6.4-8.2 [facility] Comment on above: Performed By: #### C MP #### [facility] [address] [address] [address] Preeti Hyman Sodium [Moles/Vol] 140 mmol/L Normal 136-145 [facility] Comment on above: Performed By: #### C MP #### [facility] [address] [address] [address] Preeti Hyman Urea nitrogen [Mass/Vol] 12.0 mg/dL Normal 7.0-18.0 [facility] Comment on above: Performed By: #### C MP #### [facility] [address] [address] [address] Preeti Hyman Urea nitrogen/Creatinine [Mass ratio] 12.2 mg/mg Normal [facility] Comment on above: Performed By: #### C MP #### [facility] [address] [address] [address] Preeti Hyman CBC AUTO DIFFon 04-13-2022 BASO # 0.0 103/ul Normal 0.0-0.1 [facility] Comment on above: Performed By: #### M YO #### [facility] [address] [place] [address] Dr. Preeti Hyman Basophils/100 WBC (Bld) 0.5 % Normal 0.2-2.0 [facility] Comment on above: Performed By: #### M YO #### [facility] [address] [place] [address] Dr. Preeti Hyman EO # 0.2 103/ul Normal 0.0-0.7 [facility] Comment on above: Performed By: #### M YO #### [facility] [address] [place] [address] Dr. Preeti Hyman Eosinophils/100 WBC (Bld) 3.9 % Normal 0.9-7.0 [facility] Comment on above: Performed By: #### M YO #### [facility] [address] [place] [address] Dr. Preeti Hyman Erythrocyte distribution width (RBC) [Ratio] 13.6 % Normal 11.0-15.0 [facility] Comment on above: Performed By: #### M YO #### [facility] [address] [place] [address] Dr. Preeti Hyman Hematocrit (Bld) [Volume fraction] 38.5 % Critically low 42.0-54.0 [facility] Comment on above: Performed By: #### M YO #### [facility] [address] [place] [address] Dr. Preeti Hyman Hemoglobin (Bld) [Mass/Vol] 12.8 g/dL Critically low 14.0-18.0 [facility] Comment on above: Performed By: #### M YO #### [facility] [address] [place] [address] Dr. Preeti Hyman IG # 0.01 10e3/ul Normal 0.00-0.03 [facility] Comment on above: Performed By: #### M YO #### [facility] [address] [place] [address] Dr. Preeti Hyman IG % 0.3 % Normal 0.0-0.5 [facility] Comment on above: Performed By: #### M YO #### [facility] [address] [place] [address] Dr. Preeti Hyman LYMPH # 1.7 103/ul Normal 1.2-3.8 [facility] Comment on above: Performed By: #### M YO #### [facility] [address] [place] [address] Dr. Preeti Hyman Lymphocytes/100 WBC (Bld) 43.6 % Normal 20.5-60.0 [facility] Comment on above: Performed By: #### M YO #### [facility] [address] [place] [address] Dr. Preeti Hyman MANUAL DIFF REQ NO Normal [facility] Comment on above: Performed By: #### M YO #### [facility] [address] [place] [address] Dr. Preeti Hyman MCH (RBC) [Entitic mass] 30.8 pg Normal 25.9-34.0 [facility] Comment on above: Performed By: #### M YO #### [facility] [address] [place] [address] Dr. Preeti Hyman MCHC (RBC) [Mass/Vol] 33.2 g/dL Normal 29.9-35.2 [facility] Comment on above: Performed By: #### M YO #### [facility] [address] [place] [address] Dr. Preeti Hyman MCV (RBC) [Entitic vol] 92.5 fL Normal 80.0-94.0 [facility] Comment on above: Performed By: #### M YO #### [facility] [address] [address] [address] Preeti Hyman MONO # 0.7 103/ul Normal 0.3-0.8 [facility] Comment on above: Performed By: #### M YO #### [facility] [address] [place] [address] Dr. Preeti Hyman Monocytes/100 WBC (Bld) 17.3 % Critically high 1.7-12.0 [facility] Comment on above: Performed By: #### M YO #### [facility] [address] [address] [address] Preeti Hyman NEUT # 1.3 103/ul Critically low 1.4-6.5 [facility] Comment on above: Performed By: #### M YO #### [facility] [address] [place] [address] Dr. Preeti Hyman Neutrophils/100 WBC (Bld) 34.4 % Critically low 43.0-75.0 [facility] Comment on above: Performed By: #### M YO #### [facility] [address] [place] [address] Dr. Preeti Hyman Platelet mean volume (Bld) [Entitic vol] 10.8 fL Normal 9.5-13.5 [facility] Comment on above: Performed By: #### M YO #### [facility] [address] [place] [address] Dr. Preeti Hyman PLT 192 103/ul Normal 150-450 [facility] Comment on above: Performed By: #### M YO #### [facility] [address] [place] [address] Dr. Preeti yHman RBC 4.16 106/ul Critically low 4.70-6.10 [facility] Comment on above: Performed By: #### M YO #### [facility] [address] [place] [address] Dr. Preeti Hyman WBC 3.8 103/ul Critically low 4.0-11.0 [facility] Comment on above: Performed By: #### M YO #### [facility] [address] [place] [address] Dr. Preeti Hyman MYOGLOBINon 04-13-2022 MONISHA 107 ng/mL Critically high 16-96 [facility] Comment on above: Performed By: #### M YO #### [facility] [address] [place] [address] Dr. Preeti Hyman PROF 14(COMP METB)on 023 Albumin [Mass/Vol] 3.0 g/dL Critically low 3.4-5.0 [facility] Comment on above: Performed By: #### C MP #### [facility] [address] [place] [address] Dr. Preeti Hyman Albumin/Globulin [Mass ratio] 0.8 {ratio} Normal [facility] Comment on above: Performed By: #### C MP #### [facility] [address] [place] [address] Dr. Preeti Hyman ALP [Catalytic activity/Vol] 107 U/L Normal 46-116 [facility] Comment on above: Performed By: #### C MP #### [facility] [address] [place] [address] Dr. Preeti Hyman ALT [Catalytic activity/Vol] 17 U/L Normal 16-63 [facility] Comment on above: Performed By: #### C MP #### [facility] [address] [place] [address] Dr. Preeti Hyman Anion gap [Moles/Vol] 11.4 mmol/L Normal [facility] Comment on above: Performed By: #### C MP #### [facility] [address] [place] [address] Dr. Preeti Hyman AST [Catalytic activity/Vol] 28 U/L Normal 15-37 [facility] Comment on above: Performed By: #### C MP #### [facility] [address] [place] [address] Dr. Preeti Hyman Bilirubin [Mass/Vol] 0.2 mg/dL Normal 0.2-1.0 [facility] Comment on above: Performed By: #### C MP #### [facility] [address] [place] [address] Dr. Preeti Hyman Calcium [Mass/Vol] 8.0 mg/dL Critically low 8.5-10.1 [facility] Comment on above: Performed By: #### C MP #### [facility] [address] [place] [address] Dr. Preeti Hyman Chloride [Moles/Vol] 106 mmol/L Normal 98-107 [facility] Comment on above: Performed By: #### C MP #### [facility] [address] [place] [address] Dr. Preeti Hyman CO2 [Moles/Vol] 27.5 mmol/L Normal 21.0-32.0 [facility] Comment on above: Performed By: #### C MP #### [facility] [address] [place] [address] Dr. Preeti Hyman Creatinine [Mass/Vol] 1.00 mg/dL Normal 0.70-1.30 [facility] Comment on above: Performed By: #### C MP #### [facility] [address] [place] [address] Dr. Preeti Hyman EGFR-AF SWISS >60 Normal >=60 [facility] Comment on above: Performed By: #### C MP #### [facility] [address] [place] [address] Dr. Preeti Hyman EGFR-NON AF SWISS >60 Normal >=60 [facility] Comment on above: Performed By: #### C MP #### [facility] [address] [place] [address] Dr. Preeti Hyman Globulin (S) [Mass/Vol] 4.0 g/dL Normal [facility] Comment on above: Performed By: #### C MP #### [facility] [address] [place] [address] Dr. Preeti Hyman Glucose [Mass/Vol] 87 mg/dL Normal 74-106 [facility] Comment on above: Performed By: #### C MP #### [facility] [address] [place] [address] Dr. Preeti Hyman Potassium [Moles/Vol] 3.9 mmol/L Normal 3.5-5.1 [facility] Comment on above: Performed By: #### C MP #### [facility] [address] [address] [address] Preeti Hyman Protein [Mass/Vol] 7.0 g/dL Normal 6.4-8.2 [facility] Comment on above: Performed By: #### C MP #### [facility] [address] [address] [address] Preeti Hyman Sodium [Moles/Vol] 141 mmol/L Normal 136-145 [facility] Comment on above: Performed By: #### C MP #### [facility] [address] [place] [address] Dr. Preeti Hyman Urea nitrogen [Mass/Vol] 16.0 mg/dL Normal 7.0-18.0 [facility] Comment on above: Performed By: #### C MP #### [facility] [address] [place] [address] Dr. Preeti Hyman Urea nitrogen/Creatinine [Mass ratio] 16.0 mg/mg Normal [facility] Comment on above: Performed By: #### C MP #### [facility] [address] [place] [address] Dr. Preeti Hyman T4on 04-13-2022 T4 [Mass/Vol] 7.20 ug/dL Normal 4.50-12.10 [facility] Comment on above: Performed By: #### T 4 #### [facility] [address] [place] [address] Dr. Preeti Hyman TSHon 04-13-2022 TSH 2.126 uIU/mL Normal 0.358-3.740 [facility] Comment on above: Performed By: #### M YO #### [facility] [address] [place] [address] Dr. Preeti Hyman CARDIAC KALEIGH ADMITon 023 CK [Catalytic activity/Vol] 237 U/L Normal 39-308 [facility] Comment on above: Performed By: #### M YO #### [facility] [address] [place] [address] Dr. Preeti Hyman CK.MB [Mass/Vol] 2.15 ng/mL Normal <=3.60 [facility] Comment on above: Performed By: #### M YO #### [facility] [address] [place] [address] Dr. Preeti Hyman HSTROP 9.8 pg/mL Normal 4.0-76.1 [facility] Comment on above: Result Comment: CUT- OFF POINTS HAVE BEEN ESTABLISHED BASED ON THE FOURTH UNIVERSAL DEFINITIONS OF MYOCARDIAL INFARCTION. THE UPPER REFERENCE LIMIT (URL) OF TROPONIN, DEFINED THE 99TH PERCENTILE OF cTnI DISTRIBUTION IN A REFERENCE POPULATION, HAS BEEN CONFIRMED THE DECISION THRESHOLD FOR MS DIAGNOSIS. Performed By: #### M YO #### [facility] [address] [place] [address] Dr. Preeti Hyman MONISHA 191 ng/mL Critically high 16-96 [facility] Comment on above: Performed By: #### M YO #### [facility] [address] [place] [address] Dr. Preeti Hyman CBC AUTO DIFFon 04-12-2022 BASO # 0.0 103/ul Normal 0.0-0.1 [facility] Comment on above: Performed By: #### C BC #### [facility] [address] [place] [address] Dr. Preeti Hyman Basophils/100 WBC (Bld) 0.2 % Normal 0.2-2.0 [facility] Comment on above: Performed By: #### C BC #### [facility] [address] [place] [address] Dr. Preeti Hyman EO # 0.0 103/ul Normal 0.0-0.7 [facility] Comment on above: Performed By: #### C BC #### [facility] [address] [place] [address] Dr. Preeti Hyman Eosinophils/100 WBC (Bld) 0.5 % Critically low 0.9-7.0 [facility] Comment on above: Performed By: #### C BC #### [facility] [address] [place] [address] Dr. Preeti Hyman Erythrocyte distribution width (RBC) [Ratio] 13.6 % Normal 11.0-15.0 [facility] Comment on above: Performed By: #### C BC #### [facility] [address] [place] [address] Dr. Preeti Hyman Hematocrit (Bld) [Volume fraction] 40.8 % Critically low 42.0-54.0 [facility] Comment on above: Performed By: #### C BC #### [facility] [address] [place] [address] Dr. Preeti Hyman Hemoglobin (Bld) [Mass/Vol] 13.2 g/dL Critically low 14.0-18.0 [facility] Comment on above: Performed By: #### C BC #### [facility] [address] [place] [address] Dr. Preeti Hyman IG # 0.02 10e3/ul Normal 0.00-0.03 [facility] Comment on above: Performed By: #### C BC #### [facility] [address] [place] [address] Dr. Preeti Hyman IG % 0.5 % Normal 0.0-0.5 [facility] Comment on above: Performed By: #### C BC #### [facility] [address] [place] [address] Dr. Preeti Hyman LYMPH # 1.5 103/ul Normal 1.2-3.8 [facility] Comment on above: Performed By: #### C BC #### [facility] [address] [place] [address] Dr. Preeti Hyman Lymphocytes/100 WBC (Bld) 36.1 % Normal 20.5-60.0 [facility] Comment on above: Performed By: #### C BC #### [facility] [address] [place] [address] Dr. Preeti Hyman MANUAL DIFF REQ NO Normal [facility] Comment on above: Performed By: #### C BC #### [facility] [address] [place] [address] Dr. Preeti Hyman MCH (RBC) [Entitic mass] 30.1 pg Normal 25.9-34.0 [facility] Comment on above: Performed By: #### C BC #### [facility] [address] [address] [address] Preeti Hyman MCHC (RBC) [Mass/Vol] 32.4 g/dL Normal 29.9-35.2 [facility] Comment on above: Performed By: #### C BC #### [facility] [address] [address] [address] Preeti Hyman MCV (RBC) [Entitic vol] 92.9 fL Normal 80.0-94.0 [facility] Comment on above: Performed By: #### C BC #### [facility] [address] [address] [address] Preeti Hyman MONO # 1.0 103/ul Critically high 0.3-0.8 [facility] Comment on above: Performed By: #### C BC #### [facility] [address] [address] [address] Preeti Hyman Monocytes/100 WBC (Bld) 23.6 % Critically high 1.7-12.0 [facility] Comment on above: Performed By: #### C BC #### [facility] [address] [address] [address] Preeti Hyman NEUT # 1.6 103/ul Normal 1.4-6.5 [facility] Comment on above: Performed By: #### C BC #### [facility] [address] [address] [address] Preeti Hyman Neutrophils/100 WBC (Bld) 39.1 % Critically low 43.0-75.0 [facility] Comment on above: Performed By: #### C BC #### [facility] [address] [address] [address] Preeti Hyman Platelet mean volume (Bld) [Entitic vol] 10.9 fL Normal 9.5-13.5 [facility] Comment on above: Performed By: #### C BC #### [facility] [address] [address] [address] Preeti Hyman PLT 171 103/ul Normal 150-450 [facility] Comment on above: Performed By: #### C BC #### [facility] [address] [place] [address] Dr. Preeti Hyman RBC 4.39 106/ul Critically low 4.70-6.10 [facility] [place] [facility] Comment on above: Performed By: #### C BC #### [facility] [address] [place] [address] Dr. Preeti Hyman WBC 4.2 103/ul Normal 4.0-11.0 [facility] Comment on above: Performed By: #### C BC #### [facility] [address] [place] [address] Dr. Preeti Hyman Covid-19 PCR (CVDTB)on 03-31 SARS-CoV-2 (COVID-19) RNA GAVINO+probe Ql (Unsp spec) Detected Abnormal NOT DETECTED [facility] Comment on above: Result Comment: This test is not yet approved or cleared by the [place] FDA. When there are no FDA-approved or cleared tests available, and other criteria are met, FDA can make tests available under an emergency access mechanism called an Emergency Use Authorization (EUA). The EUA for this test is supported by the Hematologist of Health and Human Service's declaration that [...] used). Performed By: #### M YO #### [facility] [address] [place] [address] Dr. Preeti Hyman ER URINE PROFILEon 3 Bilirubin Ql (U) Negative Normal NEGATIVE [facility] Comment on above: Performed By: #### E RUR #### [facility] [address] [place] [address] Dr. Preeti Hyman Clarity (U) CLEAR Normal CLEAR [facility] Comment on above: Performed By: #### E RUR #### [facility] [address] [place] [address] Dr. Preeti Hyman Color (U) LT. YELLOW Normal YELLOW [facility] Comment on above: Performed By: #### E RUR #### [facility] [address] [place] [address] Dr. Preeti MADERA A micrscopic examination will be performed if indicated. Normal [facility] Comment on above: Performed By: #### E RUR #### [facility] [address] [place] [address] Dr. Preeti Hyman Glucose Ql (U) Negative Normal NEGATIVE [facility] Comment on above: Performed By: #### E RUR #### [facility] [address] [place] [address] Dr. Preeti Hyman Hemoglobin Ql (U) Negative Normal NEGATIVE [facility] Comment on above: Performed By: #### E RUR #### [facility] [address] [place] [address] Dr. Preeti Hyman Ketones Ql (U) Negative Normal NEGATIVE [facility] Comment on above: Performed By: #### E RUR #### [facility] [address] [place] [address] Dr. Preeti Hyman LEUKOCYTES Negative Normal NEGATIVE [facility] Comment on above: Performed By: #### E RUR #### [facility] [address] [place] [address] Dr. Preeti Hyman Nitrite Ql (U) Negative Normal NEGATIVE [facility] Comment on above: Performed By: #### E RUR #### [facility] [address] [place] [address] Dr. Preeti Hyman pH (U) 5.5 [pH] Normal 5-9 [facility] Comment on above: Performed By: #### E RUR #### [facility] [address] [place] [address] Dr. Preeti Hyman SPEC GRAVITY 1.015 Normal 1.005-<=1.025 [facility] Comment on above: Performed By: #### E RUR #### [facility] [address] [place] [address] Dr. Preeti Hyman UA PROTEIN Negative Normal NEGATIVE/ TRACE [facility] [place] [facility] Comment on above: Performed By: #### E RUR #### [facility] [address] [place] [address] Dr. Preeti Hyman UR MICRO IND NOT INDICATED Normal [facility] [place] [facility] Comment on above: Performed By: #### E RUR #### [facility] [address] [place] [address] Dr. Preeti Hyman Urobilinogen Qn (U) 0.2 {Comfort'U}/dL Normal 0.2 - 1. 0 [facility] Comment on above: Performed By: #### E RUR #### [facility] [address] [place] [address] Dr. Preeti Hyman INFLUENZA A AND B AGon 04-[address] [facility] BELOW Normal [facility] Comment on above: Result Comment: Nega tive for Flu A protein angiten. Infection due to Flu A cannot be ruled out. Flu A angiten in the sample may be below the detection limit of the test. Performed By: #### I NFLUAB #### [facility] [address] [place] [address] Dr. Preeti Hyman INFLUBNEGH SEE BELOW Normal [facility] Comment on above: Result Comment: Nega tive for Flu B protein antigen. Infection due to Flu B cannot be ruled out. Flu B antigen in the sample may be below the detection limit of the test. Performed By: #### I NFLUAB #### [facility] [address] [place] [address] Dr. Preeti Hyman INFLUENZA A AG Negative Normal NEGATIVE SEE COMMENT [facility] Comment on above: Performed By: #### I NFLUAB #### [facility] [address] [place] [address] Dr. Preeti Hyman INFLUENZA B AG Negative Normal NEGATIVE SEE COMMENT [facility] Comment on above: Performed By: #### I NFLUAB #### [facility] [address] [place] [address] Dr. Preeti Hyman LIPASEon 04-12-2022 Lipase [Catalytic activity/Vol] 101.0 U/L Normal 73.0-393.0 [facility] Comment on above: Performed By: #### C MP, CMADM, LIPA #### [facility] [address] [address] [address] Preeti Hyman PROF 14(COMP METB)on 023 Albumin [Mass/Vol] 3.3 g/dL Critically low 3.4-5.0 [facility] Comment on above: Performed By: #### M YO #### [facility] [address] [place] [address] Dr. Preeti Hyman Albumin/Globulin [Mass ratio] 0.8 {ratio} Normal [facility] Comment on above: Performed By: #### M YO #### [facility] [address] [place] [address] Dr. Preeti Hyman ALP [Catalytic activity/Vol] 114 U/L Normal 46-116 [facility] Comment on above: Performed By: #### M YO #### [facility] [address] [place] [address] Dr. Preeti Hyman ALT [Catalytic activity/Vol] 19 U/L Normal 16-63 [facility] Comment on above: Performed By: #### M YO #### [facility] [address] [place] [address] Dr. Preeti Hyman Anion gap [Moles/Vol] 10.2 mmol/L Normal [facility] Comment on above: Performed By: #### M YO #### [facility] [address] [place] [address] Dr. Preeti Hyman AST [Catalytic activity/Vol] 25 U/L Normal 15-37 [facility] Comment on above: Performed By: #### M YO #### [facility] [address] [place] [address] Dr. Preeti Hyman Bilirubin [Mass/Vol] 0.1 mg/dL Critically low 0.2-1.0 [facility] Comment on above: Performed By: #### M YO #### [facility] [address] [place] [address] Dr. Preeti Hyman Calcium [Mass/Vol] 8.2 mg/dL Critically low 8.5-10.1 [facility] Comment on above: Performed By: #### M YO #### [facility] [address] [address] [address] Preeti Hyman Chloride [Moles/Vol] 103 mmol/L Normal 98-107 [facility] Comment on above: Performed By: #### M YO #### [facility] [address] [address] [address] Preeti Hyman CO2 [Moles/Vol] 29.3 mmol/L Normal 21.0-32.0 [facility] Comment on above: Performed By: #### M YO #### [facility] [address] [address] [address] Preeti Hyman Creatinine [Mass/Vol] 1.24 mg/dL Normal 0.70-1.30 [facility] Comment on above: Performed By: #### M YO #### [facility] [address] [address] [address] Preeti Hyman EGFR-AF SWISS >60 Normal >=60 [facility] Comment on above: Performed By: #### M YO #### [facility] [address] [address] [address] Preeti Hyman EGFR-NON AF SWISS 57 mL/min/1.73m2 Critically low >=60 [facility] Comment on above: Performed By: #### M YO #### [facility] [address] [address] [address] Preeti Hyman Globulin (S) [Mass/Vol] 4.3 g/dL Normal [facility] Comment on above: Performed By: #### M YO #### [facility] [address] [address] [address] Preeti Hyman Glucose [Mass/Vol] 129 mg/dL Critically high 74-106 [facility] Comment on above: Performed By: #### M YO #### [facility] [address] [address] [address] Preeti Hyman Potassium [Moles/Vol] 4.3 mmol/L Normal 3.5-5.1 [facility] Comment on above: Performed By: #### M YO #### [facility] [address] [place], [place] [address] Dr. Preeti Hyman Protein [Mass/Vol] 7.6 g/dL Normal 6.4-8.2 [facility] Comment on above: Performed By: #### M YO #### [facility] [address] [place], [place] [address] Dr. Preeti Hyman Sodium [Moles/Vol] 139 mmol/L Normal 136-145 [facility] Comment on above: Performed By: #### M YO #### [facility] [address] [place], [place] [address] Dr. Preeti Hyman Urea nitrogen [Mass/Vol] 16.0 mg/dL Normal 7.0-18.0 [facility] Comment on above: Performed By: #### M YO #### [facility] [address] [place], [place] [address] Dr. Preeti Hyman Urea nitrogen/Creatinine [Mass ratio] 12.9 mg/mg Normal [facility] Comment on above: Performed By: #### M YO #### [facility] [address] [place], [place] [address] Dr. Preeti Hyman XR CHEST 1 Von [...] by: KOKO HUNTLEY Date: 2022-04-12 15:35 Normal [facility] Encounters Encounter Date Encounter Type Care Provider Facility Start: 07-10-2022 End: 07-10-[address] JONATHAN GIORDANO . Facility: Start: 04-23-2022 Patient encounter procedure David Matos RESEARCH AND DEVELOPMENT DIRECTOR.[employer]ISKEY [employer] READER Work Phone: [facility] Start: 04-23-2022 Progress Note David OWENS RN.WHISKEY PROOF READER Work Phone: [facility] Start: 04-19-2022 Patient encounter procedure David Matos RESEARCH AND DEVELOPMENT DIRECTOR.WHISKEY PROOF READER Work Phone: [facility] Start: 04-19-2022 Progress Note David OWENS RN.WHISKEY PROOF READER Work Phone: [facility] Start: 04-17-2022 Patient encounter procedure [place] Lacy Rodney Work Phone: [facility] Start: 04-17-2022 Progress Note Itri A Rodney Work Phone: [facility] Start: 04-12-2022 End: 04-17-2022 Evaluation and management of inpatient DR JONATHAN GIORDANO . Facility: Payers Date Payer Category Payer Medicare UHC MEDICARE UHC MEDICARE ADVANTAGE PPO [id number] 2022-Present [phone] [address] [address] [place] [address] PPO [id number] 2019 Unknown [id number] 1960 Medicare [id number] 1945 Unknown [id number] 1945 Unknown [id number] Social History Date Type [facility]ail [facility] Start: 1945 Sex Assigned At Not on file [facility] History of Present illness Narrative 04-23-2022 David Matos APRN.[employer] READER - 04/23/2022 12:00 AM EST Note Date & Type Note Facility 04-23-2022 History of Presen t illness Narrative [facility] NOTE NAME: JONNY HENNESSY NO.: [id number] DATE OF SERVICE: 04/23/2022 [facility] DATE OF : 1945 REASON FOR VISIT: The patient is a resident of [facility]. This is a skilled visit for [...] have been reported since being in the [facility]. The patient states has been up and [...] normal range. DICTATED BY: JULIA Bates JOB# [id number] cc:[facility] documented in this encounter [facility] History of Present illness Narrative 04-19-2022 David Matso APRN.[employer]OO[employer] READER - 04/19/2022 12:00 AM EST Note Date & Type Note Facility 04-19-2022 History of Presen t illness Narrative [facility] NOTE NAME: JONNY HENNESSY NO.: [id number] DATE OF SERVICE: 04/19/2022 [facility] DATE OF : 1945 REASON FOR VISIT: The patient is a resident of [facility]. This is a skilled visit for [...] work performed. DICTATED BY: JULIA Bates/Ozzy JOB# [id number] cc:[facility] documented in this encounter [facility] History of Present illness Narrative 04-17-2022 Itri A Rodney - 04/17/2022 12:00 AM EST Note Date & Type Note Facility 04-17-2022 History of Presen t illness Narrative [facility] NOTE NAME: JONNY HENNESSY NO.: [id number] DATE OF SERVICE: 04/17/2022 [facility] DATE OF : 1945 NEW PATIENT HISTORY AND PHYSICAL HISTORY OF PRESENT ILLNESS: The patient is a 76-year-old male who is admitted to us from [facility] with a diagnosis of acute COVID [...] therapy. DICTATED BY: MD ROXANE Pierce/Ozzy JOB# [id number] cc:[facility] documented in this encounter [facility] Summary Purpose Family History No Family [...] or prosecute any alcohol or drug abuse patient.[facility] the event this information is protected by the Federal Confidentiality of Alcohol and Drug Abuse Patient Records regulations: The Federal rules restrict any use of the information to criminally investigate or prosecute any alcohol or drug abuse patient.[facility] the event this information is protected by the Federal Confidentiality of Alcohol and Drug Abuse Patient Records regulations: The Federal rules restrict any use of the information to criminally investigate or prosecute any alcohol or drug abuse patient.[facility] (unrecognized sect ion and content) No Status Records Found INFORMATION SOURCE (unrecogn ized section and content) DATE CREATED AUTHOR 07/15/2022 The [facility] FOR RECORDS PERTAINING TO PATIENTS WHO ARE [...] BE BASED ON THE PRIMARY CLINICAL RECORDS. [facility] [employer] [facility]. provides no warranty or guarantee of the accuracy or completeness of information in this document.
--- NOTE | 2023-07-21 21:47 | XR_ITS ---
The [address] [address] Patient Name: LEIGH ANN HENNESSY MRN: [id number] date: 1945 Sex: M Assigned Patient Location: ER Current Patient Location: ER Accession/Order Number: [id number] Exam Date: 07/21/2023 23:30 Report Date: 07/21/2023 23:30 At the request of: KINGSLEY BOUCHER Procedure: XR chest 1V EXAM: XR chest 1V HISTORY: SOB COMPARISON: 05/31/2023. TECHNIQUE: AP chest x-ray. FINDINGS: Cardiac size appears unchanged. Trachea is midline. No mediastinal widening. Low lung volumes are noted with similar interstitial thickening. Persistent left basilar consolidative change with blunting of the costophrenic angle. No pneumothorax identified. Osseous structures appear unchanged. XR/XR chest 1V IMPRESSION: 1. Similar interstitial thickening could be related to low lung volumes or mild edema pattern. 2. Persistent left basilar opacity may be atelectasis with effusion though airspace disease is not excluded. Electronically authenticated by: ALAYNA PALACIOS Date: 07/21/2023 23:30
--- NOTE | 2023-07-21 21:47 | ECG_ITS ---
The [facility] Test Date: 2023-07-21 Pat Name: LEIGH ANN HENNESSY Department: Room: - Gender: Male [employer] Super[employer]: : 1945 Requested By: JONATHAN GIORDANO Order Number: [id number] Reading MD: JONATHAN GIORDANO Measurements Intervals [place] Rate: 97 P: 63 NM: 168 QRS: -25 QRSD: 104 T: 37 QT: 356 QTc: 410 Interpretive Statements 1100 Sinus rhythm 7202 Moderate left axis deviation 9110 normal ECG Compared to ECG 05/31/2023 05:55:05 Left-axis deviation now present Electronically Signed On 07-23-2023 7:06:54 EDT by JONATHAN GIORDANO
--- NOTE | 2023-07-21 21:48 | ED_ITS ---
HPI - SOB/Dyspnea General Chief Complaint: Shortness of Breath/Dyspnea Stated Complaint: sHORTNESS OF BREATH Time Seen by Provider: 07/21/23 21:47 Source: patient Mode of arrival: ambulance History of Present Illness HPI Narrative: 78-year-old male presents for difficulty breathing. He has a history of COPD and normally takes breathing treatments twice a day. Today he was at a and had not taken his breathing treatments. He got short of breath there. He was given IV Solu-Medrol and an aerosol treatment by the paramedics and feels somewhat better though is not back to normal. He has not had a fever or productive cough. He does not complain to me of chest pain. Related Data Home Medications ?Medication ?Instructions ?Recorded ?Confirmed albuterol sulfate 2.5 mg/3 mL 2.5 mg inhalation Q6H PRN 04/04/23 05/31/23 (0.083 %) solution for nebulization shortness of breath or wheezing Previous Rx's ?Medication ?Instructions ?Recorded calcium carbonate 500 mg (2.5 x 200 mg calcium (500 12/20/22 mg)) PO TID #90 tabs cefdinir 300 mg capsule 600 mg (2 x 300 mg) PO DAILY #20 06/02/23 caps prednisone 10 mg tablet 50 mg (5 x 10 mg) PO DAILY #47 tabs 06/02/23 tamsulosin 0.4 mg capsule 0.4 mg PO QD #30 caps 06/02/23 trazodone 50 mg tablet 50 mg PO QHS #30 tabs 06/02/23 Allergies Allergy/AdvReac Type Severity Reaction Status Date / Time No Known Drug Allergies Allergy Verified 05/31/23 06:02 Review of Systems ROS Narrative A ten point review of systems is negative except as noted above. [facility] Medical History (Updated 07/22/23 @ 00:47 by Paulie Swanson MD) Community acquired pneumonia ?J18.9 - Pneumonia, unspecified organism (ICD-10) Fracture of left hip requiring operative repair ?S72.002A - Fracture of unspecified part of neck of left femur, initial encounter for closed fracture (ICD-10) Acute hypoxic respiratory failure ?J96.01 - Acute respiratory failure with hypoxia (ICD-10) Aspiration pneumonitis ?J69.0 - Pneumonitis due to inhalation of food and vomit (ICD-10) Acute respiratory distress ?R06.03 - Acute respiratory distress (ICD-10) Aspiration into airway ?T17.908A - Unspecified foreign body in respiratory tract, part unspecified causing other injury, initial encounter (ICD-10) Neuropathy ?G62.9 - Polyneuropathy, unspecified (ICD-10) Peripheral neuropathy ?G62.9 - Polyneuropathy, unspecified (ICD-10) Bilateral edema of lower extremity ?R60.0 - Localized edema (ICD-10) Abrasion of knee, left ?S80.212A - Abrasion, left knee, initial encounter (ICD-10) Closed fracture of left hip ?S72.002A - Fracture of unspecified part of neck of left femur, initial encounter for closed fracture (ICD-10) Surgical History (Updated 12/18/22 @ 06:44 by Nilsa Arzate) Hx of tonsillectomy ?Z90.89 - Acquired absence of other organs (ICD-10) Previous back surgery ?Z98.890 - Other specified postprocedural states (ICD-10) Family History (Updated 12/18/22 @ 06:42 by Nilsa Arzate) Father Family history of hypertension Family history of stroke Social History (Updated 12/18/22 @ 06:41 by Nilsa Arzate) Within the past year, how often did you have a drink containing alcohol: never Score interpretation: A score less than 4 is consistent with normal alcohol consumption. Smoking status: Never smoker Non-prescribed substance use: denies use Previous occupational history: retired Highest level of school completed/degree received: some college, no degree Are you now , , , , never or living with a partner: In a typical week, how many times do you talk on the telephone with family, friends, or neighbors: 3 or more times per week How often do you get together with friends or relatives: 3 or more times per week How often do you attend muslim or yazidi services: 1-3 times per year Little interest or pleasure in doing things: not at all Feeling down, depressed, or hopeless: not at all Feel stressed/tense/nervous/anxious/difficulty sleeping: not at all Do you think of yourself as: straight/heterosexual Gender Identity: male Exam Narrative Exam Narrative: Nurses note and vital signs reviewed and patient is not hypoxic. General: The patient minimally dyspneic. Skin: Warm, dry, no pallor noted. There is no rash noted. Head: Normocephalic, atraumatic Eye: Normal conjunctiva, no drainage Ears, Nose, Mouth, and Throat: oral mucosa is moist. Nares patent. Cardiovascular: Regular Rate and Rhythm Respiratory: Bilateral rhonchi present, breath sounds are equal Back: non-tender GI: Soft and nontender Musculoskeletal: The patient has no evidence of calf tenderness, no pitting edema, symmetrical pulses noted bilaterally Neurological: Awake and alert Psychiatric: Cooperative Constitutional Vital Signs, click to edit/add: Last Vital Signs Temp 97.9 F 07/21/23 21:39 Pulse 104 H 07/22/23 00:20 Resp 39 H 07/22/23 00:20 BP 135/82 07/21/23 21:39 Pulse Ox 95 07/21/23 23:36 O2 Del Method Nasal Cannula 07/22/23 00:28 O2 Flow Rate 3 07/22/23 00:28 Course Vital Signs Vital signs: Vital Signs Temperature 97.9 F 07/21/23 21:39 Pulse Rate 99 H 07/21/23 21:39 Respiratory Rate 24 H 07/21/23 21:39 Blood Pressure 135/82 07/21/23 21:39 Pulse Oximetry 95 07/21/23 21:39 Oxygen Delivery Method Nasal Cannula 07/21/23 21:39 Oxygen Delivery Flow Rate 2 07/21/23 21:39 Temperature 97.9 F 07/21/23 21:39 Pulse Rate 104 H 07/22/23 00:20 Respiratory Rate 39 H 07/22/23 00:20 Blood Pressure 135/82 07/21/23 21:39 Pulse Oximetry 95 07/21/23 23:36 Oxygen Delivery Method Nasal Cannula 07/22/23 00:28 Oxygen Delivery Flow Rate 3 07/22/23 00:28 MDM - SOB/Dyspnea MDM Narrative Medical decision making narrative: The patient has had persistent wheezing here despite receiving IV steroids from the paramedics and aerosol treatments here. Options were discussed with the patient and his family. The family and the patient preferred to be admitted for observation. He had been to a today which turns out was his . He has not been taking good care of himself at home and has not been eating or drinking much. Treatment diagnosis and disposition were discussed thoroughly. Differential Diagnosis Differential diagnosis: Likely acute exacerbation of chronic obstructive airways disease, congestive heart failure, community acquired pneumonia and other (COVID, influenza) Lab Data Attestation: I reviewed the patient's lab results. Labs: Lab Results 07/21/23 Range/Units 22:03 WBC 8.6 (4.0-11.0) 10^3/uL RBC 4.38 L (4.70-6.10) 10^6/uL Hgb 12.8 L (14.0-18.0) g/dL Hct 41.1 L (42.0-54.0) % MCV 93.8 (80.0-94.0) fL MCH 29.2 (25.9-34.0) pg MCHC 31.1 (29.9-35.2) g/dL RDW 13.3 (11.0-15.0) % Plt Count 344 (150-450) 10^3/uL MPV 10.0 (9.5-13.5) fL Neut % (Auto) 77.1 H (43.0-75.0) % Lymph % (Auto) 12.7 L (20.5-60.0) % [place] % (Auto) 7.7 (1.7-12.0) % Eos % (Auto) 2.1 (0.9-7.0) % Baso % (Auto) 0.2 (0.2-2.0) % Neut # (Auto) 6.6 H (1.4-6.5) 10^3/uL Lymph # (Auto) 1.1 L (1.2-3.8) 10^3/uL [place] # (Auto) 0.7 (0.3-0.8) 10^3/uL Eos # (Auto) 0.2 (0.0-0.7) 10^3/uL Baso # (Auto) 0.0 (0.0-0.1) 10^3/uL Abs Immat Gran (auto) 0.02 (0.00-0.03) 10^3/uL Imm/Tot Granulo (auto) 0.2 (0.0-0.5) % Sodium 138 (136-145) mmol/L Potassium 4.3 (3.5-5.1) mmol/L Chloride 100 (98-107) mmol/L Carbon Dioxide 30.8 (21.0-32.0) mmol/L Anion Gap 11.5 BUN 11.0 (7.0-18.0) mg/dL Creatinine 0.94 (0.70-1.30) mg/dL Est GFR ( Amer) >60 (>=60) Est GFR (Non-Af Amer) >60 (>=60) BUN/Creatinine Ratio 11.7 Glucose 117 H (74-106) mg/dL Calcium 9.4 (8.5-10.1) mg/dL Troponin I High Sens 10.1 (4.0-76.1) pg/mL Imaging Data Chest x-ray: Radiologist's impression: ITS Impressions Chest X-Ray 07/21/23 21:47 IMPRESSION: 1. Similar interstitial thickening could be related to low lung volumes or mild edema pattern. 2. Persistent left basilar opacity may be atelectasis with effusion though airspace disease is not excluded. Electronically authenticated by: ALAYNA PALACIOS Date: 07/21/2023 23:30 ECG Data Attestation: I personally reviewed and interpreted this ECG as follows: (EKG on my interpretation shows sinus rhythm with no acute findings) Discharge Plan Discharge Chief Complaint: Shortness of Breath/Dyspnea Clinical Impression: COPD exacerbation Patient Disposition: Admitted as Observation Time of Disposition Decision: 00:47 Condition: Good
[2023-07-21] MEDS: ALBUTEROL SULFATE 2.5 MG/3 ML VIAL NEB IH ×2 (21:58→23:36)
[2023-07-21 22:10] LABS: Basophils Percent Auto 0.2 % (0.2-2.0); Eosinophils Absolute Auto 0.2 10^3/uL (0.0-0.7); Eosinophils Percent Auto 2.1 % (0.9-7.0); Hematocrit 41.1 % (42.0-54.0); Hemoglobin 12.8 g/dL (14.0-18.0); Immature Granulocytes Abs Auto 0.02 10^3/uL (0.00-0.03); Immature Granulocytes Pct Auto 0.2 % (0.0-0.5); Lymphocytes Absolute Auto 1.1 10^3/uL (1.2-3.8); Lymphocytes Percent Auto 12.7 % (20.5-60.0); Mean Corpuscular HGB Conc 31.1 g/dL (29.9-35.2); Mean Corpuscular Hemoglobin 29.2 pg (25.9-34.0); Mean Corpuscular Volume 93.8 fL (80.0-94.0); Monocytes Absolute Auto 0.7 10^3/uL (0.3-0.8); Monocytes Percent Auto 7.7 % (1.7-12.0); Neutrophils Absolute Auto 6.6 10^3/uL (1.4-6.5); Neutrophils Percent Auto 77.1 % (43.0-75.0); Platelet Count 344 10^3/uL (150-450); Red Blood Count 4.38 10^6/uL (4.70-6.10); Red Cell Distribution Width 13.3 % (11.0-15.0); White Blood Count 8.6 10^3/uL (4.0-11.0)
[2023-07-21 22:22] LABS: Anion Gap 11.5; BUN Creatinine Ratio 11.7; Calcium 9.4 mg/dL (8.5-10.1); Carbon Dioxide 30.8 mmol/L (21.0-32.0); Chloride 100 mmol/L (98-107); Estimated GFR (African America >60 (>=60); Estimated GFR (Non-African Ame >60 (>=60); Glucose 117 mg/dL (74-106); Potassium 4.3 mmol/L (3.5-5.1); Sodium 138 mmol/L (136-145)
[2023-07-21 22:30] LABS: Troponin I High Sensitivity 10.1 pg/mL (4.0-76.1)
[2023-07-22] VITALS (21 sets, daily range): BP systolic 103–146; BP diastolic 67–87; PULSE 91–106; TEMP 36.6–36.7; O2SAT 91–94; BMI 28.0
[2023-07-22 01:09] LABS: Adenovirus NOT DETECTED (NOT DETECTE); Bordetella parapertussis NOT DETECTED (NOT DETECTE); Coronavirus 229E NOT DETECTED (NOT DETECTE); Coronavirus HKU1 NOT DETECTED (NOT DETECTE); Coronavirus NL63 NOT DETECTED (NOT DETECTE); Coronavirus OC43 NOT DETECTED (NOT DETECTE); Human Metapneumovirus NOT DETECTED (NOT DETECTE); Human Rhinovirus/Enterovirus NOT DETECTED (NOT DETECTE); Influenza A NOT DETECTED (NOT DETECTE); Influenza B NOT DETECTED (NOT DETECTE); Mycoplasma pneumoniae NOT DETECTED (NOT DETECTE); Parainfluenza Virus 1 NOT DETECTED (NOT DETECTE); Parainfluenza Virus 2 NOT DETECTED (NOT DETECTE); Parainfluenza Virus 3 NOT DETECTED (NOT DETECTE); Parainfluenza Virus 4 NOT DETECTED (NOT DETECTE); Respiratory Syncytial Virus NOT DETECTED (NOT DETECTE); SARS-CoV-2 NOT DETECTED (NOT DETECTE)
--- OUTSIDE RECORDS SUMMARY | 2023-07-22 01:53 | XMS_ITS | CCD ---
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 Preeti Hyman Basophils/100 WBC (Bld) 0.2 % Normal 0.2-2.0 [facility] Comment on above: Performed By: #### M YO #### [facility] [address] [place] [address] Dr. Preeti Hyman EO # 0.2 103/ul Normal 0.0-0.7 [facility] Comment on above: Performed By: #### M YO #### [facility] [address] [place] [address] Dr. Preeti Hyman Eosinophils/100 WBC (Bld) 3.7 % Normal 0.9-7.0 [facility] Comment on above: Performed By: #### M YO #### [facility] [address] [place] [address] Dr. Preeti Hyman Erythrocyte distribution width (RBC) [Ratio] 13.5 % Normal 11.0-15.0 [facility] Comment on above: Performed By: #### M YO #### [facility] [address] [place] [address] Dr. Preeti Hyman Hematocrit (Bld) [Volume fraction] 38.3 % Critically low 42.0-54.0 [facility] Comment on above: Performed By: #### M YO #### [facility] [address] [place] [address] Dr. Preeti Hyman Hemoglobin (Bld) [Mass/Vol] 12.3 g/dL Critically low 14.0-18.0 [facility] Comment on above: Performed By: #### M YO #### [facility] [address] [place] [address] Dr. Preeti Hyman IG # 0.01 10e3/ul Normal 0.00-0.03 [facility] Comment on above: Performed By: #### M YO #### [facility] [address] [place] [address] Dr. Preeti Hyman IG % 0.2 % Normal 0.0-0.5 [facility] Comment on above: Performed By: #### M YO #### [facility] [address] [place] [address] Dr. Preeti Hyman LYMPH # 2.4 103/ul Normal 1.2-3.8 [facility] Comment on above: Performed By: #### M YO #### [facility] [address] [place] [address] Dr. Preeti Hyman Lymphocytes/100 WBC (Bld) 58.9 % Normal 20.5-60.0 [facility] Comment on above: Performed By: #### M YO #### [facility] [address] [place] [address] Dr. Preeti Hyman MANUAL DIFF REQ NO Normal [facility] Comment on above: Performed By: #### M YO #### [facility] [address] [place] [address] Dr. Preeti Hyman MCH (RBC) [Entitic mass] 29.6 pg Normal 25.9-34.0 [facility] Comment on above: Performed By: #### M YO #### [facility] [address] [place] [address] Dr. Preeti Hyman MCHC (RBC) [Mass/Vol] 32.1 g/dL Normal 29.9-35.2 [facility] Comment on above: Performed By: #### M YO #### [facility] [address] [place] [address] Dr. Preeti Hyman MCV (RBC) [Entitic vol] 92.3 fL Normal 80.0-94.0 [facility] Comment on above: Performed By: #### M YO #### [facility] [address] [place] [address] Dr. Preeti Hyman MONO # 0.5 103/ul Normal 0.3-0.8 [facility] Comment on above: Performed By: #### M YO #### [facility] [address] [place] [address] Dr. Preeti Hyman Monocytes/100 WBC (Bld) 11.6 % Normal 1.7-12.0 [facility] Comment on above: Performed By: #### M YO #### [facility] [address] [place] [address] Dr. Preeti Hyman NEUT # 1.0 103/ul Critically low 1.4-6.5 The [facility] Comment on above: Performed By: #### M YO #### [facility] [address] [place] [address] Dr. Preeti Hyman Neutrophils/100 WBC (Bld) 25.4 % Critically low 43.0-75.0 [facility] Comment on above: Performed By: #### M YO #### [facility] [address] [place] [address] Dr. Preeti Hyman Platelet mean volume (Bld) [Entitic vol] 10.5 fL Normal 9.5-13.5 [facility] Comment on above: Performed By: #### M YO #### [facility] [address] [place] [address] Dr. Preeti Hyman PLT 207 103/ul Normal 150-450 [facility] Comment on above: Performed By: #### M YO #### [facility] [address] [place] [address] Dr. Preeti Hyman RBC 4.15 106/ul Critically low 4.70-6.10 [facility] Comment on above: Performed By: #### M YO #### [facility] [address] [place] [address] Dr. Preeti Hyman WBC 4.0 103/ul Normal 4.0-11.0 [facility] Comment on above: Performed By: #### M YO #### [facility] [address] [place] [address] Dr. Preeti Hyman PROF 14(COMP METB)on 023 Albumin [Mass/Vol] 3.0 g/dL Critically low 3.4-5.0 [facility] Comment on above: Performed By: #### C MP #### [facility] [address] [place] [address] Dr. Preeti Hyman Albumin/Globulin [Mass ratio] 0.8 {ratio} Normal [facility] Comment on above: Performed By: #### C MP #### [facility] [address] [place] [address] Dr. Preeti Hyman ALP [Catalytic activity/Vol] 103 U/L Normal 46-116 [facility] Comment on above: Performed By: #### C MP #### [facility] [address] [place] [address] Dr. Preeti Hyman ALT [Catalytic activity/Vol] 20 U/L Normal 16-63 [facility] Comment on above: Performed By: #### C MP #### [facility] [address] [place] [address] Dr. Preeti Hyman Anion gap [Moles/Vol] 11.2 mmol/L Normal [facility] Comment on above: Performed By: #### C MP #### [facility] [address] [address] [address] Preeti Hyman AST [Catalytic activity/Vol] 28 U/L Normal 15-37 [facility] Comment on above: Performed By: #### C MP #### [facility] [address] [address] [address] Preeti Hyman Bilirubin [Mass/Vol] 0.3 mg/dL Normal 0.2-1.0 [facility] Comment on above: Performed By: #### C MP #### [facility] [address] [address] [address] Preeti Hyman Calcium [Mass/Vol] 8.3 mg/dL Critically low 8.5-10.1 [facility] Comment on above: Performed By: #### C MP #### [facility] [address] [address] [address] Preeti Hyman Chloride [Moles/Vol] 105 mmol/L Normal 98-107 [facility] Comment on above: Performed By: #### C MP #### [facility] [address] [address] [address] Preeti Hyman CO2 [Moles/Vol] 27.5 mmol/L Normal 21.0-32.0 [facility] Comment on above: Performed By: #### C MP #### [facility] [address] [address] [address] Preeti Hyman Creatinine [Mass/Vol] 0.87 mg/dL Normal 0.70-1.30 [facility] Comment on above: Performed By: #### C MP #### [facility] [address] [address] [address] Preeti Hyman EGFR-AF KYRGYZ >60 Normal >=60 [facility] Comment on above: Performed By: #### C MP #### [facility] [address] [address] [address] Preeti Hyman EGFR-NON AF KYRGYZ >60 Normal >=60 [facility] Comment on above: Performed By: #### C MP #### [facility] [address] [address] [address] Preeti Hyman Globulin (S) [Mass/Vol] 4.0 g/dL Normal [facility] Comment on above: Performed By: #### C MP #### [facility] [address] [address] [address] Preeti Hyman Glucose [Mass/Vol] 93 mg/dL Normal 74-106 [facility] Comment on above: Performed By: #### C MP #### [facility] [address] [address] [address] Preeti Hyman Potassium [Moles/Vol] 3.7 mmol/L Normal 3.5-5.1 [facility] Comment on above: Performed By: #### C MP #### [facility] [address] [place] [address] Dr. Preeti Hyman Protein [Mass/Vol] 7.0 g/dL Normal 6.4-8.2 [facility] Comment on above: Performed By: #### C MP #### [facility] [address] [place] [address] Dr. Preeti Hyman Sodium [Moles/Vol] 140 mmol/L Normal 136-145 [facility] Comment on above: Performed By: #### C MP #### [facility] [address] [place] [address] Dr. Preeti Hyman Urea nitrogen [Mass/Vol] 16.0 mg/dL Normal 7.0-18.0 [facility] Comment on above: Performed By: #### C MP #### [facility] [address] [place] [address] Dr. Preeti Hyman Urea nitrogen/Creatinine [Mass ratio] 18.4 mg/mg Normal [facility] Comment on above: Performed By: #### C MP #### [facility] [address] [place] [address] Dr. Preeti Hyman CBC AUTO DIFFon 04-14-2022 BASO # 0.0 103/ul Normal 0.0-0.1 [facility] Comment on above: Performed By: #### C BC #### [facility] [address] [address] [address] Preeti Hyman Basophils/100 WBC (Bld) 0.2 % Normal 0.2-2.0 [facility] Comment on above: Performed By: #### C BC #### [facility] [address] [place] [address] Dr. Preeti Hyman EO # 0.1 103/ul Normal 0.0-0.7 [facility] Comment on above: Performed By: #### C BC #### [facility] [address] [place] [address] Dr. Preeti Hyman Eosinophils/100 WBC (Bld) 2.2 % Normal 0.9-7.0 [facility] Comment on above: Performed By: #### C BC #### [facility] [address] [place] [address] Dr. Preeti Hyman Erythrocyte distribution width (RBC) [Ratio] 13.4 % Normal 11.0-15.0 [facility] Comment on above: Performed By: #### C BC #### [facility] [address] [place] [address] Dr. Preeti Hyman Hematocrit (Bld) [Volume fraction] 36.3 % Critically low 42.0-54.0 [facility] Comment on above: Performed By: #### C BC #### [facility] [address] [place] [address] Dr. Preeti Hyman Hemoglobin (Bld) [Mass/Vol] 12.1 g/dL Critically low 14.0-18.0 [facility] Comment on above: Performed By: #### C BC #### [facility] [address] [place] [address] Dr. Preeti Hyman IG # 0.01 10e3/ul Normal 0.00-0.03 [facility] Comment on above: Performed By: #### C BC #### [facility] [address] [place] [address] Dr. Preeti Hyman IG % 0.2 % Normal 0.0-0.5 [facility] Comment on above: Performed By: #### C BC #### [facility] [address] [address] [address] Preeti Hyman LYMPH # 2.0 103/ul Normal 1.2-3.8 [facility] Comment on above: Performed By: #### C BC #### [facility] [address] [place] [address] Dr. Preeti Hyman Lymphocytes/100 WBC (Bld) 49.0 % Normal 20.5-60.0 [facility] Comment on above: Performed By: #### C BC #### [facility] [address] [place] [address] Dr. Preeti Hyman MANUAL DIFF REQ NO Normal [facility] Comment on above: Performed By: #### C BC #### [facility] [address] [place] [address] Dr. Preeti Hyman MCH (RBC) [Entitic mass] 30.6 pg Normal 25.9-34.0 [facility] Comment on above: Performed By: #### C BC #### [facility] [address] [place] [address] Dr. Preeti Hyman MCHC (RBC) [Mass/Vol] 33.3 g/dL Normal 29.9-35.2 [facility] Comment on above: Performed By: #### C BC #### [facility] [address] [place] [address] Dr. Preeti Hyman MCV (RBC) [Entitic vol] 91.7 fL Normal 80.0-94.0 [facility] Comment on above: Performed By: #### C BC #### [facility] [address] [place] [address] Dr. Preeti Hyman MONO # 0.5 103/ul Normal 0.3-0.8 [facility] Comment on above: Performed By: #### C BC #### [facility] [address] [place] [address] Dr. Preeti Hyman Monocytes/100 WBC (Bld) 12.1 % Critically high 1.7-12.0 [facility] Comment on above: Performed By: #### C BC #### [facility] [address] [place], [place] [id number] Dr. Preeti Hyman NEUT # 1.5 103/ul Normal 1.4-6.5 [facility] Comment on above: Performed By: #### C BC #### [facility] [address] [place] [address] Dr. Preeti Hyman Neutrophils/100 WBC (Bld) 36.3 % Critically low 43.0-75.0 [facility] Comment on above: Performed By: #### C BC #### [facility] [address] [place] [address] Dr. Preeti Hyman Platelet mean volume (Bld) [Entitic vol] 10.6 fL Normal 9.5-13.5 [facility] Comment on above: Performed By: #### C BC #### [facility] [address] [place] [address] Dr. Preeti Hyman PLT 203 103/ul Normal 150-450 [facility] Comment on above: Performed By: #### C BC #### [facility] [address] [place] [address] Dr. Preeti Hyman RBC 3.96 106/ul Critically low 4.70-6.10 [facility] Comment on above: Performed By: #### C BC #### [facility] [address] [place] [address] Dr. Preeti Hyman WBC 4.1 103/ul Normal 4.0-11.0 [facility] Comment on above: Performed By: #### C BC #### [facility] [address] [place] [address] Dr. Preeti Hyman PROF 14(COMP METB)on 023 Albumin [Mass/Vol] 2.9 g/dL Critically low 3.4-5.0 [facility] Comment on above: Performed By: #### C MP #### [facility] [address] [place] [address] Dr. Preeti Hyman Albumin/Globulin [Mass ratio] 0.8 {ratio} Normal [facility] Comment on above: Performed By: #### C MP #### [facility] [address] [place] [address] Dr. Preeti Hyman ALP [Catalytic activity/Vol] 99 U/L Normal 46-116 [facility] Comment on above: Performed By: #### C MP #### [facility] [address] [place] [address] Dr. Preeti Hyman ALT [Catalytic activity/Vol] 16 U/L Normal 16-63 [facility] Comment on above: Performed By: #### C MP #### [facility] [address] [address] [address] Preeti Hyman Anion gap [Moles/Vol] 11.2 mmol/L Normal [facility] Comment on above: Performed By: #### C MP #### [facility] [address] [place] [address] Dr. Preeti Hyman AST [Catalytic activity/Vol] 27 U/L Normal 15-37 [facility] Comment on above: Performed By: #### C MP #### [facility] [address] [place] [address] Dr. Preeti Hyman Bilirubin [Mass/Vol] 0.2 mg/dL Normal 0.2-1.0 [facility] Comment on above: Performed By: #### C MP #### [facility] [address] [place] [address] Dr. Preeti Hyman Calcium [Mass/Vol] 8.1 mg/dL Critically low 8.5-10.1 [facility] Comment on above: Performed By: #### C MP #### [facility] [address] [place] [address] Dr. Preeti Hyman Chloride [Moles/Vol] 106 mmol/L Normal 98-107 [facility] Comment on above: Performed By: #### C MP #### [facility] [address] [address] [address] Preeti Hyman CO2 [Moles/Vol] 26.5 mmol/L Normal 21.0-32.0 [facility] Comment on above: Performed By: #### C MP #### [facility] [address] [place] [address] Dr. Preeti Hyman Creatinine [Mass/Vol] 0.98 mg/dL Normal 0.70-1.30 [facility] Comment on above: Performed By: #### C MP #### [facility] [address] [address] [address] Preeti Hyman EGFR-AF KYRGYZ >60 Normal >=60 [facility] Comment on above: Performed By: #### C MP #### [facility] [address] [address] [address] Preeti Hmyan EGFR-NON AF KYRGYZ >60 Normal >=60 [facility] Comment on above: Performed By: #### C MP #### [facility] [address] [address] [address] Preeti Hyman Globulin (S) [Mass/Vol] 3.7 g/dL Normal [facility] Comment on above: Performed By: #### C MP #### [facility] [address] [place] [address] Dr. Preeti Hyman Glucose [Mass/Vol] 94 mg/dL Normal 74-106 [facility] Comment on above: Performed By: #### C MP #### [facility] [address] [address] [address] Preeti Hyman Potassium [Moles/Vol] 3.7 mmol/L Normal 3.5-5.1 [facility] Comment on above: Performed By: #### C MP #### [facility] [address] [place] [address] Dr. Preeti Hyman Protein [Mass/Vol] 6.6 g/dL Normal 6.4-8.2 [facility] Comment on above: Performed By: #### C MP #### [facility] [address] [address] [address] Preeti Hyman Sodium [Moles/Vol] 140 mmol/L Normal 136-145 [facility] Comment on above: Performed By: #### C MP #### [facility] [address] [address] [address] Preeti Hyman Urea nitrogen [Mass/Vol] 12.0 mg/dL Normal 7.0-18.0 [facility] Comment on above: Performed By: #### C MP #### [facility] [address] [address] [address] Preeti Hyman Urea nitrogen/Creatinine [Mass ratio] 12.2 mg/mg Normal [facility] Comment on above: Performed By: #### C MP #### [facility] [address] [address] [address] Preeti Hyman CBC AUTO DIFFon 04-13-2022 BASO # 0.0 103/ul Normal 0.0-0.1 [facility] Comment on above: Performed By: #### M YO #### [facility] [address] [place] [address] Dr. Preeti Hyman Basophils/100 WBC (Bld) 0.5 % Normal 0.2-2.0 [facility] Comment on above: Performed By: #### M YO #### [facility] [address] [place] [address] Dr. Preeti Hyman EO # 0.2 103/ul Normal 0.0-0.7 [facility] Comment on above: Performed By: #### M YO #### [facility] [address] [place] [address] Dr. Preeti Hyman Eosinophils/100 WBC (Bld) 3.9 % Normal 0.9-7.0 [facility] Comment on above: Performed By: #### M YO #### [facility] [address] [place] [address] Dr. Preeti Hyman Erythrocyte distribution width (RBC) [Ratio] 13.6 % Normal 11.0-15.0 [facility] Comment on above: Performed By: #### M YO #### [facility] [address] [place] [address] Dr. Preeti Hyman Hematocrit (Bld) [Volume fraction] 38.5 % Critically low 42.0-54.0 [facility] Comment on above: Performed By: #### M YO #### [facility] [address] [place] [address] Dr. Preeti Hyman Hemoglobin (Bld) [Mass/Vol] 12.8 g/dL Critically low 14.0-18.0 [facility] Comment on above: Performed By: #### M YO #### [facility] [address] [place] [address] Dr. Preeti Hyman IG # 0.01 10e3/ul Normal 0.00-0.03 [facility] Comment on above: Performed By: #### M YO #### [facility] [address] [place] [address] Dr. Preeti Hyman IG % 0.3 % Normal 0.0-0.5 [facility] Comment on above: Performed By: #### M YO #### [facility] [address] [place] [address] Dr. Preeti Hyman LYMPH # 1.7 103/ul Normal 1.2-3.8 [facility] Comment on above: Performed By: #### M YO #### [facility] [address] [place] [address] Dr. Preeti Hyman Lymphocytes/100 WBC (Bld) 43.6 % Normal 20.5-60.0 [facility] Comment on above: Performed By: #### M YO #### [facility] [address] [place] [address] Dr. Preeti Hyman MANUAL DIFF REQ NO Normal [facility] Comment on above: Performed By: #### M YO #### [facility] [address] [place] [address] Dr. Preeti Hyman MCH (RBC) [Entitic mass] 30.8 pg Normal 25.9-34.0 [facility] Comment on above: Performed By: #### M YO #### [facility] [address] [place] [address] Dr. Preeti Hyman MCHC (RBC) [Mass/Vol] 33.2 g/dL Normal 29.9-35.2 [facility] Comment on above: Performed By: #### M YO #### [facility] [address] [place] [address] Dr. Preeti Hyman MCV (RBC) [Entitic vol] 92.5 fL Normal 80.0-94.0 [facility] Comment on above: Performed By: #### M YO #### [facility] [address] [address] [address] Preeti Hyman MONO # 0.7 103/ul Normal 0.3-0.8 [facility] Comment on above: Performed By: #### M YO #### [facility] Laboratory [address] [place] [address] Dr. Preeti Hyman Monocytes/100 WBC (Bld) 17.3 % Critically high 1.7-12.0 [facility] Comment on above: Performed By: #### M YO #### [facility] [address] [address] [address] Preeti Hyman NEUT # 1.3 103/ul Critically low 1.4-6.5 The [facility] Comment on above: Performed By: #### M YO #### [facility] [address] [place] [address] Dr. Preeti Hyman Neutrophils/100 WBC (Bld) 34.4 % Critically low 43.0-75.0 [facility] [place] Comment on above: Performed By: #### M YO #### [facility] [address] [place] [address] Dr. Preeti Hyman Platelet mean volume (Bld) [Entitic vol] 10.8 fL Normal 9.5-13.5 [facility] Comment on above: Performed By: #### M YO #### [facility] [address] [place] [address] Dr. Preeti Hyman PLT 192 103/ul Normal 150-450 [facility] Comment on above: Performed By: #### M YO #### [facility] [address] [place] [address] Dr. Preeti Hyman RBC 4.16 106/ul Critically low 4.70-6.10 The [facility] Comment on above: Performed By: #### M YO #### [facility] [address] [place] [address] Dr. Preeti Hyman WBC 3.8 103/ul Critically low 4.0-11.0 The [facility] Comment on above: Performed By: #### M YO #### [facility] [address] [place] [address] Dr. Preeti Hyman MYOGLOBINon 04-13-2022 MONISHA 107 ng/mL Critically high 16-96 [facility] Comment on above: Performed By: #### M YO #### [facility] [address] [place] [address] Dr. Preeti Hyman PROF 14(COMP METB)on 023 Albumin [Mass/Vol] 3.0 g/dL Critically low 3.4-5.0 Th [facility] Comment on above: Performed By: #### C MP #### [facility] [address] [place] [address] Dr. Preeti Hyman Albumin/Globulin [Mass ratio] 0.8 {ratio} Normal [facility] [place] Comment on above: Performed By: #### C MP #### [facility] [address] [place] [address] Dr. Preeti Hyman ALP [Catalytic activity/Vol] 107 U/L Normal 46-116 [facility] Comment on above: Performed By: #### C MP #### [facility] [address] [place] [address] Dr. Preeti Hyman ALT [Catalytic activity/Vol] 17 U/L Normal 16-63 [facility] Comment on above: Performed By: #### C MP #### [facility] [address] [place] [address] Dr. Preeti Hyman Anion gap [Moles/Vol] 11.4 mmol/L Normal [facility] Comment on above: Performed By: #### C MP #### [facility] [address] [place] [address] Dr. Preeti Hyman AST [Catalytic activity/Vol] 28 U/L Normal 15-37 [facility] Comment on above: Performed By: #### C MP #### [facility] [address] [place] [address] Dr. Preeti Hyman Bilirubin [Mass/Vol] 0.2 mg/dL Normal 0.2-1.0 [facility] Comment on above: Performed By: #### C MP #### [facility] [address] [place] [address] Dr. Preeti Hyman Calcium [Mass/Vol] 8.0 mg/dL Critically low 8.5-10.1 Th e [facility] Comment on above: Performed By: #### C MP #### [facility] [address] [place] [address] Dr. Preeti Hyman Chloride [Moles/Vol] 106 mmol/L Normal 98-107 [facility] Comment on above: Performed By: #### C MP #### [facility] [address] [place] [address] Dr. Preeti Hyman CO2 [Moles/Vol] 27.5 mmol/L Normal 21.0-32.0 [facility] Comment on above: Performed By: #### C MP #### [facility] [address] [place] [address] Dr. Preeti Hyman Creatinine [Mass/Vol] 1.00 mg/dL Normal 0.70-1.30 [facility] Comment on above: Performed By: #### C MP #### [facility] [address] [place] [address] Dr. Preeti Hyman EGFR-AF KYRGYZ >60 Normal >=60 [facility] Comment on above: Performed By: #### C MP #### [facility] [address] [place] [address] Dr. Preeti Hyman EGFR-NON AF KYRGYZ >60 Normal >=60 [facility] Comment on above: Performed By: #### C MP #### [facility] [address] [place] [address] Dr. Preeti Hyman Globulin (S) [Mass/Vol] 4.0 g/dL Normal [facility] Comment on above: Performed By: #### C MP #### [facility] [address] [place] [address] Dr. Preeti Hyman Glucose [Mass/Vol] 87 mg/dL Normal 74-106 [facility] Comment on above: Performed By: #### C MP #### [facility] [address] [place] [address] Dr. Preeti Hyman Potassium [Moles/Vol] 3.9 mmol/L Normal 3.5-5.1 [facility] Comment on above: Performed By: #### C MP #### [facility] [address] [address] [address] Preeti Hyman Protein [Mass/Vol] 7.0 g/dL Normal 6.4-8.2 [facility] Comment on above: Performed By: #### C MP #### [facility] [address] [address] [address] Preeti Hyman Sodium [Moles/Vol] 141 mmol/L Normal 136-145 [facility] Comment on above: Performed By: #### C MP #### [facility] [address] [place] [address] Dr. Preeti Hyman Urea nitrogen [Mass/Vol] 16.0 mg/dL Normal 7.0-18.0 [facility] Comment on above: Performed By: #### C MP #### [facility] [address] [place] [address] Dr. Preeti Hyman Urea nitrogen/Creatinine [Mass ratio] 16.0 mg/mg Normal [facility] Comment on above: Performed By: #### C MP #### [facility] [address] [place] [address] Dr. Preeti Hyman T4on 04-13-2022 T4 [Mass/Vol] 7.20 ug/dL Normal 4.50-12.10 [facility] Comment on above: Performed By: #### T 4 #### [facility] [address] [place] [address] Dr. Preeti Hyman TSHon 04-13-2022 TSH 2.126 uIU/mL Normal 0.358-3.740 [facility] Comment on above: Performed By: #### M YO #### [facility] [address] [place] [address] Dr. Preeti Hyman CARDIAC KALEIGH ADMITon 023 CK [Catalytic activity/Vol] 237 U/L Normal 39-308 [facility] Comment on above: Performed By: #### M YO #### [facility] [address] [place] [address] Dr. Preeti Hyman CK.MB [Mass/Vol] 2.15 ng/mL Normal <=3.60 [facility] Comment on above: Performed By: #### M YO #### [facility] [address] [place] [address] Dr. Preeti Hyman HSTROP 9.8 pg/mL Normal 4.0-76.1 [facility] Comment on above: Result Comment: CUT- OFF POINTS HAVE BEEN ESTABLISHED BASED ON THE FOURTH UNIVERSAL DEFINITIONS OF MYOCARDIAL INFARCTION. THE UPPER REFERENCE LIMIT (URL) OF TROPONIN, DEFINED THE 99TH PERCENTILE OF cTnI DISTRIBUTION IN A REFERENCE POPULATION, HAS BEEN CONFIRMED THE DECISION THRESHOLD FOR [place] DIAGNOSIS. Performed By: #### M YO #### [facility] [address] [place] [address] Dr. Preeti Hyman MONISHA 191 ng/mL Critically high 16-96 [facility] Comment on above: Performed By: #### M YO #### [facility] [address] [place] [address] Dr. Preeti Hyman CBC AUTO DIFFon 04-12-2022 BASO # 0.0 103/ul Normal 0.0-0.1 [facility] Comment on above: Performed By: #### C BC #### [facility] [address] [place] [address] Dr. Preeti Hyman Basophils/100 WBC (Bld) 0.2 % Normal 0.2-2.0 [facility] Comment on above: Performed By: #### C BC #### [facility] [address] [place] [address] Dr. Preeti Hyman EO # 0.0 103/ul Normal 0.0-0.7 [facility] Comment on above: Performed By: #### C BC #### [facility] [address] [place] [address] Dr. Preeti Hyman Eosinophils/100 WBC (Bld) 0.5 % Critically low 0.9-7.0 [facility] Comment on above: Performed By: #### C BC #### [facility] [address] [place] [address] Dr. Preeti Hyman Erythrocyte distribution width (RBC) [Ratio] 13.6 % Normal 11.0-15.0 [facility] Comment on above: Performed By: #### C BC #### [facility] [address] [place] [address] Dr. Preeti Hyman Hematocrit (Bld) [Volume fraction] 40.8 % Critically low 42.0-54.0 [facility] Comment on above: Performed By: #### C BC #### [facility] [address] [place] [address] Dr. Preeti Hyman Hemoglobin (Bld) [Mass/Vol] 13.2 g/dL Critically low 14.0-18.0 [facility] Comment on above: Performed By: #### C BC #### [facility] [address] [place] [address] Dr. Preeti Hyman IG # 0.02 10e3/ul Normal 0.00-0.03 [facility] Comment on above: Performed By: #### C BC #### [facility] [address] [place] [address] Dr. Preeti Hyman IG % 0.5 % Normal 0.0-0.5 [facility] Comment on above: Performed By: #### C BC #### [facility] [address] [place] [address] Dr. Preeti Hyman LYMPH # 1.5 103/ul Normal 1.2-3.8 [facility] Comment on above: Performed By: #### C BC #### [facility] [address] [place] [address] Dr. Preeti Hyman Lymphocytes/100 WBC (Bld) 36.1 % Normal 20.5-60.0 [facility] Comment on above: Performed By: #### C BC #### [facility] [address] [place] [address] Dr. Preeti Hyman MANUAL DIFF REQ NO Normal [facility] Comment on above: Performed By: #### C BC #### [facility] [address] [place] [address] Dr. Preeti Hyman MCH (RBC) [Entitic mass] 30.1 pg Normal 25.9-34.0 [facility] Comment on above: Performed By: #### C BC #### [facility] [address] [address] [address] Preeti Hyman MCHC (RBC) [Mass/Vol] 32.4 g/dL Normal 29.9-35.2 [facility] Comment on above: Performed By: #### C BC #### [facility] [address] [address] [address] Preeti Hyman MCV (RBC) [Entitic vol] 92.9 fL Normal 80.0-94.0 [facility] Comment on above: Performed By: #### C BC #### [facility] [address] [address] [address] Preeti Hyman MONO # 1.0 103/ul Critically high 0.3-0.8 [facility] Comment on above: Performed By: #### C BC #### [facility] [address] [address] [address] Preeti Hyman Monocytes/100 WBC (Bld) 23.6 % Critically high 1.7-12.0 [facility] Comment on above: Performed By: #### C BC #### [facility] [address] [address] [address] Preeti Hyman NEUT # 1.6 103/ul Normal 1.4-6.5 [facility] Comment on above: Performed By: #### C BC #### [facility] [address] [address] [address] Preeti Hyman Neutrophils/100 WBC (Bld) 39.1 % Critically low 43.0-75.0 [facility] Comment on above: Performed By: #### C BC #### [facility] [address] [address] [address] Preeti Hyman Platelet mean volume (Bld) [Entitic vol] 10.9 fL Normal 9.5-13.5 [facility] Comment on above: Performed By: #### C BC #### [facility] [address] [address] [address] Preeti Hyman PLT 171 103/ul Normal 150-450 [facility] Comment on above: Performed By: #### C BC #### [facility] [address] [place] [address] Dr. Preeti Hyman RBC 4.39 106/ul Critically low 4.70-6.10 [facility] Comment on above: Performed By: #### C BC #### [facility] [address] [place] [address] Dr. Preeti Hyman WBC 4.2 103/ul Normal 4.0-11.0 [facility] Comment on above: Performed By: #### C BC #### [facility] [address] [place] [address] Dr. Preeti Hyman Covid-19 PCR (CVDTB)on 03-31 SARS-CoV-2 (COVID-19) RNA GAVINO+probe Ql (Unsp spec) Detected Abnormal NOT DETECTED [facility] Comment on above: Result Comment: This test is not yet approved or cleared by the [place] FDA. When there are no FDA-approved or cleared tests available, and other criteria are met, FDA can make tests available under an emergency access mechanism called an Emergency Use Authorization (EUA). The EUA for this test is supported by the Loss Control Manager of Health and Human Service's declaration that [...] used). Performed By: #### M YO #### [facility] [address] [place] [address] Dr. Preeti Hyman ER URINE PROFILEon 3 Bilirubin Ql (U) Negative Normal NEGATIVE [facility] Comment on above: Performed By: #### E RUR #### [facility] [address] [place] [address] Dr. Preeti Hyman Clarity (U) CLEAR Normal CLEAR [facility] Comment on above: Performed By: #### E RUR #### [facility] [address] [place] [address] Dr. Preeti Hyman Color (U) LT. YELLOW Normal YELLOW [facility] Comment on above: Performed By: #### E RUR #### [facility] [address] [place] [address] Dr. Preeti MADERA A micrscopic examination will be performed if indicated. Normal [facility] Comment on above: Performed By: #### E RUR #### [facility] [address] [place] [address] Dr. Preeti Hyman Glucose Ql (U) Negative Normal NEGATIVE The [facility] Comment on above: Performed By: #### E RUR #### [facility] [address] [place] [address] Dr. Preeti Hyman Hemoglobin Ql (U) Negative Normal NEGATIVE [facility] Comment on above: Performed By: #### E RUR #### [facility] [address] [place] [address] Dr. Preeti Hyman Ketones Ql (U) Negative Normal NEGATIVE The [facility] Comment on above: Performed By: #### E RUR #### [facility] [address] [place] [address] Dr. Preeti Hyman LEUKOCYTES Negative Normal NEGATIVE [facility] Comment on above: Performed By: #### E RUR #### [facility] [address] [place] [address] Dr. Preeti Hyman Nitrite Ql (U) Negative Normal NEGATIVE [facility] Comment on above: Performed By: #### E RUR #### [facility] [address] [place] [address] Dr. Preeti Hyman pH (U) 5.5 [pH] Normal 5-9 [facility] Comment on above: Performed By: #### E RUR #### [facility] [address] [place] [address] Dr. Preeti Hyman SPEC GRAVITY 1.015 Normal 1.005-<=1.025 [facility] Comment on above: Performed By: #### E RUR #### [facility] [address] [place] [address] Dr. Preeti Hyman UA PROTEIN Negative Normal NEGATIVE/ TRACE [facility] Comment on above: Performed By: #### E RUR #### [facility] [address] [place] [address] Dr. Preeti Hyman UR MICRO IND NOT INDICATED Normal [facility] Comment on above: Performed By: #### E RUR #### [facility] [address] [place] [address] Dr. Preeti Hyman Urobilinogen Qn (U) 0.2 {Comfort'U}/dL Normal 0.2 - 1. 0 [facility] Comment on above: Performed By: #### E RUR #### [facility] [address] [place] [address] Dr. Preeti Hyman INFLUENZA A AND B AGon 04-12 [facility] BEL[facility] Normal [facility] Comment on above: Result Comment: Nega tive for Flu A protein angiten. Infection due to Flu A cannot be ruled out. Flu A angiten in the sample may be below the detection limit of the test. Performed By: #### I NFLUAB #### [facility] [address] [place] [address] Dr. Preeti Hyman INFLUBNEGH SEE BELOW Normal [facility] Comment on above: Result Comment: Nega tive for Flu B protein antigen. Infection due to Flu B cannot be ruled out. Flu B antigen in the sample may be below the detection limit of the test. Performed By: #### I NFLUAB #### [facility] [address] [place] [address] Dr. Preeti Hyman INFLUENZA A AG Negative Normal NEGATIVE SEE COMMENT [facility] Comment on above: Performed By: #### I NFLUAB #### [facility] [address] [place] [address] Dr. Preeti Hyman INFLUENZA B AG Negative Normal NEGATIVE SEE COMMENT [facility] Comment on above: Performed By: #### I NFLUAB #### [facility] [address] [place] [address] Dr. Preeti Hyman LIPASEon 04-12-2022 Lipase [Catalytic activity/Vol] 101.0 U/L Normal 73.0-393.0 [facility] Comment on above: Performed By: #### C MP, CMADM, LIPA #### [facility] [address] [address] [address] Preeti Hyman PROF 14(COMP METB)on 023 Albumin [Mass/Vol] 3.3 g/dL Critically low 3.4-5.0 [facility] Comment on above: Performed By: #### M YO #### [facility] [address] [place] [address] Dr. Preeti Hyman Albumin/Globulin [Mass ratio] 0.8 {ratio} Normal [facility] Comment on above: Performed By: #### M YO #### [facility] [address] [place] [address] Dr. Preeti Hyman ALP [Catalytic activity/Vol] 114 U/L Normal 46-116 [facility] Comment on above: Performed By: #### M YO #### [facility] [address] [place] [address] Dr. Preeti Hyman ALT [Catalytic activity/Vol] 19 U/L Normal 16-63 [facility] Comment on above: Performed By: #### M YO #### [facility] [address] [place] [address] Dr. Preeti Hyman Anion gap [Moles/Vol] 10.2 mmol/L Normal [facility] Comment on above: Performed By: #### M YO #### [facility] [address] [place] [address] Dr. Preeti Hyman AST [Catalytic activity/Vol] 25 U/L Normal 15-37 [facility] Comment on above: Performed By: #### M YO #### [facility] [address] [place] [address] Dr. Preeti Hyman Bilirubin [Mass/Vol] 0.1 mg/dL Critically low 0.2-1.0 [facility] Comment on above: Performed By: #### M YO #### [facility] [address] [place] [address] Dr. Preeti Hyman Calcium [Mass/Vol] 8.2 mg/dL Critically low 8.5-10.1 [facility] Comment on above: Performed By: #### M YO #### [facility] [address] [address] [address] Preeti Hyman Chloride [Moles/Vol] 103 mmol/L Normal 98-107 [facility] Comment on above: Performed By: #### M YO #### [facility] [address] [address] [address] Preeti Hyman CO2 [Moles/Vol] 29.3 mmol/L Normal 21.0-32.0 [facility] Comment on above: Performed By: #### M YO #### [facility] [address] [address] [address] Preeti Hyman Creatinine [Mass/Vol] 1.24 mg/dL Normal 0.70-1.30 [facility] Comment on above: Performed By: #### M YO #### [facility] [address] [address] [address] Preeti Hyman EGFR-AF KYRGYZ >60 Normal >=60 [facility] Comment on above: Performed By: #### M YO #### [facility] [address] [address] [address] Preeti Hyman EGFR-NON AF KYRGYZ 57 mL/min/1.73m2 Critically low >=60 [facility] Comment on above: Performed By: #### M YO #### [facility] [address] [address] [address] Preeti Hyman Globulin (S) [Mass/Vol] 4.3 g/dL Normal [facility] Comment on above: Performed By: #### M YO #### [facility] [address] [address] [address] Preeti Hyman Glucose [Mass/Vol] 129 mg/dL Critically high 74-106 [facility] Comment on above: Performed By: #### M YO #### [facility] [address] [address] [address] Preeti Hyman Potassium [Moles/Vol] 4.3 mmol/L Normal 3.5-5.1 [facility] Comment on above: Performed By: #### M YO #### [facility] [address] [place], [place] [address] Dr. Preeti Hyman Protein [Mass/Vol] 7.6 g/dL Normal 6.4-8.2 [facility] Comment on above: Performed By: #### M YO #### [facility] [address] [place], [place] [address] Dr. Preeti Hyman Sodium [Moles/Vol] 139 mmol/L Normal 136-145 [facility] Comment on above: Performed By: #### M YO #### [facility] [address] [place], [place] [address] Dr. Preeti Hyman Urea nitrogen [Mass/Vol] 16.0 mg/dL Normal 7.0-18.0 [facility] Comment on above: Performed By: #### M YO #### [facility] [address] [place], [place] [address] Dr. Preeti Hyman Urea nitrogen/Creatinine [Mass ratio] 12.9 mg/mg Normal [facility] Comment on above: Performed By: #### M YO #### [facility] [address] [place], [place] [address] Dr. Preeti Hyman XR CHEST 1 Von [...] by: KOKO HUNTLEY Date: 2022-04-12 15:35 Normal [facility] Encounters Encounter Date Encounter Type Care Provider Facility Start: 07-10-2022 End: 07-10-[address] JONATHAN GIORDANO . Facility: Start: 04-23-2022 Patient encounter procedure David Matos MECHANICAL ESTIMATOR.QUALITY CONTROL LAB TECH Work Phone: [facility] Start: 04-23-2022 Progress Note David OWENS RN.QUALITY CONTROL LAB TECH Work Phone: [facility] Department Start: 04-19-2022 Patient encounter procedure David Matos MECHANICAL ESTIMATOR.QUALITY CONTROL LAB TECH Work Phone: [facility] Start: 04-19-2022 Progress Note David OWENS RN.QUALITY CONTROL LAB TECH Work Phone: [facility] Start: 04-17-2022 Patient encounter procedure Richmond Lacy Rodney Work Phone: [facility] Start: 04-17-2022 Progress Note Itri A Rodney Work Phone: [facility] Start: 04-12-2022 End: 04-17-2022 Evaluation and management of inpatient DR JNOATHAN GIORDANO . Facility: Payers Date Payer Category Payer Medicare UHC MEDICARE UHC MEDICARE ADVANTAGE PPO [id number] 2022-Present [phone] [address] [address] [place] [address] PPO [id number] 2019 Unknown [id number] 1960 Medicare [id number] 1945 Unknown [id number] 1945 Unknown [id number] Social History Date Type Detail [facility] Start: 1945 Sex Assigned At Not on file [facility] History of Present illness Narrative 04-23-2022 David Matos APRN.QUALITY CONTROL LAB TECH - 04/23/2022 12:00 AM EST Note Date & Type Note Facility 04-23-2022 History of Presen t illness Narrative [facility] NOTE NAME: JONNY HENNESSY NO.: [id number] DATE OF SERVICE: 04/23/2022 [facility] DATE OF : 1945 REASON FOR VISIT: The patient is a resident of [facility]. This is a skilled visit for COVID-19, [...] have been reported since being in the [facility]. The patient states has been up [...] normal range. DICTATED BY: JULIA Bates JOB# [id number] cc:[facility] documented in this encounter [facility] History of Present illness Narrative 04-19-2022 David Matos APRN.QUALITY CONTROL LAB TECH - 04/19/2022 12:00 AM EST Note Date & Type Note Facility 04-19-2022 History of Presen t illness Narrative [facility] NOTE NAME: JONNY HENNESSY NO.: [id number] DATE OF SERVICE: 04/19/2022 [facility] DATE OF : 1945 REASON FOR VISIT: The patient is a resident of [facility]. This is a skilled visit for COVID-19 [...] work performed. DICTATED BY: JULIA Bates/Ozzy JOB# [id number] cc:Supa Foy documented in this encounter [facility] History of Present illness Narrative 04-17-2022 Itri A Rodney - 04/17/2022 12:00 AM EST Note Date & Type Note Facility 04-17-2022 History of Presen t illness Narrative [facility] NOTE NAME: JONNY HENNESSY NO.: [id number] DATE OF SERVICE: 04/17/2022 Supa Foy DATE OF : 1945 NEW PATIENT HISTORY AND PHYSICAL HISTORY OF PRESENT ILLNESS: The patient is a 76-year-old male who is admitted to us from [facility] with a diagnosis of [...] therapy. DICTATED BY: MD ROXANE Pierce/Ozzy JOB# [id number] cc:Supa Foy documented in this encounter [facility] Summary Purpose Family History No Family [...] or prosecute any alcohol or drug abuse patient.[facility] Hospital[facility] the event this information is protected by the Federal Confidentiality of Alcohol and Drug Abuse Patient Records regulations: The Federal rules restrict any use of the information to criminally investigate or prosecute any alcohol or drug abuse patient.[facility] Hospital[facility] the event this information is protected by the Federal Confidentiality of Alcohol and Drug Abuse Patient Records regulations: The Federal rules restrict any use of the information to criminally investigate or prosecute any alcohol or drug abuse patient.[facility] (unrecognized sect ion and content) No [...] BE BASED ON THE PRIMARY CLINICAL RECORDS. [facility] [employer] [facility]. provides no warranty or guarantee of the accuracy or completeness of information in this document.
[2023-07-22] MEDS: AZITHROMYCIN 250 MG TABLET 500 MG PO (03:22)
[2023-07-22] MEDS: TAMSULOSIN HCL 0.4 MG CAPSULE 0.400000000000000022 MG PO ×2 (03:22→09:36)
[2023-07-22 05:19] LABS: Hematocrit 37.6 % (42.0-54.0); Hemoglobin 11.9 g/dL (14.0-18.0); Immature Granulocytes Abs Auto 0.05 10^3/uL (0.00-0.03); Immature Granulocytes Pct Auto 0.5 % (0.0-0.5); Lymphocytes Absolute Auto 0.4 10^3/uL (1.2-3.8); Lymphocytes Percent Auto 3.5 % (20.5-60.0); Mean Corpuscular HGB Conc 31.6 g/dL (29.9-35.2); Mean Corpuscular Hemoglobin 29.3 pg (25.9-34.0); Mean Corpuscular Volume 92.6 fL (80.0-94.0); Mean Platelet Volume 10.3 fL (9.5-13.5); Monocytes Absolute Auto 0.1 10^3/uL (0.3-0.8); Monocytes Percent Auto 0.7 % (1.7-12.0); Neutrophils Absolute Auto 10.5 10^3/uL (1.4-6.5); Neutrophils Percent Auto 95.3 % (43.0-75.0); Platelet Count 306 10^3/uL (150-450); Red Blood Count 4.06 10^6/uL (4.70-6.10); Red Cell Distribution Width 13.3 % (11.0-15.0)
[2023-07-22 05:38] LABS: Alanine Aminotransferase 17 U/L (16-63); Albumin Globulin Ratio 0.5; Albumin Level 2.8 g/dL (3.4-5.0); Alkaline Phosphatase 120 U/L (46-116); Anion Gap 14.6; Aspartate Amino Transferase 20 U/L (15-37); BUN Creatinine Ratio 12.9; Bilirubin Total 0.3 mg/dL (0.2-1.0); Calcium 9.1 mg/dL (8.5-10.1); Carbon Dioxide 25.5 mmol/L (21.0-32.0); Chloride 102 mmol/L (98-107); Estimated GFR (African America >60 (>=60); Estimated GFR (Non-African Ame >60 (>=60); Globulin 5.1 g/dL; Glucose 160 mg/dL (74-106); Potassium 4.1 mmol/L (3.5-5.1); Sodium 138 mmol/L (136-145); Total Protein 7.9 g/dL (6.4-8.2)
[2023-07-22] MEDS: METHYLPREDNISOLONE SOD SUCC PF 125 MG/2 ML VIAL 40 MG IVP ×2 (06:42→11:20)
--- NOTE | 2023-07-22 08:44 | P.HP_ITS ---
HPI H&P: HPI History of Present Illness Chief complaint: sHORTNESS OF BREATH COPD EXACERBATION Narrative: Patient presented to emergency room with increasing shortness of breath and cough. This is felt to be an acute exacerbation of his COPD and was admitted for same. When I saw patient up on the medical surgical floor, he was resting comfortably, no labored breathing but he was just at rest. States he does overall feel improved from the previous evening. Did have some hypoxia overnight here with O2 saturation of 88%, Opioid HPI Opioid Management Most Recent Opioid Data: Last Pain Scale 0 07/22/23 06:31 Last Pain Intensity 3 07/22/23 09:11 Last Pain Assessment 07/22/23 08:17 Last ORT Total Score 0 07/22/23 02:03 Last ORT Risk Category Low Risk 07/22/23 02:03 Review of Systems ROS Status of ROS 10 or more systems reviewed and unremark able except as noted in history and below [facility] Medical History (Updated 07/22/23 @ 00:47 by Paulie Swanson MD) Community acquired pneumonia ?J18.9 - Pneumonia, unspecified organism (ICD-10) Fracture of left hip requiring operative repair ?S72.002A - Fracture of unspecified part of neck of left femur, initial encounter for closed fracture (ICD-10) Acute hypoxic respiratory failure ?J96.01 - Acute respiratory failure with hypoxia (ICD-10) Aspiration pneumonitis ?J69.0 - Pneumonitis due to inhalation of food and vomit (ICD-10) Acute respiratory distress ?R06.03 - Acute respiratory distress (ICD-10) Aspiration into airway ?T17.908A - Unspecified foreign body in respiratory tract, part unspecified causing other injury, initial encounter (ICD-10) Neuropathy ?G62.9 - Polyneuropathy, unspecified (ICD-10) Peripheral neuropathy ?G62.9 - Polyneuropathy, unspecified (ICD-10) Bilateral edema of lower extremity ?R60.0 - Localized edema (ICD-10) Abrasion of knee, left ?S80.212A - Abrasion, left knee, initial encounter (ICD-10) Closed fracture of left hip ?S72.002A - Fracture of unspecified part of neck of left femur, initial encounter for closed fracture (ICD-10) Surgical History (Updated 12/18/22 @ 06:44 by Nilsa Arzate) Hx of tonsillectomy ?Z90.89 - Acquired absence of other organs (ICD-10) Previous back surgery ?Z98.890 - Other specified postprocedural states (ICD-10) Family History (Updated 12/18/22 @ 06:42 by Nilsa Arzate) Father Family history of hypertension Family history of stroke Social History (Updated 07/22/23 @ 02:14 by Aida Rust) Within the past year, how often did you have a drink containing alcohol: never Score interpretation: A score less than 4 is consistent with normal alcohol consumption. Smoking status: Never smoker Non-prescribed substance use: denies use Previous occupational history: retired Highest level of school completed/degree received: some college, no degree Are you now , , , , never or living with a partner: In a typical week, how many times do you talk on the telephone with family, friends, or neighbors: 3 or more times per week How often do you get together with friends or relatives: 3 or more times per week How often do you attend taoism or pentecostalism services: 1-3 times per year Little interest or pleasure in doing things: not at all Feeling down, depressed, or hopeless: not at all Feel stressed/tense/nervous/anxious/difficulty sleeping: not at all Life stressors: recent of family or friend Life stressor details: burried wifes ashes yesterday 07/20 Do you think of yourself as: straight/heterosexual Gender Identity: male Meds Home Medications and Allergies Home Medications ?Medication ?Instructions ?Recorded ?Confirmed ?Type albuterol sulfate 2.5 mg/3 mL 2.5 mg inhalation Q6H PRN 04/04/23 07/22/23 History (0.083 %) solution for nebulization shortness of breath or wheezing tamsulosin 0.4 mg capsule 0.4 mg PO QD #30 caps 06/02/23 07/22/23 Rx trazodone 50 mg tablet 50 mg PO QHS #30 tabs 06/02/23 07/22/23 Rx Allergies Allergy/AdvReac Type Severity Reaction Status Date / Time No Known Drug Allergies Allergy Verified 05/31/23 06:02 Exam Constitutional Vital Signs, click to edit/add: Last Vital Signs Temp 97.8 F 07/22/23 04:04 Pulse 100 H 07/22/23 04:04 Resp 18 07/22/23 08:17 BP 110/87 07/22/23 04:04 Pulse Ox 93 L 07/22/23 04:04 O2 Del Method Nasal Cannula 07/22/23 04:04 O2 Flow Rate 3 07/22/23 04:04 Documenting provider has reviewed patient's vital signs: yes Common normals: no apparent distress Chest Common normals: inspection of chest normal Respiratory Common normals: normal respiratory effort, no retractions and no use of accessory muscles Auscultation: rhonchi and wheezes Cardio Common normals: regular rate and regular rhythm Extremity Common normals: normal to inspection and full ROM Results Labs Labs: Short CBC 07/21/23 07/22/23 Range/Units 22:03 05:01 WBC 8.6 11.0 (4.0-11.0) 10^3/uL Hgb 12.8 L 11.9 L (14.0-18.0) g/dL Hct 41.1 L 37.6 L (42.0-54.0) % Plt Count 344 306 (150-450) 10^3/uL BMP 07/21/23 07/22/23 22:03 05:01 Sodium 138 138 Potassium 4.3 4.1 Chloride 100 102 Carbon Dioxide 30.8 25.5 BUN 11.0 12.0 Creatinine 0.94 0.93 Glucose 117 H 160 H Calcium 9.4 9.1 Liver Function 07/22/23 Range/Units 05:01 Total Bilirubin 0.3 (0.2-1.0) mg/dL AST 20 (15-37) U/L ALT 17 (16-63) U/L Alkaline Phosphatase 120 H (46-116) U/L Albumin 2.8 L (3.4-5.0) g/dL Assessment and Plan Assessment and Plan (1) COPD exacerbation: Plan Acute hypoxia, sinus tachycardia, respiratory distress secondary to acute exacerbation of COPD with chronic left lower lobe findings. On steroids and antibiotics and aerosol treatments currently. He does state he feels improved. He has had recurrences of this in the past. Will see how his morning progresses. 50-50 chance will be able to be weaning off of his supplemental oxygen and discharged home later today. If he is not able to be weaned later this morning, it would be medically beneficial for him to stay for 2 to 3-day hospitalization to prevent quick recurrence. Undefined neurological disorder-has been told possible Parkinson's but not likely. Concern for aspiration. Will continue with current antibiotics. Iron deficiency anemia-we will monitor as an outpatient Hyperglycemia likely secondary to steroid use Moderate protein calorie malnutrition-diet management Generalized anxiety disorder-continue with home medications Admission status: Currently observation status. Will see if he can be weaned off of his supplemental oxygen this morning. If he is unable to and is medically necessary treatment will span 2 midnights and he will be changed to inpatient status.
[2023-07-22] MEDS: LEVOFLOXACIN 750 MG TABLET PO (09:36)
[2023-07-22] MEDS: IPRATROPIUM/ALBUTEROL SULFATE 3 ML AMPUL.NEB IH ×2 (11:18→16:26)
--- NOTE | 2023-07-22 11:44 | SWNOTE1 ---
SW met with pt to discuss dc needs. Pt just lost his a few days ago. Pt became emotional and teary eyed speaking of her and the . Pt has good support at home. His step-daughter, Momo and her help care for him and Momo stays the night frequently to help patient as well. Pt has private caregivers coming in through the [place] daily as well. Pt is current with [facility], PT/OT and skilled nurse. Pt's plan is to return home. Pt spoke about a son that lives a little further away and that he offered to take pt in, but pt wants to stay home. At this time pt voices no other concerns, plan is for discharge today. SW to resume [facility]. Medicare Outpatient Observation Notice reviewed and discussed with patient. Pt. verbalized understanding and signed the form. Original given to patient and copy placed in patient?s chart.
--- NOTE | 2023-07-22 12:20 | P.DS_ITS ---
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 Routine Reason for consult:: Home Health 07/22/23 08:46 Consult to Pharmacy Routine Consulting Provider: Reason for consultation: Please [place] me when Med Rec is Updated Has provider been notified: No Occupational Therapy Eval and Treat Routine Reason for consultation: Only if needed for Rehab Has provider been notified: No Physical Therapy Eval and Treat Routine Reason for consultation: Eval and Treat Has provider been notified: No DS: Diagnosis Discharge Diagnosis (1) COPD exacerbation: Assessment and plan: Acute hypoxia, sinus tachycardia, respiratory distress secondary to acute exacerbation of COPD with chronic left lower lobe findings. Undefined neurological disorder-has been told possible Parkinson's but not likely. Iron deficiency anemia Hyperglycemia likely secondary to steroid use Moderate protein calorie malnutrition Generalized anxiety disorder Admission status: Currently observation status. Will see if he can be weaned off of his supplemental oxygen this morning. If he is unable to and is medically necessary treatment will span 2 midnights and he will be changed to inpatient status. ? DS: Summary Hospital Course Hospital Course: Patient was seen and evaluated in the emergency room with increasing cough and shortness of breath, found to have some mild tachycardia, chronic chest x-ray changes, but with persistent cough and hypoxia with O2 saturation of less than 89% on room air, patient observed overnight, placed on steroids, antibiotics, frequent aerosol treatments. This morning he is improved. He is weaned off of his supplemental oxygen his oxygen saturations have stayed greater than 92% during physical therapy evaluation. With that, patient will be discharged home in improving condition. Medications see list. See me in the office either late this week or next Time Spent with Patient Time attestation: Total time spent providing and/or coordinating discharge services: Time spent: greater than 30 minutes Exam Constitutional Vital Signs, click to edit/add: Last Vital Signs Temp 98.0 F 07/22/23 12:15 Pulse 102 H 07/22/23 12:15 Resp 18 07/22/23 12:15 BP 120/67 07/22/23 12:15 Pulse Ox 91 L 07/22/23 12:15 O2 Del Method Room Air 07/22/23 12:15 O2 Flow Rate 3 07/22/23 04:04 Documenting provider has reviewed patient's vital signs: yes Common normals: no apparent distress Chest Common normals: inspection of chest normal Respiratory Common normals: normal respiratory effort, no retractions and no use of accessory muscles Auscultation: rhonchi and wheezes Cardio Common normals: regular rate and regular rhythm Extremity Common normals: normal to inspection and full ROM DS: Data Data Completed and Pending Labs on day of discharge: Labs from last 24 hours 07/22/23 07/22/23 07/21/23 05:01 01:00 22:03 WBC 11.0 8.6 RBC 4.06 L 4.38 L Hgb 11.9 L 12.8 L Hct 37.6 L 41.1 L MCV 92.6 93.8 MCH 29.3 29.2 MCHC 31.6 31.1 RDW 13.3 13.3 Plt Count 306 344 MPV 10.3 10.0 Neut % (Auto) 95.3 H 77.1 H Lymph % (Auto) 3.5 L 12.7 L [place] % (Auto) 0.7 L 7.7 Eos % (Auto) 0.0 L 2.1 Baso % (Auto) 0.0 L 0.2 Neut # (Auto) 10.5 H 6.6 H Lymph # (Auto) 0.4 L 1.1 L [place] # (Auto) 0.1 L 0.7 Eos # (Auto) 0.0 0.2 Baso # (Auto) 0.0 0.0 Abs Immat Gran (auto) 0.05 H 0.02 Imm/Tot Granulo (auto) 0.5 0.2 Sodium 138 138 Potassium 4.1 4.3 Chloride 102 100 Carbon Dioxide 25.5 30.8 Anion Gap 14.6 11.5 BUN 12.0 11.0 Creatinine 0.93 0.94 Est GFR ( Amer) >60 >60 Est GFR (Non-Af Amer) >60 >60 BUN/Creatinine Ratio 12.9 11.7 Glucose 160 H 117 H Calcium 9.1 9.4 Total Bilirubin 0.3 AST 20 ALT 17 Alkaline Phosphatase 120 H Troponin I High Sens 10.1 NT-Pro-B Natriuret Pep 222.0 Total Protein 7.9 Albumin 2.8 L Globulin 5.1 Albumin/Globulin Ratio 0.5 Adenovirus (PCR) Not detected C. pneumoniae DNA (PCR) Not detected Coronavirus Type OC43 Not detected Coronavirus Type HKU1 Not detected Coronavirus Type 229E Not detected Coronavirus Type NL63 Not detected Human Metapneumovir PCR Not detected M. pneumoniae (PCR) Not detected Parainfluenza PCR Not detected Parainfluenza 2 (PCR) Not detected Parainfluenza 3 (PCR) Not detected Parainfluenza 4 (PCR) Not detected RSV (RT-PCR) Not detected Entero/Rhino (PCR) Not detected SARS-CoV-2 (PCR) Not detected Bordetella pertussis (PCR) Not detected B parapertussis DNA PCR Not detected Influenza Type A (PCR) Not detected Influenza Type B (PCR) Not detected Discharge Plan Discharge Disposition: Home, Self-Care Condition: Good Discharge Medications: New prednisone 20 mg tablet 20 mg PO BID 3 Days Qty: 6 0RF levofloxacin 500 mg tablet 500 mg PO DAILY 7 Days Qty: 7 0RF Continued albuterol sulfate 2.5 mg /3 mL (0.083 %) solution for nebulization 2.5 mg inhalation Q6H PRN (Reason: shortness of breath or wheezing) trazodone 50 mg Tablet 50 mg PO QHS Qty: 30 11RF tamsulosin 0.4 mg Capsule 0.4 mg PO QD Qty: 30 11RF Print Language: Mauritanian Forms: Portal Instructions Follow Up Appointments: July 24 @ 9:45am with Dr. Galvez [phone]
--- NOTE | 2023-07-22 12:47 | SWNOTE1 ---
JERMAIN faxed over CRF, dc med rec, physician notes to [facility].
--- NOTE | 2023-07-23 13:45 | CM.DCFOLLOWU ---
07/22- 1st attempt. No answer.
--- NOTE | 2023-07-25 14:05 | CM.DCFOLLOWU ---
3rd attempt 07/24
== END 2023-07-22 17:02 | disposition home health service (06) ==
LOC: ER 07-22 00:47 → MS 07-22 01:50
PROVIDERS: Nurse Practitioner Acute Care; Admitting Provider Family Medicine; Emergency Provider Emergency Medicine; PCP Family Medicine; Visit Provider Family Medicine
DX: J44.1 Chronic obstructive pulmonary disease with (acute) exacerbation (principal); R09.02 Hypoxemia; R00.0 Tachycardia, unspecified; R06.03 Acute respiratory distress; R29.90 Unspecified symptoms and signs involving the nervous system; R91.8 Other nonspecific abnormal finding of lung field; D50.9 Iron deficiency anemia, unspecified; R73.9 Hyperglycemia, unspecified; E44.0 Moderate protein-calorie malnutrition; F41.1 Generalized anxiety disorder; Z68.28 Body mass index [BMI] 28.0-28.9, adult; Z98.890 Other specified postprocedural states; Z90.89 Acquired absence of other organs; Z79.899 Other long term (current) drug therapy; T38.0X5A Adverse effect of glucocorticoids and synthetic analogues, initial encounter; Z20.822 Contact with and (suspected) exposure to COVID-19
CPT/HCPCS: 0202U; 36415; 71045; 80048; 80053; 83880; 84484; 85025; 87070; 87205; 93005; 94640; 94667; 96374; 96376; 97161; 97165; 99285; G0378; J2919

== ENCOUNTER 2023-08-06 15:05 | Outpatient (OUT) | payer MEDICARE, SELFPAY ==
--- NOTE | 2023-08-06 15:09 | CT_ITS ---
[address] [address] Patient Name: LEIGH ANN HENNESSY MRN: [id number] date: 1945 Sex: M Assigned Patient Location: CT Current Patient Location: Accession/Order Number: [id number] Exam Date: 08/06/2023 15:12 Report Date: 08/07/2023 09:56 At the request of: LISBET BABB Procedure: CT chest wo con EXAMINATION: CT chest wo con, 08/06/2023 3:12 PM EDT HISTORY: Abnormal chest x ray R93.89 COMPARISON: Chest x-ray 07/21/2023 TECHNIQUE: CT scan of the chest was performed without IV contrast. CT dose reduction technique was used, including Automated Exposure Control. FINDINGS: There is a small to moderate left basilar pleural effusion. This appears somewhat loculated, with thickening of the parietal and visceral pleural interfaces. There is left basilar subjacent compressive atelectasis. A focal parenchymal area of bandlike atelectasis is seen in the lingula posteriorly. There is elevation of the right hemidiaphragm with mild subjacent compressive atelectasis in the right lung base and right middle lobe. Otherwise no consolidation. No pneumothorax. No suspicious nodules. Small sliding hiatal hernia. Enlarged pulmonary artery measuring approximately 3.3 cm which may be seen with pulmonary hypertension. The heart appears enlarged. No pericardial effusion. Dilated ascending thoracic aorta measuring 4.2 cm. CORONARY ARTERIES: Coronary calcifications are mild. Limited visualized upper abdomen. No suspicious lesion in the bones. Degenerative changes of the thoracic spine. CT/CT chest wo con IMPRESSION: There is a small to moderate left basilar pleural effusion with subjacent atelectasis, which may be loculated. This is new from the lumbar spine CT on 09/16/2018. Electronically authenticated by: MELISSA BOGGS Date: 08/07/2023 09:56
== END 2023-08-06 15:06 | disposition home or self-care (01) ==
LOC: CT 15:06
PROVIDERS: PCP Family Medicine; Visit Provider Internal Medicine
DX: R93.89 Abnormal findings on diagnostic imaging of other specified body structures (principal); J90 Pleural effusion, not elsewhere classified
CPT/HCPCS: 71250

== ENCOUNTER 2023-08-09 16:17 | Observation (INO) | payer MEDICARE, SELFPAY ==
[2023-08-09] VITALS (31 sets, daily range): BP systolic 105–148; BP diastolic 66–86; PULSE 93–110; TEMP 36.4–36.7; O2SAT 94–99; BMI 28.0; BMI 28.9
--- NOTE | 2023-08-09 16:22 | ECG_ITS ---
The 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
--- NOTE | 2023-08-09 16:22 | XR_ITS ---
The [address] [address] Patient Name: LEIGH ANN HENNESSY MRN: [id number] date: 1945 Sex: M Assigned Patient Location: ER Current Patient Location: ED.MAIN Accession/Order Number: [id number] Exam Date: 08/09/2023 16:38 Report Date: 08/09/2023 16:59 At the request of: YESSICA ECHEVARRIA Procedure: XR chest 1V EXAM: XR chest 1V HISTORY: sob COMPARISON: 07/21/2023 and earlier chest x-rays. Chest CT 08/06/2023. TECHNIQUE: AP portable upright chest x-ray. FINDINGS: Persistent opacification left lung base along left heart margin and diaphragm, pleural effusion and airspace density seen in this area on CT. Left mid and upper lung field and right lung remain clear. Cardiac silhouette enlarged unchanged. No evidence of developing right pleural effusion. No pneumothorax. Moderate gas in the stomach left upper quadrant. No free air in the upper abdomen. XR/XR chest 1V IMPRESSION: Persistent opacification left lung base retrocardiac area consistent with pleural effusion and airspace density seen on CT 08/06/2023. No new or increasing lung density. Electronically authenticated by: ABRAN RIVERA Date: 08/09/2023 16:59
[2023-08-09] MEDS: IPRATROPIUM/ALBUTEROL SULFATE 3 ML AMPUL.NEB 9 ML IH (16:28)
--- NOTE | 2023-08-09 16:30 | PC.NURSE ---
pt moved from [facility] with EMS to 5.5 / 6 L on nasal canula with DR verbal order and by resp at bedside
[2023-08-09 16:44] LABS: Basophils Percent Auto 0.3 % (0.2-2.0); Eosinophils Absolute Auto 0.3 10^3/uL (0.0-0.7); Eosinophils Percent Auto 4.3 % (0.9-7.0); Hematocrit 39.1 % (42.0-54.0); Hemoglobin 12.1 g/dL (14.0-18.0); Immature Granulocytes Abs Auto 0.02 10^3/uL (0.00-0.03); Immature Granulocytes Pct Auto 0.3 % (0.0-0.5); Mean Corpuscular HGB Conc 30.9 g/dL (29.9-35.2); Mean Corpuscular Hemoglobin 29.2 pg (25.9-34.0); Mean Corpuscular Volume 94.2 fL (80.0-94.0); Mean Platelet Volume 10.1 fL (9.5-13.5); Monocytes Absolute Auto 0.8 10^3/uL (0.3-0.8); Monocytes Percent Auto 10.2 % (1.7-12.0); Neutrophils Absolute Auto 4.6 10^3/uL (1.4-6.5); Neutrophils Percent Auto 58.9 % (43.0-75.0); Platelet Count 288 10^3/uL (150-450); Red Blood Count 4.15 10^6/uL (4.70-6.10); Red Cell Distribution Width 13.7 % (11.0-15.0); White Blood Count 7.8 10^3/uL (4.0-11.0)
--- OUTSIDE RECORDS SUMMARY | 2023-08-09 16:45 | XMS_ITS | CCD ---
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 Preeti Hyman Basophils/100 WBC (Bld) 0.2 % Normal 0.2-2.0 [facility] Comment on above: Performed By: #### M YO #### [facility] [address] [place] [address] Dr. Preeti Hyman EO # 0.2 103/ul Normal 0.0-0.7 [facility] Comment on above: Performed By: #### M YO #### [facility] [address] [place] [address] Dr. Preeti Hyman Eosinophils/100 WBC (Bld) 3.7 % Normal 0.9-7.0 [facility] Comment on above: Performed By: #### M YO #### [facility] [address] [place] [address] Dr. Preeti Hyman Erythrocyte distribution width (RBC) [Ratio] 13.5 % Normal 11.0-15.0 [facility] Comment on above: Performed By: #### M YO #### [facility] [address] [place] [address] Dr. Preeti Hyman Hematocrit (Bld) [Volume fraction] 38.3 % Critically low 42.0-54.0 [facility] Comment on above: Performed By: #### M YO #### [facility] [address] [place] [address] Dr. Preeti Hyman Hemoglobin (Bld) [Mass/Vol] 12.3 g/dL Critically low 14.0-18.0 [facility] Comment on above: Performed By: #### M YO #### [facility] [address] [place] [address] Dr. Preeti Hyman IG # 0.01 10e3/ul Normal 0.00-0.03 [facility] Comment on above: Performed By: #### M YO #### [facility] [address] [place] [address] Dr. Preeti Hyman IG % 0.2 % Normal 0.0-0.5 [facility] Comment on above: Performed By: #### M YO #### [facility] [address] [place] [address] Dr. Preeti Hyman LYMPH # 2.4 103/ul Normal 1.2-3.8 [facility] Comment on above: Performed By: #### M YO #### [facility] [address] [place] [address] Dr. Preeti Hyman Lymphocytes/100 WBC (Bld) 58.9 % Normal 20.5-60.0 [facility] Comment on above: Performed By: #### M YO #### [facility] [address] [place] [address] Dr. Preeti Hyman MANUAL DIFF REQ NO Normal [facility] Comment on above: Performed By: #### M YO #### [facility] [address] [place] [address] Dr. Preeti Hyman MCH (RBC) [Entitic mass] 29.6 pg Normal 25.9-34.0 [facility] Comment on above: Performed By: #### M YO #### [facility] [address] [place] [address] Dr. Preeti Hyman MCHC (RBC) [Mass/Vol] 32.1 g/dL Normal 29.9-35.2 [facility] Comment on above: Performed By: #### M YO #### [facility] [address] [place] [address] Dr. Preeti Hyman MCV (RBC) [Entitic vol] 92.3 fL Normal 80.0-94.0 [facility] Comment on above: Performed By: #### M YO #### [facility] [address] [place] [address] Dr. Preeti Hyman MONO # 0.5 103/ul Normal 0.3-0.8 [facility] Comment on above: Performed By: #### M YO #### [facility] [address] [place] [address] Dr. Preeti Hyman Monocytes/100 WBC (Bld) 11.6 % Normal 1.7-12.0 [facility] Comment on above: Performed By: #### M YO #### [facility] [address] [place] [address] Dr. Preeti Hyman NEUT # 1.0 103/ul Critically low 1.4-6.5 [facility] Comment on above: Performed By: #### M YO #### [facility] [address] [place] [address] Dr. Preeti Hyman Neutrophils/100 WBC (Bld) 25.4 % Critically low 43.0-75.0 [facility] Comment on above: Performed By: #### M YO #### [facility] [address] [place] [address] Dr. Preeti Hyman Platelet mean volume (Bld) [Entitic vol] 10.5 fL Normal 9.5-13.5 [facility] Comment on above: Performed By: #### M YO #### [facility] [address] [place] [address] Dr. Preeti Hyman PLT 207 103/ul Normal 150-450 [facility] Comment on above: Performed By: #### M YO #### [facility] [address] [place] [address] Dr. Preeti Hyman RBC 4.15 106/ul Critically low 4.70-6.10 [facility] Comment on above: Performed By: #### M YO #### [facility] [address] [place] [address] Dr. Preeti Hyman WBC 4.0 103/ul Normal 4.0-11.0 [facility] Comment on above: Performed By: #### M YO #### [facility] [address] [place] [address] Dr. Preeti Hyman PROF 14(COMP METB)on 023 Albumin [Mass/Vol] 3.0 g/dL Critically low 3.4-5.0 [facility] Comment on above: Performed By: #### C MP #### [facility] [address] [place] [address] Dr. Preeti Hyman Albumin/Globulin [Mass ratio] 0.8 {ratio} Normal [facility] Comment on above: Performed By: #### C MP #### [facility] [address] [place] [address] Dr. Preeti Hyman ALP [Catalytic activity/Vol] 103 U/L Normal 46-116 [facility] Comment on above: Performed By: #### C MP #### [facility] [address] [place] [address] Dr. Preeti Hyman ALT [Catalytic activity/Vol] 20 U/L Normal 16-63 [facility] Comment on above: Performed By: #### C MP #### [facility] [address] [place] [address] Dr. Preeti Hyman Anion gap [Moles/Vol] 11.2 mmol/L Normal [facility] Comment on above: Performed By: #### C MP #### [facility] [address] [address] [address] Preeti Hyman AST [Catalytic activity/Vol] 28 U/L Normal 15-37 [facility] Comment on above: Performed By: #### C MP #### [facility] [address] [address] [address] Preeti Hyman Bilirubin [Mass/Vol] 0.3 mg/dL Normal 0.2-1.0 [facility] Comment on above: Performed By: #### C MP #### [facility] [address] [address] [address] Preeti Hyman Calcium [Mass/Vol] 8.3 mg/dL Critically low 8.5-10.1 [facility] Comment on above: Performed By: #### C MP #### [facility] [address] [address] [address] Preeti Hyman Chloride [Moles/Vol] 105 mmol/L Normal 98-107 [facility] Comment on above: Performed By: #### C MP #### [facility] [address] [address] [address] Preeti Hyman CO2 [Moles/Vol] 27.5 mmol/L Normal 21.0-32.0 [facility] Comment on above: Performed By: #### C MP #### [facility] [address] [address] [address] Preeti Hyman Creatinine [Mass/Vol] 0.87 mg/dL Normal 0.70-1.30 [facility] Comment on above: Performed By: #### C MP #### [facility] [address] [address] [address] Preeti Hyman EGFR-AF NIUEAN >60 Normal >=60 [facility] Comment on above: Performed By: #### C MP #### [facility] [address] [address] [address] Preeti Hyman EGFR-NON AF NIUEAN >60 Normal >=60 [facility] Comment on above: Performed By: #### C MP #### [facility] [address] [address] [address] Preeti Hyman Globulin (S) [Mass/Vol] 4.0 g/dL Normal [facility] Comment on above: Performed By: #### C MP #### [facility] [address] [address] [address] Preeti Hyman Glucose [Mass/Vol] 93 mg/dL Normal 74-106 [facility] Comment on above: Performed By: #### C MP #### [facility] [address] [address] [address] Preeti Hyman Potassium [Moles/Vol] 3.7 mmol/L Normal 3.5-5.1 [facility] Comment on above: Performed By: #### C MP #### [facility] [address] [place] [address] Dr. Preeti Hyman Protein [Mass/Vol] 7.0 g/dL Normal 6.4-8.2 [facility] Comment on above: Performed By: #### C MP #### [facility] [address] [place] [address] Dr. Preeti Hyman Sodium [Moles/Vol] 140 mmol/L Normal 136-145 [facility] Comment on above: Performed By: #### C MP #### [facility] [address] [place] [address] Dr. Preeti Hyman Urea nitrogen [Mass/Vol] 16.0 mg/dL Normal 7.0-18.0 [facility] Comment on above: Performed By: #### C MP #### [facility] [address] [place] [address] Dr. Preeti Hyman Urea nitrogen/Creatinine [Mass ratio] 18.4 mg/mg Normal [facility] Comment on above: Performed By: #### C MP #### [facility] [address] [place] [address] Dr. Preeti Hyman CBC AUTO DIFFon 04-14-2022 BASO # 0.0 103/ul Normal 0.0-0.1 [facility] Comment on above: Performed By: #### C BC #### [facility] [address] [address] [address] Preeti Hyman Basophils/100 WBC (Bld) 0.2 % Normal 0.2-2.0 [facility] Comment on above: Performed By: #### C BC #### [facility] [address] [place] [address] Dr. Preeti Hyman EO # 0.1 103/ul Normal 0.0-0.7 [facility] Comment on above: Performed By: #### C BC #### [facility] [address] [place] [address] Dr. Preeti Hyman Eosinophils/100 WBC (Bld) 2.2 % Normal 0.9-7.0 [facility] Comment on above: Performed By: #### C BC #### [facility] [address] [place] [address] Dr. Preeti Hyman Erythrocyte distribution width (RBC) [Ratio] 13.4 % Normal 11.0-15.0 [facility] Comment on above: Performed By: #### C BC #### [facility] [address] [place] [address] Dr. Preeti Hyman Hematocrit (Bld) [Volume fraction] 36.3 % Critically low 42.0-54.0 [facility] Comment on above: Performed By: #### C BC #### [facility] [address] [place] [address] Dr. Preeti Hyman Hemoglobin (Bld) [Mass/Vol] 12.1 g/dL Critically low 14.0-18.0 [facility] Comment on above: Performed By: #### C BC #### [facility] [address] [place] [address] Dr. Preeti Hyman IG # 0.01 10e3/ul Normal 0.00-0.03 [facility] Comment on above: Performed By: #### C BC #### [facility] [address] [place] [address] Dr. Preeti Hyman IG % 0.2 % Normal 0.0-0.5 [facility] Comment on above: Performed By: #### C BC #### [facility] [address] [address] [address] Preeti Hyman LYMPH # 2.0 103/ul Normal 1.2-3.8 [facility] Comment on above: Performed By: #### C BC #### [facility] [address] [place] [address] Dr. Preeti Hyman Lymphocytes/100 WBC (Bld) 49.0 % Normal 20.5-60.0 [facility] Comment on above: Performed By: #### C BC #### [facility] [address] [place] [address] Dr. Preeti Hyman MANUAL DIFF REQ NO Normal [facility] Comment on above: Performed By: #### C BC #### [facility] [address] [place] [address] Dr. Preeti Hyman MCH (RBC) [Entitic mass] 30.6 pg Normal 25.9-34.0 [facility] Comment on above: Performed By: #### C BC #### [facility] [address] [place] [address] Dr. Preeti Hyman MCHC (RBC) [Mass/Vol] 33.3 g/dL Normal 29.9-35.2 [facility] Comment on above: Performed By: #### C BC #### [facility] [address] [place] [address] Dr. Preeti Hyman MCV (RBC) [Entitic vol] 91.7 fL Normal 80.0-94.0 [facility] Comment on above: Performed By: #### C BC #### [facility] [address] [place] [address] Dr. Preeti Hyman MONO # 0.5 103/ul Normal 0.3-0.8 [facility] Comment on above: Performed By: #### C BC #### [facility] [address] [place] [address] Dr. Preeti Hyman Monocytes/100 WBC (Bld) 12.1 % Critically high 1.7-12.0 [facility] Comment on above: Performed By: #### C BC #### [facility] [address] [place], [place] [id number] Dr. Preeti Hmyan NEUT # 1.5 103/ul Normal 1.4-6.5 [facility] Comment on above: Performed By: #### C BC #### [facility] [address] [place] [address] Dr. Preeti Hyman Neutrophils/100 WBC (Bld) 36.3 % Critically low 43.0-75.0 [facility] Comment on above: Performed By: #### C BC #### [facility] [address] [place] [address] Dr. Preeti Hyman Platelet mean volume (Bld) [Entitic vol] 10.6 fL Normal 9.5-13.5 [facility] Comment on above: Performed By: #### C BC #### [facility] [address] [place] [address] Dr. Preeti Hyman PLT 203 103/ul Normal 150-450 [facility] Comment on above: Performed By: #### C BC #### [facility] [address] [place] [address] Dr. Preeti Hyman RBC 3.96 106/ul Critically low 4.70-6.10 [facility] Comment on above: Performed By: #### C BC #### [facility] [address] [place] [address] Dr. Preeti Hyman WBC 4.1 103/ul Normal 4.0-11.0 [facility] Comment on above: Performed By: #### C BC #### [facility] [address] [place] [address] Dr. Preeti Hyman PROF 14(COMP METB)on 023 Albumin [Mass/Vol] 2.9 g/dL Critically low 3.4-5.0 [facility] Comment on above: Performed By: #### C MP #### [facility] [address] [place] [address] Dr. Preeti Hyman Albumin/Globulin [Mass ratio] 0.8 {ratio} Normal [facility] Comment on above: Performed By: #### C MP #### [facility] [address] [place] [address] Dr. Preeti Hyman ALP [Catalytic activity/Vol] 99 U/L Normal 46-116 [facility] Comment on above: Performed By: #### C MP #### [facility] [address] [place] [address] Dr. Preeti Hyman ALT [Catalytic activity/Vol] 16 U/L Normal 16-63 [facility] Comment on above: Performed By: #### C MP #### [facility] [address] [address] [address] Preeti Hyman Anion gap [Moles/Vol] 11.2 mmol/L Normal [facility] Comment on above: Performed By: #### C MP #### [facility] [address] [place] [address] Dr. Preeti Hyman AST [Catalytic activity/Vol] 27 U/L Normal 15-37 [facility] Comment on above: Performed By: #### C MP #### [facility] [address] [place] [address] Dr. Preeti Hyman Bilirubin [Mass/Vol] 0.2 mg/dL Normal 0.2-1.0 [facility] Comment on above: Performed By: #### C MP #### [facility] [address] [place] [address] Dr. Preeti Hyman Calcium [Mass/Vol] 8.1 mg/dL Critically low 8.5-10.1 [facility] Comment on above: Performed By: #### C MP #### [facility] [address] [place] [address] Dr. Preeti Hyman Chloride [Moles/Vol] 106 mmol/L Normal 98-107 [facility] Comment on above: Performed By: #### C MP #### [facility] [address] [address] [address] Preeti Hyman CO2 [Moles/Vol] 26.5 mmol/L Normal 21.0-32.0 [facility] Comment on above: Performed By: #### C MP #### [facility] [address] [place] [address] Dr. Preeti Hyman Creatinine [Mass/Vol] 0.98 mg/dL Normal 0.70-1.30 [facility] Comment on above: Performed By: #### C MP #### [facility] [address] [address] [address] Preeti Hyman EGFR-AF NIUEAN >60 Normal >=60 [facility] Comment on above: Performed By: #### C MP #### [facility] [address] [address] [address] Preeti Hyman EGFR-NON AF NIUEAN >60 Normal >=60 [facility] Comment on above: Performed By: #### C MP #### [facility] [address] [address] [address] Preeti Hyman Globulin (S) [Mass/Vol] 3.7 g/dL Normal [facility] Comment on above: Performed By: #### C MP #### [facility] [address] [place] [address] Dr. Preeti Hyman Glucose [Mass/Vol] 94 mg/dL Normal 74-106 [facility] Comment on above: Performed By: #### C MP #### [facility] [address] [address] [address] Preeti Hyman Potassium [Moles/Vol] 3.7 mmol/L Normal 3.5-5.1 [facility] Comment on above: Performed By: #### C MP #### [facility] [address] [place] [address] Dr. Preeti Hyman Protein [Mass/Vol] 6.6 g/dL Normal 6.4-8.2 [facility] Comment on above: Performed By: #### C MP #### [facility] [address] [address] [address] Preeti Hyman Sodium [Moles/Vol] 140 mmol/L Normal 136-145 [facility] Comment on above: Performed By: #### C MP #### [facility] [address] [address] [address] Preeti Hyman Urea nitrogen [Mass/Vol] 12.0 mg/dL Normal 7.0-18.0 [facility] Comment on above: Performed By: #### C MP #### [facility] [address] [address] [address] Preeti Hyman Urea nitrogen/Creatinine [Mass ratio] 12.2 mg/mg Normal [facility] Comment on above: Performed By: #### C MP #### [facility] [address] [address] [address] Preeti Hyman CBC AUTO DIFFon 04-13-2022 BASO # 0.0 103/ul Normal 0.0-0.1 [facility] Comment on above: Performed By: #### M YO #### [facility] [address] [place] [address] Dr. Preeti Hyman Basophils/100 WBC (Bld) 0.5 % Normal 0.2-2.0 [facility] Comment on above: Performed By: #### M YO #### [facility] [address] [place] [address] Dr. Preeti Hyman EO # 0.2 103/ul Normal 0.0-0.7 [facility] Comment on above: Performed By: #### M YO #### [facility] [address] [place] [address] Dr. Preeti Hyman Eosinophils/100 WBC (Bld) 3.9 % Normal 0.9-7.0 [facility] Comment on above: Performed By: #### M YO #### [facility] [address] [place] [address] Dr. Preeti Hyman Erythrocyte distribution width (RBC) [Ratio] 13.6 % Normal 11.0-15.0 [facility] Comment on above: Performed By: #### M YO #### [facility] [address] [place] [address] Dr. Preeti Hyman Hematocrit (Bld) [Volume fraction] 38.5 % Critically low 42.0-54.0 [facility] Comment on above: Performed By: #### M YO #### [facility] [address] [place] [address] Dr. Preeti Hyman Hemoglobin (Bld) [Mass/Vol] 12.8 g/dL Critically low 14.0-18.0 [facility] Comment on above: Performed By: #### M YO #### [facility] [address] [place] [address] Dr. Preeti Hyman IG # 0.01 10e3/ul Normal 0.00-0.03 [facility] Comment on above: Performed By: #### M YO #### [facility] [address] [place] [address] Dr. Preeti Hyman IG % 0.3 % Normal 0.0-0.5 [facility] Comment on above: Performed By: #### M YO #### [facility] [address] [place] [address] Dr. Preeti Hyman LYMPH # 1.7 103/ul Normal 1.2-3.8 [facility] Comment on above: Performed By: #### M YO #### [facility] [address] [place] [address] Dr. Preeti Hyman Lymphocytes/100 WBC (Bld) 43.6 % Normal 20.5-60.0 [facility] Comment on above: Performed By: #### M YO #### [facility] [address] [place] [address] Dr. Preeti Hyman MANUAL DIFF REQ NO Normal [facility] Comment on above: Performed By: #### M YO #### [facility] [address] [place] [address] Dr. Preeti Hyman MCH (RBC) [Entitic mass] 30.8 pg Normal 25.9-34.0 [facility] Comment on above: Performed By: #### M YO #### [facility] [address] [place] [address] Dr. Preeti Hyman MCHC (RBC) [Mass/Vol] 33.2 g/dL Normal 29.9-35.2 [facility] Comment on above: Performed By: #### M YO #### [facility] [address] [place] [address] Dr. Preeti Hyman MCV (RBC) [Entitic vol] 92.5 fL Normal 80.0-94.0 [facility] Comment on above: Performed By: #### M YO #### [facility] [address] [address] [address] Preeti Hyman MONO # 0.7 103/ul Normal 0.3-0.8 [facility] Comment on above: Performed By: #### M YO #### [facility] [address] [place] [address] Dr. Preeti Hyman Monocytes/100 WBC (Bld) 17.3 % Critically high 1.7-12.0 [facility] Comment on above: Performed By: #### M YO #### [facility] [address] [address] [address] Preeti Hyman NEUT # 1.3 103/ul Critically low 1.4-6.5 [facility] Comment on above: Performed By: #### M YO #### [facility] [address] [place] [address] Dr. Preeti Hyman Neutrophils/100 WBC (Bld) 34.4 % Critically low 43.0-75.0 [facility] Comment on above: Performed By: #### M YO #### [facility] [address] [place] [address] Dr. Preeti Hyman Platelet mean volume (Bld) [Entitic vol] 10.8 fL Normal 9.5-13.5 [facility] Comment on above: Performed By: #### M YO #### [facility] [address] [place] [address] Dr. Preeti Hyman PLT 192 103/ul Normal 150-450 [facility] Comment on above: Performed By: #### M YO #### [facility] [address] [place] [address] Dr. Preeti Hyman RBC 4.16 106/ul Critically low 4.70-6.10 [facility] Comment on above: Performed By: #### M YO #### [facility] [address] [place] [address] Dr. Preeti Hyman WBC 3.8 103/ul Critically low 4.0-11.0 [facility] Comment on above: Performed By: #### M YO #### [facility] [address] [place] [address] Dr. Preeti Hyman MYOGLOBINon 04-13-2022 MONISHA 107 ng/mL Critically high 16-96 [facility] Comment on above: Performed By: #### M YO #### [facility] [address] [place] [address] Dr. Preeti Hyman PROF 14(COMP METB)on 023 Albumin [Mass/Vol] 3.0 g/dL Critically low 3.4-5.0 [facility] Comment on above: Performed By: #### C MP #### [facility] [address] [place] [address] Dr. Preeti Hyman Albumin/Globulin [Mass ratio] 0.8 {ratio} Normal [facility] Comment on above: Performed By: #### C MP #### [facility] [facility] [address] [place] [address] Dr. Preeti Hyman ALP [Catalytic activity/Vol] 107 U/L Normal 46-116 [facility] Comment on above: Performed By: #### C MP #### [facility] [address] [place] [address] Dr. Preeti Hyman ALT [Catalytic activity/Vol] 17 U/L Normal 16-63 [facility] Comment on above: Performed By: #### C MP #### [facility] [address] [place] [address] Dr. Preeti Hyman Anion gap [Moles/Vol] 11.4 mmol/L Normal [facility] Comment on above: Performed By: #### C MP #### [facility] [address] [place] [address] Dr. Preeti Hyman AST [Catalytic activity/Vol] 28 U/L Normal 15-37 [facility] Comment on above: Performed By: #### C MP #### [facility] [address] [place] [address] Dr. Preeti Hyman Bilirubin [Mass/Vol] 0.2 mg/dL Normal 0.2-1.0 [facility] Comment on above: Performed By: #### C MP #### [facility] [address] [place] [address] Dr. Preeti Hyman Calcium [Mass/Vol] 8.0 mg/dL Critically low 8.5-10.1 [facility] Comment on above: Performed By: #### C MP #### [facility] [address] [place] [address] Dr. Preeti Hyman Chloride [Moles/Vol] 106 mmol/L Normal 98-107 [facility] Comment on above: Performed By: #### C MP #### [facility] [address] [place] [address] Dr. Preeti Hyman CO2 [Moles/Vol] 27.5 mmol/L Normal 21.0-32.0 [facility] Comment on above: Performed By: #### C MP #### [facility] [address] [place] [address] Dr. Preeti Hyman Creatinine [Mass/Vol] 1.00 mg/dL Normal 0.70-1.30 [facility] Comment on above: Performed By: #### C MP #### [facility] [address] [place] [address] Dr. Preeti Hyman EGFR-AF NIUEAN >60 Normal >=60 [facility] Comment on above: Performed By: #### C MP #### [facility] [address] [place] [address] Dr. Preeti Hyman EGFR-NON AF NIUEAN >60 Normal >=60 [facility] Comment on above: Performed By: #### C MP #### [facility] [address] [place] [address] Dr. Preeti Hyman Globulin (S) [Mass/Vol] 4.0 g/dL Normal [facility] Comment on above: Performed By: #### C MP #### [facility] [address] [place] [address] Dr. Preeti Hyman Glucose [Mass/Vol] 87 mg/dL Normal 74-106 [facility] Comment on above: Performed By: #### C MP #### [facility] [address] [place] [address] Dr. Preeti Hyman Potassium [Moles/Vol] 3.9 mmol/L Normal 3.5-5.1 [facility] Comment on above: Performed By: #### C MP #### [facility] [address] [address] [address] Preeti Hyman Protein [Mass/Vol] 7.0 g/dL Normal 6.4-8.2 [facility] Comment on above: Performed By: #### C MP #### [facility] [address] [address] [address] Preeti Hyman Sodium [Moles/Vol] 141 mmol/L Normal 136-145 [facility] Comment on above: Performed By: #### C MP #### [facility] [address] [place] [address] Dr. Preeti Hyman Urea nitrogen [Mass/Vol] 16.0 mg/dL Normal 7.0-18.0 [facility] Comment on above: Performed By: #### C MP #### [facility] [address] [place] [address] Dr. Preeti Hyman Urea nitrogen/Creatinine [Mass ratio] 16.0 mg/mg Normal [facility] Comment on above: Performed By: #### C MP #### [facility] [address] [place] [address] Dr. Preeti Hyman T4on 04-13-2022 T4 [Mass/Vol] 7.20 ug/dL Normal 4.50-12.10 [facility] Comment on above: Performed By: #### T 4 #### [facility] [address] [place] [address] Dr. Preeti Hyman TSHon 04-13-2022 TSH 2.126 uIU/mL Normal 0.358-3.740 [facility] Comment on above: Performed By: #### M YO #### [facility] [address] [place] [address] Dr. Preeti Hyman CARDIAC KALEIGH ADMITon 023 CK [Catalytic activity/Vol] 237 U/L Normal 39-308 [facility] Comment on above: Performed By: #### M YO #### [facility] [address] [place] [address] Dr. Preeti Hyman CK.MB [Mass/Vol] 2.15 ng/mL Normal <=3.60 [facility] Comment on above: Performed By: #### M YO #### [facility] [address] [place] [address] Dr. Preeti Hyman HSTROP 9.8 pg/mL Normal 4.0-76.1 [facility] Comment on above: Result Comment: CUT- OFF POINTS HAVE BEEN ESTABLISHED BASED ON THE FOURTH UNIVERSAL DEFINITIONS OF MYOCARDIAL INFARCTION. THE UPPER REFERENCE LIMIT (URL) OF TROPONIN, DEFINED THE 99TH PERCENTILE OF cTnI DISTRIBUTION IN A REFERENCE POPULATION, HAS BEEN CONFIRMED THE DECISION THRESHOLD FOR MA DIAGNOSIS. Performed By: #### M YO #### [facility] [address] [place] [address] Dr. Preeti Hyman MONISHA 191 ng/mL Critically high 16-96 [facility] Comment on above: Performed By: #### M YO #### [facility] [address] [place] [address] Dr. Preeti Hyman CBC AUTO DIFFon 04-12-2022 BASO # 0.0 103/ul Normal 0.0-0.1 [facility] Comment on above: Performed By: #### C BC #### [facility] [address] [place] [address] Dr. Preeti Hyman Basophils/100 WBC (Bld) 0.2 % Normal 0.2-2.0 [facility] Comment on above: Performed By: #### C BC #### [facility] [address] [place] [address] Dr. Preeti Hyman EO # 0.0 103/ul Normal 0.0-0.7 [facility] Comment on above: Performed By: #### C BC #### [facility] [address] [place] [address] Dr. Preeti Hyman Eosinophils/100 WBC (Bld) 0.5 % Critically low 0.9-7.0 [facility] Comment on above: Performed By: #### C BC #### [facility] [address] [place] [address] Dr. Preeti Hyman Erythrocyte distribution width (RBC) [Ratio] 13.6 % Normal 11.0-15.0 [facility] Comment on above: Performed By: #### C BC #### [facility] [address] [place] [address] Dr. Preeti Hyman Hematocrit (Bld) [Volume fraction] 40.8 % Critically low 42.0-54.0 [facility] Comment on above: Performed By: #### C BC #### [facility] [address] [place] [address] Dr. Preeti Hyman Hemoglobin (Bld) [Mass/Vol] 13.2 g/dL Critically low 14.0-18.0 [facility] Comment on above: Performed By: #### C BC #### [facility] [address] [place] [address] Dr. Preeti Hyman IG # 0.02 10e3/ul Normal 0.00-0.03 [facility] Comment on above: Performed By: #### C BC #### [facility] [address] [place] [address] Dr. Preeti Hyman IG % 0.5 % Normal 0.0-0.5 [facility] Comment on above: Performed By: #### C BC #### [facility] [address] [place] [address] Dr. Preeti Hyman LYMPH # 1.5 103/ul Normal 1.2-3.8 [facility] Comment on above: Performed By: #### C BC #### [facility] [address] [place] [address] Dr. Preeti Hyman Lymphocytes/100 WBC (Bld) 36.1 % Normal 20.5-60.0 [facility] Comment on above: Performed By: #### C BC #### [facility] [address] [place] [address] Dr. Preeti Hyman MANUAL DIFF REQ NO Normal [facility] Comment on above: Performed By: #### C BC #### [facility] [address] [place] [address] Dr. Preeti Hyman MCH (RBC) [Entitic mass] 30.1 pg Normal 25.9-34.0 [facility] Comment on above: Performed By: #### C BC #### [facility] [address] [address] [address] Preeti Hyman MCHC (RBC) [Mass/Vol] 32.4 g/dL Normal 29.9-35.2 [facility] Comment on above: Performed By: #### C BC #### [facility] [address] [address] [address] Preeti Hyman MCV (RBC) [Entitic vol] 92.9 fL Normal 80.0-94.0 [facility] Comment on above: Performed By: #### C BC #### [facility] [address] [address] [address] Preeti Hyman MONO # 1.0 103/ul Critically high 0.3-0.8 [facility] Comment on above: Performed By: #### C BC #### [facility] [address] [address] [address] Preeti Hyman Monocytes/100 WBC (Bld) 23.6 % Critically high 1.7-12.0 [facility] Comment on above: Performed By: #### C BC #### [facility] [address] [address] [address] Preeti Hyman NEUT # 1.6 103/ul Normal 1.4-6.5 [facility] Comment on above: Performed By: #### C BC #### [facility] [address] [address] [address] Preeti Hyman Neutrophils/100 WBC (Bld) 39.1 % Critically low 43.0-75.0 [facility] Comment on above: Performed By: #### C BC #### [facility] [address] [address] [address] Preeti Hyman Platelet mean volume (Bld) [Entitic vol] 10.9 fL Normal 9.5-13.5 [facility] Comment on above: Performed By: #### C BC #### [facility] [address] [address] [address] Preeti Hyman PLT 171 103/ul Normal 150-450 [facility] Comment on above: Performed By: #### C BC #### [facility] [address] [place] [address] Dr. Preeti Hyman RBC 4.39 106/ul Critically low 4.70-6.10 [facility] Comment on above: Performed By: #### C BC #### [facility] [address] [place] [address] Dr. Preeti Hyman WBC 4.2 103/ul Normal 4.0-11.0 [facility] Comment on above: Performed By: #### C BC #### [facility] [address] [place] [address] Dr. Preeti Hyman Covid-19 PCR (CVDTB)on 03-31 SARS-CoV-2 (COVID-19) RNA GAVINO+probe Ql (Unsp spec) Detected Abnormal NOT DETECTED [facility] Comment on above: Result Comment: This test is not yet approved or cleared by the [place] FDA. When there are no FDA-approved or cleared tests available, and other criteria are met, FDA can make tests available under an emergency access mechanism called an Emergency Use Authorization (EUA). The EUA for this test is supported by the [place] of Health and Human Service's declaration that [...] used). Performed By: #### M YO #### [facility] [address] [place] [address] Dr. Preeti Hyman ER URINE PROFILEon 3 Bilirubin Ql (U) Negative Normal NEGATIVE [facility] Comment on above: Performed By: #### E RUR #### [facility] [address] [place] [address] Dr. Preeti Hyman Clarity (U) CLEAR Normal CLEAR [facility] Comment on above: Performed By: #### E RUR #### [facility] [address] [place] [address] Dr. Preeti Hyman Color (U) LT. YELLOW Normal YELLOW [facility] Comment on above: Performed By: #### E RUR #### [facility] [address] [place] [address] Dr. Preeti MADERA A micrscopic examination will be performed if indicated. Normal [facility] Comment on above: Performed By: #### E RUR #### [facility] [address] [place] [address] Dr. Preeti Hyman Glucose Ql (U) Negative Normal NEGATIVE [facility] [place] Comment on above: Performed By: #### E RUR #### [facility] [address] [place] [address] Dr. Preeti Hyman Hemoglobin Ql (U) Negative Normal NEGATIVE [facility] Comment on above: Performed By: #### E RUR #### [facility] [address] [place] [address] Dr. Preeti Hyman Ketones Ql (U) Negative Normal NEGATIVE [facility] [place] Comment on above: Performed By: #### E RUR #### [facility] [address] [place] [address] Dr. Preeti Hyman LEUKOCYTES Negative Normal NEGATIVE [facility] Comment on above: Performed By: #### E RUR #### [facility] [address] [place] [address] Dr. Preeti Hyman Nitrite Ql (U) Negative Normal NEGATIVE [facility] Comment on above: Performed By: #### E RUR #### [facility] [address] [place] [address] Dr. Preeti Hyman pH (U) 5.5 [pH] Normal 5-9 [facility] Comment on above: Performed By: #### E RUR #### [facility] [address] [place] [address] Dr. Preeti Hyman SPEC GRAVITY 1.015 Normal 1.005-<=1.025 [facility] Comment on above: Performed By: #### E RUR #### [facility] [address] [place] [address] Dr. Preeti Hyman UA PROTEIN Negative Normal NEGATIVE/ TRACE [facility] Comment on above: Performed By: #### E RUR #### [facility] [address] [place] [address] Dr. Preeti Hyman UR MICRO IND NOT INDICATED Normal [facility] Comment on above: Performed By: #### E RUR #### [facility] [address] [place] [address] Dr. Preeti Hyman Urobilinogen Qn (U) 0.2 {Comfort'U}/dL Normal 0.2 - 1. 0 [facility] Comment on above: Performed By: #### E RUR #### [facility] [address] [place] [address] Dr. Preeti Hyman INFLUENZA A AND B AGon 04-12 [facility] SEE BELOW Normal [facility] Comment on above: Result Comment: Nega tive for Flu A protein angiten. Infection due to Flu A cannot be ruled out. Flu A angiten in the sample may be below the detection limit of the test. Performed By: #### I NFLUAB #### [facility] [address] [place] [address] Dr. Preeti Hyman INFLUBNEGH SEE BELOW Normal [facility] Comment on above: Result Comment: Nega tive for Flu B protein antigen. Infection due to Flu B cannot be ruled out. Flu B antigen in the sample may be below the detection limit of the test. Performed By: #### I NFLUAB #### [facility] [address] [place] [address] Dr. Preeti Hyman INFLUENZA A AG Negative Normal NEGATIVE SEE COMMENT [facility] Comment on above: Performed By: #### I NFLUAB #### [facility] [address] [place] [address] Dr. Preeti Hyman INFLUENZA B AG Negative Normal NEGATIVE SEE COMMENT [facility] Comment on above: Performed By: #### I NFLUAB #### [facility] [address] [place] [address] Dr. Preeti Hyman LIPASEon 04-12-2022 Lipase [Catalytic activity/Vol] 101.0 U/L Normal 73.0-393.0 [facility] Comment on above: Performed By: #### C MP, CMADM, LIPA #### [facility] [address] [address] [address] Preeti Hyman PROF 14(COMP METB)on 023 Albumin [Mass/Vol] 3.3 g/dL Critically low 3.4-5.0 [facility] Comment on above: Performed By: #### M YO #### [facility] [address] [place] [address] Dr. Preeti Hyman Albumin/Globulin [Mass ratio] 0.8 {ratio} Normal [facility] Comment on above: Performed By: #### M YO #### [facility] [address] [place] [address] Dr. Preeti Hyman ALP [Catalytic activity/Vol] 114 U/L Normal 46-116 [facility] Comment on above: Performed By: #### M YO #### [facility] [address] [place] [address] Dr. Preeti Hyman ALT [Catalytic activity/Vol] 19 U/L Normal 16-63 [facility] Comment on above: Performed By: #### M YO #### [facility] [address] [place] [address] Dr. Preeti Hyman Anion gap [Moles/Vol] 10.2 mmol/L Normal [facility] Comment on above: Performed By: #### M YO #### [facility] [address] [place] [address] Dr. Preeti Hyman AST [Catalytic activity/Vol] 25 U/L Normal 15-37 [facility] Comment on above: Performed By: #### M YO #### [facility] [address] [place] [address] Dr. Preeti Hyman Bilirubin [Mass/Vol] 0.1 mg/dL Critically low 0.2-1.0 [facility] Comment on above: Performed By: #### M YO #### [facility] [address] [place] [address] Dr. Preeti Hyman Calcium [Mass/Vol] 8.2 mg/dL Critically low 8.5-10.1 [facility] Comment on above: Performed By: #### M YO #### [facility] [address] [address] [address] Preeti Hyman Chloride [Moles/Vol] 103 mmol/L Normal 98-107 [facility] Comment on above: Performed By: #### M YO #### [facility] [address] [address] [address] Preeti Hyman CO2 [Moles/Vol] 29.3 mmol/L Normal 21.0-32.0 [facility] Comment on above: Performed By: #### M YO #### [facility] [address] [address] [address] Preeti Hyman Creatinine [Mass/Vol] 1.24 mg/dL Normal 0.70-1.30 [facility] Comment on above: Performed By: #### M YO #### [facility] [address] [address] [address] Preeti Hyman EGFR-AF NIUEAN >60 Normal >=60 [facility] Comment on above: Performed By: #### M YO #### [facility] [address] [address] [address] Preeti Hyman EGFR-NON AF NIUEAN 57 mL/min/1.73m2 Critically low >=60 [facility] Comment on above: Performed By: #### M YO #### [facility] [address] [address] [address] Preeti Hyman Globulin (S) [Mass/Vol] 4.3 g/dL Normal [facility] Comment on above: Performed By: #### M YO #### [facility] [address] [address] [address] Preeti Hyman Glucose [Mass/Vol] 129 mg/dL Critically high 74-106 [facility] Comment on above: Performed By: #### M YO #### [facility] [address] [address] [address] Preeti Hyman Potassium [Moles/Vol] 4.3 mmol/L Normal 3.5-5.1 [facility] Comment on above: Performed By: #### M YO #### [facility] [address] [place], [place] [address] Dr. Preeti Hyman Protein [Mass/Vol] 7.6 g/dL Normal 6.4-8.2 [facility] Comment on above: Performed By: #### M YO #### [facility] [address] [place], [place] [address] Dr. Preeti Hyman Sodium [Moles/Vol] 139 mmol/L Normal 136-145 [facility] Comment on above: Performed By: #### M YO #### [facility] [address] [place], [place] [address] Dr. Preeti Hyman Urea nitrogen [Mass/Vol] 16.0 mg/dL Normal 7.0-18.0 [facility] Comment on above: Performed By: #### M YO #### [facility] [address] [place], [place] [address] Dr. Preeti Hyman Urea nitrogen/Creatinine [Mass ratio] 12.9 mg/mg Normal [facility] Comment on above: Performed By: #### M YO #### [facility] [address] [place], [place] [address] Dr. Preeti Hyman XR CHEST 1 Von [...] by: KOKO HUNTLEY Date: 2022-04-12 15:35 Normal [facility] Encounters Encounter Date Encounter Type Care Provider Facility Start: 07-10-2022 End: 07-10-[address] JONATHAN GIORDANO . Facility: Start: 04-23-2022 Patient encounter procedure David Matos FINISH PATCHER.OVEN BAKER Work Phone: [facility] Start: 04-23-2022 Progress Note David OWENS RN.OVEN BAKER Work Phone: [facility] Department Start: 04-19-2022 Patient encounter procedure David Matos FINISH PATCHER.OVEN BAKER Work Phone: [facility] Start: 04-19-2022 Progress Note David OWENS RN.OVEN BAKER Work Phone: [facility] Start: 04-17-2022 Patient encounter procedure [place] Lacy Rodney Work Phone: [facility] Start: 04-17-2022 Progress Note Itri A Rodney Work Phone: [facility] [employer] Start: 04-12-2022 End: 04-17-2022 Evaluation and management of inpatient DR JONATHAN GIORDANO . Facility: Payers Date Payer Category Payer Medicare UHC MEDICARE UHC MEDICARE ADVANTAGE PPO [id number] 2022-Present [phone] [address] [address] [place] [address] PPO [id number] 2019 Unknown [id number] 1960 Medicare [id number] 1945 Unknown [id number] 1945 Unknown [id number] Social History Date Type Detail Facility [facility] Start: 1945 Sex Assigned At Not on file [facility] History of Present illness Narrative 04-23-2022 David Matos APRN.OVEN BAKER - 04/23/2022 12:00 AM EST Note Date & Type Note Facility 04-23-2022 History of Presen t illness Narrative [facility] NOTE NAME: JONNY HENNESSY NO.: [id number] DATE OF SERVICE: 04/23/2022 [facility] DATE OF : 1945 REASON FOR VISIT: The patient is a resident of [facility]. This is a skilled visit for [...] have been reported since being in the [facility]. The patient states has been up and [...] normal range. DICTATED BY: JULIA Bates JOB# [id number] cc:[facility] documented in this encounter [facility] History of Present illness Narrative 04-19-2022 David Matos APRN.OVEN BAKER - 04/19/2022 12:00 AM EST Note Date & Type Note Facility 04-19-2022 History of Presen t illness Narrative [facility] NOTE NAME: JONNY HENNESSY NO.: [id number] DATE OF SERVICE: 04/19/2022 [facility] DATE OF : 1945 REASON FOR VISIT: The patient is a resident of [facility]. This is a skilled visit for [...] work performed. DICTATED BY: JULIA Bates/Ozzy JOB# [id number] cc:[facility] documented in this encounter [facility] History of Present illness Narrative 04-17-2022 Itri A Rodney - 04/17/2022 12:00 AM EST Note Date & Type Note Facility 04-17-2022 History of Presen t illness Narrative [facility] NOTE NAME: JONNY HENNESSY NO.: [id number] DATE OF SERVICE: 04/17/2022 [facility] DATE OF : 1945 NEW PATIENT HISTORY AND PHYSICAL HISTORY OF PRESENT ILLNESS: The patient is a 76-year-old male who is admitted to us from [facility] with a diagnosis of acute [...] therapy. DICTATED BY: MD ROXANE Pierce/Ozzy JOB# [id number] cc:[facility] documented in this encounter [facility] Summary Purpose Family History No Family [...] any alcohol or drug abuse patient.[facility] the event this information is protected by the Federal Confidentiality of Alcohol and Drug Abuse Patient Records regulations: The Federal rules restrict any use of the information to criminally investigate or prosecute any alcohol or drug abuse patient.[facility] the event this information is protected by the Federal Confidentiality of Alcohol and Drug Abuse Patient Records regulations: The Federal rules restrict any use of the information to criminally investigate or prosecute any alcohol or drug abuse patient.[facility] (unrecognized sect ion and content) No [...] BE BASED ON THE PRIMARY CLINICAL RECORDS. [facility] [employer] [facility]. provides no warranty or guarantee of the accuracy or completeness of information in this document.
[2023-08-09] MEDS: MAGNESIUM SULFATE IN WATER 2 GM/50 ML PREMIX IV (16:51)
[2023-08-09 17:03] LABS: Anion Gap 12.5; BUN Creatinine Ratio 13.9; Carbon Dioxide 28.4 mmol/L (21.0-32.0); Chloride 101 mmol/L (98-107); Estimated GFR (African America >60 (>=60); Estimated GFR (Non-African Ame >60 (>=60); Glucose 135 mg/dL (74-106); Potassium 3.9 mmol/L (3.5-5.1); Sodium 138 mmol/L (136-145); Troponin I High Sensitivity 7.8 pg/mL (4.0-76.1)
--- NOTE | 2023-08-09 17:43 | ED_ITS ---
HPI HPI - General Adult General Chief complaint: Shortness of Breath/Dyspnea Stated complaint: SOB Time Seen by Provider: 08/09/23 16:21 Source: patient Mode of arrival: ambulance Limitations: no limitations History of Present Illness HPI narrative: 78-year-old male to the emergency department with chief complaint of shortness of breath. Patient has a history of chronic obstructive pulmonary disease. He reports sudden worsening today. He has had a mild cough which is productive occasionally. He denies any chest pain. No fever, sweats, chills. anayeli Roldanumedrol from EMS. Started on BiPAP. Related Data Home Medications ?Medication ?Instructions ?Recorded ?Confirmed albuterol sulfate 2.5 mg/3 mL 2.5 mg inhalation Q6H PRN 04/04/23 08/09/23 (0.083 %) solution for nebulization shortness of breath or wheezing Previous Rx's ?Medication ?Instructions ?Recorded tamsulosin 0.4 mg capsule 0.4 mg PO QD #30 caps 06/02/23 trazodone 50 mg tablet 50 mg PO QHS #30 tabs 06/02/23 Allergies Allergy/AdvReac Type Severity Reaction Status Date / Time No Known Drug Allergies Allergy Verified 05/31/23 06:02 Opioid HPI Opioid Management Most Recent Opioid Data: Last Pain Scale 0 07/22/23 06:31 Last Pain Intensity 3 07/22/23 09:11 Last ORT Total Score 0 07/22/23 02:03 Last ORT Risk Category Low Risk 07/22/23 02:03 Review of Systems ROS Status of ROS 10 or more systems reviewed and unremark able except as noted in history and below [facility] Medical History (Updated 08/09/23 @ 17:50 by Enmanuel Barrera MD) COPD exacerbation ?J44.1 - Chronic obstructive pulmonary disease with (acute) exacerbation (ICD-10) Community acquired pneumonia ?J18.9 - Pneumonia, unspecified organism (ICD-10) Fracture of left hip requiring operative repair ?S72.002A - Fracture of unspecified part of neck of left femur, initial encounter for closed fracture (ICD-10) Acute hypoxic respiratory failure ?J96.01 - Acute respiratory failure with hypoxia (ICD-10) Aspiration pneumonitis ?J69.0 - Pneumonitis due to inhalation of food and vomit (ICD-10) Acute respiratory distress ?R06.03 - Acute respiratory distress (ICD-10) Aspiration into airway ?T17.908A - Unspecified foreign body in respiratory tract, part unspecified causing other injury, initial encounter (ICD-10) Neuropathy ?G62.9 - Polyneuropathy, unspecified (ICD-10) Peripheral neuropathy ?G62.9 - Polyneuropathy, unspecified (ICD-10) Bilateral edema of lower extremity ?R60.0 - Localized edema (ICD-10) Abrasion of knee, left ?S80.212A - Abrasion, left knee, initial encounter (ICD-10) Closed fracture of left hip ?S72.002A - Fracture of unspecified part of neck of left femur, initial encounter for closed fracture (ICD-10) Surgical History (Updated 12/18/22 @ 06:44 by Nilsa Arzate) Hx of tonsillectomy ?Z90.89 - Acquired absence of other organs (ICD-10) Previous back surgery ?Z98.890 - Other specified postprocedural states (ICD-10) Family History (Updated 12/18/22 @ 06:42 by Nilsa Arzate) Father Family history of hypertension Family history of stroke Social History (Updated 07/22/23 @ 02:14 by Aida Rust) Within the past year, how often did you have a drink containing alcohol: never Score interpretation: A score less than 4 is consistent with normal alcohol consumption. Smoking status: Never smoker Non-prescribed substance use: denies use Previous occupational history: retired Highest level of school completed/degree received: some college, no degree Are you now , , , , never or living with a partner: In a typical week, how many times do you talk on the telephone with family, friends, or neighbors: 3 or more times per week How often do you get together with friends or relatives: 3 or more times per week How often do you attend episcopalian or yarsanism services: 1-3 times per year Little interest or pleasure in doing things: not at all Feeling down, depressed, or hopeless: not at all Feel stressed/tense/nervous/anxious/difficulty sleeping: not at all Life stressors: recent of family or friend Life stressor details: burried wifes ashes yesterday 07/20 Do you think of yourself as: straight/heterosexual Gender Identity: male Exam Narrative Exam Narrative: VITALS: I have reviewed the triage vital signs. GENERAL: 78-year-old male in moderate respiratory distress NEURO: Alert and oriented. Moves all extremities. Face is symmetric and expressive. EYES: PERRL. No scleral icterus or conjunctival injection. No discharge. HENT: Normocephalic, atraumatic. Hearing is grossly intact. Nares grossly patent and without discharge. Mucous membranes moist. NECK: No JVD. Patient moves neck without restriction. CARDIO: Rhythm regular. Normal rate. No murmur, rub, or gallop. Pulses equal bilaterally in the upper and lower extremity. No lower extremity edema. PULM: Wheezing. increased work of breathing, moderate conversational dyspnea. GI/: Abdomen is soft and non-tender. Normoactive bowel sounds. EXTREMITIES: Symmetric muscle bulk. No joint swelling. No clubbing, cyanosis, or deformity. SKIN: Warm and dry. Normal turgor. No rash or lesions appreciated. PSYCH: Mood, affect, and interaction is appropriate to the setting. Constitutional Vital Signs, click to edit/add: Last Vital Signs Temp 98.1 F 08/09/23 17:23 Pulse 105 H 08/09/23 17:20 Resp 29 H 08/09/23 17:20 BP 105/72 08/09/23 17:23 Pulse Ox 96 08/09/23 17:20 O2 Del Method Nasal Cannula 08/09/23 16:45 O2 Flow Rate 5.5 08/09/23 16:30 Course Vital Signs Vital signs: Vital Signs Pulse Rate 107 H 08/09/23 16:18 Respiratory Rate 28 H 08/09/23 16:18 Pulse Oximetry 97 08/09/23 16:18 Oxygen Delivery Method Nasal Cannula 08/09/23 16:18 Oxygen Delivery Flow Rate 5 08/09/23 16:18 Temperature 98.1 F 08/09/23 17:23 Pulse Rate 105 H 08/09/23 17:20 Respiratory Rate 29 H 08/09/23 17:20 Blood Pressure 105/72 08/09/23 17:23 Pulse Oximetry 96 08/09/23 17:20 Oxygen Delivery Method Nasal Cannula 08/09/23 16:45 Oxygen Delivery Flow Rate 5.5 08/09/23 16:30 Medical Decision Making MDM Narrative Medical decision making narrative: 78-year-old male to the emergency department in respiratory distress. Started on CPAP and given DuoNeb and Solu-Medrol by EMS. He arrived in moderate distress but improved per EMS. He is still wheezing. He is given stacked DuoNeb. He was able to titrate down to 6 L nasal cannula. Magnesium was given. Are reviewed and noted. No significant abnormalities. His BNP is low, essentially excluding congestive heart failure in the setting. His troponin is negative. EKG without evidence of ischemia. His chest x-ray did show a retrocardiac opacity which was better visualized on the CT scan performed three days ago as a small pleural effusion. Patient with likely chronic obstructive pulmonary disease exacerbation. He will need admission given his persistent O2 need. Case will be discussed with the hospitalist for admission. Medical Records Medical records reviewed: Yes I reviewed the patient's medical records Lab Data Lab results reviewed: Yes I reviewed the patient's lab results Labs: Lab Results 08/09/23 Range/Units 16:29 WBC 7.8 (4.0-11.0) 10^3/uL RBC 4.15 L (4.70-6.10) 10^6/uL Hgb 12.1 L (14.0-18.0) g/dL Hct 39.1 L (42.0-54.0) % MCV 94.2 H (80.0-94.0) fL MCH 29.2 (25.9-34.0) pg MCHC 30.9 (29.9-35.2) g/dL RDW 13.7 (11.0-15.0) % Plt Count 288 (150-450) 10^3/uL MPV 10.1 (9.5-13.5) fL Neut % (Auto) 58.9 (43.0-75.0) % Lymph % (Auto) 26.0 (20.5-60.0) % [place] % (Auto) 10.2 (1.7-12.0) % Eos % (Auto) 4.3 (0.9-7.0) % Baso % (Auto) 0.3 (0.2-2.0) % Neut # (Auto) 4.6 (1.4-6.5) 10^3/uL Lymph # (Auto) 2.0 (1.2-3.8) 10^3/uL [place] # (Auto) 0.8 (0.3-0.8) 10^3/uL Eos # (Auto) 0.3 (0.0-0.7) 10^3/uL Baso # (Auto) 0.0 (0.0-0.1) 10^3/uL Abs Immat Gran (auto) 0.02 (0.00-0.03) 10^3/uL Imm/Tot Granulo (auto) 0.3 (0.0-0.5) % Sodium 138 (136-145) mmol/L Potassium 3.9 (3.5-5.1) mmol/L Chloride 101 (98-107) mmol/L Carbon Dioxide 28.4 (21.0-32.0) mmol/L Anion Gap 12.5 BUN 14.0 (7.0-18.0) mg/dL Creatinine 1.01 (0.70-1.30) mg/dL Est GFR ( Amer) >60 (>=60) Est GFR (Non-Af Amer) >60 (>=60) BUN/Creatinine Ratio 13.9 Glucose 135 H (74-106) mg/dL Calcium 9.0 (8.5-10.1) mg/dL Troponin I High Sens 7.8 (4.0-76.1) pg/mL NT-Pro-B Natriuret Pep 98.0 (<=1800.0) pg/mL Imaging Data Chest x-ray: Radiologist's impression: ITS Impressions Chest X-Ray 08/09/23 16:22 IMPRESSION: Persistent opacification left lung base retrocardiac area consistent with pleural effusion and airspace density seen on CT 08/06/2023. No new or increasing lung density. Electronically authenticated by: ABRAN RIVERA Date: 08/09/2023 16:59 ECG Data Attestation: I personally reviewed and interpreted this ECG as follows: (Sinus tachycardia at a rate of one oh six. No STEMI. Normal QTC.) Critical Care Time Critical Care Time Critical Care Time: Yes Total Critical Care Time: 35 Attestation: Critical Care Procedure Note Authorized and Performed by: Enmanuel Barrera DO Total critical care time: 35 min Due to a high probability of clinically significant, life threatening deterioration, the patient required my highest level of preparedness to intervene emergently and I personally spent this critical care time directly and personally managing the patient. This critical care time included obtaining a history; examining the patient; pulse oximetry; ordering and review of studies; arranging urgent treatment with development of a management plan; evaluation of patient's response to treatment; frequent reassessment; and, discussions with other providers. This critical care time was performed to assess and manage the high probability of imminent, life-threatening deterioration that could result in multi-organ failure. It was exclusive of separately billable procedures and treating other patients and teaching time. Please see MDM section and the rest of the note for further information on patient assessment and treatment. Discharge Plan Discharge Chief Complaint: Shortness of Breath/Dyspnea Clinical Impression: Acute hypoxemic respiratory failure, Acute exacerbation of chronic obstructive pulmonary disease (COPD) Patient Disposition: Admitted As Inpatient Time of Disposition Decision: 17:49 Condition: Fair Prescriptions / Home Meds: No Action albuterol sulfate 2.5 mg /3 mL (0.083 %) solution for nebulization 2.5 mg inhalation Q6H PRN (Reason: shortness of breath or wheezing) trazodone 50 mg Tablet 50 mg PO QHS Qty: 30 11RF tamsulosin 0.4 mg Capsule 0.4 mg PO QD Qty: 30 11RF Print Language: Croatian Referrals: Tawanda Galvez MD [Primary Care Provider] - 1 week
[2023-08-09 18:56] LABS: ABG PCO2 44.8 mmHg (35.0-45.0); Allen Test POSITIVE (POSITIVE); Base Excess ABG 1.7 mmol/L (-2.0-2.0); HCO3 ABG 26.7 mmol/L (22.0-26.0); Liters per Minute 5L; O2 Mode NASAL CANNULA; Oxygen Saturation ABG 97.3 %; PO2 ABG 85.1 mmHg (80.0-100.0); pH ABG 7.384 (7.350-7.450)
[2023-08-09 18:57] LABS: Puncture Site RR
[2023-08-09 19:09] LABS: Influenza Virus A Antigen Negative; Influenza Virus B Antigen Negative; Internal Control Within Normal Limits; SARS-CoV-2 Ag NEGATIVE (NEGATIVE)
[2023-08-09] MEDS: IPRATROPIUM/ALBUTEROL SULFATE 3 ML AMPUL.NEB IH ×2 (19:20→23:07)
--- OUTSIDE RECORDS SUMMARY | 2023-08-09 19:23 | XMS_ITS | CCD ---
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 Preeti Hyman Basophils/100 WBC (Bld) 0.2 % Normal 0.2-2.0 [facility] Comment on above: Performed By: #### M YO #### [facility] [address] [place] [address] Dr. Preeti Hyman EO # 0.2 103/ul Normal 0.0-0.7 [facility] Comment on above: Performed By: #### M YO #### [facility] [address] [place] [address] Dr. Preeti Hyman Eosinophils/100 WBC (Bld) 3.7 % Normal 0.9-7.0 [facility] Comment on above: Performed By: #### M YO #### [facility] [address] [place] [address] Dr. Preeti Hyman Erythrocyte distribution width (RBC) [Ratio] 13.5 % Normal 11.0-15.0 [facility] Comment on above: Performed By: #### M YO #### [facility] [address] [place] [address] Dr. Preeti Hyman Hematocrit (Bld) [Volume fraction] 38.3 % Critically low 42.0-54.0 [facility] Comment on above: Performed By: #### M YO #### [facility] [address] [place] [address] Dr. Preeti Hyman Hemoglobin (Bld) [Mass/Vol] 12.3 g/dL Critically low 14.0-18.0 [facility] Comment on above: Performed By: #### M YO #### [facility] [address] [place] [address] Dr. Preeti Hyman IG # 0.01 10e3/ul Normal 0.00-0.03 [facility] Comment on above: Performed By: #### M YO #### [facility] [address] [place] [address] Dr. Preeti Hyman IG % 0.2 % Normal 0.0-0.5 [facility] Comment on above: Performed By: #### M YO #### [facility] [address] [place] [address] Dr. Preeti Hyman LYMPH # 2.4 103/ul Normal 1.2-3.8 [facility] Comment on above: Performed By: #### M YO #### [facility] [address] [place] [address] Dr. Preeti Hyman Lymphocytes/100 WBC (Bld) 58.9 % Normal 20.5-60.0 [facility] Comment on above: Performed By: #### M YO #### [facility] [address] [place] [address] Dr. Preeti Hyman MANUAL DIFF REQ NO Normal [facility] Comment on above: Performed By: #### M YO #### [facility] [address] [place] [address] Dr. Preeti Hyman MCH (RBC) [Entitic mass] 29.6 pg Normal 25.9-34.0 [facility] Comment on above: Performed By: #### M YO #### [facility] [address] [place] [address] Dr. Preeti Hyman MCHC (RBC) [Mass/Vol] 32.1 g/dL Normal 29.9-35.2 [facility] Comment on above: Performed By: #### M YO #### [facility] [address] [place] [address] Dr. Preeti Hyman MCV (RBC) [Entitic vol] 92.3 fL Normal 80.0-94.0 [facility] Comment on above: Performed By: #### M YO #### [facility] [address] [place] [address] Dr. Preeti Hyman MONO # 0.5 103/ul Normal 0.3-0.8 [facility] Comment on above: Performed By: #### M YO #### [facility] [address] [place] [address] Dr. Preeti Hyman Monocytes/100 WBC (Bld) 11.6 % Normal 1.7-12.0 [facility] Comment on above: Performed By: #### M YO #### [facility] [address] [place] [address] Dr. Preeti Hyman NEUT # 1.0 103/ul Critically low 1.4-6.[address] [facility] Comment on above: Performed By: #### M YO #### [facility] [address] [place] [address] Dr. Preeti Hyman Neutrophils/100 WBC (Bld) 25.4 % Critically low 43.0-75.0 [facility] Comment on above: Performed By: #### M YO #### [facility] [address] [place] [address] Dr. Preeti Hyman Platelet mean volume (Bld) [Entitic vol] 10.5 fL Normal 9.5-13.5 [facility] Comment on above: Performed By: #### M YO #### [facility] [address] [place] [address] Dr. Preeti Hyman PLT 207 103/ul Normal 150-450 [facility] Comment on above: Performed By: #### M YO #### [facility] [address] [place] [address] Dr. Preeti Hyman RBC 4.15 106/ul Critically low 4.70-6.10 [facility] Comment on above: Performed By: #### M YO #### [facility] [address] [place] [address] Dr. Preeti Hyman WBC 4.0 103/ul Normal 4.0-11.0 [facility] Comment on above: Performed By: #### M YO #### [facility] [address] [place] [address] Dr. Preeti Hyman PROF 14(COMP METB)on 023 Albumin [Mass/Vol] 3.0 g/dL Critically low 3.4-5.0 [facility] Comment on above: Performed By: #### C MP #### [facility] [address] [place] [address] Dr. Preeti Hyman Albumin/Globulin [Mass ratio] 0.8 {ratio} Normal [facility] Comment on above: Performed By: #### C MP #### [facility] [address] [place] [address] Dr. Preeti Hyman ALP [Catalytic activity/Vol] 103 U/L Normal 46-116 [facility] Comment on above: Performed By: #### C MP #### [facility] [address] [place] [address] Dr. Preeti Hyman ALT [Catalytic activity/Vol] 20 U/L Normal 16-63 [facility] Comment on above: Performed By: #### C MP #### [facility] [address] [place] [address] Dr. Preeti Hyman Anion gap [Moles/Vol] 11.2 mmol/L Normal [facility] Comment on above: Performed By: #### C MP #### [facility] [address] [address] [address] Preeti Hyman AST [Catalytic activity/Vol] 28 U/L Normal 15-37 [facility] Comment on above: Performed By: #### C MP #### [facility] [address] [address] [address] Preeti Hyman Bilirubin [Mass/Vol] 0.3 mg/dL Normal 0.2-1.0 [facility] Comment on above: Performed By: #### C MP #### [facility] [address] [address] [address] Preeti Hyman Calcium [Mass/Vol] 8.3 mg/dL Critically low 8.5-10.1 [facility] Comment on above: Performed By: #### C MP #### [facility] [address] [address] [address] Preeti Hyman Chloride [Moles/Vol] 105 mmol/L Normal 98-107 [facility] Comment on above: Performed By: #### C MP #### [facility] [address] [address] [address] Preeti Hyman CO2 [Moles/Vol] 27.5 mmol/L Normal 21.0-32.0 [facility] Comment on above: Performed By: #### C MP #### [facility] [address] [address] [address] Preeti Hyman Creatinine [Mass/Vol] 0.87 mg/dL Normal 0.70-1.30 [facility] Comment on above: Performed By: #### C MP #### [facility] [address] [address] [address] Preeti Hyman EGFR-AF SYRIAN >60 Normal >=60 [facility] Comment on above: Performed By: #### C MP #### [facility] [address] [address] [address] Preeti Hyman EGFR-NON AF SYRIAN >60 Normal >=60 [facility] Comment on above: Performed By: #### C MP #### [facility] [address] [address] [address] Preeti Hyman Globulin (S) [Mass/Vol] 4.0 g/dL Normal [facility] Comment on above: Performed By: #### C MP #### [facility] [address] [address] [address] Preeti Hyman Glucose [Mass/Vol] 93 mg/dL Normal 74-106 [facility] Comment on above: Performed By: #### C MP #### [facility] [address] [address] [address] Preeti Hyman Potassium [Moles/Vol] 3.7 mmol/L Normal 3.5-5.1 [facility] Comment on above: Performed By: #### C MP #### [facility] [address] [place] [address] Dr. Preeti Hyman Protein [Mass/Vol] 7.0 g/dL Normal 6.4-8.2 [facility] Comment on above: Performed By: #### C MP #### [facility] [address] [place] [address] Dr. Preeti Hyman Sodium [Moles/Vol] 140 mmol/L Normal 136-145 [facility] Comment on above: Performed By: #### C MP #### [facility] [address] [place] [address] Dr. Preeti Hyman Urea nitrogen [Mass/Vol] 16.0 mg/dL Normal 7.0-18.0 [facility] Comment on above: Performed By: #### C MP #### [facility] [address] [place] [address] Dr. Preeti Hyman Urea nitrogen/Creatinine [Mass ratio] 18.4 mg/mg Normal [facility] Comment on above: Performed By: #### C MP #### [facility] [address] [place] [address] Dr. Preeti Hyman CBC AUTO DIFFon 04-14-2022 BASO # 0.0 103/ul Normal 0.0-0.1 [facility] Comment on above: Performed By: #### C BC #### [facility] [address] [address] [address] Preeti Hyman Basophils/100 WBC (Bld) 0.2 % Normal 0.2-2.0 [facility] Comment on above: Performed By: #### C BC #### [facility] [address] [place] [address] Dr. Preeti Hyman EO # 0.1 103/ul Normal 0.0-0.7 [facility] Comment on above: Performed By: #### C BC #### [facility] [address] [place] [address] Dr. Preeti Hyman Eosinophils/100 WBC (Bld) 2.2 % Normal 0.9-7.0 [facility] Comment on above: Performed By: #### C BC #### [facility] [address] [place] [address] Dr. Preeti Hyman Erythrocyte distribution width (RBC) [Ratio] 13.4 % Normal 11.0-15.0 [facility] Comment on above: Performed By: #### C BC #### [facility] [address] [place] [address] Dr. Preeti Hyman Hematocrit (Bld) [Volume fraction] 36.3 % Critically low 42.0-54.0 [facility] Comment on above: Performed By: #### C BC #### [facility] [address] [place] [address] Dr. Preeti Hyman Hemoglobin (Bld) [Mass/Vol] 12.1 g/dL Critically low 14.0-18.0 [facility] Comment on above: Performed By: #### C BC #### [facility] [address] [place] [address] Dr. Preeti Hyman IG # 0.01 10e3/ul Normal 0.00-0.03 [facility] Comment on above: Performed By: #### C BC #### [facility] [address] [place] [address] Dr. Preeti Hyman IG % 0.2 % Normal 0.0-0.5 [facility] Comment on above: Performed By: #### C BC #### [facility] [address] [address] [address] Preeti Hyman LYMPH # 2.0 103/ul Normal 1.2-3.8 [facility] Comment on above: Performed By: #### C BC #### [facility] [address] [place] [address] Dr. Preeti Hyman Lymphocytes/100 WBC (Bld) 49.0 % Normal 20.5-60.0 [facility] Comment on above: Performed By: #### C BC #### [facility] [address] [place] [address] Dr. Preeti Hyman MANUAL DIFF REQ NO Normal [facility] Comment on above: Performed By: #### C BC #### [facility] [address] [place] [address] Dr. Preeti Hyman MCH (RBC) [Entitic mass] 30.6 pg Normal 25.9-34.0 [facility] Comment on above: Performed By: #### C BC #### [facility] [address] [place] [address] Dr. Preeti Hyman MCHC (RBC) [Mass/Vol] 33.3 g/dL Normal 29.9-35.2 [facility] Comment on above: Performed By: #### C BC #### [facility] [address] [place] [address] Dr. Preeti Hyman MCV (RBC) [Entitic vol] 91.7 fL Normal 80.0-94.0 [facility] Comment on above: Performed By: #### C BC #### [facility] [address] [place] [address] Dr. Preeti Hyman MONO # 0.5 103/ul Normal 0.3-0.8 [facility] Comment on above: Performed By: #### C BC #### [facility] [address] [place] [address] Dr. Preeti Hyman Monocytes/100 WBC (Bld) 12.1 % Critically high 1.7-12.0 [facility] Comment on above: Performed By: #### C BC #### [facility] [address] [place], [place] [id number] Dr. Preeti Hyman NEUT # 1.5 103/ul Normal 1.4-6.5 [facility] Comment on above: Performed By: #### C BC #### [facility] [address] [place] [address] Dr. Preeti Hyman Neutrophils/100 WBC (Bld) 36.3 % Critically low 43.0-75.0 [facility] Comment on above: Performed By: #### C BC #### [facility] [address] [place] [address] Dr. Preeti Hyman Platelet mean volume (Bld) [Entitic vol] 10.6 fL Normal 9.5-13.5 [facility] Comment on above: Performed By: #### C BC #### [facility] [address] [place] [address] Dr. Preeti Hyman PLT 203 103/ul Normal 150-450 [facility] Comment on above: Performed By: #### C BC #### [facility] [address] [place] [address] Dr. Preeti Hyman RBC 3.96 106/ul Critically low 4.70-6.10 [facility] Comment on above: Performed By: #### C BC #### [facility] [address] [place] [address] Dr. Preeti Hyman WBC 4.1 103/ul Normal 4.0-11.0 [facility] Comment on above: Performed By: #### C BC #### [facility] [address] [place] [address] Dr. Preeti Hyman PROF 14(COMP METB)on 023 Albumin [Mass/Vol] 2.9 g/dL Critically low 3.4-5.0 [facility] Comment on above: Performed By: #### C MP #### [facility] [address] [place] [address] Dr. Preeti Hyman Albumin/Globulin [Mass ratio] 0.8 {ratio} Normal [facility] Comment on above: Performed By: #### C MP #### [facility] [address] [place] [address] Dr. Preeti Hyman ALP [Catalytic activity/Vol] 99 U/L Normal 46-116 [facility] Comment on above: Performed By: #### C MP #### [facility] [address] [place] [address] Dr. Preeti Hyman ALT [Catalytic activity/Vol] 16 U/L Normal 16-63 [facility] Comment on above: Performed By: #### C MP #### [facility] [address] [address] [address] Preeti Hyman Anion gap [Moles/Vol] 11.2 mmol/L Normal [facility] Comment on above: Performed By: #### C MP #### [facility] [address] [place] [address] Dr. Preeti Hyman AST [Catalytic activity/Vol] 27 U/L Normal 15-37 [facility] Comment on above: Performed By: #### C MP #### [facility] [address] [place] [address] Dr. Preeti Hyman Bilirubin [Mass/Vol] 0.2 mg/dL Normal 0.2-1.0 [facility] Comment on above: Performed By: #### C MP #### [facility] [address] [place] [address] Dr. Preeti Hyman Calcium [Mass/Vol] 8.1 mg/dL Critically low 8.5-10.1 [facility] Comment on above: Performed By: #### C MP #### [facility] [address] [place] [address] Dr. Preeti Hyman Chloride [Moles/Vol] 106 mmol/L Normal 98-107 [facility] Comment on above: Performed By: #### C MP #### [facility] [address] [address] [address] Preeti Hyman CO2 [Moles/Vol] 26.5 mmol/L Normal 21.0-32.0 [facility] Comment on above: Performed By: #### C MP #### [facility] [address] [place] [address] Dr. Preeti Hyman Creatinine [Mass/Vol] 0.98 mg/dL Normal 0.70-1.30 [facility] Comment on above: Performed By: #### C MP #### [facility] [address] [address] [address] Preeti Hyman EGFR-AF SYRIAN >60 Normal >=60 [facility] Comment on above: Performed By: #### C MP #### [facility] [address] [address] [address] Preeti Hyman EGFR-NON AF SYRIAN >60 Normal >=60 [facility] Comment on above: Performed By: #### C MP #### [facility] [address] [address] [address] Preeti Hyman Globulin (S) [Mass/Vol] 3.7 g/dL Normal [facility] Comment on above: Performed By: #### C MP #### [facility] [address] [place] [address] Dr. Preeti Hyman Glucose [Mass/Vol] 94 mg/dL Normal 74-[address] [facility] Comment on above: Performed By: #### C MP #### [facility] [address] [address] [address] Preeti Hyman Potassium [Moles/Vol] 3.7 mmol/L Normal 3.5-5.1 [facility] Comment on above: Performed By: #### C MP #### [facility] [address] [place] [address] Dr. Preeti Hyman Protein [Mass/Vol] 6.6 g/dL Normal 6.4-8.2 [facility] Comment on above: Performed By: #### C MP #### [facility] [address] [address] [address] Preeti Hyman Sodium [Moles/Vol] 140 mmol/L Normal 136-145 [facility] Comment on above: Performed By: #### C MP #### [facility] [address] [address] [address] Preeti Hyman Urea nitrogen [Mass/Vol] 12.0 mg/dL Normal 7.0-18.0 [facility] Comment on above: Performed By: #### C MP #### [facility] [address] [address] [address] Preeti Hyman Urea nitrogen/Creatinine [Mass ratio] 12.2 mg/mg Normal [facility] Comment on above: Performed By: #### C MP #### [facility] [address] [address] [address] Preeti Hyman CBC AUTO DIFFon 04-13-2022 BASO # 0.0 103/ul Normal 0.0-0.1 [facility] Comment on above: Performed By: #### M YO #### [facility] [address] [place] [address] Dr. Preeti Hyman Basophils/100 WBC (Bld) 0.5 % Normal 0.2-2.0 [facility] Comment on above: Performed By: #### M YO #### [facility] [address] [place] [address] Dr. Preeti Hyman EO # 0.2 103/ul Normal 0.0-0.7 [facility] Comment on above: Performed By: #### M YO #### [facility] [address] [place] [address] Dr. Preeti Hyman Eosinophils/100 WBC (Bld) 3.9 % Normal 0.9-7.0 [facility] Comment on above: Performed By: #### M YO #### [facility] [address] [place] [address] Dr. Preeti Hyman Erythrocyte distribution width (RBC) [Ratio] 13.6 % Normal 11.0-15.0 [facility] Comment on above: Performed By: #### M YO #### [facility] [address] [place] [address] Dr. Preeti Hyman Hematocrit (Bld) [Volume fraction] 38.5 % Critically low 42.0-54.0 [facility] Comment on above: Performed By: #### M YO #### [facility] [address] [place] [address] Dr. Preeti Hyman Hemoglobin (Bld) [Mass/Vol] 12.8 g/dL Critically low 14.0-18.0 [facility] Comment on above: Performed By: #### M YO #### [facility] [address] [place] [address] Dr. Preeti Hyman IG # 0.01 10e3/ul Normal 0.00-0.03 [facility] Comment on above: Performed By: #### M YO #### [facility] [address] [place] [address] Dr. Preeti Hyman IG % 0.3 % Normal 0.0-0.5 [facility] Comment on above: Performed By: #### M YO #### [facility] [address] [place] [address] Dr. Preeti Hyman LYMPH # 1.7 103/ul Normal 1.2-3.8 [facility] Comment on above: Performed By: #### M YO #### [facility] [address] [place] [address] Dr. Preeti Hyman Lymphocytes/100 WBC (Bld) 43.6 % Normal 20.5-60.0 [facility] Comment on above: Performed By: #### M YO #### [facility] [address] [place] [address] Dr. Preeti Hyman MANUAL DIFF REQ NO Normal [facility] Comment on above: Performed By: #### M YO #### [facility] [address] [place] [address] Dr. Preeti Hyman MCH (RBC) [Entitic mass] 30.8 pg Normal 25.9-34.0 [facility] Comment on above: Performed By: #### M YO #### [facility] [address] [place] [address] Dr. Preeti Hyman MCHC (RBC) [Mass/Vol] 33.2 g/dL Normal 29.9-35.2 [facility] Comment on above: Performed By: #### M YO #### [facility] [address] [place] [address] Dr. Preeti Hyman MCV (RBC) [Entitic vol] 92.5 fL Normal 80.0-94.0 [facility] Comment on above: Performed By: #### M YO #### [facility] [address] [address] [address] Preeti Hyman MONO # 0.7 103/ul Normal 0.3-0.8 [facility] Comment on above: Performed By: #### M YO #### [facility] [address] [place] [address] Dr. Preeti Hyman Monocytes/100 WBC (Bld) 17.3 % Critically high 1.7-12.0 [facility] Comment on above: Performed By: #### M YO #### [facility] [address] [address] [address] Preeti Hyman NEUT # 1.3 103/ul Critically low 1.4-6.[address] [facility] Comment on above: Performed By: #### M YO #### [facility] [address] [place] [address] Dr. Preeti Hyman Neutrophils/100 WBC (Bld) 34.4 % Critically low 43.0-75.0 [facility] Comment on above: Performed By: #### M YO #### [facility] [address] [place] [address] Dr. Preeti Hyman Platelet mean volume (Bld) [Entitic vol] 10.8 fL Normal 9.5-13.5 [facility] Comment on above: Performed By: #### M YO #### [facility] [address] [place] [address] Dr. Preeti Hyman PLT 192 103/ul Normal 150-450 [facility] Comment on above: Performed By: #### M YO #### [facility] [address] [place] [address] Dr. Preeti Hyman RBC 4.16 106/ul Critically low 4.70-6.10 [facility] Comment on above: Performed By: #### M YO #### [facility] [address] [place] [address] Dr. Preeti Hyman WBC 3.8 103/ul Critically low 4.0-11.[address] [facility] Comment on above: Performed By: #### M YO #### [facility] [address] [place] [address] Dr. Preeti Hyman MYOGLOBINon 04-13-2022 MONISHA 107 ng/mL Critically high 16-96 [facility] Comment on above: Performed By: #### M YO #### [facility] [address] [place] [address] Dr. Preeti Hyman PROF 14(COMP METB)on 023 Albumin [Mass/Vol] 3.0 g/dL Critically low 3.4-5.0 Th [facility] Comment on above: Performed By: #### C MP #### [facility] [address] [place] [address] Dr. Preeti Hyman Albumin/Globulin [Mass ratio] 0.8 {ratio} Normal [facility] Comment on above: Performed By: #### C MP #### [facility] [address] [place] [address] Dr. Preeti Hyman ALP [Catalytic activity/Vol] 107 U/L Normal 46-116 [facility] Comment on above: Performed By: #### C MP #### [facility] [address] [place] [address] Dr. Preeti Hyman ALT [Catalytic activity/Vol] 17 U/L Normal 16-63 [facility] Comment on above: Performed By: #### C MP #### [facility] [address] [place] [address] Dr. Preeti Hyman Anion gap [Moles/Vol] 11.4 mmol/L Normal [facility] Comment on above: Performed By: #### C MP #### [facility] [address] [place] [address] Dr. Preeti Hyman AST [Catalytic activity/Vol] 28 U/L Normal 15-37 [facility] Comment on above: Performed By: #### C MP #### [facility] [address] [place] [address] Dr. Preeti Hyman Bilirubin [Mass/Vol] 0.2 mg/dL Normal 0.2-1.0 [facility] Comment on above: Performed By: #### C MP #### [facility] [address] [place] [address] Dr. Preeti Hyman Calcium [Mass/Vol] 8.0 mg/dL Critically low 8.5-10.1 [facility] Comment on above: Performed By: #### C MP #### [facility] [address] [place] [address] Dr. Preeti Hyman Chloride [Moles/Vol] 106 mmol/L Normal 98-107 [facility] Comment on above: Performed By: #### C MP #### [facility] [address] [place] [address] Dr. Preeti Hyman CO2 [Moles/Vol] 27.5 mmol/L Normal 21.0-32.0 [facility] Comment on above: Performed By: #### C MP #### [facility] [address] [place] [address] Dr. Preeti Hyman Creatinine [Mass/Vol] 1.00 mg/dL Normal 0.70-1.30 [facility] Comment on above: Performed By: #### C MP #### [facility] [address] [place] [address] Dr. Preeti Hyman EGFR-AF SYRIAN >60 Normal >=60 [facility] Comment on above: Performed By: #### C MP #### [facility] [address] [place] [address] Dr. Preeti Hyman EGFR-NON AF SYRIAN >60 Normal >=60 [facility] Comment on above: Performed By: #### C MP #### [facility] [address] [place] [address] Dr. Preeti Hyman Globulin (S) [Mass/Vol] 4.0 g/dL Normal [facility] Comment on above: Performed By: #### C MP #### [facility] [address] [place] [address] Dr. Preeti Hyman Glucose [Mass/Vol] 87 mg/dL Normal 74-[address] [facility] Comment on above: Performed By: #### C MP #### [facility] [address] [place] [address] Dr. Preeti Hyman Potassium [Moles/Vol] 3.9 mmol/L Normal 3.5-5.1 [facility] Comment on above: Performed By: #### C MP #### [facility] [address] [address] [address] Preeti Hyman Protein [Mass/Vol] 7.0 g/dL Normal 6.4-8.[address] [facility] Comment on above: Performed By: #### C MP #### [facility] [address] [address] [address] Preeti Hyman Sodium [Moles/Vol] 141 mmol/L Normal 136-145 [facility] Comment on above: Performed By: #### C MP #### [facility] [address] [place] [address] Dr. Preeti Hyman Urea nitrogen [Mass/Vol] 16.0 mg/dL Normal 7.0-18.0 [facility] Comment on above: Performed By: #### C MP #### [facility] [address] [place] [address] Dr. Preeti Hyman Urea nitrogen/Creatinine [Mass ratio] 16.0 mg/mg Normal [facility] Comment on above: Performed By: #### C MP #### [facility] [address] [place] [address] Dr. Preeti Hyman T4on 04-13-2022 T4 [Mass/Vol] 7.20 ug/dL Normal 4.50-12.10 [facility] Comment on above: Performed By: #### T 4 #### [facility] [address] [place] [address] Dr. Preeti Hyman TSHon 04-13-2022 TSH 2.126 uIU/mL Normal 0.358-3.740 [facility] Comment on above: Performed By: #### M YO #### [facility] [address] [place] [address] Dr. Preeti Hyman CARDIAC KALEIGH ADMITon 023 CK [Catalytic activity/Vol] 237 U/L Normal 39-308 [facility] Comment on above: Performed By: #### M YO #### [facility] [address] [place] [address] Dr. Preeti Hyman CK.MB [Mass/Vol] 2.15 ng/mL Normal <=3.60 [facility] Comment on above: Performed By: #### M YO #### [facility] [address] [place] [address] Dr. Preeti Hyman HSTROP 9.8 pg/mL Normal 4.0-76.1 [facility] Comment on above: Result Comment: CUT- OFF POINTS HAVE BEEN ESTABLISHED BASED ON THE FOURTH UNIVERSAL DEFINITIONS OF MYOCARDIAL INFARCTION. THE UPPER REFERENCE LIMIT (URL) OF TROPONIN, DEFINED THE 99TH PERCENTILE OF cTnI DISTRIBUTION IN A REFERENCE POPULATION, HAS BEEN CONFIRMED THE DECISION THRESHOLD FOR [place] DIAGNOSIS. Performed By: #### M YO #### [facility] [address] [place] [address] Dr. Preeti Hyman MONISHA 191 ng/mL Critically high 16-96 [facility] Comment on above: Performed By: #### M YO #### [facility] [address] [place] [address] Dr. Preeti Hyman CBC AUTO DIFFon 04-12-2022 BASO # 0.0 103/ul Normal 0.0-0.1 [facility] Comment on above: Performed By: #### C BC #### [facility] [address] [place] [address] Dr. Preeti Hyman Basophils/100 WBC (Bld) 0.2 % Normal 0.2-2.0 [facility] Comment on above: Performed By: #### C BC #### [facility] [address] [place] [address] Dr. Preeti Hyman EO # 0.0 103/ul Normal 0.0-0.7 [facility] Comment on above: Performed By: #### C BC #### [facility] [address] [place] [address] Dr. Preeti Hyman Eosinophils/100 WBC (Bld) 0.5 % Critically low 0.9-7.0 [facility] Comment on above: Performed By: #### C BC #### [facility] [address] [place] [address] Dr. Preeti Hyman Erythrocyte distribution width (RBC) [Ratio] 13.6 % Normal 11.0-15.0 [facility] Comment on above: Performed By: #### C BC #### [facility] [address] [place] [address] Dr. Preeti Hyman Hematocrit (Bld) [Volume fraction] 40.8 % Critically low 42.0-54.0 [facility] Comment on above: Performed By: #### C BC #### [facility] [address] [place] [address] Dr. Preeti Hyman Hemoglobin (Bld) [Mass/Vol] 13.2 g/dL Critically low 14.0-18.0 [facility] Comment on above: Performed By: #### C BC #### [facility] [address] [place] [address] Dr. Preeti Hyman IG # 0.02 10e3/ul Normal 0.00-0.03 [facility] Comment on above: Performed By: #### C BC #### [facility] [address] [place] [address] Dr. Preeti Hyman IG % 0.5 % Normal 0.0-0.5 [facility] Comment on above: Performed By: #### C BC #### [facility] [address] [place] [address] Dr. Preeti Hyman LYMPH # 1.5 103/ul Normal 1.2-3.8 [facility] Comment on above: Performed By: #### C BC #### [facility] [address] [place] [address] Dr. Preeti Hyman Lymphocytes/100 WBC (Bld) 36.1 % Normal 20.5-60.0 [facility] Comment on above: Performed By: #### C BC #### [facility] [address] [place] [address] Dr. Preeti Hyman MANUAL DIFF REQ NO Normal [facility] Comment on above: Performed By: #### C BC #### [facility] [address] [place] [address] Dr. Preeti Hyman MCH (RBC) [Entitic mass] 30.1 pg Normal 25.9-34.0 [facility] Comment on above: Performed By: #### C BC #### [facility] [address] [address] [address] Preeti Hyman MCHC (RBC) [Mass/Vol] 32.4 g/dL Normal 29.9-35.2 [facility] Comment on above: Performed By: #### C BC #### [facility] [address] [address] [address] Preeti Hyman MCV (RBC) [Entitic vol] 92.9 fL Normal 80.0-94.0 [facility] Comment on above: Performed By: #### C BC #### [facility] [address] [address] [address] Preeti Hyman MONO # 1.0 103/ul Critically high 0.3-0.8 [facility] Comment on above: Performed By: #### C BC #### [facility] [address] [address] [address] Preeti Hyman Monocytes/100 WBC (Bld) 23.6 % Critically high 1.7-12.0 [facility] Comment on above: Performed By: #### C BC #### [facility] [address] [address] [address] Preeti Hyman NEUT # 1.6 103/ul Normal 1.4-6.5 [facility] Comment on above: Performed By: #### C BC #### [facility] [address] [address] [address] Preeti Hyman Neutrophils/100 WBC (Bld) 39.1 % Critically low 43.0-75.0 [facility] Comment on above: Performed By: #### C BC #### [facility] [address] [address] [address] Preeti Hyman Platelet mean volume (Bld) [Entitic vol] 10.9 fL Normal 9.5-13.5 [facility] Comment on above: Performed By: #### C BC #### [facility] [address] [address] [address] Preeti Hyman PLT 171 103/ul Normal 150-450 [facility] Comment on above: Performed By: #### C BC #### [facility] [address] [place] [address] Dr. Preeti Hyman RBC 4.39 106/ul Critically low 4.70-6.10 [facility] Comment on above: Performed By: #### C BC #### [facility] [address] [place] [address] Dr. Preeti Hyman WBC 4.2 103/ul Normal 4.0-11.0 [facility] Comment on above: Performed By: #### C BC #### [facility] [address] [place] [address] Dr. Preeti Hyman Covid-19 PCR (CVDTB)on 03-31 SARS-CoV-2 (COVID-19) RNA GAVINO+probe Ql (Unsp spec) Detected Abnormal NOT DETECTED [facility] Comment on above: Result Comment: This test is not yet approved or cleared by the [place] FDA. When there are no FDA-approved or cleared tests available, and other criteria are met, FDA can make tests available under an emergency access mechanism called an Emergency Use Authorization (EUA). The EUA for this test is supported by the [place] of Health and Human Service's declaration that [...] used). Performed By: #### M YO #### [facility] [address] [place] [address] Dr. Preeti Hyman ER URINE PROFILEon 3 Bilirubin Ql (U) Negative Normal NEGATIVE [facility] Comment on above: Performed By: #### E RUR #### [facility] [address] [place] [address] Dr. Preeti Hyman Clarity (U) CLEAR Normal CLEAR [facility] Comment on above: Performed By: #### E RUR #### [facility] [address] [place] [address] Dr. Preeti Hyman Color (U) LT. YELLOW Normal YELLOW [facility] Comment on above: Performed By: #### E RUR #### [facility] [address] [place] [address] Dr. Preeti MADERA A micrscopic examination will be performed if indicated. Normal [facility] Comment on above: Performed By: #### E RUR #### [facility] [address] [place] [address] Dr. Preeti Hyman Glucose Ql (U) Negative Normal NEGATIVE [facility] Comment on above: Performed By: #### E RUR #### [facility] [address] [place] [address] Dr. Preeti Hyman Hemoglobin Ql (U) Negative Normal NEGATIVE [facility] Comment on above: Performed By: #### E RUR #### [facility] [address] [place] [address] Dr. Preeti Hyman Ketones Ql (U) Negative Normal NEGATIVE [facility] Comment on above: Performed By: #### E RUR #### [facility] [address] [place] [address] Dr. Preeti Hyman LEUKOCYTES Negative Normal NEGATIVE [facility] Comment on above: Performed By: #### E RUR #### [facility] [address] [place] [address] Dr. Preeti Hyman Nitrite Ql (U) Negative Normal NEGATIVE [facility] Comment on above: Performed By: #### E RUR #### [facility] [address] [place] [address] Dr. Preeti Hyman pH (U) 5.5 [pH] Normal 5-9 [facility] Comment on above: Performed By: #### E RUR #### [facility] [address] [place] [address] Dr. Preeti Hyman SPEC GRAVITY 1.015 Normal 1.005-<=1.025 [facility] Comment on above: Performed By: #### E RUR #### [facility] [address] [place] [address] Dr. Preeti Hyman UA PROTEIN Negative Normal NEGATIVE/ TRACE [facility] Comment on above: Performed By: #### E RUR #### [facility] [address] [place] [address] Dr. Preeti Hyman UR MICRO IND NOT INDICATED Normal [facility] Comment on above: Performed By: #### E RUR #### [facility] [address] [place] [address] Dr. Preeti Hyman Urobilinogen Qn (U) 0.2 {Comfort'U}/dL Normal 0.2 - 1. 0 [facility] Comment on above: Performed By: #### E RUR #### [facility] [address] [place] [address] Dr. Preeti Hyman INFLUENZA A AND B AGon 04-12 [facility] SEE BELOW Normal [facility] Comment on above: Result Comment: Nega tive for Flu A protein angiten. Infection due to Flu A cannot be ruled out. Flu A angiten in the sample may be below the detection limit of the test. Performed By: #### I NFLUAB #### [facility] [address] [place] [address] Dr. Preeti Hyman INFLUBNEGH SEE BELOW Normal [facility] Comment on above: Result Comment: Nega tive for Flu B protein antigen. Infection due to Flu B cannot be ruled out. Flu B antigen in the sample may be below the detection limit of the test. Performed By: #### I NFLUAB #### [facility] [address] [place] [address] Dr. Preeti Hyman INFLUENZA A AG Negative Normal NEGATIVE SEE COMMENT [facility] Comment on above: Performed By: #### I NFLUAB #### [facility] [address] [place] [address] Dr. Preeti Hyman INFLUENZA B AG Negative Normal NEGATIVE SEE COMMENT [facility] Comment on above: Performed By: #### I NFLUAB #### [facility] [address] [place] [address] Dr. Preeti Hyman LIPASEon 04-12-2022 Lipase [Catalytic activity/Vol] 101.0 U/L Normal 73.0-393.0 [facility] Comment on above: Performed By: #### C MP, CMADM, LIPA #### [facility] [address] [address] [address] Preeti Hyman PROF 14(COMP METB)on 023 Albumin [Mass/Vol] 3.3 g/dL Critically low 3.4-5.0 [facility] Comment on above: Performed By: #### M YO #### [facility] [address] [place] [address] Dr. Preeti Hyman Albumin/Globulin [Mass ratio] 0.8 {ratio} Normal [facility] Comment on above: Performed By: #### M YO #### [facility] [address] [place] [address] Dr. Preeti Hyman ALP [Catalytic activity/Vol] 114 U/L Normal 46-116 [facility] Comment on above: Performed By: #### M YO #### [facility] [address] [place] [address] Dr. Preeti Hyman ALT [Catalytic activity/Vol] 19 U/L Normal 16-63 [facility] Comment on above: Performed By: #### M YO #### [facility] [address] [place] [address] Dr. Preeti Hyman Anion gap [Moles/Vol] 10.2 mmol/L Normal [facility] Comment on above: Performed By: #### M YO #### [facility] [address] [place] [address] Dr. Preeti Hyman AST [Catalytic activity/Vol] 25 U/L Normal 15-37 [facility] Comment on above: Performed By: #### M YO #### [facility] [address] [place] [address] Dr. Preeti Hyman Bilirubin [Mass/Vol] 0.1 mg/dL Critically low 0.2-1.0 [facility] Comment on above: Performed By: #### M YO #### [facility] [address] [place] [address] Dr. Preeti Hyman Calcium [Mass/Vol] 8.2 mg/dL Critically low 8.5-10.1 [facility] Comment on above: Performed By: #### M YO #### [facility] [address] [address] [address] Preeti Hyman Chloride [Moles/Vol] 103 mmol/L Normal 98-107 [facility] Comment on above: Performed By: #### M YO #### [facility] [address] [address] [address] Preeti Hyman CO2 [Moles/Vol] 29.3 mmol/L Normal 21.0-32.0 [facility] Comment on above: Performed By: #### M YO #### [facility] [address] [address] [address] Preeti Hyman Creatinine [Mass/Vol] 1.24 mg/dL Normal 0.70-1.30 [facility] Comment on above: Performed By: #### M YO #### [facility] [address] [address] [address] Preeti Hyman EGFR-AF SYRIAN >60 Normal >=60 [facility] Comment on above: Performed By: #### M YO #### [facility] [address] [address] [address] Preeti Hyman EGFR-NON AF SYRIAN 57 mL/min/1.73m2 Critically low >=60 [facility] Comment on above: Performed By: #### M YO #### [facility] [address] [address] [address] Preeti Hyman Globulin (S) [Mass/Vol] 4.3 g/dL Normal [facility] Comment on above: Performed By: #### M YO #### [facility] [address] [address] [address] Preeti Hyman Glucose [Mass/Vol] 129 mg/dL Critically high 74-[address] [facility] Comment on above: Performed By: #### M YO #### [facility] [address] [address] [address] Preeti Hyman Potassium [Moles/Vol] 4.3 mmol/L Normal 3.5-5.1 [facility] Comment on above: Performed By: #### M YO #### [facility] [address] [place], [place] [address] Dr. Preeti Hyman Protein [Mass/Vol] 7.6 g/dL Normal 6.4-8.2 [facility] Comment on above: Performed By: #### M YO #### [facility] [address] [place], [place] [address] Dr. Preeti Hyman Sodium [Moles/Vol] 139 mmol/L Normal 136-145 [facility] Comment on above: Performed By: #### M YO #### [facility] [address] [place], [place] [address] Dr. Preeti Hyman Urea nitrogen [Mass/Vol] 16.0 mg/dL Normal 7.0-18.0 [facility] Comment on above: Performed By: #### M YO #### [facility] [address] [place], [place] [address] Dr. Preeti Hyman Urea nitrogen/Creatinine [Mass ratio] 12.9 mg/mg Normal [facility] Comment on above: Performed By: #### M YO #### [facility] [address] [place], [place] [address] Dr. Preeti Hyman XR CHEST 1 Von [...] by: KOKO HUNTLEY Date: 2022-04-12 15:35 Normal [facility] Encounters Encounter Date Encounter Type Care Provider Facility Start: 07-10-2022 End: 07-10-[address] JONATHAN GIORDANO . Facility: Start: 04-23-2022 Patient encounter procedure David Matos TONGUE PRESSER.WEIGHT CONTROL LECTURER Work Phone: [facility] Start: 04-23-2022 Progress Note David OWENS RN.WEIGHT CONTROL LECTURER Work Phone: [facility] Start: 04-19-2022 Patient encounter procedure David Matos TONGUE PRESSER.WEIGHT CONTROL LECTURER Work Phone: [facility] Start: 04-19-2022 Progress Note David OWENS RN.WEIGHT CONTROL LECTURER Work Phone: [facility] Start: 04-17-2022 Patient encounter procedure [place] Lacy Rodney Work Phone: [facility] Start: 04-17-2022 Progress Note Itri A Rodney Work Phone: [facility] [employer] Start: 04-12-2022 End: 04-17-2022 Evaluation and management of inpatient DR JONATHAN GIORDANO . Facility: Payers Date Payer Category Payer Medicare UHC MEDICARE [employer] MEDICARE ADVANTAGE PPO [id number] 2022-Present [phone] [address] [address] [place] [address] PPO [id number] 2019 Unknown [id number] 1960 Medicare [id number] 1945 Unknown [id number] 1945 Unknown [id number] Social History Date Type Detail [facility] Start: 1945 Sex Assigned At Not on file [facility] History of Present illness Narrative 04-23-2022 David Matos APRN.WEIGHT CONTROL LECTURER - 04/23/2022 12:00 AM EST Note Date & Type Note Facility 04-23-2022 History of Presen t illness Narrative [facility] NOTE NAME: JONNY HENNESSY NO.: [id number] DATE OF SERVICE: 04/23/2022 [facility] DATE OF : 1945 REASON FOR VISIT: The patient is a resident of [facility]. This is a skilled visit [...] have been reported since being in the [facility]. The patient states has been up [...] normal range. DICTATED BY: JULIA Bates JOB# [id number] cc:[facility] documented in this encounter [facility] History of Present illness Narrative 04-19-2022 David Matos APRN.WEIGHT CONTROL LECTURER - 04/19/2022 12:00 AM EST Note Date & Type Note Facility 04-19-2022 History of Presen t illness Narrative [facility] NOTE NAME: JONNY HENNESSY NO.: [id number] DATE OF SERVICE: 04/19/2022 [facility] DATE OF : 1945 REASON FOR VISIT: The patient is a resident of [facility]. This is a skilled visit [...] work performed. DICTATED BY: JULIA Bates/Ozzy JOB# [id number] cc:[facility] Foy documented in this encounter [facility] History of Present illness Narrative 04-17-2022 Itri A Rodney - 04/17/2022 12:00 AM EST Note Date & Type Note Facility 04-17-2022 History of Presen t illness Narrative [facility] NOTE NAME: JONNY HENNESSY NO.: [id number] DATE OF SERVICE: 04/17/2022 Supa Foy DATE OF : 1945 NEW PATIENT HISTORY AND PHYSICAL HISTORY OF PRESENT ILLNESS: The patient is a 76-year-old male who is admitted to us from [facility] with a diagnosis of acute COVID [...] therapy. DICTATED BY: MD ROXANE Pierce/Ozzy JOB# [id number] cc:Supa Foy documented in this encounter [facility] Summary Purpose Family History No Family [...] or prosecute any alcohol or drug abuse patient.[facility] the event this information is protected by the Federal Confidentiality of Alcohol and Drug Abuse Patient Records regulations: The Federal rules restrict any use of the information to criminally investigate or prosecute any alcohol or drug abuse patient.[facility] the event this information is protected by the Federal Confidentiality of Alcohol and Drug Abuse Patient Records regulations: The Federal rules restrict any use of the information to criminally investigate or prosecute any alcohol or drug abuse patient.[facility] (unrecognized sect ion and content) No [...] BE BASED ON THE PRIMARY CLINICAL RECORDS. [facility]. provides no warranty or guarantee of the accuracy or completeness of information in this document.
[2023-08-09] MEDS: TRAZODONE HCL 50 MG TABLET PO (21:30)
[2023-08-09] MEDS: AZITHROMYCIN 250 MG TABLET 500 MG PO (21:30)
[2023-08-09] MEDS: TAMSULOSIN HCL 0.4 MG CAPSULE 0.400000000000000022 MG PO (21:30)
--- NOTE | 2023-08-09 22:10 | PC.NURSE ---
Oxygen decreased from 5 LNC to 4 LNC.
[2023-08-10] VITALS (30 sets, daily range): BP systolic 86–135; BP diastolic 64–74; PULSE 89–117; TEMP 36.3–37; O2SAT 88–100
[2023-08-10] MEDS: METHYLPREDNISOLONE SOD SUCC PF 125 MG/2 ML VIAL 40 MG IVP ×3 (01:14→17:51)
[2023-08-10] MEDS: IPRATROPIUM/ALBUTEROL SULFATE 3 ML AMPUL.NEB IH ×6 (03:42→22:30)
--- NOTE | 2023-08-10 05:18 | PC.NURSE ---
Patient sitting in bed with Nasal canula out of nostrils. NC removed. Patient on room air.
--- NOTE | 2023-08-10 05:24 | PC.NURSE ---
Sitting up at side of bed at this time. No distress noted. Denies dizziness or any symptoms of Hypotension.
[2023-08-10 05:37] LABS: Hematocrit 37.6 % (42.0-54.0); Hemoglobin 11.8 g/dL (14.0-18.0); Immature Granulocytes Abs Auto 0.03 10^3/uL (0.00-0.03); Immature Granulocytes Pct Auto 0.5 % (0.0-0.5); Lymphocytes Absolute Auto 0.3 10^3/uL (1.2-3.8); Lymphocytes Percent Auto 5.1 % (20.5-60.0); Mean Corpuscular HGB Conc 31.4 g/dL (29.9-35.2); Mean Corpuscular Hemoglobin 29.3 pg (25.9-34.0); Mean Corpuscular Volume 93.3 fL (80.0-94.0); Mean Platelet Volume 10.3 fL (9.5-13.5); Monocytes Absolute Auto 0.1 10^3/uL (0.3-0.8); Monocytes Percent Auto 0.8 % (1.7-12.0); Neutrophils Absolute Auto 6.1 10^3/uL (1.4-6.5); Neutrophils Percent Auto 93.6 % (43.0-75.0); Platelet Count 293 10^3/uL (150-450); Red Blood Count 4.03 10^6/uL (4.70-6.10); Red Cell Distribution Width 13.7 % (11.0-15.0); White Blood Count 6.5 10^3/uL (4.0-11.0)
[2023-08-10 05:46] LABS: Alanine Aminotransferase 19 U/L (16-63); Albumin Globulin Ratio 0.5; Albumin Level 2.7 g/dL (3.4-5.0); Alkaline Phosphatase 105 U/L (46-116); Anion Gap 15.7; Aspartate Amino Transferase 18 U/L (15-37); BUN Creatinine Ratio 15.5; Bilirubin Total 0.2 mg/dL (0.2-1.0); Calcium 9.2 mg/dL (8.5-10.1); Carbon Dioxide 23.6 mmol/L (21.0-32.0); Chloride 102 mmol/L (98-107); Estimated GFR (African America >60 (>=60); Estimated GFR (Non-African Ame >60 (>=60); Globulin 5.4 g/dL; Glucose 150 mg/dL (74-106); Potassium 4.3 mmol/L (3.5-5.1); Sodium 137 mmol/L (136-145); Total Protein 8.1 g/dL (6.4-8.2)
--- NOTE | 2023-08-10 05:48 | PC.NURSE ---
Patient stood at bedside with 2 assists present and using FWW. Assisted with Urinal. Voided 50 ml. Patient states he has not drank as much as normal in past 11 hours. No distress noted.
[2023-08-10] MEDS: TAMSULOSIN HCL 0.4 MG CAPSULE 0.400000000000000022 MG PO (09:28)
--- NOTE | 2023-08-10 10:56 | PM.HP ---
HPI H&P: HPI History of Present Illness Chief complaint: SOB, COPD EXACERBATION HYPOXEMIC RESPIRAT. FAILURE Narrative: 78 y/o male with history of COPD to ER with increased SOB. Admitted 07/20-07/21 with COPD exacerbation and had improved. Over past few days developed worsening SOB. Frequent cough with phlegm. [place] like not able to get out sputum and felt like choking. Developed severe SOB and called EMS. Given steroids and breathing treatment and placed on BiPAP. To ER and noted moderate respiratory distress and wheezing. Gave breathing treatments and improved. Able to take off BiPAP and place on NC. Chest x-ray without acute change and admitted. Started solu-medrol and duoneb for COPD. Started zithromax for possible bacterial infection. Improved overnight. Able to wean off oxygen and maintain normal SpO2 on room air. Reports worsening anxiety since and feels like anxiety causing a lot of his SOB and symptoms. Opioid HPI Opioid Management Most Recent Opioid Data: Last Pain Scale 0 07/22/23 06:31 Last Pain Intensity 3 07/22/23 09:11 Last Pain Assessment 08/10/23 10:00 Last ORT Total Score 0 08/09/23 19:20 Last ORT Risk Category Low Risk 08/09/23 19:20 Review of Systems ROS Constitutional Denies: fever, chills or fatigue Cardiovascular Denies: chest pain, palpitations or edema Respiratory Reports: shortness of breath, cough and wheezing Gastrointestinal Denies: abdominal pain, nausea, vomiting or diarrhea Genitourinary Denies: painful urination [facility] Medical History (Updated 08/10/23 @ 11:00 by Cordell Sterling MD) COPD exacerbation ?J44.1 - Chronic obstructive pulmonary disease with (acute) exacerbation (ICD-10) Community acquired pneumonia ?J18.9 - Pneumonia, unspecified organism (ICD-10) Fracture of left hip requiring operative repair ?S72.002A - Fracture of unspecified part of neck of left femur, initial encounter for closed fracture (ICD-10) Acute hypoxic respiratory failure ?J96.01 - Acute respiratory failure with hypoxia (ICD-10) Aspiration pneumonitis ?J69.0 - Pneumonitis due to inhalation of food and vomit (ICD-10) Acute respiratory distress ?R06.03 - Acute respiratory distress (ICD-10) Aspiration into airway ?T17.908A - Unspecified foreign body in respiratory tract, part unspecified causing other injury, initial encounter (ICD-10) Neuropathy ?G62.9 - Polyneuropathy, unspecified (ICD-10) Peripheral neuropathy ?G62.9 - Polyneuropathy, unspecified (ICD-10) Bilateral edema of lower extremity ?R60.0 - Localized edema (ICD-10) Abrasion of knee, left ?S80.212A - Abrasion, left knee, initial encounter (ICD-10) Closed fracture of left hip ?S72.002A - Fracture of unspecified part of neck of left femur, initial encounter for closed fracture (ICD-10) Surgical History (Updated 12/18/22 @ 06:44 by Nilsa Arzate) Hx of tonsillectomy ?Z90.89 - Acquired absence of other organs (ICD-10) Previous back surgery ?Z98.890 - Other specified postprocedural states (ICD-10) Family History (Updated 12/18/22 @ 06:42 by Nilsa Arzate) Father Family history of hypertension Family history of stroke Social History (Updated 07/22/23 @ 02:14 by Aida Rust) Within the past year, how often did you have a drink containing alcohol: never Score interpretation: A score less than 4 is consistent with normal alcohol consumption. Smoking status: Never smoker Non-prescribed substance use: denies use Previous occupational history: retired Highest level of school completed/degree received: high school graduate Are you now , , , , never or living with a partner: In a typical week, how many times do you talk on the telephone with family, friends, or neighbors: 3 or more times per week How often do you get together with friends or relatives: 3 or more times per week How often do you attend samaritan or gnosticism services: 1-3 times per year Little interest or pleasure in doing things: not at all Feeling down, depressed, or hopeless: not at all Feel stressed/tense/nervous/anxious/difficulty sleeping: not at all Life stressors: recent of family or friend Life stressor details: burried wifes ashes yesterday 07/20 Do you think of yourself as: straight/heterosexual Gender Identity: male Meds Home Medications and Allergies Home Medications ?Medication ?Instructions ?Recorded ?Confirmed ?Type albuterol sulfate 2.5 mg/3 mL 2.5 mg inhalation Q6H PRN 04/04/23 08/09/23 History (0.083 %) solution for nebulization shortness of breath or wheezing tamsulosin 0.4 mg capsule 0.4 mg PO QD #30 caps 06/02/23 08/09/23 Rx trazodone 50 mg tablet 50 mg PO QHS #30 tabs 06/02/23 08/09/23 Rx sodium chloride 3 % for 3 ml inhalation TID 08/10/23 08/10/23 History nebulization Allergies Allergy/AdvReac Type Severity Reaction Status Date / Time No Known Drug Allergies Allergy Verified 05/31/23 06:02 Exam Constitutional Vital Signs, click to edit/add: Last Vital Signs Temp 97.8 F 08/09/23 23:20 Pulse 117 H 08/10/23 10:00 Resp 25 H 08/10/23 07:11 BP 135/74 08/10/23 07:11 Pulse Ox 93 L 08/10/23 10:00 O2 Del Method Room Air 08/10/23 07:25 O2 Flow Rate 2 08/10/23 04:00 Documenting provider has reviewed patient's vital signs: yes Common normals: no apparent distress, oriented x3 and alert HENMT Common normals: normocephalic Eye Common normals: PERRL and EOMs intact bilaterally Respiratory Common normals: normal respiratory effort Auscultation: wheezes expiratory wheezes and scattered wheezes and diminished lung sounds Cardio Common normals: regular rate, regular rhythm, no gallops, no murmurs and no rub GI Common normals: Normal to inspection, nondistended, normoactive bowel sounds present and non-tender Extremity Common normals: no pedal edema Results Labs Labs: Short CBC 08/09/23 08/10/23 Range/Units 16:29 05:11 WBC 7.8 6.5 (4.0-11.0) 10^3/uL Hgb 12.1 L 11.8 L (14.0-18.0) g/dL Hct 39.1 L 37.6 L (42.0-54.0) % Plt Count 288 293 (150-450) 10^3/uL BMP 08/09/23 08/10/23 16:29 05:11 Sodium 138 137 Potassium 3.9 4.3 Chloride 101 102 Carbon Dioxide 28.4 23.6 BUN 14.0 17.0 Creatinine 1.01 1.10 Glucose 135 H 150 H Calcium 9.0 9.2 Liver Function 08/10/23 Range/Units 05:11 Total Bilirubin 0.2 (0.2-1.0) mg/dL AST 18 (15-37) U/L ALT 19 (16-63) U/L Alkaline Phosphatase 105 (46-116) U/L Albumin 2.7 L (3.4-5.0) g/dL ABG ABG results: 08/09/23 16:50 ABG pH 7.384 ABG pCO2 44.8 ABG pO2 85.1 ABG HCO3 26.7 H ABG O2 Saturation 97.3 ABG Base Excess 1.7 Attestation: I have reviewed the pertinent ABG results. Pulse Oximetry Attestation: I have reviewed the pertinent pulse oximetry results. Imaging Chest x-ray: Attestation: I have reviewed the pertinent imaging results. Assessment and Plan Assessment and Plan (1) Acute exacerbation of chronic obstructive pulmonary disease (COPD): (2) Acute hypoxemic respiratory failure: (3) Anxiety: Plan Presented with increased SOB and COPD exacerbation. Continue antibiotics, steroids, and breathing treatments. Add mucinex for sputum. Able to wean off oxygen and monitor SpO2. Add PEP. Increased anxiety contributing to symptoms and add ativan PRN. Resume home medication. Start PT for weakness. Increase ambulation. If continues to improve likely discharge in am.
[2023-08-10] MEDS: GUAIFENESIN 600 MG TAB.ER.12H PO ×2 (11:18→21:07)
[2023-08-10] MEDS: SODIUM CHLORIDE 3% INHALATION 15 ML NEB 3 ML IH ×2 (15:27→22:30)
[2023-08-10] MEDS: AZITHROMYCIN 250 MG TABLET 500 MG PO (21:07)
[2023-08-10] MEDS: TRAZODONE HCL 50 MG TABLET PO (21:07)
[2023-08-11] VITALS (12 sets, daily range): BP systolic 123–129; BP diastolic 68–76; PULSE 48–112; TEMP 36.4–36.9; O2SAT 91–95
[2023-08-11] MEDS: METHYLPREDNISOLONE SOD SUCC PF 125 MG/2 ML VIAL 40 MG IVP ×2 (01:15→08:21)
[2023-08-11] MEDS: IPRATROPIUM/ALBUTEROL SULFATE 3 ML AMPUL.NEB IH ×3 (03:39→11:23)
[2023-08-11 04:59] LABS: Basophils Percent Auto 0.1 % (0.2-2.0); Hematocrit 35.2 % (42.0-54.0); Hemoglobin 11.2 g/dL (14.0-18.0); Immature Granulocytes Abs Auto 0.04 10^3/uL (0.00-0.03); Immature Granulocytes Pct Auto 0.3 % (0.0-0.5); Lymphocytes Absolute Auto 0.6 10^3/uL (1.2-3.8); Lymphocytes Percent Auto 4.6 % (20.5-60.0); Mean Corpuscular HGB Conc 31.8 g/dL (29.9-35.2); Mean Corpuscular Hemoglobin 29.5 pg (25.9-34.0); Mean Corpuscular Volume 92.6 fL (80.0-94.0); Mean Platelet Volume 10.4 fL (9.5-13.5); Monocytes Absolute Auto 0.4 10^3/uL (0.3-0.8); Monocytes Percent Auto 3.3 % (1.7-12.0); Neutrophils Absolute Auto 11.1 10^3/uL (1.4-6.5); Neutrophils Percent Auto 91.7 % (43.0-75.0); Platelet Count 283 10^3/uL (150-450); White Blood Count 12.1 10^3/uL (4.0-11.0)
[2023-08-11 05:18] LABS: Alanine Aminotransferase 17 U/L (16-63); Albumin Globulin Ratio 0.6; Albumin Level 2.6 g/dL (3.4-5.0); Alkaline Phosphatase 91 U/L (46-116); Anion Gap 12.1; Aspartate Amino Transferase 17 U/L (15-37); BUN Creatinine Ratio 19.8; Bilirubin Total 0.2 mg/dL (0.2-1.0); Carbon Dioxide 26.2 mmol/L (21.0-32.0); Chloride 104 mmol/L (98-107); Estimated GFR (African America >60 (>=60); Estimated GFR (Non-African Ame >60 (>=60); Globulin 4.7 g/dL; Glucose 144 mg/dL (74-106); Potassium 4.3 mmol/L (3.5-5.1); Sodium 138 mmol/L (136-145); Total Protein 7.3 g/dL (6.4-8.2)
[2023-08-11] MEDS: SODIUM CHLORIDE 3% INHALATION 15 ML NEB 3 ML IH (07:30)
--- NOTE | 2023-08-11 07:50 | P.DS_ITS ---
DS: Providers Provider Date of admission: 08/09/23 19:06 Primary care physician: Tawanda Galvez MD Consults: 08/10/23 10:54 Physical Therapy Eval and Treat Routine Reason for consultation: Weakness Has provider been notified: No DS: Diagnosis Discharge Diagnosis (1) Acute exacerbation of chronic obstructive pulmonary disease (COPD): (2) Acute hypoxemic respiratory failure: (3) Anxiety: DS: Summary Time Spent with Patient Time attestation: Total time spent providing and/or coordinating discharge services: Exam Constitutional Vital Signs, click to edit/add: Last Vital Signs Temp 97.5 F L 08/11/23 04:35 Pulse 87 08/11/23 07:40 Resp 20 08/11/23 04:35 BP 129/68 08/11/23 04:35 Pulse Ox 95 08/11/23 07:31 O2 Del Method Room Air 08/11/23 07:31 O2 Flow Rate 2 08/10/23 04:00 Documenting provider has reviewed patient's vital signs: yes Common normals: no apparent distress Chest Common normals: inspection of chest normal Respiratory Common normals: normal respiratory effort, no retractions and no use of accessory muscles Auscultation: no rhonchi and no wheezes Cardio Common normals: regular rate and regular rhythm GI Common normals: Normal to inspection, nondistended, normoactive bowel sounds present Extremity Common normals: normal to inspection and full ROM DS: Data Data Completed and Pending Labs on day of discharge: Labs from last 24 hours 08/11/23 04:31 WBC 12.1 H RBC 3.80 L Hgb 11.2 L Hct 35.2 L MCV 92.6 MCH 29.5 MCHC 31.8 RDW 14.0 Plt Count 283 MPV 10.4 Neut % (Auto) 91.7 H Lymph % (Auto) 4.6 L [place] % (Auto) 3.3 Eos % (Auto) 0.0 L Baso % (Auto) 0.1 L Neut # (Auto) 11.1 H Lymph # (Auto) 0.6 L [place] # (Auto) 0.4 Eos # (Auto) 0.0 Baso # (Auto) 0.0 Abs Immat Gran (auto) 0.04 H Imm/Tot Granulo (auto) 0.3 Sodium 138 Potassium 4.3 Chloride 104 Carbon Dioxide 26.2 Anion Gap 12.1 BUN 20.0 H Creatinine 1.01 Est GFR ( Amer) >60 Est GFR (Non-Af Amer) >60 BUN/Creatinine Ratio 19.8 Glucose 144 H Calcium 9.0 Total Bilirubin 0.2 AST 17 ALT 17 Alkaline Phosphatase 91 Total Protein 7.3 Albumin 2.6 L Globulin 4.7 Albumin/Globulin Ratio 0.6 Discharge Plan Discharge Disposition: Home Health Service Condition: Fair Discharge Medications: New azithromycin 500 mg tablet 500 mg PO DAILY 2 Days Qty: 2 0RF Rx Instructions: start on day 2 of therapy prednisone 10 mg tablet 40 mg PO DAILY Qty: 32 0RF Rx Instructions: 4/day for 3 days, 3/day for 3 days, 2/day for 3 days, 1/day for 3 days, 1/2 /day for 4 days Continued albuterol sulfate 2.5 mg /3 mL (0.083 %) solution for nebulization 2.5 mg inhalation Q6H PRN (Reason: shortness of breath or wheezing) trazodone 50 mg Tablet 50 mg PO QHS Qty: 30 11RF tamsulosin 0.4 mg Capsule 0.4 mg PO QD Qty: 30 11RF sodium chloride 3 % solution for nebulization 3 ml INHALATION TID Print Language: Ugandan Forms: Portal Instructions
[2023-08-11] MEDS: TAMSULOSIN HCL 0.4 MG CAPSULE 0.400000000000000022 MG PO (08:21)
[2023-08-11] MEDS: GUAIFENESIN 600 MG TAB.ER.12H PO (08:21)
--- NOTE | 2023-08-11 08:42 | CM.NOTE ---
Medicare Outpatient Observation Notice reviewed and discussed with patient. Pt. verbalized understanding and signed the form. Original given to patient and copy placed in patient?s chart.
--- NOTE | 2023-08-11 11:41 | CM.NOTE ---
Spoke with Mr. Cool regarding discharge planning. Mr. Cool is current with [facility] and wishes to continue with their services. CRF, Discharge Summary and medications faxed to [facility].
--- NOTE | 2023-08-14 15:38 | CM.DCFOLLOWU ---
Person spoke with:Daughter, Momo. How are you feeling? He is doing OK. How is your pain? OK Did you understand your discharge instructions? yes Do you have any questions about your discharge instructions? no Were you given any prescriptions at discharge? yes Were you able to get your prescriptions filled? yes Do you understand how to take your medications as ordered? no Do you have any questions about your follow up appointment and do you plan to keep your follow up appointment? , Have appt w Dr Galvez tomorrow, Dr Chang & Dr Castellon in August. Speech therapy w [facility] just started today Is there anything else that you would like to discuss? no Questions/Comments/Concerns/Other:
== END 2023-08-11 14:15 | disposition home health service (06) ==
LOC: ER 19:10 → ICU 19:20 → MS 08-10 17:02
PROVIDERS: Nurse Practitioner Acute Care; Admitting Provider Family Medicine; Emergency Provider Student in an Organized Health Care Education/Training Program; PCP Family Medicine; Visit Provider Family Medicine
DX: J44.1 Chronic obstructive pulmonary disease with (acute) exacerbation (principal); J96.01 Acute respiratory failure with hypoxia; F41.9 Anxiety disorder, unspecified; Z79.899 Other long term (current) drug therapy; Z87.01 Personal history of pneumonia (recurrent); Z87.81 Personal history of (healed) traumatic fracture; G62.9 Polyneuropathy, unspecified; Z98.890 Other specified postprocedural states; Z90.89 Acquired absence of other organs
CPT/HCPCS: 36415; 36600; 71045; 80048; 80053; 82805; 83880; 84484; 85025; 87804; 87811; 93005; 94640; 94667; 94668; 94761; 96365; 96375; 96376; 97161; 99285; G0378; J2919

== ENCOUNTER 2023-08-12 06:00 | Emergency (ER) | payer MEDICARE, SELFPAY ==
[2023-08-12 06:02] VITALS: BP 149/98; PULSE 89; TEMP 36.5; O2SAT 95; BMI 33.0
--- NOTE | 2023-08-12 06:09 | ED_ITS ---
HPI HPI - Fall General Chief Complaint: Fall Stated Complaint: other Time Seen by Provider: 08/12/23 06:06 Source: patient Mode of arrival: ambulance Limitations: physical limitation History of Present Illness HPI Narrative: patient got out of bed and loss his balance. Fell forward striking the floor with his forehead. also injured right shoulder. No LOC. Brought to the ER by [facility]. he did not want to come at first but [facility] talked him into it. Denies numbness or weakness of his extremities. no back, chest or abdominal pain Related Data Home Medications ?Medication ?Instructions ?Recorded ?Confirmed albuterol sulfate 2.5 mg/3 mL 2.5 mg inhalation Q6H PRN 04/04/23 08/09/23 (0.083 %) solution for nebulization shortness of breath or wheezing sodium chloride 3 % for 3 ml inhalation TID 08/10/23 08/10/23 nebulization Previous Rx's ?Medication ?Instructions ?Recorded tamsulosin 0.4 mg capsule 0.4 mg PO QD #30 caps 06/02/23 trazodone 50 mg tablet 50 mg PO QHS #30 tabs 06/02/23 azithromycin 500 mg tablet 500 mg PO DAILY 2 days #2 tabs 08/11/23 prednisone 10 mg tablet 40 mg (4 x 10 mg) PO DAILY #32 tabs 08/11/23 Allergies Allergy/AdvReac Type Severity Reaction Status Date / Time No Known Drug Allergies Allergy Verified 08/12/23 06:05 Opioid HPI Opioid Management Most Recent Pain and Opioid Data: 2 Last Pain Scale 0 07/22/23 06:31 Last Pain Intensity 3 07/22/23 09:11 Last Pain Assessment 08/11/23 14:00 Last ORT Total Score 0 08/09/23 19:20 Last ORT Risk Category Low Risk 08/09/23 19:20 Review of Systems 2 ROS0 Status of ROS 10 or more systems reviewed and unremark able except as noted in history and below [facility] Medical History (Updated 08/12/23 @ 06:54 by Guille Recinos MD) COPD exacerbation ?J44.1 - Chronic obstructive pulmonary disease with (acute) exacerbation (ICD-10) Community acquired pneumonia ?J18.9 - Pneumonia, unspecified organism (ICD-10) Fracture of left hip requiring operative repair ?S72.002A - Fracture of unspecified part of neck of left femur, initial encounter for closed fracture (ICD-10) Acute hypoxic respiratory failure ?J96.01 - Acute respiratory failure with hypoxia (ICD-10) Aspiration pneumonitis ?J69.0 - Pneumonitis due to inhalation of food and vomit (ICD-10) Acute respiratory distress ?R06.03 - Acute respiratory distress (ICD-10) Aspiration into airway ?T17.908A - Unspecified foreign body in respiratory tract, part unspecified causing other injury, initial encounter (ICD-10) Neuropathy ?G62.9 - Polyneuropathy, unspecified (ICD-10) Peripheral neuropathy ?G62.9 - Polyneuropathy, unspecified (ICD-10) Bilateral edema of lower extremity ?R60.0 - Localized edema (ICD-10) Abrasion of knee, left ?S80.212A - Abrasion, left knee, initial encounter (ICD-10) Closed fracture of left hip ?S72.002A - Fracture of unspecified part of neck of left femur, initial encounter for closed fracture (ICD-10) Surgical History (Updated 12/18/22 @ 06:44 by Nilsa Arzate) Hx of tonsillectomy ?Z90.89 - Acquired absence of other organs (ICD-10) Previous back surgery ?Z98.890 - Other specified postprocedural states (ICD-10) Family History (Updated 12/18/22 @ 06:42 by Nilsa Arzate) Father Family history of hypertension Family history of stroke Social History (Updated 07/22/23 @ 02:14 by Aida Rust) Within the past year, how often did you have a drink containing alcohol: never Score interpretation: A score less than 4 is consistent with normal alcohol consumption. Smoking status: Never smoker Non-prescribed substance use: denies use Previous occupational history: retired Highest level of school completed/degree received: high school graduate Are you now , , , , never or living with a partner: In a typical week, how many times do you talk on the telephone with family, friends, or neighbors: 3 or more times per week How often do you get together with friends or relatives: 3 or more times per week How often do you attend nondenominational or quaker services: 1-3 times per year Little interest or pleasure in doing things: not at all Feeling down, depressed, or hopeless: not at all Feel stressed/tense/nervous/anxious/difficulty sleeping: not at all Life stressors: recent of family or friend Life stressor details: burried wifes ashes yesterday 07/20 Do you think of yourself as: straight/heterosexual Gender Identity: male Exam Constitutional Vital Signs, click to edit/add: Last Vital Signs Temp 97.7 F 08/12/23 06:02 Pulse 89 08/12/23 06:02 Resp 18 08/12/23 06:02 BP 149/98 H 08/12/23 06:02 Pulse Ox 95 08/12/23 06:02 O2 Del Method Room Air 08/12/23 06:02 Common normals: no apparent distress, average body habitus, oriented x3, no limitations, healthy appearing, alert and well nourished [facility] Face and sinus images: 2 1. large hematoma Eye Common normals: PERRL, EOMs intact bilaterally and conjunctivae normal Neck & C-Spine Common normals: full ROM Respiratory Common normals: normal respiratory effort, no retractions, no use of accessory muscles and clear to auscultation bilaterally Cardio Common normals: regular rate, regular rhythm, S1 normal heart sound and S2 normal heart sound GI Common normals: Normal to inspection, nondistended, normoactive bowel sounds present, soft to palpation and non-tender Extremity Other: mild tenderness right shoulder Neuro Common normals: oriented x3, CN's II-XII intact bilaterally, moves all extremities and no focal motor deficits Psych Appearance: grossly normal Course Vital Signs Vital signs: Vital Signs Temperature 97.7 F 08/12/23 06:02 Pulse Rate 89 08/12/23 06:02 Respiratory Rate 18 08/12/23 06:02 Blood Pressure 149/98 H 08/12/23 06:02 Pulse Oximetry 95 08/12/23 06:02 Oxygen Delivery Method Room Air 08/12/23 06:02 Temperature 97.7 F 08/12/23 06:02 Pulse Rate 89 08/12/23 06:02 Respiratory Rate 18 08/12/23 06:02 Blood Pressure 149/98 H 08/12/23 06:02 Pulse Oximetry 95 08/12/23 06:02 Oxygen Delivery Method Room Air 08/12/23 06:02 MDM - Fall MDM Narrative Medical decision making narrative: patient got out of bed and then loss his balance falling and striking his head. has a large hematoma. CTs and right shoulder xray pending at change of shift. Care transferred at change of shift Discharge Plan Discharge Chief Complaint: Fall Clinical Impression: Head injury Patient Disposition: Still a Patient Prescriptions / Home Meds: No Action albuterol sulfate 2.5 mg /3 mL (0.083 %) solution for nebulization 2.5 mg inhalation Q6H PRN (Reason: shortness of breath or wheezing) trazodone 50 mg Tablet 50 mg PO QHS Qty: 30 11RF tamsulosin 0.4 mg Capsule 0.4 mg PO QD Qty: 30 11RF sodium chloride 3 % solution for nebulization 3 ml INHALATION TID azithromycin 500 mg tablet 500 mg PO DAILY 2 Days Qty: 2 0RF Rx Instructions: start on day 2 of therapy prednisone 10 mg tablet 40 mg PO DAILY Qty: 32 0RF Rx Instructions: 4/day for 3 days, 3/day for 3 days, 2/day for 3 days, 1/day for 3 days, 1/2 /day for 4 days Print Language: [place] Referrals: Tawanda Galvez MD [Primary Care Provider] - 1 week
--- NOTE | 2023-08-12 06:10 | PC.NURSE ---
Pt arrives per EMS after falling while trying to get himself out of bed. Pt states that he fell and hit the rt side of his forhead. pt has a largely raised area on the rt side of his forehead. Pt denies pain and denies any LOC. pt awake and alert at this time. LISSETH Hand grasps equal. Pt talking to staff Ice pack applied. Side rails up X call light in reach
--- NOTE | 2023-08-12 06:13 | CT_ITS ---
The [address] [address] Patient Name: LEIGH ANN HENNESSY MRN: [id number] date: 1945 Sex: M Assigned Patient Location: ER Current Patient Location: ED.MAIN Accession/Order Number: [id number] Exam Date: 08/12/2023 06:26 Report Date: 08/12/2023 07:06 At the request of: MARC ANDRADE Procedure: CT head/brain wo con EXAMINATION: CT head/brain wo con HISTORY: fall striking head COMPARISON: No relevant comparison available. TECHNIQUE: Axial CT images were obtained without IV contrast. Dose reduction techniques were achieved by using automated exposure control and/or adjustment of mA and/or kV according to patient size and/or use of iterative reconstruction technique. FINDINGS: BRAIN: No edema, hemorrhage, mass, acute infarction, or inappropriate atrophy. CSF SPACES: No hydrocephalus, subarachnoid hemorrhage, or mass. Appropriate for age. SKULL: No fracture, mass, or other significant visible lesion. SINUSES: Trace amount of mucosal thickening and scattered small mucoceles within maxillary sinuses. Mucosal thickening within a few left mastoid air cells. ORBITS: No appreciable abnormality on the limited views. OTHER: Right frontal scalp hematoma 6.9 cm in diameter by 1.[address]/CT head/brain wo con IMPRESSION: 1. No intracranial hemorrhage or acute abnormality brain. Age consistent atrophy and chronic changes. 2. Right frontal scalp acute hematoma. 3. No fracture of the calvarium. 4. Mild chronic sinusitis. Electronically authenticated by: MICHELLE PERALTA Date: 08/12/2023 07:06
--- NOTE | 2023-08-12 06:13 | CT_ITS ---
The [place] [id number] Patient Name: LEIGH ANN HENNESSY MRN: [id number] date: 1945 Sex: M Assigned Patient Location: ER Current Patient Location: ER Accession/Order Number: [id number] Exam Date: 08/12/2023 06:26 Report Date: 08/12/2023 07:14 At the request of: MARC ANDRADE Procedure: CT cervical spine wo con EXAMINATION: CT cervical spine wo con HISTORY: fall , striking head COMPARISON: No relevant comparison available. TECHNIQUE: Axial, Coronal, and Sagittal images were created without IV contrast. Dose reduction techniques were achieved by using automated exposure control and/or adjustment of mA and/or kV according to patient size and/or use of iterative reconstruction technique. FINDINGS: VERTEBRAL BODIES: Mild loss of height of C5 and C6 vertebral bodies without increased trabecular density. FACET JOINTS: Multilevel mild degenerative facet arthropathy, right greater than left. No disruption or abnormal widening. DISCS: Mild narrowing C5-6, C6-7. Posterior disc osteophyte complexes, most notable at C5-6, encroaching on the neural foramen resulting in moderate narrowing bilaterally. CENTRAL CANAL: Suspect mild narrowing at C5-6. No evidence of hemorrhage. PARASPINAL AREA: No visible mass. CT/CT cervical spine wo con IMPRESSION: 1. No appreciable acute abnormality. 2. Multilevel moderate degenerative changes. 3. Suspect remote mild compression fractures of C5 and C6. Electronically authenticated by: MICHELLE PERALTA Date: 08/12/2023 07:14
--- NOTE | 2023-08-12 06:13 | XR_ITS ---
The [address] [address] Patient Name: LEIGH ANN HENNESSY MRN: [id number] date: 1945 Sex: M Assigned Patient Location: ER Current Patient Location: ER Accession/Order Number: [id number] Exam Date: 08/12/2023 06:26 Report Date: 08/12/2023 07:16 At the request of: MARC ANDRADE Procedure: XR shoulder RT min 2V PROCEDURE: XR shoulder RT min 2V HISTORY: fall , right shoulder pain COMPARISON: None. FINDINGS: BONES:Narrowing of the acromioclavicular joint with small undersurface osteophytes. Unremarkable humeral head and glenohumeral joint. SOFT TISSUES:No visible soft tissue swelling. EFFUSION:None visible. OTHER: Negative. XR/XR shoulder RT min 2V IMPRESSION: 1. No acute bone abnormality. 2. Moderate degenerative changes of the acromioclavicular joint which would predispose to rotator cuff injury. Electronically authenticated by: MICHELLE PERALTA Date: 08/12/2023 07:16
--- OUTSIDE RECORDS SUMMARY | 2023-08-12 06:33 | XMS_ITS | CCD ---
Author Organization [facility] Care Team Providers Care [employer] Specialist Name Role Phone Unavailable Primary Care Provider [...] 07-15-2022 Episodic Other aftercare (1 source) Other half-way (current) drug therapy; Translations: [OTH [facility] CURRENT DRUG THERAPY] Onset: 05-24-2022 Episodic Other aftercare (1 source) half-way (current) use of aspirin; Translations: [CO[employer]UME [employer]TER CURRENT USE OF ASPIRIN] Onset: 05-24-2022 Episodic [...] BASO # 0.0 103/ul Normal 0.0-0.1 [facility] Comment on above: Performed By: #### M YO #### [facility] [address] [place] [address] Dr. Preeti Hyman Basophils/100 WBC (Bld) 0.2 % Normal 0.2-2.0 [facility] Comment on above: Performed By: #### M YO #### [facility] [address] [place] [address] Dr. Preeti Hyman EO # 0.2 103/ul Normal 0.0-0.7 [facility] Comment on above: Performed By: #### M YO #### [facility] [address] [place] [address] Dr. Preeti Hyman Eosinophils/100 WBC (Bld) 3.7 % Normal 0.9-7.0 [facility] Comment on above: Performed By: #### M YO #### [facility] [address] [place] [address] Dr. Preeti Hyman Erythrocyte distribution width (RBC) [Ratio] 13.5 % Normal 11.0-15.[address] [facility] Comment on above: Performed By: #### M YO #### [facility] [address] [place] [address] Dr. Preeti Hyman Hematocrit (Bld) [Volume fraction] 38.3 % Critically low 42.0-54.[address] [facility] Comment on above: Performed By: #### M YO #### [facility] [address] [place] [address] Dr. Preeti Hyman Hemoglobin (Bld) [Mass/Vol] 12.3 g/dL Critically low 14.0-18.0 [facility] Comment on above: Performed By: #### M YO #### [facility] [address] [place] [address] Dr. Preeti Hyman IG # 0.01 10e3/ul Normal 0.00-0.[address] [facility] Comment on above: Performed By: #### M YO #### [facility] [address] [place] [address] Dr. Preeti Hyman IG % 0.2 % Normal 0.0-0.[address] [facility] Comment on above: Performed By: #### M YO #### [facility] [address] [place] [address] Dr. Preeti Hyman LYMPH # 2.4 103/ul Normal 1.2-3.[address] [facility] Comment on above: Performed By: #### M YO #### [facility] [address] [place] [address] Dr. Preeti Hyman Lymphocytes/100 WBC (Bld) 58.9 % Normal 20.5-60.[address] [facility] Comment on above: Performed By: #### M YO #### [facility] [address] [place] [address] Dr. Preeti Hyman MANUAL DIFF REQ NO Normal [facility] Comment on above: Performed By: #### M YO #### [facility] [address] [place] [address] Dr. Preeti Hyman MCH (RBC) [Entitic mass] 29.6 pg Normal 25.9-34.0 [facility] Comment on above: Performed By: #### M YO #### [facility] [address] [place] [address] Dr. Preeti Hyman MCHC (RBC) [Mass/Vol] 32.1 g/dL Normal 29.9-35.2 [facility] Comment on above: Performed By: #### M YO #### [facility] [address] [place] [address] Dr. Preeti Hyman MCV (RBC) [Entitic vol] 92.3 fL Normal 80.0-94.0 [facility] Comment on above: Performed By: #### M YO #### [facility] [address] [place] [address] Dr. Preeti Hyman MONO # 0.5 103/ul Normal 0.3-0.8 [facility] Comment on above: Performed By: #### M YO #### [facility] [address] [place] [address] Dr. Preeti Hyman Monocytes/100 WBC (Bld) 11.6 % Normal 1.7-12.0 [facility] Comment on above: Performed By: #### M YO #### [facility] [address] [place] [address] Dr. Preeti Hyman NEUT # 1.0 103/ul Critically low 1.4-6.5 [facility] Comment on above: Performed By: #### M YO #### [facility] [address] [place] [address] Dr. Preeti Hyman Neutrophils/100 WBC (Bld) 25.4 % Critically low 43.0-75.[address] [facility] Comment on above: Performed By: #### M YO #### [facility] [address] [place] [address] Dr. Preeti Hyman Platelet mean volume (Bld) [Entitic vol] 10.5 fL Normal 9.5-13.5 [facility] Comment on above: Performed By: #### M YO #### [facility] [address] [place] [address] Dr. Preeti Hyman PLT 207 103/ul Normal 150-450 [facility] Comment on above: Performed By: #### M YO #### [facility] [address] [place] [address] Dr. Preeti Hyman RBC 4.15 106/ul Critically low 4.70-6.10 [facility] Comment on above: Performed By: #### M YO #### [facility] [address] [place] [address] Dr. Preeti Hyman WBC 4.0 103/ul Normal 4.0-11.0 [facility] Comment on above: Performed By: #### M YO #### [facility] [address] [place] [address] Dr. Preeti Hyman PROF 14(COMP METB)on 023 Albumin [Mass/Vol] 3.0 g/dL Critically low 3.4-5.0 [facility] Comment on above: Performed By: #### C MP #### [facility] [address] [place] [address] Dr. Preeti Hyman Albumin/Globulin [Mass ratio] 0.8 {ratio} Normal [facility] Comment on above: Performed By: #### C MP #### [facility] [address] [place] [address] Dr. Preeti Hyman ALP [Catalytic activity/Vol] 103 U/L Normal 46-[address] [facility] Comment on above: Performed By: #### C MP #### [facility] [address] [place] [address] Dr. Preeti Hyman ALT [Catalytic activity/Vol] 20 U/L Normal 16-63 [facility] Comment on above: Performed By: #### C MP #### [facility] [address] [place] [address] Dr. Preeti Hyman Anion gap [Moles/Vol] 11.2 mmol/L Normal [facility] Comment on above: Performed By: #### C MP #### [facility] [address] [address] [address] Preeti Hyman AST [Catalytic activity/Vol] 28 U/L Normal 15-37 [facility] Comment on above: Performed By: #### C MP #### [facility] [address] [address] [address] Preeti Hyman Bilirubin [Mass/Vol] 0.3 mg/dL Normal 0.2-1.0 [facility] Comment on above: Performed By: #### C MP #### [facility] [address] [address] [address] Preeti Hyman Calcium [Mass/Vol] 8.3 mg/dL Critically low 8.5-10.1 [facility] Comment on above: Performed By: #### C MP #### [facility] [address] [address] [address] Preeti Hyman Chloride [Moles/Vol] 105 mmol/L Normal 98-107 [facility] Comment on above: Performed By: #### C MP #### [facility] [address] [address] [address] Preeti Hyman CO2 [Moles/Vol] 27.5 mmol/L Normal 21.0-32.0 [facility] Comment on above: Performed By: #### C MP #### [facility] [address] [address] [address] Preeti Hyman Creatinine [Mass/Vol] 0.87 mg/dL Normal 0.70-1.30 [facility] Comment on above: Performed By: #### C MP #### [facility] [address] [address] [address] Preeti Hyman EGFR-AF MOROCCAN >60 Normal >=60 [facility] Comment on above: Performed By: #### C MP #### [facility] [address] [address] [address] Preeti Hyman EGFR-NON AF MOROCCAN >60 Normal >=60 [facility] Comment on above: Performed By: #### C MP #### [facility] [address] [address] [address] Preeti Hyman Globulin (S) [Mass/Vol] 4.0 g/dL Normal [facility] Comment on above: Performed By: #### C MP #### [facility] [address] [address] [address] Preeti Hyman Glucose [Mass/Vol] 93 mg/dL Normal 74-[address] [facility] Comment on above: Performed By: #### C MP #### [facility] [address] [address] [address] Preeti Hyman Potassium [Moles/Vol] 3.7 mmol/L Normal 3.5-5.1 [facility] Comment on above: Performed By: #### C MP #### [facility] [address] [place] [address] Dr. Preeti Hyman Protein [Mass/Vol] 7.0 g/dL Normal 6.4-8.[address] [facility] Comment on above: Performed By: #### C MP #### [facility] [address] [place] [address] Dr. Preeti Hyman Sodium [Moles/Vol] 140 mmol/L Normal 136-[address] [facility] Comment on above: Performed By: #### C MP #### [facility] [address] [place] [address] Dr. Preeti Hyman Urea nitrogen [Mass/Vol] 16.0 mg/dL Normal 7.0-18.0 [facility] Comment on above: Performed By: #### C MP #### [facility] [address] [place] [address] Dr. Preeti Hyman Urea nitrogen/Creatinine [Mass ratio] 18.4 mg/mg Normal [facility] Comment on above: Performed By: #### C MP #### [facility] [address] [place] [address] Dr. Preeti Hyman CBC AUTO DIFFon 04-14-2022 BASO # 0.0 103/ul Normal 0.0-0.1 [facility] Comment on above: Performed By: #### C BC #### [facility] [address] [address] [address] Preeti Hyman Basophils/100 WBC (Bld) 0.2 % Normal 0.2-2.0 [facility] Comment on above: Performed By: #### C BC #### [facility] [address] [place] [address] Dr. Preeti Hyman EO # 0.1 103/ul Normal 0.0-0.[address] [facility] Comment on above: Performed By: #### C BC #### [facility] [address] [place] [address] Dr. Preeti Hyman Eosinophils/100 WBC (Bld) 2.2 % Normal 0.9-7.[address] [facility] Comment on above: Performed By: #### C BC #### [facility] [address] [place] [address] Dr. Preeti Hyman Erythrocyte distribution width (RBC) [Ratio] 13.4 % Normal 11.0-15.0 [facility] Comment on above: Performed By: #### C BC #### [facility] [address] [place] [address] Dr. Preeti Hyman Hematocrit (Bld) [Volume fraction] 36.3 % Critically low 42.0-54.0 [facility] Comment on above: Performed By: #### C BC #### [facility] [address] [place] [address] Dr. Preeti Hyman Hemoglobin (Bld) [Mass/Vol] 12.1 g/dL Critically low 14.0-18.[address] [facility] Comment on above: Performed By: #### C BC #### [facility] [address] [place] [address] Dr. Preeti Hyman IG # 0.01 10e3/ul Normal 0.00-0.[address] [facility] Comment on above: Performed By: #### C BC #### [facility] [address] [place] [address] Dr. Preeti Hyman IG % 0.2 % Normal 0.0-0.[address] [facility] Comment on above: Performed By: #### C BC #### [facility] [address] [address] [address] Preeti Hyman LYMPH # 2.0 103/ul Normal 1.2-3.[address] [facility] Comment on above: Performed By: #### C BC #### [facility] [address] [place] [address] Dr. Preeti Hyman Lymphocytes/100 WBC (Bld) 49.0 % Normal 20.5-60.0 [facility] Comment on above: Performed By: #### C BC #### [facility] [address] [place] [address] Dr. Preeti Hyman MANUAL DIFF REQ NO Normal [facility] Comment on above: Performed By: #### C BC #### [facility] [address] [place] [address] Dr. Preeti Hyman MCH (RBC) [Entitic mass] 30.6 pg Normal 25.9-34.[address] [facility] Comment on above: Performed By: #### C BC #### [facility] [address] [place] [address] Dr. Preeti Hyman MCHC (RBC) [Mass/Vol] 33.3 g/dL Normal 29.9-35.[address] [facility] Comment on above: Performed By: #### C BC #### [facility] [address] [place] [address] Dr. Preeti Hyman MCV (RBC) [Entitic vol] 91.7 fL Normal 80.0-94.[address] [facility] Comment on above: Performed By: #### C BC #### [facility] [address] [place] [address] Dr. Preeti Hyman MONO # 0.5 103/ul Normal 0.3-0.[address] [facility] Comment on above: Performed By: #### C BC #### [facility] [address] [place] [address] Dr. Preeti Hyman Monocytes/100 WBC (Bld) 12.1 % Critically high 1.7-12.0 [facility] Comment on above: Performed By: #### C BC #### [facility] [address] [place], [place] [id number] Dr. Preeti Hyman NEUT # 1.5 103/ul Normal 1.4-6.5 [facility] Comment on above: Performed By: #### C BC #### [facility] [address] [place] [address] Dr. Preeti Hyman Neutrophils/100 WBC (Bld) 36.3 % Critically low 43.0-75.0 [facility] Comment on above: Performed By: #### C BC #### [facility] [address] [place] [address] Dr. Preeti Hyman Platelet mean volume (Bld) [Entitic vol] 10.6 fL Normal 9.5-13.5 [facility] Comment on above: Performed By: #### C BC #### [facility] [address] [place] [address] Dr. Preeti Hyman PLT 203 103/ul Normal 150-450 [facility] Comment on above: Performed By: #### C BC #### [facility] [address] [place] [address] Dr. Preeti Hyman RBC 3.96 106/ul Critically low 4.70-6.10 [facility] Comment on above: Performed By: #### C BC #### [facility] [address] [place] [address] Dr. Preeti Hyman WBC 4.1 103/ul Normal 4.0-11.0 [facility] Comment on above: Performed By: #### C BC #### [facility] [address] [place] [address] Dr. Preeti Hyman PROF 14(COMP METB)on 023 Albumin [Mass/Vol] 2.9 g/dL Critically low 3.4-5.0 [facility] Comment on above: Performed By: #### C MP #### [facility] [address] [place] [address] Dr. Preeti Hyman Albumin/Globulin [Mass ratio] 0.8 {ratio} Normal [facility] Comment on above: Performed By: #### C MP #### [facility] [address] [place] [address] Dr. Preeti Hyman ALP [Catalytic activity/Vol] 99 U/L Normal 46-116 [facility] Comment on above: Performed By: #### C MP #### [facility] [address] [place] [address] Dr. Preeti Hyman ALT [Catalytic activity/Vol] 16 U/L Normal 16-63 [facility] Comment on above: Performed By: #### C MP #### [facility] [address] [address] [address] Preeti Hyman Anion gap [Moles/Vol] 11.2 mmol/L Normal [facility] Comment on above: Performed By: #### C MP #### [facility] [address] [place] [address] Dr. Preeti Hyman AST [Catalytic activity/Vol] 27 U/L Normal 15-37 [facility] Comment on above: Performed By: #### C MP #### [facility] [address] [place] [address] Dr. Preeti Hyman Bilirubin [Mass/Vol] 0.2 mg/dL Normal 0.2-1.0 [facility] Comment on above: Performed By: #### C MP #### [facility] [address] [place] [address] Dr. Preeti Hyman Calcium [Mass/Vol] 8.1 mg/dL Critically low 8.5-10.1 [facility] Comment on above: Performed By: #### C MP #### [facility] [address] [place] [address] Dr. Preeti Hyman Chloride [Moles/Vol] 106 mmol/L Normal 98-107 [facility] Comment on above: Performed By: #### C MP #### [facility] [address] [address] [address] Preeti Hyman CO2 [Moles/Vol] 26.5 mmol/L Normal 21.0-32.0 [facility] Comment on above: Performed By: #### C MP #### [facility] [address] [place] [address] Dr. Preeti Hyman Creatinine [Mass/Vol] 0.98 mg/dL Normal 0.70-1.30 [facility] Comment on above: Performed By: #### C MP #### [facility] [address] [address] [address] Preeti Hyman EGFR-AF MOROCCAN >60 Normal >=60 [facility] Comment on above: Performed By: #### C MP #### [facility] [address] [address] [address] Preeti Hyman EGFR-NON AF MOROCCAN >60 Normal >=60 [facility] Comment on above: Performed By: #### C MP #### [facility] [address] [address] [address] Preeti Hyman Globulin (S) [Mass/Vol] 3.7 g/dL Normal [facility] Comment on above: Performed By: #### C MP #### [facility] [address] [place] [address] Dr. Preeti Hyman Glucose [Mass/Vol] 94 mg/dL Normal 74-106 [facility] Comment on above: Performed By: #### C MP #### [facility] [address] [address] [address] Preeti Hyman Potassium [Moles/Vol] 3.7 mmol/L Normal 3.5-5.1 [facility] Comment on above: Performed By: #### C MP #### [facility] [address] [place] [address] Dr. Preeti Hyman Protein [Mass/Vol] 6.6 g/dL Normal 6.4-8.[address] [facility] Comment on above: Performed By: #### C MP #### [facility] [address] [address] [address] Preeti Hyman Sodium [Moles/Vol] 140 mmol/L Normal 136-[address] [facility] Comment on above: Performed By: #### C MP #### [facility] [address] [address] [address] Preeti Hyman Urea nitrogen [Mass/Vol] 12.0 mg/dL Normal 7.0-18.0 [facility] Comment on above: Performed By: #### C MP #### [facility] [address] [address] [address] Preeti Hyman Urea nitrogen/Creatinine [Mass ratio] 12.2 mg/mg Normal [facility] Comment on above: Performed By: #### C MP #### [facility] [address] [address] [address] Preeti Hyman CBC AUTO DIFFon 04-13-2022 BASO # 0.0 103/ul Normal 0.0-0.1 [facility] Comment on above: Performed By: #### M YO #### [facility] [address] [place] [address] Dr. Preeti Hyman Basophils/100 WBC (Bld) 0.5 % Normal 0.2-2.0 [facility] Comment on above: Performed By: #### M YO #### [facility] [address] [place] [address] Dr. Preeti Hyman EO # 0.2 103/ul Normal 0.0-0.7 [facility] Comment on above: Performed By: #### M YO #### [facility] [address] [place] [address] Dr. Preeti Hyman Eosinophils/100 WBC (Bld) 3.9 % Normal 0.9-7.0 [facility] Comment on above: Performed By: #### M YO #### [facility] [address] [place] [address] Dr. Preeti Hyman Erythrocyte distribution width (RBC) [Ratio] 13.6 % Normal 11.0-15.[address] [facility] Comment on above: Performed By: #### M YO #### [facility] [address] [place] [address] Dr. Preeti Hyman Hematocrit (Bld) [Volume fraction] 38.5 % Critically low 42.0-54.0 [facility] Comment on above: Performed By: #### M YO #### [facility] [address] [place] [address] Dr. Preeti Hyman Hemoglobin (Bld) [Mass/Vol] 12.8 g/dL Critically low 14.0-18.0 [facility] Comment on above: Performed By: #### M YO #### [facility] [address] [place] [address] Dr. Preeti Hyman IG # 0.01 10e3/ul Normal 0.00-0.03 [facility] Comment on above: Performed By: #### M YO #### [facility] [address] [place] [address] Dr. Preeti Hyman IG % 0.3 % Normal 0.0-0.5 [facility] Comment on above: Performed By: #### M YO #### [facility] [address] [place] [address] Dr. Preeti Hyman LYMPH # 1.7 103/ul Normal 1.2-3.8 [facility] Comment on above: Performed By: #### M YO #### [facility] [address] [place] [address] Dr. Preeti Hyman Lymphocytes/100 WBC (Bld) 43.6 % Normal 20.5-60.0 [facility] Comment on above: Performed By: #### M YO #### [facility] [address] [place] [address] Dr. Preeti Hyman MANUAL DIFF REQ NO Normal [facility] Comment on above: Performed By: #### M YO #### [facility] [address] [place] [address] Dr. Preeti Hyman MCH (RBC) [Entitic mass] 30.8 pg Normal 25.9-34.0 [facility] Comment on above: Performed By: #### M YO #### [facility] [address] [place] [address] Dr. Preeti Hyman MCHC (RBC) [Mass/Vol] 33.2 g/dL Normal 29.9-35.[address] [facility] Comment on above: Performed By: #### M YO #### [facility] [address] [place] [address] Dr. Preeti Hyman MCV (RBC) [Entitic vol] 92.5 fL Normal 80.0-94.0 [facility] Comment on above: Performed By: #### M YO #### [facility] [address] [address] [address] Preeti Hyman MONO # 0.7 103/ul Normal 0.3-0.[address] [facility] Comment on above: Performed By: #### M YO #### [facility] [address] [place] [address] Dr. Preeti Hyman Monocytes/100 WBC (Bld) 17.3 % Critically high 1.7-12.[address] [facility] Comment on above: Performed By: #### M YO #### [facility] [address] [address] [address] Preeti Hyman NEUT # 1.3 103/ul Critically low 1.4-6.5 [facility] Comment on above: Performed By: #### M YO #### [facility] [address] [place] [address] Dr. Preeti Hyman Neutrophils/100 WBC (Bld) 34.4 % Critically low 43.0-75.0 [facility] Comment on above: Performed By: #### M YO #### [facility] [address] [place] [address] Dr. Preeti Hyman Platelet mean volume (Bld) [Entitic vol] 10.8 fL Normal 9.5-13.[address] [facility] Comment on above: Performed By: #### M YO #### [facility] [address] [place] [address] Dr. Preeti Hyman PLT 192 103/ul Normal 150-[address] [facility] Comment on above: Performed By: #### M YO #### [facility] [address] [place] [address] Dr. Preeti Hyman RBC 4.16 106/ul Critically low 4.70-6.10 [facility] Comment on above: Performed By: #### M YO #### [facility] [address] [place] [address] Dr. Preeti Hyman WBC 3.8 103/ul Critically low 4.0-11.0 [facility] Comment on above: Performed By: #### M YO #### [facility] [address] [place] [address] Dr. Preeti Hyman MYOGLOBINon 04-13-2022 MONISHA 107 ng/mL Critically high 16-96 [facility] Comment on above: Performed By: #### M YO #### [facility] [address] [place] [address] Dr. Preeti Hyman PROF 14(COMP METB)on 023 Albumin [Mass/Vol] 3.0 g/dL Critically low 3.4-5.0 [facility] Comment on above: Performed By: #### C MP #### [facility] [address] [place] [address] Dr. Preeti Hyman Albumin/Globulin [Mass ratio] 0.8 {ratio} Normal [facility] Comment on above: Performed By: #### C MP #### [facility] [address] [place] [address] Dr. Preeti Hyman ALP [Catalytic activity/Vol] 107 U/L Normal 46-116 [facility] Comment on above: Performed By: #### C MP #### [facility] [address] [place] [address] Dr. Preeti Hyman ALT [Catalytic activity/Vol] 17 U/L Normal 16-63 [facility] Comment on above: Performed By: #### C MP #### [facility] [address] [place] [address] Dr. Preeti Hyman Anion gap [Moles/Vol] 11.4 mmol/L Normal [facility] Comment on above: Performed By: #### C MP #### [facility] [address] [place] [address] Dr. Preeti Hyman AST [Catalytic activity/Vol] 28 U/L Normal 15-37 [facility] Comment on above: Performed By: #### C MP #### [facility] [address] [place] [address] Dr. Preeti Hyman Bilirubin [Mass/Vol] 0.2 mg/dL Normal 0.2-1.0 [facility] Comment on above: Performed By: #### C MP #### [facility] [address] [place] [address] Dr. Preeti Hyman Calcium [Mass/Vol] 8.0 mg/dL Critically low 8.5-10.[address] [facility] Comment on above: Performed By: #### C MP #### [facility] [address] [place] [address] Dr. Preeti Hyman Chloride [Moles/Vol] 106 mmol/L Normal 98-107 [facility] Comment on above: Performed By: #### C MP #### [facility] [address] [place] [address] Dr. Preeti Hyman CO2 [Moles/Vol] 27.5 mmol/L Normal 21.0-32.0 [facility] Comment on above: Performed By: #### C MP #### [facility] [address] [place] [address] Dr. Preeti Hyman Creatinine [Mass/Vol] 1.00 mg/dL Normal 0.70-1.30 [facility] Comment on above: Performed By: #### C MP #### [facility] [address] [place] [address] Dr. Preeti Hyman EGFR-AF MOROCCAN >60 Normal >=60 [facility] Comment on above: Performed By: #### C MP #### [facility] [address] [place] [address] Dr. Preeti Hyman EGFR-NON AF MOROCCAN >60 Normal >=60 [facility] Comment on above: Performed By: #### C MP #### [facility] [address] [place] [address] Dr. Preeti Hyman Globulin (S) [Mass/Vol] 4.0 g/dL Normal [facility] Comment on above: Performed By: #### C MP #### [facility] [address] [place] [address] Dr. Preeti Hyman Glucose [Mass/Vol] 87 mg/dL Normal 74-106 [facility] Comment on above: Performed By: #### C MP #### [facility] [address] [place] [address] Dr. Preeti Hyman Potassium [Moles/Vol] 3.9 mmol/L Normal 3.5-5.1 [facility] Comment on above: Performed By: #### C MP #### [facility] [address] [address] [address] Preeti Hyman Protein [Mass/Vol] 7.0 g/dL Normal 6.4-8.2 [facility] Comment on above: Performed By: #### C MP #### [facility] [address] [address] [address] Preeti Hyman Sodium [Moles/Vol] 141 mmol/L Normal 136-[address] [facility] Comment on above: Performed By: #### C MP #### [facility] [address] [place] [address] Dr. Preeti Hyman Urea nitrogen [Mass/Vol] 16.0 mg/dL Normal 7.0-18.0 [facility] Comment on above: Performed By: #### C MP #### [facility] [address] [place] [address] Dr. Preeti Hyman Urea nitrogen/Creatinine [Mass ratio] 16.0 mg/mg Normal [facility] Comment on above: Performed By: #### C MP #### [facility] [address] [place] [address] Dr. Preeti Hyman T4on 04-13-2022 T4 [Mass/Vol] 7.20 ug/dL Normal 4.50-12.10 [facility] Comment on above: Performed By: #### T 4 #### [facility] [address] [place] [address] Dr. Preeti Hyman TSHon 04-13-2022 TSH 2.126 uIU/mL Normal 0.358-3.740 [facility] Comment on above: Performed By: #### M YO #### [facility] [address] [place] [address] Dr. Preeti Hyman CARDIAC KALEIGH ADMITon 023 CK [Catalytic activity/Vol] 237 U/L Normal 39-308 [facility] Comment on above: Performed By: #### M YO #### [facility] [address] [place] [address] Dr. Preeti Hyman CK.MB [Mass/Vol] 2.15 ng/mL Normal <=3.60 [facility] Comment on above: Performed By: #### M YO #### [facility] [address] [place] [address] Dr. Preeti Hyman HSTROP 9.8 pg/mL Normal 4.0-76.1 [facility] Comment on above: Result Comment: CUT- OFF POINTS HAVE BEEN ESTABLISHED BASED ON THE FOURTH UNIVERSAL DEFINITIONS OF MYOCARDIAL INFARCTION. THE UPPER REFERENCE LIMIT (URL) OF TROPONIN, DEFINED THE 99TH PERCENTILE OF cTnI DISTRIBUTION IN A REFERENCE POPULATION, HAS BEEN CONFIRMED THE DECISION THRESHOLD FOR [place] DIAGNOSIS. Performed By: #### M YO #### [facility] [address] [place] [address] Dr. Preeti Hyman MONISHA 191 ng/mL Critically high 16-96 [facility] Comment on above: Performed By: #### M YO #### [facility] [address] [place] [address] Dr. Preeti Hyman CBC AUTO DIFFon 04-12-2022 BASO # 0.0 103/ul Normal 0.0-0.1 [facility] Comment on above: Performed By: #### C BC #### [facility] [address] [place] [address] Dr. Preeti Hyman Basophils/100 WBC (Bld) 0.2 % Normal 0.2-2.0 [facility] Comment on above: Performed By: #### C BC #### [facility] [address] [place] [address] Dr. Preeti Hyman EO # 0.0 103/ul Normal 0.0-0.7 [facility] Comment on above: Performed By: #### C BC #### [facility] [address] [place] [address] Dr. Preeti Hyman Eosinophils/100 WBC (Bld) 0.5 % Critically low 0.9-7.0 [facility] Comment on above: Performed By: #### C BC #### [facility] [address] [place] [address] Dr. Preeti Hyman Erythrocyte distribution width (RBC) [Ratio] 13.6 % Normal 11.0-15.0 [facility] Comment on above: Performed By: #### C BC #### [facility] [address] [place] [address] Dr. Preeti Hyman Hematocrit (Bld) [Volume fraction] 40.8 % Critically low 42.0-54.0 [facility] Comment on above: Performed By: #### C BC #### [facility] [address] [place] [address] Dr. Preeti Hyman Hemoglobin (Bld) [Mass/Vol] 13.2 g/dL Critically low 14.0-18.0 [facility] Comment on above: Performed By: #### C BC #### [facility] [address] [place] [address] Dr. Preeti Hyman IG # 0.02 10e3/ul Normal 0.00-0.03 [facility] Comment on above: Performed By: #### C BC #### [facility] [address] [place] [address] Dr. Preeti Hyman IG % 0.5 % Normal 0.0-0.5 [facility] Comment on above: Performed By: #### C BC #### [facility] [address] [place] [address] Dr. Preeti Hyman LYMPH # 1.5 103/ul Normal 1.2-3.8 [facility] Comment on above: Performed By: #### C BC #### [facility] [address] [place] [address] Dr. Preeti Hyman Lymphocytes/100 WBC (Bld) 36.1 % Normal 20.5-60.0 [facility] Comment on above: Performed By: #### C BC #### [facility] [address] [place] [address] Dr. Preeti Hyman MANUAL DIFF REQ NO Normal [facility] Comment on above: Performed By: #### C BC #### [facility] [address] [place] [address] Dr. Preeti Hyman MCH (RBC) [Entitic mass] 30.1 pg Normal 25.9-34.0 [facility] Comment on above: Performed By: #### C BC #### [facility] [address] [address] [address] Preeti Hyman MCHC (RBC) [Mass/Vol] 32.4 g/dL Normal 29.9-35.2 [facility] Comment on above: Performed By: #### C BC #### [facility] [address] [address] [address] Preeti Hyman MCV (RBC) [Entitic vol] 92.9 fL Normal 80.0-94.0 [facility] Comment on above: Performed By: #### C BC #### [facility] [address] [address] [address] Preeti Hyman MONO # 1.0 103/ul Critically high 0.3-0.8 [facility] Comment on above: Performed By: #### C BC #### [facility] [address] [address] [address] Preeti Hyman Monocytes/100 WBC (Bld) 23.6 % Critically high 1.7-12.0 [facility] Comment on above: Performed By: #### C BC #### [facility] [address] [address] [address] Preeti Hyman NEUT # 1.6 103/ul Normal 1.4-6.5 [facility] Comment on above: Performed By: #### C BC #### [facility] [address] [address] [address] Preeti Hyman Neutrophils/100 WBC (Bld) 39.1 % Critically low 43.0-75.[address] [facility] Comment on above: Performed By: #### C BC #### [facility] [address] [address] [address] Preeti Hyman Platelet mean volume (Bld) [Entitic vol] 10.9 fL Normal 9.5-13.5 [facility] Comment on above: Performed By: #### C BC #### [facility] [address] [address] [address] Preeti Hyman PLT 171 103/ul Normal 150-[address] [facility] Comment on above: Performed By: #### C BC #### [facility] [address] [place] [address] Dr. Preeti Hyman RBC 4.39 106/ul Critically low 4.70-6.10 [facility] Comment on above: Performed By: #### C BC #### [facility] [address] [place] [address] Dr. Preeti Hyman WBC 4.2 103/ul Normal 4.0-11.[address] [facility] Comment on above: Performed By: #### C BC #### [facility] [address] [place] [address] Dr. Preeti Hyman Covid-19 PCR (CVDTB)on 03-31 SARS-CoV-2 (COVID-19) RNA GAVINO+probe Ql (Unsp spec) Detected Abnormal NOT DETECTED [facility] Comment on above: Result Comment: This test is not yet approved or cleared by the [place] FDA. When there are no FDA-approved or cleared tests available, and other criteria are met, FDA can make tests available under an emergency access mechanism called an Emergency Use Authorization (EUA). The EUA for this test is supported by the [employer] and Human Service's declaration that [...] used). Performed By: #### M YO #### [facility] [address] [place] [address] Dr. Preeti Hyman ER URINE PROFILEon 3 Bilirubin Ql (U) Negative Normal NEGATIVE [facility] Comment on above: Performed By: #### E RUR #### [facility] [address] [place] [address] Dr. Preeti Hyman Clarity (U) CLEAR Normal CLEAR [facility] Comment on above: Performed By: #### E RUR #### [facility] [address] [place] [address] Dr. Preeti Hyman Color (U) LT. YELLOW Normal YELLOW [facility] Comment on above: Performed By: #### E RUR #### [facility] [address] [place] [address] Dr. Preeti MADERA A micrscopic examination will be performed if indicated. Normal [facility] Comment on above: Performed By: #### E RUR #### [facility] [address] [place] [address] Dr. Preeti Hyman Glucose Ql (U) Negative Normal NEGATIVE [facility] Comment on above: Performed By: #### E RUR #### [facility] [address] [place] [address] Dr. Preeti Hyman Hemoglobin Ql (U) Negative Normal NEGATIVE [facility] Comment on above: Performed By: #### E RUR #### [facility] [address] [place] [address] Dr. Preeti Hyman Ketones Ql (U) Negative Normal NEGATIVE [facility] Comment on above: Performed By: #### E RUR #### [facility] [address] [place] [address] Dr. Preeti Hyman LEUKOCYTES Negative Normal NEGATIVE [facility] Comment on above: Performed By: #### E RUR #### [facility] [address] [place] [address] Dr. Preeti Hyman Nitrite Ql (U) Negative Normal NEGATIVE [facility] Comment on above: Performed By: #### E RUR #### [facility] [address] [place] [address] Dr. Preeti Hyman pH (U) 5.5 [pH] Normal 5-9 [facility] Comment on above: Performed By: #### E RUR #### [facility] [address] [place] [address] Dr. Preeti Hyman SPEC GRAVITY 1.015 Normal 1.005-<=1.025 [facility] Comment on above: Performed By: #### E RUR #### [facility] [address] [place] [address] Dr. Preeti Hyman UA PROTEIN Negative Normal NEGATIVE/ TRACE [facility] Comment on above: Performed By: #### E RUR #### [facility] [address] [place] [address] Dr. Preeti Hyman UR MICRO IND NOT INDICATED Normal [facility] Comment on above: Performed By: #### E RUR #### [facility] [address] [place] [address] Dr. Preeti Hyman Urobilinogen Qn (U) 0.2 {Comfort'U}/dL Normal 0.2 - 1. 0 [facility] Comment on above: Performed By: #### E RUR #### [facility] [address] [place] [address] Dr. Preeti Hyman INFLUENZA A AND B [facility] 04[facility] Comment on above: Result Comment: Nega tive for Flu A protein angiten. Infection due to Flu A cannot be ruled out. Flu A angiten in the sample may be below the detection limit of the test. Performed By: #### I NFLUAB #### [facility] [address] [place] [address] Dr. Preeti Hyman INFLUBNEGH SEE BELOW Normal [facility] Comment on above: Result Comment: Nega tive for Flu B protein antigen. Infection due to Flu B cannot be ruled out. Flu B antigen in the sample may be below the detection limit of the test. Performed By: #### I NFLUAB #### [facility] [address] [place] [address] Dr. Preeti Hyman INFLUENZA A AG Negative Normal NEGATIVE SEE COMMENT [facility] Comment on above: Performed By: #### I NFLUAB #### [facility] [address] [place] [address] Dr. Preeti Hyman INFLUENZA B AG Negative Normal NEGATIVE SEE COMMENT [facility] Comment on above: Performed By: #### I NFLUAB #### [facility] [address] [place] [address] Dr. Preeti Hyman LIPASEon 04-12-2022 Lipase [Catalytic activity/Vol] 101.0 U/L Normal 73.0-393.0 [facility] Comment on above: Performed By: #### C MP, CMADM, LIPA #### [facility] [address] [address] [address] Preeti Hyman PROF 14(COMP METB)on 023 Albumin [Mass/Vol] 3.3 g/dL Critically low 3.4-5.0 [facility] Comment on above: Performed By: #### M YO #### [facility] [address] [place] [address] Dr. Preeti Hyman Albumin/Globulin [Mass ratio] 0.8 {ratio} Normal [facility] Comment on above: Performed By: #### M YO #### [facility] [address] [place] [address] Dr. Preeti Hyman ALP [Catalytic activity/Vol] 114 U/L Normal 46-116 [facility] Comment on above: Performed By: #### M YO #### [facility] [address] [place] [address] Dr. Preeti Hyman ALT [Catalytic activity/Vol] 19 U/L Normal 16-63 [facility] Comment on above: Performed By: #### M YO #### [facility] [address] [place] [address] Dr. Preeti Hyman Anion gap [Moles/Vol] 10.2 mmol/L Normal [facility] Comment on above: Performed By: #### M YO #### [facility] [address] [place] [address] Dr. Preeti Hyman AST [Catalytic activity/Vol] 25 U/L Normal 15-37 [facility] Comment on above: Performed By: #### M YO #### [facility] [address] [place] [address] Dr. Preeti Hyman Bilirubin [Mass/Vol] 0.1 mg/dL Critically low 0.2-1.0 [facility] Comment on above: Performed By: #### M YO #### [facility] [address] [place] [address] Dr. Preeti Hyman Calcium [Mass/Vol] 8.2 mg/dL Critically low 8.5-10.1 [facility] Comment on above: Performed By: #### M YO #### [facility] [address] [address] [address] Preeti Hyman Chloride [Moles/Vol] 103 mmol/L Normal 98-107 [facility] Comment on above: Performed By: #### M YO #### [facility] [address] [address] [address] Preeti Hyman CO2 [Moles/Vol] 29.3 mmol/L Normal 21.0-32.0 [facility] Comment on above: Performed By: #### M YO #### [facility] [address] [address] [address] Preeti Hyman Creatinine [Mass/Vol] 1.24 mg/dL Normal 0.70-1.30 [facility] Comment on above: Performed By: #### M YO #### [facility] [address] [address] [address] Preeti Hyman EGFR-AF MOROCCAN >60 Normal >=60 [facility] Comment on above: Performed By: #### M YO #### [facility] [address] [address] [address] Preeti Hyman EGFR-NON AF MOROCCAN 57 mL/min/1.73m2 Critically low >=60 [facility] Comment on above: Performed By: #### M YO #### [facility] [address] [address] [address] Preeti Hyman Globulin (S) [Mass/Vol] 4.3 g/dL Normal [facility] Comment on above: Performed By: #### M YO #### [facility] [address] [address] [address] Preeti Hyman Glucose [Mass/Vol] 129 mg/dL Critically high 74-106 [facility] Comment on above: Performed By: #### M YO #### [facility] [address] [address] [address] Preeti Hyman Potassium [Moles/Vol] 4.3 mmol/L Normal 3.5-5.1 [facility] Comment on above: Performed By: #### M YO #### [facility] [address] [place], [place] [address] Dr. Preeti Hyman Protein [Mass/Vol] 7.6 g/dL Normal 6.4-8.[address] [facility] Comment on above: Performed By: #### M YO #### [facility] [address] [place], [place] [address] Dr. Preeti Hyman Sodium [Moles/Vol] 139 mmol/L Normal 136-[address] [facility] Comment on above: Performed By: #### M YO #### [facility] [address] [place], [place] [address] Dr. Preeti Hyman Urea nitrogen [Mass/Vol] 16.0 mg/dL Normal 7.0-18.0 [facility] Comment on above: Performed By: #### M YO #### [facility] [address] [place], [place] [address] Dr. Preeti Hyman Urea nitrogen/Creatinine [Mass ratio] 12.9 mg/mg Normal [facility] Comment on above: Performed By: #### M YO #### [facility] [address] [place], [place] [address] Dr. Preeti Hyman XR CHEST 1 Von [...] KOKO HUNTLEY Date: 2022-04-12 15:35 Normal [facility] Encounters Encounter Date Encounter Type Care Provider Facility Start: 07-10-2022 End: 07-10-[address] JONATHAN GIORDANO . Facility: Start: 04-23-2022 Patient encounter procedure David Matos DATA BASE ADMINISTRATOR.BUSINESS ANALYTICS FACULTY MEMBER Work Phone: [facility] Start: 04-23-2022 Progress Note David OWENS RN.BUSINESS ANALYTICS FACULTY MEMBER Work Phone: [facility] Start: 04-19-2022 Patient encounter procedure David Matos DATA BASE ADMINISTRATOR.BUSINESS ANALYTICS FACULTY MEMBER Work Phone: [facility] Start: 04-19-2022 Progress Note David OWENS RN.BUSINESS ANALYTICS FACULTY MEMBER Work Phone: [facility] Start: 04-17-2022 Patient encounter procedure [place] Lacy Rodney Work Phone: [facility] Start: 04-17-2022 Progress Note Itri A Rodney Work Phone: [facility] [employer] Start: 04-12-2022 End: 04-17-2022 Evaluation and management of inpatient DR JONATHAN GIORDANO . Facility: Payers Date Payer Category Payer Medicare UHC MEDICARE UHC MEDICARE ADVANTAGE PPO [id number] 2022-Present [phone] [address] [address] [place] [address] PPO [id number] 2019 Unknown [id number] 1960 Medicare [id number] 1945 Unknown [id number] 1945 Unknown [id number] Social History Date Type Detail Facility [facility] Start: 1945 Sex Assigned At Not on file [facility] History of Present illness Narrative 04-23-2022 David Matos APRN.[employer]INESS [employer]NALYTICS FACULTY MEMBER - 04/23/2022 12:00 AM EST Note Date & Type Note Facility 04-23-2022 History of Presen t illness Narrative [facility] NOTE NAME: JONNY HENNESSY NO.: [id number] DATE OF SERVICE: 04/23/2022 [facility] DATE OF : 1945 REASON FOR VISIT: The patient is a resident of [facility]. This is a skilled visit for [...] have been reported since being in the [facility]. The patient states has been [...] normal range. DICTATED BY: JULIA Bates JOB# [id number] cc:[facility] documented in this encounter [facility] History of Present illness Narrative 04-19-2022 David Matos APRN.[employer]INESS ANALYTICS FACULTY MEMBER - 04/19/2022 12:00 AM EST Note Date & Type Note Facility 04-19-2022 History of Presen t illness Narrative [facility] NOTE NAME: JONNY HENNESSY NO.: [id number] DATE OF SERVICE: 04/19/2022 [facility] DATE OF : 1945 REASON FOR VISIT: The patient is a resident of [facility]. This is a skilled visit for [...] work performed. DICTATED BY: JULIA Bates/Ozzy JOB# [id number] cc:[facility] documented in this encounter [facility] History of Present illness Narrative 04-17-2022 Itri A Rodney - 04/17/2022 12:00 AM EST Note Date & Type Note Facility 04-17-2022 History of Presen t illness Narrative [facility] NOTE NAME: JONNY HENNESSY NO.: [id number] DATE OF SERVICE: 04/17/2022 [facility] DATE OF : 1945 NEW PATIENT HISTORY AND PHYSICAL HISTORY OF PRESENT ILLNESS: The patient is a 76-year-old male who is admitted to us from [facility] with a diagnosis of acute COVID [...] therapy. DICTATED BY: MD ROXANE Pierce/Ozzy JOB# [id number] cc:[facility] documented in this encounter [facility] Summary Purpose Family History No Family History [...] or prosecute any alcohol or drug abuse patient.[facility] the event this information is protected by the Federal Confidentiality of Alcohol and Drug Abuse Patient Records regulations: The Federal rules restrict any use of the information to criminally investigate or prosecute any alcohol or drug abuse patient.[facility] the event this information is protected by the Federal Confidentiality of Alcohol and Drug Abuse Patient Records regulations: The Federal rules restrict any use of the information to criminally investigate or prosecute any alcohol or drug abuse patient.[facility] (unrecognized sect ion and content) No Status [...] BE BASED ON THE PRIMARY CLINICAL RECORDS. [facility]. provides no warranty or guarantee of the accuracy or completeness of information in this document.
== END 2023-08-12 09:52 | disposition home or self-care (01) ==
PROVIDERS: Emergency Provider Emergency Medicine Emergency Medical Services; PCP Family Medicine
DX: S00.83XA Contusion of other part of head, initial encounter (principal); S40.011A Contusion of right shoulder, initial encounter; W18.39XA Other fall on same level, initial encounter; J44.9 Chronic obstructive pulmonary disease, unspecified; Z87.01 Personal history of pneumonia (recurrent); G62.9 Polyneuropathy, unspecified
CPT/HCPCS: 70450; 72125; 73030; 99284

== ENCOUNTER 2023-08-27 23:39 | Inpatient (IN) | payer MEDICARE, SELFPAY ==
--- NOTE | 2023-08-27 00:20 | XR_ITS ---
The [address] [address] Patient Name: LEIGH ANN HENNESSY MRN: [id number] date: 1945 Sex: M Assigned Patient Location: ER Current Patient Location: [place] Accession/Order Number: [id number] Exam Date: 08/27/2023 23:59 Report Date: 08/28/2023 02:37 At the request of: CLARITA MARKER Procedure: XR chest 1V EXAMINATION: XR chest 1V HISTORY: SOB COMPARISON: 08/09/2023 FINDINGS: Persistent left basilar airspace disease. No pneumothorax or pulmonary edema. Cardiomegaly. XR/XR chest 1V IMPRESSION: Stable left basilar airspace disease which could be small pleural effusion, atelectasis, or pneumonia. No new airspace infiltrates in the remaining lungs Electronically authenticated by: MIRTA SEPULVEDA Date: 08/28/2023 02:37
[2023-08-27 23:40] VITALS: BP 159/98; PULSE 102; TEMP 36.4; O2SAT 91
--- NOTE | 2023-08-27 23:47 | ECG_ITS ---
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
[2023-08-27 23:49] VITALS: PULSE 94; O2SAT 93
[2023-08-27 23:50] VITALS: PULSE 98; O2SAT 95
--- NOTE | 2023-08-27 23:57 | ED.SOB1 ---
HPI - SOB/Dyspnea General Chief Complaint: Shortness of Breath/Dyspnea Stated Complaint: sob Time Seen by Provider: 08/27/23 23:41 Source: patient Mode of arrival: ambulance Limitations: no limitations History of Present Illness HPI Narrative: This 78-year-old male presents for evaluation of cough, wheezing and shortness of breath. Symptoms have been present for the past several days. He does not know if he vomited but has been coughing with a lot of productive phlegm. He denies any fevers or chills. He denies any chest pain. He has a history of COPD. He has never been a smoker. He denies any abdominal pain or back pain. He was admitted here several months ago after he had a COPD exacerbation with possible aspiration of vomit at that time. He denies that he has been nauseated or vomiting. He denies any diarrhea. He is not home oxygen dependent but was noted to have a pulse ox at 91 to 92% on room air upon arrival he was placed on supplemental oxygen with improvement in his pulse ox to the mid to upper 90s. MD elicited complaint: shortness of breath and cough Pertinent past history: COPD, pneumonia and aspiration Related Data Home Medications ?Medication ?Instructions ?Recorded ?Confirmed albuterol sulfate 2.5 mg/3 mL 2.5 mg inhalation Q6H PRN 04/04/23 08/27/23 (0.083 %) solution for nebulization shortness of breath or wheezing sodium chloride 3 % for 3 ml inhalation TID 08/10/23 08/27/23 nebulization Previous Rx's ?Medication ?Instructions ?Recorded tamsulosin 0.4 mg capsule 0.4 mg PO QD #30 caps 06/02/23 trazodone 50 mg tablet 50 mg PO QHS #30 tabs 06/02/23 prednisone 10 mg tablet 40 mg (4 x 10 mg) PO DAILY #32 tabs 08/11/23 Allergies Allergy/AdvReac Type Severity Reaction Status Date / Time No Known Drug Allergies Allergy Verified 08/27/23 23:44 Review of Systems ROS Status of ROS 10 or more systems reviewed and unremarkable except as noted in history and below [facility] Medical History (Updated 08/28/23 @ 02:16 by Nilsa Arzate) COVID ?U07.1 - COVID-19 (ICD-10) Anxiety ?F41.9 - Anxiety disorder, unspecified (ICD-10) Acute exacerbation of chronic obstructive pulmonary disease (COPD) ?J44.1 - Chronic obstructive pulmonary disease with (acute) exacerbation (ICD-10) Acute hypoxemic respiratory failure ?J96.01 - Acute respiratory failure with hypoxia (ICD-10) COPD exacerbation ?J44.1 - Chronic obstructive pulmonary disease with (acute) exacerbation (ICD-10) Community acquired pneumonia ?J18.9 - Pneumonia, unspecified organism (ICD-10) Fracture of left hip requiring operative repair ?S72.002A - Fracture of unspecified part of neck of left femur, initial encounter for closed fracture (ICD-10) Acute hypoxic respiratory failure ?J96.01 - Acute respiratory failure with hypoxia (ICD-10) Aspiration pneumonitis ?J69.0 - Pneumonitis due to inhalation of food and vomit (ICD-10) Acute respiratory distress ?R06.03 - Acute respiratory distress (ICD-10) Aspiration into airway ?T17.908A - Unspecified foreign body in respiratory tract, part unspecified causing other injury, initial encounter (ICD-10) Neuropathy ?G62.9 - Polyneuropathy, unspecified (ICD-10) Peripheral neuropathy ?G62.9 - Polyneuropathy, unspecified (ICD-10) Bilateral edema of lower extremity ?R60.0 - Localized edema (ICD-10) Abrasion of knee, left ?S80.212A - Abrasion, left knee, initial encounter (ICD-10) Closed fracture of left hip ?S72.002A - Fracture of unspecified part of neck of left femur, initial encounter for closed fracture (ICD-10) Surgical History (Updated 12/18/22 @ 06:44 by Nilsa Arzate) Hx of tonsillectomy ?Z90.89 - Acquired absence of other organs (ICD-10) Previous back surgery ?Z98.890 - Other specified postprocedural states (ICD-10) Family History (Updated 12/18/22 @ 06:42 by Nilsa Arzate) Father Family history of hypertension Family history of stroke Social History (Updated 07/22/23 @ 02:14 by Aida Rust) Within the past year, how often did you have a drink containing alcohol: never Score interpretation: A score less than 4 is consistent with normal alcohol consumption. Smoking status: Never smoker Non-prescribed substance use: denies use Previous occupational history: retired Highest level of school completed/degree received: some college, no degree Are you now , , , , never or living with a partner: In a typical week, how many times do you talk on the telephone with family, friends, or neighbors: 3 or more times per week How often do you get together with friends or relatives: 3 or more times per week How often do you attend confucianism or adventist services: 1-3 times per year Little interest or pleasure in doing things: not at all Feeling down, depressed, or hopeless: not at all Feel stressed/tense/nervous/anxious/difficulty sleeping: not at all Life stressors: recent of family or friend Life stressor details: burried wifes ashes yesterday 07/20 Do you think of yourself as: straight/heterosexual Gender Identity: male Exam Narrative Exam Narrative: Vital signs and Nursing Notes reviewed: Patient is afebrile, he is mildly tachycardic with a pulse of 102, blood pressure is elevated at 159/98, he is mildly hypoxic with pulse ox of 91% on room air General: Awake, alert, oriented, no acute distress, lying comfortably on the stretcher, episodes of harsh coughing with production of clear to pink mucous HEENT: Normocephalic atraumatic, mucous membranes are moist and pink, eyes are clear, normal conjunctiva, vision is grossly intact, posterior pharynx is normal in appearance. Neck: Supple, no meningeal signs, no anterior or posterior cervical lymphadenopathy Chest: Harsh rhonchi in the upper lung marvin with right upper lobe wheezing, no rales appreciated, patient has intermittent harsh cough with production of clear to pink mucous CVS: Regular rate and rhythm S1-S2, no murmurs rubs or gallops, pulses are brisk and equal bilaterally ABD: Soft, nondistended, nontender, no rebound guarding or rigidity, bowel sounds are normal, no pulsatile masses appreciated Extremities: Moving all extremities, no lower extremity tenderness or swelling noted, negative Homans' sign, pulses are brisk and equal bilaterally Skin: Normal in appearance without rash,pallor, petechiae or purpura Neuro: No focal deficits Constitutional Vital Signs, click to edit/add: Last Vital Signs Temp 97.9 F 08/28/23 02:20 Pulse 96 H 08/28/23 02:29 Resp 22 H 08/28/23 02:20 BP 121/70 08/28/23 02:20 Pulse Ox 92 L 08/28/23 02:20 O2 Del Method Nasal Cannula 08/28/23 02:20 O2 Flow Rate 2 08/28/23 02:20 Course Vital Signs Vital signs: Vital Signs Temperature 97.6 F 08/27/23 23:40 Pulse Rate 102 H 08/27/23 23:40 Respiratory Rate 22 H 08/27/23 23:40 Blood Pressure 159/98 H 08/27/23 23:40 Pulse Oximetry 91 L 08/27/23 23:40 Oxygen Delivery Method Room Air 08/27/23 23:40 Temperature 97.9 F 08/28/23 02:20 Pulse Rate 96 H 08/28/23 02:29 Respiratory Rate 22 H 08/28/23 02:20 Blood Pressure 121/70 08/28/23 02:20 Pulse Oximetry 92 L 08/28/23 02:20 Oxygen Delivery Method Nasal Cannula 08/28/23 02:20 Oxygen Delivery Flow Rate 2 08/28/23 02:20 MDM - SOB/Dyspnea MDM Narrative Medical decision making narrative: This 78-year-old male with a history of COPD who does not wear oxygen at home is brought to the emergency department by EMS from home for evaluation of cough, wheezing and shortness of breath that is worse than his usual baseline. His pulse ox was in the low 90s upon arrival but improved into the mid to upper 90s with supplemental oxygen. He has a harsh productive cough with rhonchi and expiratory wheezing upon arrival. He denies having a fever. He has a history of questionable aspiration. Upon arrival an IV was placed and EKG was ordered that is a sinus rhythm with a left anterior hemiblock at 98 bpm. An IV was placed and he was medicated with IV fluids, Solu-Medrol and magnesium. He was given 2 breathing treatments by respiratory therapy and a blood gas was ordered. He has a normal pH, normal pCO2 and pulse ox is 94.9 on the blood gas. He has a normal white count at 8.8 and hemoglobin is stable at 12.3. Troponin and lactic acid are both normal. Electrolytes are normal. I reviewed the CXR and it does not show any acute infiltrate. Resp panel was ordered and is negative. The case was discussed with the hospitalist and he is excepted for admission for supplemental oxygen, respiratory treatments as required and further evaluation and treatment. Medical Records Medical records narrative: The [address] [address] XRay Report Signed Patient: LEIGH ANN HENNESSY MR#: [id number] : 1945 Acct:[id number] Age/Sex: 78 / M ADM Date: 08/27/23 Loc: [place] 202-[address]: Tawanda Galvez M.D. Ordering Physician: Gloria Castillo Date of Service: 08/27/23 Procedure(s): XR chest 1V Accession Number(s): [id number] cc: Tawanda Galvez M.D.; Gloria Castillo~ The [address] [address] Patient Name: LEIGH ANN HENNESSY MRN: [id number] date: 1945 Sex: M Assigned Patient Location: ER Current Patient Location: [place] Accession/Order Number: [id number] Exam Date: 08/27/2023 23:59 Report Date: 08/28/2023 02:37 At the request of: GLORIA MARKER Procedure: XR chest 1V EXAMINATION: XR chest 1V HISTORY: SOB COMPARISON: 08/09/2023 FINDINGS: Persistent left basilar airspace disease. No pneumothorax or pulmonary edema. Cardiomegaly. XR/XR chest 1V IMPRESSION: Stable left basilar airspace disease which could be small pleural effusion, atelectasis, or pneumonia. No new airspace infiltrates in the remaining lungs Electronically authenticated by: MIRTA SEPULVEDA Date: 08/28/2023 02:37 Lab Data Labs: Lab Results 08/27/23 08/28/23 08/28/23 Range/Units 23:45 00:08 00:26 WBC 8.8 (4.0-11.0) 10^3/uL RBC 4.18 L (4.70-6.10) 10^6/uL Hgb 12.3 L (14.0-18.0) g/dL Hct 39.5 L (42.0-54.0) % MCV 94.5 H (80.0-94.0) fL MCH 29.4 (25.9-34.0) pg MCHC 31.1 (29.9-35.2) g/dL RDW 14.6 (11.0-15.0) % Plt Count 289 (150-450) 10^3/uL MPV 10.1 (9.5-13.5) fL Neut % (Auto) 60.1 (43.0-75.0) % Lymph % (Auto) 27.4 (20.5-60.0) % [place] % (Auto) 10.4 (1.7-12.0) % Eos % (Auto) 1.7 (0.9-7.0) % Baso % (Auto) 0.2 (0.2-2.0) % Neut # (Auto) 5.3 (1.4-6.5) 10^3/uL Lymph # (Auto) 2.4 (1.2-3.8) 10^3/uL [place] # (Auto) 0.9 H (0.3-0.8) 10^3/uL Eos # (Auto) 0.2 (0.0-0.7) 10^3/uL Baso # (Auto) 0.0 (0.0-0.1) 10^3/uL Abs Immat Gran (auto) 0.02 (0.00-0.03) 10^3/uL Imm/Tot Granulo (auto) 0.2 (0.0-0.5) % Puncture Site R radial ABG pH 7.376 (7.350-7.450) ABG pCO2 43.8 (35.0-45.0) mmHg ABG pO2 69.7 L (80.0-100.0) mmHg ABG HCO3 25.6 (22.0-26.0) mmol/L ABG O2 Saturation 94.9 % ABG Base Excess 0.5 (-2.0-2.0) mmol/L Cesar Test Positive (POSITIVE) O2 Liters/Min 2 Sodium 138 (136-145) mmol/L Potassium 4.0 (3.5-5.1) mmol/L Chloride 103 (98-107) mmol/L Carbon Dioxide 27.9 (21.0-32.0) mmol/L Anion Gap 11.1 BUN 21.0 H (7.0-18.0) mg/dL Creatinine 0.91 (0.70-1.30) mg/dL Est GFR ( Amer) >60 (>=60) Est GFR (Non-Af Amer) >60 (>=60) BUN/Creatinine Ratio 23.1 Glucose 99 (74-106) mg/dL Lactate 1.0 (0.4-2.0) mmol/L Calcium 8.6 (8.5-10.1) mg/dL Total Bilirubin 0.3 (0.2-1.0) mg/dL AST 19 (15-37) U/L ALT 25 (16-63) U/L Alkaline Phosphatase 93 (46-116) U/L Troponin I High Sens 6.7 (4.0-76.1) pg/mL NT-Pro-B Natriuret Pep 90.0 (<=1800.0) pg/mL Total Protein 7.5 (6.4-8.2) g/dL Albumin 2.9 L (3.4-5.0) g/dL Globulin 4.6 g/dL Albumin/Globulin Ratio 0.6 Adenovirus (PCR) Not detected (NOT DETECTE) B. pertussis DNA (PCR) Not detected (NOT DETECTE) B.parapertussis DNA PCR Not detected (NOT DETECTE) C. pneumoniae DNA (PCR) Not detected (NOT DETECTE) Coronavirus Type OC43 Not detected (NOT DETECTE) Coronavirus Type HKU1 Not detected (NOT DETECTE) Coronavirus Type 229E Not detected (NOT DETECTE) Coronavirus Type NL63 Not detected (NOT DETECTE) Human Metapneumovir PCR Not detected (NOT DETECTE) Influenza Type A (PCR) Not detected (NOT DETECTE) Influenza Type B (PCR) Not detected (NOT DETECTE) M. pneumoniae (PCR) Not detected (NOT DETECTE) Parainfluenza PCR Not detected (NOT DETECTE) Parainfluenza 2 (PCR) Not detected (NOT DETECTE) Parainfluenza 3 (PCR) Not detected (NOT DETECTE) Parainfluenza 4 (PCR) Not detected (NOT DETECTE) RSV (RT-PCR) Not detected (NOT DETECTE) Entero/Rhino (PCR) Not detected (NOT DETECTE) SARS-CoV-2 (PCR) Not detected (NOT DETECTE) ECG Data Attestation: I personally reviewed and interpreted this ECG as follows: (Sinus rhythm at 98 bpm, left anterior hemiblock, left axis deviation, no acute ST segment elevation or T wave inversion) Discharge Plan Discharge Chief Complaint: Shortness of Breath/Dyspnea Clinical Impression: Acute exacerbation of chronic obstructive pulmonary disease (COPD) Patient Disposition: Admitted as Observation Time of Disposition Decision: 01:20 Condition: Fair Discharge Date/Time: 08/28/23 02:02
[2023-08-27 23:59] VITALS: PULSE 102; O2SAT 91
[2023-08-27 23:59] LABS: Basophils Percent Auto 0.2 % (0.2-2.0); Eosinophils Absolute Auto 0.2 10^3/uL (0.0-0.7); Eosinophils Percent Auto 1.7 % (0.9-7.0); Hematocrit 39.5 % (42.0-54.0); Hemoglobin 12.3 g/dL (14.0-18.0); Immature Granulocytes Abs Auto 0.02 10^3/uL (0.00-0.03); Immature Granulocytes Pct Auto 0.2 % (0.0-0.5); Lymphocytes Absolute Auto 2.4 10^3/uL (1.2-3.8); Lymphocytes Percent Auto 27.4 % (20.5-60.0); Mean Corpuscular HGB Conc 31.1 g/dL (29.9-35.2); Mean Corpuscular Hemoglobin 29.4 pg (25.9-34.0); Mean Corpuscular Volume 94.5 fL (80.0-94.0); Mean Platelet Volume 10.1 fL (9.5-13.5); Monocytes Absolute Auto 0.9 10^3/uL (0.3-0.8); Monocytes Percent Auto 10.4 % (1.7-12.0); Neutrophils Absolute Auto 5.3 10^3/uL (1.4-6.5); Neutrophils Percent Auto 60.1 % (43.0-75.0); Platelet Count 289 10^3/uL (150-450); Red Blood Count 4.18 10^6/uL (4.70-6.10); Red Cell Distribution Width 14.6 % (11.0-15.0); White Blood Count 8.8 10^3/uL (4.0-11.0)
[2023-08-28] VITALS (36 sets, daily range): BP systolic 105–134; BP diastolic 70–93; PULSE 72–103; TEMP 36.4–36.6; O2SAT 86–97; BMI 28.0
--- OUTSIDE RECORDS SUMMARY | 2023-08-28 00:01 | XMS_ITS ---
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 Facility: Start: 04-23-2022 Patient encounter procedure David Matos APRN.DISPATCHER RELAY Work Phone: [facility] Start: 04-23-2022 Progress Note David OWENS RN.DISPATCHER RELAY Work Phone: [facility] Start: 04-19-2022 Patient encounter procedure David Matos DRUG SAFETY PHYSICIAN.DISPATCHER RELAY Work Phone: [facility] Start: 04-19-2022 Progress Note David OWENS RN.DISPATCHER RELAY Work Phone: [facility] Start: 04-17-2022 Patient encounter procedure Itri A Rodney Work Phone: [facility] Start: 04-17-2022 Progress Note Itri A Rodney Work Phone: [employer] Attorney Start: 04-12-2022 End: 04-17-2022 Evaluation and management of inpatient DR JONATHAN GIORDANO . Facility: Payers Date Payer Category Payer Medicare UHC MEDICARE UHC MEDICARE ADVANTAGE PPO [id number] 2022-Present [phone] [address] [address] [place] [address] PPO [id number] 2019 Unknown [id number] 1960 Medicare [id number] 1945 Unknown [id number] 1945 Unknown [id number] Problems Problem Classification Problem Date Documented Da [...] 07-15-2022 Episodic Other aftercare (1 source) Other care home (current) drug therapy; Translations: [OTH ECOLOGICAL RISK ASSESSOR CURRENT DRUG THERAPY] Onset: 05-24-2022 Episodic Other aftercare (1 source) [facility] (current) use of aspirin; Translations: [ECOLOGICAL RISK ASSESSOR CURRENT USE OF ASPIRIN] Onset: 05-24-2022 Episodic [...] 04-15-2022 BASO # 0.0 103/ul Normal 0.0-0.1 [facility] Comment on above: Performed By: #### M YO #### [facility] [address] [place] [address] Dr. Preeti Hyman Basophils/100 WBC (Bld) 0.2 % Normal 0.2-2.0 [facility] Comment on above: Performed By: #### M YO #### [facility] [address] [address] [address] Preeti Hyman EO # 0.2 103/ul Normal 0.0-0.7 [facility] Comment on above: Performed By: #### M YO #### [facility] [address] [place] [address] Dr. Preeti Hyman Eosinophils/100 WBC (Bld) 3.7 % Normal 0.9-7.0 [facility] Comment on above: Performed By: #### M YO #### [facility] [address] [place] [address] Dr. Preeti Hyman Erythrocyte distribution width (RBC) [Ratio] 13.5 % Normal 11.0-15.0 [facility] Comment on above: Performed By: #### M YO #### [facility] [address] [place] [address] Dr. Preeti Hyman Hematocrit (Bld) [Volume fraction] 38.3 % Critically low 42.0-54.0 [facility] Comment on above: Performed By: #### M YO #### [facility] [address] [place] [address] Dr. Preeti Hyman Hemoglobin (Bld) [Mass/Vol] 12.3 g/dL Critically low 14.0-18.0 [facility] Comment on above: Performed By: #### M YO #### [facility] [address] [place] [address] Dr. Preeti Hyman IG # 0.01 10e3/ul Normal 0.00-0.03 [facility] Comment on above: Performed By: #### M YO #### [facility] [address] [place] [address] Dr. Preeti Hyman IG % 0.2 % Normal 0.0-0.5 [facility] Comment on above: Performed By: #### M YO #### [facility] [address] [place] [address] Dr. Preeti Hyman LYMPH # 2.4 103/ul Normal 1.2-3.8 [facility] Comment on above: Performed By: #### M YO #### [facility] [address] [place] [address] Dr. Preeti Hyman Lymphocytes/100 WBC (Bld) 58.9 % Normal 20.5-60.0 [facility] Comment on above: Performed By: #### M YO #### [facility] [address] [place] [address] Dr. Preeti Hyman MANUAL DIFF REQ NO Normal [facility] Comment on above: Performed By: #### M YO #### [facility] [address] [place] [address] Dr. Preeti Hyman MCH (RBC) [Entitic mass] 29.6 pg Normal 25.9-34.0 [facility] Comment on above: Performed By: #### M YO #### [facility] [address] [address] [address] Preeti Hyman MCHC (RBC) [Mass/Vol] 32.1 g/dL Normal 29.9-35.2 [facility] Comment on above: Performed By: #### M YO #### [facility] [address] [address] [address] Preeti Hyman MCV (RBC) [Entitic vol] 92.3 fL Normal 80.0-94.0 [facility] Comment on above: Performed By: #### M YO #### [facility] [address] [place] [address] Dr. Preeti Hyman MONO # 0.5 103/ul Normal 0.3-0.8 [facility] Comment on above: Performed By: #### M YO #### [facility] [address] [place] [address] Dr. Preeti Hyman Monocytes/100 WBC (Bld) 11.6 % Normal 1.7-12.0 [facility] Comment on above: Performed By: #### M YO #### [facility] [address] [place] [address] Dr. Preeti Hyman NEUT # 1.0 103/ul Critically low 1.4-6.5 [facility] Comment on above: Performed By: #### M YO #### [facility] [address] [place] [address] Dr. Preeti Hyman Neutrophils/100 WBC (Bld) 25.4 % Critically low 43.0-75.0 [facility] Comment on above: Performed By: #### M YO #### [facility] [address] [address] [address] Preeti Hyman Platelet mean volume (Bld) [Entitic vol] 10.5 fL Normal 9.5-13.5 [facility] Comment on above: Performed By: #### M YO #### [facility] [address] [place] [address] Dr. Preeti Hyman PLT 207 103/ul Normal 150-450 [facility] Comment on above: Performed By: #### M YO #### [facility] [address] [place] [address] Dr. Preeti Hyman RBC 4.15 106/ul Critically low 4.70-6.10 [facility] Comment on above: Performed By: #### M YO #### [facility] [address] [address] [address] Preeti Hyman WBC 4.0 103/ul Normal 4.0-11.0 [facility] Comment on above: Performed By: #### M YO #### [facility] [address] [place] [address] Dr. Preeti Hyman PROF 14(COMP METB)on 023 Albumin [Mass/Vol] 3.0 g/dL Critically low 3.4-5.0 [facility] Comment on above: Performed By: #### C MP #### [facility] [address] [place] [address] Dr. Preeti Hyman Albumin/Globulin [Mass ratio] 0.8 {ratio} [facility] Comment on above: Performed By: #### C MP #### [facility] [address] [place] [address] Dr. Preeti Hyman ALP [Catalytic activity/Vol] 103 U/L Normal 46-116 [facility] Comment on above: Performed By: #### C MP #### [facility] [address] [place] [address] Dr. Preeti Hyman ALT [Catalytic activity/Vol] 20 U/L Normal 16-63 [facility] Comment on above: Performed By: #### C MP #### [facility] [address] [place] [address] Dr. Preeti Hyman Anion gap [Moles/Vol] 11.2 mmol/L Normal [facility] Comment on above: Performed By: #### C MP #### [facility] [address] [place] [address] Dr. Preeti Hyman AST [Catalytic activity/Vol] 28 U/L Normal 15-37 [facility] Comment on above: Performed By: #### C MP #### [facility] [address] [place] [address] Dr. Preeti Hyman Bilirubin [Mass/Vol] 0.3 mg/dL Normal 0.2-1.0 [facility] Comment on above: Performed By: #### C MP #### [facility] [address] [place] [address] Dr. Preeti Hyman Calcium [Mass/Vol] 8.3 mg/dL Critically low 8.5-10.1 [facility] e [facility] Comment on above: Performed By: #### C MP #### [facility] [address] [place] [address] Dr. Preeti Hyman Chloride [Moles/Vol] 105 mmol/L Normal 98-107 [facility] Comment on above: Performed By: #### C MP #### [facility] [address] [place] [address] Dr. Preeti Hyman CO2 [Moles/Vol] 27.5 mmol/L Normal 21.0-32.0 [facility] Comment on above: Performed By: #### C MP #### [facility] [address] [place] [address] Dr. Preeti Hyman Creatinine [Mass/Vol] 0.87 mg/dL Normal 0.70-1.30 [facility] Comment on above: Performed By: #### C MP #### [facility] [address] [place] [address] Dr. Preeti Hyman EGFR-AF DANISH >60 Normal >=60 [facility] Comment on above: Performed By: #### C MP #### [facility] [address] [place] [address] Dr. Preeti Hyman EGFR-NON AF DANISH >60 Normal >=60 [facility] Comment on above: Performed By: #### C MP #### [facility] [address] [place] [address] Dr. Preeti Hyman Globulin (S) [Mass/Vol] 4.0 g/dL Normal [facility] Comment on above: Performed By: #### C MP #### [facility] [address] [address] [address] Preeti Hyman Glucose [Mass/Vol] 93 mg/dL Normal 74-106 [facility] Comment on above: Performed By: #### C MP #### [facility] [address] [address] [address] Preeti Hyman Potassium [Moles/Vol] 3.7 mmol/L Normal 3.5-5.1 [facility] Comment on above: Performed By: #### C MP #### [facility] [address] [address] [address] Preeti Hyman Protein [Mass/Vol] 7.0 g/dL Normal 6.4-8.2 [facility] Comment on above: Performed By: #### C MP #### [facility] [address] [place] [address] Dr. Preeti Hyman Sodium [Moles/Vol] 140 mmol/L Normal 136-145 [facility] Comment on above: Performed By: #### C MP #### [facility] [address] [place] [address] Dr. Preeti Hyman Urea nitrogen [Mass/Vol] 16.0 mg/dL Normal 7.0-18.0 [facility] Comment on above: Performed By: #### C MP #### [facility] [address] [place] [address] Dr. Preeti Hyman Urea nitrogen/Creatinine [Mass ratio] 18.4 mg/mg Normal [facility] Comment on above: Performed By: #### C MP #### [facility] [address] [place] [address] Dr. Preeti Hyman CBC AUTO DIFFon 04-14-2022 BASO # 0.0 103/ul Normal 0.0-0.1 [facility] Comment on above: Performed By: #### C BC #### [facility] [address] [place] [address] Dr. Preeti Hyman Basophils/100 WBC (Bld) 0.2 % Normal 0.2-2.0 [facility] Comment on above: Performed By: #### C BC #### [facility] [address] [place] [address] Dr. Preeti Hyman EO # 0.1 103/ul Normal 0.0-0.7 [facility] Comment on above: Performed By: #### C BC #### [facility] [address] [place] [address] Dr. Preeti Hyman Eosinophils/100 WBC (Bld) 2.2 % Normal 0.9-7.0 [facility] Comment on above: Performed By: #### C BC #### [facility] [address] [place] [address] Dr. Preeti Hyman Erythrocyte distribution width (RBC) [Ratio] 13.4 % Normal 11.0-15.0 [facility] Comment on above: Performed By: #### C BC #### [facility] [address] [place] [address] Dr. Preeti Hyman Hematocrit (Bld) [Volume fraction] 36.3 % Critically low 42.0-54.0 [facility] Comment on above: Performed By: #### C BC #### [facility] [address] [place] [address] Dr. Preeti Hyman Hemoglobin (Bld) [Mass/Vol] 12.1 g/dL Critically low 14.0-18.0 [facility] Comment on above: Performed By: #### C BC #### [facility] [address] [place] [address] Dr. Preeti Hyman IG # 0.01 10e3/ul Normal 0.00-0.03 [facility] Comment on above: Performed By: #### C BC #### [facility] [address] [place] [address] Dr. Preeti Hyman IG % 0.2 % Normal 0.0-0.5 [facility] Comment on above: Performed By: #### C BC #### [facility] [address] [place] [address] Dr. Preeti Hyman LYMPH # 2.0 103/ul Normal 1.2-3.8 [facility] Comment on above: Performed By: #### C BC #### [facility] [address] [place] [address] Dr. Preeti Hyman Lymphocytes/100 WBC (Bld) 49.0 % Normal 20.5-60.0 [facility] Comment on above: Performed By: #### C BC #### [facility] [address] [place] [address] Dr. Preeti Hyman MANUAL DIFF REQ NO Normal [facility] Comment on above: Performed By: #### C BC #### [facility] [address] [place] [address] Dr. Preeti Hyman MCH (RBC) [Entitic mass] 30.6 pg Normal 25.9-34.0 [facility] Comment on above: Performed By: #### C BC #### [facility] [address] [place] [address] Dr. Preeti Hyman MCHC (RBC) [Mass/Vol] 33.3 g/dL Normal 29.9-35.2 [facility] Comment on above: Performed By: #### C BC #### [facility] [address] [place] [address] Dr. Preeti Hyman MCV (RBC) [Entitic vol] 91.7 fL Normal 80.0-94.0 [facility] Comment on above: Performed By: #### C BC #### [facility] [address] [place] [address] Dr. Preeti Hyman MONO # 0.5 103/ul Normal 0.3-0.8 [facility] Comment on above: Performed By: #### C BC #### [facility] [address] [place] [address] Dr. Preeti Hyman Monocytes/100 WBC (Bld) 12.1 % Critically high 1.7-12.0 [facility] Comment on above: Performed By: #### C BC #### [facility] [address] [place] [address] Dr. Preeti Hyman NEUT # 1.5 103/ul Normal 1.4-6.5 [facility] Comment on above: Performed By: #### C BC #### [facility] [address] [address] [address] Preeti Hyman Neutrophils/100 WBC (Bld) 36.3 % Critically low 43.0-75.0 [facility] Comment on above: Performed By: #### C BC #### [facility] [address] [address] [address] Preeti Hyman Platelet mean volume (Bld) [Entitic vol] 10.6 fL Normal 9.5-13.5 [facility] Comment on above: Performed By: #### C BC #### [facility] [address] [address] [address] Preeti Hyman PLT 203 103/ul Normal 150-450 [facility] Comment on above: Performed By: #### C BC #### [facility] [address] [place] [address] Dr. Preeti Hyman RBC 3.96 106/ul Critically low 4.70-6.10 [facility] Comment on above: Performed By: #### C BC #### [facility] [address] [place] [address] Dr. Preeti Hyman WBC 4.1 103/ul Normal 4.0-11.0 [facility] Comment on above: Performed By: #### C BC #### [facility] [address] [place] [address] Dr. Preeti Hyman PROF 14(COMP METB)on 023 Albumin [Mass/Vol] 2.9 g/dL Critically low 3.4-5.0 [facility] Comment on above: Performed By: #### C MP #### [facility] [address] [place] [address] Dr. Preeti Hyman Albumin/Globulin [Mass ratio] 0.8 {ratio} Normal [facility] Comment on above: Performed By: #### C MP #### [facility] [address] [place] [address] Dr. Preeti Hyman ALP [Catalytic activity/Vol] 99 U/L Normal 46-116 [facility] Comment on above: Performed By: #### C MP #### [facility] [address] [address] [address] Preeti Hyman ALT [Catalytic activity/Vol] 16 U/L Normal 16-63 [facility] Comment on above: Performed By: #### C MP #### [facility] [address] [place] [address] Dr. Preeti Hymna Anion gap [Moles/Vol] 11.2 mmol/L Normal [facility] Comment on above: Performed By: #### C MP #### [facility] [address] [address] [address] Preeti Hyman AST [Catalytic activity/Vol] 27 U/L Normal 15-37 [facility] Comment on above: Performed By: #### C MP #### [facility] [address] [place] [address] Dr. Preeti Hyman Bilirubin [Mass/Vol] 0.2 mg/dL Normal 0.2-1.0 [facility] Comment on above: Performed By: #### C MP #### [facility] [address] [place] [address] Dr. Preeti Hyman Calcium [Mass/Vol] 8.1 mg/dL Critically low 8.5-10.1 [facility] Comment on above: Performed By: #### C MP #### [facility] [address] [place] [address] Dr. Preeti Hyman Chloride [Moles/Vol] 106 mmol/L Normal 98-107 [facility] Comment on above: Performed By: #### C MP #### [facility] [address] [place] [address] Dr. Preeti Hyman CO2 [Moles/Vol] 26.5 mmol/L Normal 21.0-32.0 [facility] Comment on above: Performed By: #### C MP #### [facility] [address] [place] [address] Dr. Preeti Hyman Creatinine [Mass/Vol] 0.98 mg/dL Normal 0.70-1.30 [facility] Comment on above: Performed By: #### C MP #### [facility] [address] [place] [address] Dr. Preeti Hyman EGFR-AF DANISH >60 Normal >=60 [facility] Comment on above: Performed By: #### C MP #### [facility] [address] [address] [address] Preeti Hyman EGFR-NON AF DANISH >60 Normal >=60 [facility] Comment on above: Performed By: #### C MP #### [facility] [address] [address] [address] Preeti Hyman Globulin (S) [Mass/Vol] 3.7 g/dL Normal [facility] Comment on above: Performed By: #### C MP #### [facility] [address] [address] [address] Preeti Hyman Glucose [Mass/Vol] 94 mg/dL Normal 74-106 [facility] Comment on above: Performed By: #### C MP #### [facility] [address] [address] [address] Preeti Hyman Potassium [Moles/Vol] 3.7 mmol/L Normal 3.5-5.1 [facility] Comment on above: Performed By: #### C MP #### [facility] [address] [address] [address] Preeti Hyman Protein [Mass/Vol] 6.6 g/dL Normal 6.4-8.2 [facility] Comment on above: Performed By: #### C MP #### [facility] [address] [address] [address] Preeti Hyman Sodium [Moles/Vol] 140 mmol/L Normal 136-145 [facility] Comment on above: Performed By: #### C MP #### [facility] [address] [address] [address] Preeti Hyman Urea nitrogen [Mass/Vol] 12.0 mg/dL Normal 7.0-18.0 [facility] Comment on above: Performed By: #### C MP #### [facility] [address] [address] [address] Preeti Hyman Urea nitrogen/Creatinine [Mass ratio] 12.2 mg/mg Normal [facility] Comment on above: Performed By: #### C MP #### [facility] [address] [address] [address] Preeti Hyman CBC AUTO DIFFon 04-13-2022 BASO # 0.0 103/ul Normal 0.0-0.1 [facility] Comment on above: Performed By: #### M YO #### [facility] [address] [address] [address] Preeti Hyman Basophils/100 WBC (Bld) 0.5 % Normal 0.2-2.0 [facility] Comment on above: Performed By: #### M YO #### [facility] [address] [address] [address] Preeti Hyman EO # 0.2 103/ul Normal 0.0-0.7 [facility] Comment on above: Performed By: #### M YO #### [facility] [address] [place] [address] Dr. Preeti Hyman Eosinophils/100 WBC (Bld) 3.9 % Normal 0.9-7.0 [facility] Comment on above: Performed By: #### M YO #### [facility] [address] [address] [address] Preeti Hyman Erythrocyte distribution width (RBC) [Ratio] 13.6 % Normal 11.0-15.0 [facility] Comment on above: Performed By: #### M YO #### [facility] [address] [address] [address] Preeti Hyman Hematocrit (Bld) [Volume fraction] 38.5 % Critically low 42.0-54.0 [facility] Comment on above: Performed By: #### M YO #### [facility] [address] [address] [address] Preeti Hyman Hemoglobin (Bld) [Mass/Vol] 12.8 g/dL Critically low 14.0-18.0 [facility] Comment on above: Performed By: #### M YO #### [facility] [address] [address] [address] Preeti Hyman IG # 0.01 10e3/ul Normal 0.00-0.03 [facility] Comment on above: Performed By: #### M YO #### [facility] [address] [place] [address] Dr. Preeti Hyman IG % 0.3 % Normal 0.0-0.5 [facility] Comment on above: Performed By: #### M YO #### [facility] [address] [place] [address] Dr. Preeti Hyman LYMPH # 1.7 103/ul Normal 1.2-3.8 [facility] Comment on above: Performed By: #### M YO #### [facility] [address] [place] [address] Dr. Preeti Hyman Lymphocytes/100 WBC (Bld) 43.6 % Normal 20.5-60.0 [facility] Comment on above: Performed By: #### M YO #### [facility] [address] [place] [address] Dr. Preeti Hyman MANUAL DIFF REQ NO Normal [facility] Comment on above: Performed By: #### M YO #### [facility] [address] [place] [address] Dr. Preeti Hyman MCH (RBC) [Entitic mass] 30.8 pg Normal 25.9-34.0 [facility] Comment on above: Performed By: #### M YO #### [facility] [address] [place] [address] Dr. Preeti Hyman MCHC (RBC) [Mass/Vol] 33.2 g/dL Normal 29.9-35.2 [facility] Comment on above: Performed By: #### M YO #### [facility] [address] [place] [address] Dr. Preeti Hyman MCV (RBC) [Entitic vol] 92.5 fL Normal 80.0-94.0 [facility] Comment on above: Performed By: #### M YO #### [facility] [address] [place] [address] Dr. Preeti Hyman MONO # 0.7 103/ul Normal 0.3-0.8 [facility] Comment on above: Performed By: #### M YO #### [facility] [address] [address] [address] Preeti Hyman Monocytes/100 WBC (Bld) 17.3 % Critically high 1.7-12.0 [facility] Comment on above: Performed By: #### M YO #### [facility] [address] [address] [address] Preeti Hyman NEUT # 1.3 103/ul Critically low 1.4-6.5 [facility] Comment on above: Performed By: #### M YO #### [facility] [address] [address] [address] Preeti Hyman Neutrophils/100 WBC (Bld) 34.4 % Critically low 43.0-75.0 [facility] Comment on above: Performed By: #### M YO #### [facility] [address] [place] [address] Dr. Preeti Hyman Platelet mean volume (Bld) [Entitic vol] 10.8 fL Normal 9.5-13.5 [facility] Comment on above: Performed By: #### M YO #### [facility] [address] [address] [address] Preeti Hyman PLT 192 103/ul Normal 150-450 [facility] Comment on above: Performed By: #### M YO #### [facility] [address] [address] [address] Preeti Hyman RBC 4.16 106/ul Critically low 4.70-6.10 [facility] Comment on above: Performed By: #### M YO #### [facility] [address] [address] [address] Preeti Hyman WBC 3.8 103/ul Critically low 4.0-11.0 [facility] Comment on above: Performed By: #### M YO #### [facility] [address] [address] [address] Preeti Hyman MYOGLOBINon 04-13-2022 MONISHA 107 ng/mL Critically high 16-96 [facility] Comment on above: Performed By: #### M YO #### [facility] [address] [place] [address] Dr. Preeti Hyman PROF 14(COMP METB)on 023 Albumin [Mass/Vol] 3.0 g/dL Critically low 3.4-5.0 [facility] Comment on above: Performed By: #### C MP #### [facility] [address] [place] [address] Dr. Preeti Hyman Albumin/Globulin [Mass ratio] 0.8 {ratio} Normal [facility] Comment on above: Performed By: #### C MP #### [facility] [address] [place] [address] Dr. Preeti Hyman ALP [Catalytic activity/Vol] 107 U/L Normal 46-116 [facility] Comment on above: Performed By: #### C MP #### [facility] [address] [place] [address] Dr. Preeti Hyman ALT [Catalytic activity/Vol] 17 U/L Normal 16-63 [facility] Comment on above: Performed By: #### C MP #### [facility] [address] [place] [address] Dr. Preeti Hyman Anion gap [Moles/Vol] 11.4 mmol/L Normal [facility] Comment on above: Performed By: #### C MP #### [facility] [address] [place] [address] Dr. Preeti Hyman AST [Catalytic activity/Vol] 28 U/L Normal 15-37 [facility] Comment on above: Performed By: #### C MP #### [facility] [address] [place] [address] Dr. Preeti Hyman Bilirubin [Mass/Vol] 0.2 mg/dL Normal 0.2-1.0 [facility] Comment on above: Performed By: #### C MP #### [facility] [address] [place] [address] Dr. Preeti Hyman Calcium [Mass/Vol] 8.0 mg/dL Critically low 8.5-10.1 [facility] Comment on above: Performed By: #### C MP #### [facility] [address] [address] [address] Preeti Hyman Chloride [Moles/Vol] 106 mmol/L Normal 98-107 [facility] Comment on above: Performed By: #### C MP #### [facility] [address] [place] [address] Dr. Preeti Hyman CO2 [Moles/Vol] 27.5 mmol/L Normal 21.0-32.0 [facility] Comment on above: Performed By: #### C MP #### [facility] [address] [place] [address] Dr. Preeti Hyman Creatinine [Mass/Vol] 1.00 mg/dL Normal 0.70-1.30 [facility] Comment on above: Performed By: #### C MP #### [facility] [address] [place] [address] Dr. Preeti Hyman EGFR-AF DANISH >60 Normal >=60 [facility] Comment on above: Performed By: #### C MP #### [facility] [address] [place] [address] Dr. Preeti Hyman EGFR-NON AF DANISH >60 Normal >=60 [facility] Comment on above: Performed By: #### C MP #### [facility] [address] [address] [address] Preeti Hyman Globulin (S) [Mass/Vol] 4.0 g/dL Normal [facility] Comment on above: Performed By: #### C MP #### [facility] [address] [address] [address] Preeti Hyman Glucose [Mass/Vol] 87 mg/dL Normal 74-106 [facility] Comment on above: Performed By: #### C MP #### [facility] [address] [address] [address] Preeti Hyman Potassium [Moles/Vol] 3.9 mmol/L Normal 3.5-5.1 [facility] Comment on above: Performed By: #### C MP #### [facility] [address] [address] [address] Preeti Hyman Protein [Mass/Vol] 7.0 g/dL Normal 6.4-8.2 [facility] Comment on above: Performed By: #### C MP #### [facility] [address] [place] [address] Dr. Preeti Hyman Sodium [Moles/Vol] 141 mmol/L Normal 136-145 [facility] Comment on above: Performed By: #### C MP #### [facility] [address] [place] [address] Dr. Preeti Hyman Urea nitrogen [Mass/Vol] 16.0 mg/dL Normal 7.0-18.0 [facility] Comment on above: Performed By: #### C MP #### [facility] [address] [place] [address] Dr. Preeti Hyman Urea nitrogen/Creatinine [Mass ratio] 16.0 mg/mg Normal [facility] Comment on above: Performed By: #### C MP #### [facility] [address] [place] [address] Dr. Preeti Hyman T4on 04-13-2022 T4 [Mass/Vol] 7.20 ug/dL Normal 4.50-12.10 [facility] Comment on above: Performed By: #### T 4 #### [facility] [address] [place] [address] Dr. Preeti Hyman TSHon 04-13-2022 TSH 2.126 uIU/mL Normal 0.358-3.740 [facility] Comment on above: Performed By: #### M YO #### [facility] [address] [place] [address] Dr. Preeti Hyman CARDIAC KALEIGH ADMITon 023 CK [Catalytic activity/Vol] 237 U/L Normal 39-308 [facility] Comment on above: Performed By: #### M YO #### [facility] [address] [place] [address] Dr. Preeti Hyman CK.MB [Mass/Vol] 2.15 ng/mL Normal <=3.60 [facility] Comment on above: Performed By: #### M YO #### [facility] [address] [place] [address] Dr. Preeti Hyman HSTROP 9.8 pg/mL Normal 4.0-76.1 [facility] Comment on above: Result Comment: CUT- OFF POINTS HAVE BEEN ESTABLISHED BASED ON THE FOURTH UNIVERSAL DEFINITIONS OF MYOCARDIAL INFARCTION. THE UPPER REFERENCE LIMIT (URL) OF TROPONIN, DEFINED THE 99TH PERCENTILE OF cTnI DISTRIBUTION IN A REFERENCE POPULATION, HAS BEEN CONFIRMED THE DECISION THRESHOLD FOR HI DIAGNOSIS. Performed By: #### M YO #### [facility] [address] [place] [address] Dr. Preeti Hyman MONISHA 191 ng/mL Critically high 16-96 [facility] Comment on above: Performed By: #### M YO #### [facility] [address] [place] [address] Dr. Preeti Hyman CBC AUTO DIFFon 04-12-2022 BASO # 0.0 103/ul Normal 0.0-0.1 [facility] Comment on above: Performed By: #### C BC #### [facility] [address] [place] [address] Dr. Preeti Hyman Basophils/100 WBC (Bld) 0.2 % Normal 0.2-2.0 [facility] Comment on above: Performed By: #### C BC #### [facility] [address] [place] [address] Dr. Preeti Hyman EO # 0.0 103/ul Normal 0.0-0.7 [facility] Comment on above: Performed By: #### C BC #### [facility] [address] [place] [address] Dr. Preeti Hyman Eosinophils/100 WBC (Bld) 0.5 % Critically low 0.9-7.0 [facility] Comment on above: Performed By: #### C BC #### [facility] [address] [place] [address] Dr. Preeti Hyman Erythrocyte distribution width (RBC) [Ratio] 13.6 % Normal 11.0-15.0 [facility] Comment on above: Performed By: #### C BC #### [facility] [address] [place] [address] Dr. Preeti Hyman Hematocrit (Bld) [Volume fraction] 40.8 % Critically low 42.0-54.0 [facility] Comment on above: Performed By: #### C BC #### [facility] [address] [place] [address] Dr. Preeti Hyman Hemoglobin (Bld) [Mass/Vol] 13.2 g/dL Critically low 14.0-18.0 [facility] Comment on above: Performed By: #### C BC #### [facility] [address] [place] [address] Dr. Preeti Hyman IG # 0.02 10e3/ul Normal 0.00-0.03 [facility] Comment on above: Performed By: #### C BC #### [facility] [address] [place] [address] Dr. Preeti Hyman IG % 0.5 % Normal 0.0-0.5 [facility] Comment on above: Performed By: #### C BC #### [facility] [address] [place] [address] Dr. Preeti Hyman LYMPH # 1.5 103/ul Normal 1.2-3.8 [facility] Comment on above: Performed By: #### C BC #### [facility] [address] [place] [address] Dr. Preeti Hyman Lymphocytes/100 WBC (Bld) 36.1 % Normal 20.5-60.0 [facility] Comment on above: Performed By: #### C BC #### [facility] [address] [place] [address] Dr. Preeti Hyman MANUAL DIFF REQ NO Normal [facility] Comment on above: Performed By: #### C BC #### [facility] [address] [place] [address] Dr. Preeti Hyman MCH (RBC) [Entitic mass] 30.1 pg Normal 25.9-34.0 [facility] Comment on above: Performed By: #### C BC #### [facility] [address] [place] [address] Dr. Preeti Hyman MCHC (RBC) [Mass/Vol] 32.4 g/dL Normal 29.9-35.2 [facility] Comment on above: Performed By: #### C BC #### [facility] [address] [address] [address] Preeti Hyman MCV (RBC) [Entitic vol] 92.9 fL Normal 80.0-94.0 [facility] Comment on above: Performed By: #### C BC #### [facility] [address] [address] [address] Preeti Hyman MONO # 1.0 103/ul Critically high 0.3-0.8 [facility] Comment on above: Performed By: #### C BC #### [facility] [address] [place] [address] Dr. Preeti Hyman Monocytes/100 WBC (Bld) 23.6 % Critically high 1.7-12.0 [facility] Comment on above: Performed By: #### C BC #### [facility] [address] [place] [address] Dr. Preeti Hyman NEUT # 1.6 103/ul Normal 1.4-6.5 [facility] Comment on above: Performed By: #### C BC #### [facility] [address] [place] [address] Dr. Preeti Hyman Neutrophils/100 WBC (Bld) 39.1 % Critically low 43.0-75.0 [facility] Comment on above: Performed By: #### C BC #### [facility] [address] [place] [address] Dr. Preeti Hyman Platelet mean volume (Bld) [Entitic vol] 10.9 fL Normal 9.5-13.5 [facility] Comment on above: Performed By: #### C BC #### [facility] [address] [place] [address] Dr. Preeti Hyman PLT 171 103/ul Normal 150-450 [facility] Comment on above: Performed By: #### C BC #### [facility] [address] [place] [address] Dr. Preeti Hyman RBC 4.39 106/ul Critically low 4.70-6.10 [facility] Comment on above: Performed By: #### C BC #### [facility] [address] [place] [address] Dr. Preeti Hyman WBC 4.2 103/ul Normal 4.0-11.0 [facility] Comment on above: Performed By: #### C BC #### [facility] [address] [place] [address] Dr. Preeti Hyman Covid-19 PCR ([facility])on 03-31 SARS-CoV-2 (COVID-19) RNA GAVINO+probe Ql (Unsp spec) Detected Abnormal NOT DETECTED [facility] Comment on above: Result Comment: This test is not yet approved or cleared by the [place] FDA. When there are no FDA-approved or cleared tests available, and other criteria are met, FDA can make tests available under an emergency access mechanism called an Emergency Use Authorization (EUA). The EUA for this test is supported by the Emergency Services Director of Health and Human Service's declaration that [...] used). Performed By: #### M YO #### [facility] [address] [place] [address] Dr. Preeti Hyman ER URINE PROFILEon 3 Bilirubin Ql (U) Negative Normal NEGATIVE [facility] Comment on above: Performed By: #### E RUR #### [facility] [address] [place] [address] Dr. Preeti Hyman Clarity (U) CLEAR Normal CLEAR [facility] Comment on above: Performed By: #### E RUR #### [facility] [address] [place] [address] Dr. Preeti Hyman Color (U) LT. YELLOW Normal YELLOW [facility] Comment on above: Performed By: #### E RUR #### [facility] [address] [place] [address] Dr. Preeti MADERA A micrscopic examination will be performed if indicated. Normal [facility] Comment on above: Performed By: #### E RUR #### [facility] [address] [place] [address] Dr. Preeti Hyman Glucose Ql (U) Negative Normal NEGATIVE [facility] Comment on above: Performed By: #### E RUR #### [facility] [address] [place] [address] Dr. Preeti Hyman Hemoglobin Ql (U) Negative Normal NEGATIVE [facility] Comment on above: Performed By: #### E RUR #### [facility] [address] [place] [address] Dr. Preeti Hyman Ketones Ql (U) Negative Normal NEGATIVE [facility] Comment on above: Performed By: #### E RUR #### [facility] [address] [place] [address] Dr. Preeti Hyman LEUKOCYTES Negative Normal NEGATIVE [facility] Comment on above: Performed By: #### E RUR #### [facility] [address] [place] [address] Dr. Preeti Hyman Nitrite Ql (U) Negative Normal NEGATIVE [facility] Comment on above: Performed By: #### E RUR #### [facility] [address] [place] [address] Dr. Preeti Hyman pH (U) 5.5 [pH] Normal 5-9 [facility] Comment on above: Performed By: #### E RUR #### [facility] [address] [place] [address] Dr. Preeti Hyman SPEC GRAVITY 1.015 Normal 1.005-<=1.025 [facility] Comment on above: Performed By: #### E RUR #### [facility] [address] [place] [address] Dr. Preeti Hyman UA PROTEIN Negative Normal NEGATIVE/ TRACE [facility] Comment on above: Performed By: #### E RUR #### [facility] [address] [place] [address] Dr. Preeti Hyman UR MICRO IND NOT INDICATED Normal [facility] Comment on above: Performed By: #### E RUR #### [facility] [address] [place] [address] Dr. Preeti Hyman Urobilinogen Qn (U) 0.2 {Comfort'U}/dL Normal 0.2 - 1. 0 [facility] Comment on above: Performed By: #### E RUR #### [facility] [address] [place] [address] Dr. Preeti Hyman INFLUENZA A AND B AGon 04-12 INFLUANEGH SEE BELOW Normal [facility] Comment on above: Result Comment: Nega tive for Flu A protein angiten. Infection due to Flu A cannot be ruled out. Flu A angiten in the sample may be below the detection limit of the test. Performed By: #### I NFLUAB #### [facility] [address] [place] [address] Dr. Preeti Hyman INFLUBNEGH SEE BELOW Normal [facility] Comment on above: Result Comment: Nega tive for Flu B protein antigen. Infection due to Flu B cannot be ruled out. Flu B antigen in the sample may be below the detection limit of the test. Performed By: #### I NFLUAB #### [facility] [address] [place] [address] Dr. Preeti Hyman INFLUENZA A AG Negative Normal NEGATIVE SEE COMMENT [facility] Comment on above: Performed By: #### I NFLUAB #### [facility] [address] [place] [address] Dr. Preeti Hyman INFLUENZA B AG Negative Normal NEGATIVE SEE COMMENT [facility] Comment on above: Performed By: #### I NFLUAB #### [facility] [address] [place] [address] Dr. Preeti Hyman LIPASEon 04-12-2022 Lipase [Catalytic activity/Vol] 101.0 U/L Normal 73.0-393.0 [facility] Comment on above: Performed By: #### C MP, CMADM, LIPA #### [facility] [address] [place] [address] Dr. Preeti Hyman PROF 14(COMP METB)on 023 Albumin [Mass/Vol] 3.3 g/dL Critically low 3.4-5.0 [facility] Comment on above: Performed By: #### M YO #### [facility] [address] [place] [address] Dr. Preeti Hyman Albumin/Globulin [Mass ratio] 0.8 {ratio} Normal [facility] Comment on above: Performed By: #### M YO #### [facility] [address] [address] [address] Preeti Hyman ALP [Catalytic activity/Vol] 114 U/L Normal 46-116 [facility] Comment on above: Performed By: #### M YO #### [facility] [address] [place] [address] Dr. Preeti Hyman ALT [Catalytic activity/Vol] 19 U/L Normal 16-63 [facility] Comment on above: Performed By: #### M YO #### [facility] [address] [place] [address] Dr. Preeti Hyman Anion gap [Moles/Vol] 10.2 mmol/L Normal [facility] Comment on above: Performed By: #### M YO #### [facility] [address] [place] [address] Dr. Preeti Hyman AST [Catalytic activity/Vol] 25 U/L Normal 15-37 [facility] Comment on above: Performed By: #### M YO #### [facility] [address] [place] [address] Dr. Preeti Hyman Bilirubin [Mass/Vol] 0.1 mg/dL Critically low 0.2-1.0 [facility] Comment on above: Performed By: #### M YO #### [facility] [address] [place] [address] Dr. Preeti Hyman Calcium [Mass/Vol] 8.2 mg/dL Critically low 8.5-10.1 [facility] Comment on above: Performed By: #### M YO #### [facility] [address] [place] [address] Dr. Preeti Hyman Chloride [Moles/Vol] 103 mmol/L Normal 98-107 [facility] Comment on above: Performed By: #### M YO #### [facility] [address] [address] [address] Preeti Hyman CO2 [Moles/Vol] 29.3 mmol/L Normal 21.0-32.0 [facility] Comment on above: Performed By: #### M YO #### [facility] [address] [address] [address] Preeti Hyman Creatinine [Mass/Vol] 1.24 mg/dL Normal 0.70-1.30 [facility] Comment on above: Performed By: #### M YO #### [facility] [address] [address] [address] Preeti Hyman EGFR-AF DANISH >60 Normal >=60 [facility] Comment on above: Performed By: #### M YO #### [facility] [address] [address] [address] Preeti Hyman EGFR-NON AF DANISH 57 mL/min/1.73m2 Critically low >=60 [facility] Comment on above: Performed By: #### M YO #### [facility] [address] [address] [address] Preeti Hyman Globulin (S) [Mass/Vol] 4.3 g/dL Normal [facility] Comment on above: Performed By: #### M YO #### [facility] [address] [address] [address] Preeti Hyman Glucose [Mass/Vol] 129 mg/dL Critically high 74-106 [facility] Comment on above: Performed By: #### M YO #### [facility] [address] [address] [address] Preeti Hyman Potassium [Moles/Vol] 4.3 mmol/L Normal 3.5-5.1 [facility] Comment on above: Performed By: #### M YO #### [facility] [address] [address] [address] Preeti Hyman Protein [Mass/Vol] 7.6 g/dL Normal 6.4-8.2 [facility] Comment on above: Performed By: #### M YO #### [facility] [address] [place], [place] [address] Dr. Preeti Hyman Sodium [Moles/Vol] 139 mmol/L Normal 136-145 [facility] Comment on above: Performed By: #### M YO #### [facility] [address] [place], [place] [address] Dr. Preeti Hyman Urea nitrogen [Mass/Vol] 16.0 mg/dL Normal 7.0-18.0 [facility] Comment on above: Performed By: #### M YO #### [facility] [address] [place], [place] [address] Dr. Preeti Hyman Urea nitrogen/Creatinine [Mass ratio] 12.9 mg/mg Normal [facility] Comment on above: Performed By: #### M YO #### [facility] [address] [place], [place] [address] Dr. Preeti Hymna XR CHEST 1 Von 04-12-2022 XR CHEST [...] KOKO HUNTLEY Date: 2022-04-12 15:35 Normal [facility] Social History Date Type Detail Facility Start: 1945 Sex Assigned At Not on file [facility] Tobacco smoking stat [facility] Tobacco smoking consumption unknown [facility] History of Present illness Narrative 04-23-2022 David Matos APRN.DISPATCHER RELAY - 04/23/2022 12:00 AM EST Note Date & Type Note Facility 04-23-2022 History of Presen t illness Narrative [facility] NOTE NAME: JONNY HENNESSY NO.: [id number] DATE OF SERVICE: 04/23/2022 [facility] DATE OF : 1945 REASON FOR VISIT: The patient is a resident of [facility]. This is a skilled visit for [...] have been reported since being in the [facility]. The patient states has been up [...] are within normal range. DICTATED BY: JULIA Bates/Ozzy JOB# [id number] cc:[facility] documented in this encounter [facility] History of Present illness Narrative 04-19-2022 David Matos APRN.PETE - 04/19/2022 12:00 AM EST Note Date & Type Note Facility 04-19-2022 History of Presen t illness Narrative [facility] NOTE NAME: JONNY HENNESSY NO.: [id number] DATE OF SERVICE: 04/19/2022 [facility] DATE OF : 1945 REASON FOR VISIT: The patient is a resident of [facility]. This is a skilled visit for [...] work performed. DICTATED BY: JULIA Bates/Ozzy JOB# [id number] cc:Supa Foy documented in this encounter [facility] History of Present illness Narrative 04-17-2022 Itri A Rodney - 04/17/2022 12:00 AM EST Note Date & Type Note Facility 04-17-2022 History of Presen t illness Narrative [facility] NOTE NAME: JONNY HENNESSY NO.: [id number] DATE OF SERVICE: 04/17/2022 Supa Foy DATE OF : 1945 NEW PATIENT HISTORY AND PHYSICAL HISTORY OF PRESENT ILLNESS: The patient is a 76-year-old male who is admitted to us from [facility] with a diagnosis of acute COVID infection, [...] therapy. DICTATED BY: MD ROXANE Pierce/Ozzy JOB# [id number] cc:Supa Foy documented in this encounter [facility] Summary Purpose Family History No Family [...] or prosecute any alcohol or drug abuse patient.[facility] the event this information is protected by the Federal Confidentiality of Alcohol and Drug Abuse Patient Records regulations: The Federal rules restrict any use of the information to criminally investigate or prosecute any alcohol or drug abuse patient.[facility] the event this information is protected by the Federal Confidentiality of Alcohol and Drug Abuse Patient Records regulations: The Federal rules restrict any use of the information to criminally investigate or prosecute any alcohol or drug abuse patient.[facility] (unrecognized sect ion and content) No [...] BE BASED ON THE PRIMARY CLINICAL RECORDS. [facility] [email or web address] [facility]. provides no warranty or guarantee of the accuracy or completeness of information in this document.
[2023-08-28] MEDS: IPRATROPIUM/ALBUTEROL SULFATE 3 ML AMPUL.NEB IH ×6 (00:07→23:14)
[2023-08-28 00:16] LABS: Adenovirus NOT DETECTED (NOT DETECTE); Bordetella parapertussis NOT DETECTED (NOT DETECTE); Coronavirus 229E NOT DETECTED (NOT DETECTE); Coronavirus HKU1 NOT DETECTED (NOT DETECTE); Coronavirus NL63 NOT DETECTED (NOT DETECTE); Coronavirus OC43 NOT DETECTED (NOT DETECTE); Human Metapneumovirus NOT DETECTED (NOT DETECTE); Human Rhinovirus/Enterovirus NOT DETECTED (NOT DETECTE); Influenza A NOT DETECTED (NOT DETECTE); Influenza B NOT DETECTED (NOT DETECTE); Mycoplasma pneumoniae NOT DETECTED (NOT DETECTE); Parainfluenza Virus 1 NOT DETECTED (NOT DETECTE); Parainfluenza Virus 2 NOT DETECTED (NOT DETECTE); Parainfluenza Virus 3 NOT DETECTED (NOT DETECTE); Parainfluenza Virus 4 NOT DETECTED (NOT DETECTE); Respiratory Syncytial Virus NOT DETECTED (NOT DETECTE); SARS-CoV-2 NOT DETECTED (NOT DETECTE)
[2023-08-28] MEDS: METHYLPREDNISOLONE SOD SUCC PF 125 MG/2 ML VIAL IVP (00:16)
[2023-08-28] MEDS: MAGNESIUM SULFATE IN WATER 2 GM/50 ML PREMIX IV (00:16)
[2023-08-28 00:23] LABS: Alanine Aminotransferase 25 U/L (16-63); Albumin Globulin Ratio 0.6; Albumin Level 2.9 g/dL (3.4-5.0); Alkaline Phosphatase 93 U/L (46-116); Anion Gap 11.1; Aspartate Amino Transferase 19 U/L (15-37); BUN Creatinine Ratio 23.1; Bilirubin Total 0.3 mg/dL (0.2-1.0); Calcium 8.6 mg/dL (8.5-10.1); Carbon Dioxide 27.9 mmol/L (21.0-32.0); Chloride 103 mmol/L (98-107); Estimated GFR (African America >60 (>=60); Estimated GFR (Non-African Ame >60 (>=60); Globulin 4.6 g/dL; Glucose 99 mg/dL (74-106); Sodium 138 mmol/L (136-145); Total Protein 7.5 g/dL (6.4-8.2); Troponin I High Sensitivity 6.7 pg/mL (4.0-76.1)
[2023-08-28 00:33] LABS: ABG PCO2 43.8 mmHg (35.0-45.0); Allen Test POSITIVE (POSITIVE); Base Excess ABG 0.5 mmol/L (-2.0-2.0); HCO3 ABG 25.6 mmol/L (22.0-26.0); Oxygen Saturation ABG 94.9 %; PO2 ABG 69.7 mmHg (80.0-100.0); pH ABG 7.376 (7.350-7.450)
[2023-08-28 00:34] LABS: Liters per Minute 2; O2 Mode NASAL CANNULA; Puncture Site R RADIAL
--- OUTSIDE RECORDS SUMMARY | 2023-08-28 02:07 | XMS_ITS | CCD ---
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 Preeti Hyman Basophils/100 WBC (Bld) 0.2 % Normal 0.2-2.0 [facility] Comment on above: Performed By: #### M YO #### [facility] [address] [place] [address] Dr. Preeti Hyman EO # 0.2 103/ul Normal 0.0-0.7 [facility] Comment on above: Performed By: #### M YO #### [facility] [address] [place] [address] Dr. Preeti Hyman Eosinophils/100 WBC (Bld) 3.7 % Normal 0.9-7.0 [facility] Comment on above: Performed By: #### M YO #### [facility] [address] [place] [address] Dr. Preeti Hyman Erythrocyte distribution width (RBC) [Ratio] 13.5 % Normal 11.0-15.0 [facility] Comment on above: Performed By: #### M YO #### [facility] [address] [place] [address] Dr. Preeti Hyman Hematocrit (Bld) [Volume fraction] 38.3 % Critically low 42.0-54.0 [facility] Comment on above: Performed By: #### M YO #### [facility] [address] [place] [address] Dr. Preeti Hyman Hemoglobin (Bld) [Mass/Vol] 12.3 g/dL Critically low 14.0-18.0 [facility] Comment on above: Performed By: #### M YO #### [facility] [address] [place] [address] Dr. Preeti Hyman IG # 0.01 10e3/ul Normal 0.00-0.03 [facility] Comment on above: Performed By: #### M YO #### [facility] [address] [place] [address] Dr. Preeti Hyman IG % 0.2 % Normal 0.0-0.5 [facility] Comment on above: Performed By: #### M YO #### [facility] [address] [place] [address] Dr. Preeti Hyman LYMPH # 2.4 103/ul Normal 1.2-3.8 [facility] Comment on above: Performed By: #### M YO #### [facility] [address] [place] [address] Dr. Preeti Hyman Lymphocytes/100 WBC (Bld) 58.9 % Normal 20.5-60.0 [facility] Comment on above: Performed By: #### M YO #### [facility] [address] [place] [address] Dr. Preeti Hyman MANUAL DIFF REQ NO Normal [facility] Comment on above: Performed By: #### M YO #### [facility] [address] [place] [address] Dr. Preeti Hyman MCH (RBC) [Entitic mass] 29.6 pg Normal 25.9-34.0 [facility] Comment on above: Performed By: #### M YO #### [facility] [address] [place] [address] Dr. Preeti Hyman MCHC (RBC) [Mass/Vol] 32.1 g/dL Normal 29.9-35.2 [facility] Comment on above: Performed By: #### M YO #### [facility] [address] [place] [address] Dr. Preeti Hyman MCV (RBC) [Entitic vol] 92.3 fL Normal 80.0-94.0 [facility] Comment on above: Performed By: #### M YO #### [facility] [address] [place] [address] Dr. Preeti Hyman MONO # 0.5 103/ul Normal 0.3-0.8 [facility] Comment on above: Performed By: #### M YO #### [facility] [address] [place] [address] Dr. Preeti Hyman Monocytes/100 WBC (Bld) 11.6 % Normal 1.7-12.0 [facility] Comment on above: Performed By: #### M YO #### [facility] [address] [place] [address] Dr. Preeti Hyman NEUT # 1.0 103/ul Critically low 1.4-6.5 [facility] Comment on above: Performed By: #### M YO #### [facility] [address] [place] [address] Dr. Preeti Hyman Neutrophils/100 WBC (Bld) 25.4 % Critically low 43.0-75.0 [facility] Comment on above: Performed By: #### M YO #### [facility] [address] [place] [address] Dr. Preeti Hyman Platelet mean volume (Bld) [Entitic vol] 10.5 fL Normal 9.5-13.5 [facility] Comment on above: Performed By: #### M YO #### [facility] [address] [place] [address] Dr. Preeti Hyman PLT 207 103/ul Normal 150-450 [facility] Comment on above: Performed By: #### M YO #### [facility] [address] [address] [address] Preeti Hyman RBC 4.15 106/ul Critically low 4.70-6.10 [facility] Comment on above: Performed By: #### M YO #### [facility] [address] [place] [address] Dr. Preeti Hyman WBC 4.0 103/ul Normal 4.0-11.0 [facility] Comment on above: Performed By: #### M YO #### [facility] [address] [place] [address] Dr. Preeti Hyman PROF 14(COMP METB)on 023 Albumin [Mass/Vol] 3.0 g/dL Critically low 3.4-5.0 [facility] Comment on above: Performed By: #### C MP #### [facility] [address] [place] [address] Dr. Preeti Hyman Albumin/Globulin [Mass ratio] 0.8 {ratio} Normal [facility] Comment on above: Performed By: #### C MP #### [facility] [address] [place] [address] Dr. Preeti Hyman ALP [Catalytic activity/Vol] 103 U/L Normal 46-116 [facility] Comment on above: Performed By: #### C MP #### [facility] [address] [place] [address] Dr. Preeti Hyman ALT [Catalytic activity/Vol] 20 U/L Normal 16-63 [facility] Comment on above: Performed By: #### C MP #### [facility] [address] [place] [address] Dr. Preeti Hyman Anion gap [Moles/Vol] 11.2 mmol/L Normal [facility] Comment on above: Performed By: #### C MP #### [facility] [address] [place] [address] Dr. Preeti Hyman AST [Catalytic activity/Vol] 28 U/L Normal 15-37 [facility] Comment on above: Performed By: #### C MP #### [facility] [address] [place] [address] Dr. Preeti Hyman Bilirubin [Mass/Vol] 0.3 mg/dL Normal 0.2-1.0 [facility] Comment on above: Performed By: #### C MP #### [facility] [address] [place] [address] Dr. Preeti Hyman Calcium [Mass/Vol] 8.3 mg/dL Critically low 8.5-10.1 [facility] Comment on above: Performed By: #### C MP #### [facility] [address] [place] [address] Dr. Preeti Hyman Chloride [Moles/Vol] 105 mmol/L Normal 98-107 [facility] Comment on above: Performed By: #### C MP #### [facility] [address] [place] [address] Dr. Preeti Hyman CO2 [Moles/Vol] 27.5 mmol/L Normal 21.0-32.0 [facility] Comment on above: Performed By: #### C MP #### [facility] [address] [place] [address] Dr. Preeti Hyman Creatinine [Mass/Vol] 0.87 mg/dL Normal 0.70-1.30 [facility] Comment on above: Performed By: #### C MP #### [facility] [address] [place] [address] Dr. Preeti Hyman EGFR-AF SWAZI >60 Normal >=60 [facility] Comment on above: Performed By: #### C MP #### [facility] [address] [place] [address] Dr. Preeti Hyman EGFR-NON AF SWAZI >60 Normal >=60 [facility] Comment on above: Performed By: #### C MP #### [facility] [address] [place] [address] Dr. Preeti Hyman Globulin (S) [Mass/Vol] 4.0 g/dL Normal [facility] Comment on above: Performed By: #### C MP #### [facility] [address] [address] [address] Preeti Hyman Glucose [Mass/Vol] 93 mg/dL Normal 74-106 [facility] Comment on above: Performed By: #### C MP #### [facility] [address] [place] [address] Dr. Preeti Hyman Potassium [Moles/Vol] 3.7 mmol/L Normal 3.5-5.1 [facility] Comment on above: Performed By: #### C MP #### [facility] [address] [place] [address] Dr. Preeti Hyman Protein [Mass/Vol] 7.0 g/dL Normal 6.4-8.2 [facility] Comment on above: Performed By: #### C MP #### [facility] [address] [place] [address] Dr. Preeti Hyman Sodium [Moles/Vol] 140 mmol/L Normal 136-145 [facility] Comment on above: Performed By: #### C MP #### [facility] [address] [place] [address] Dr. Preeti Hyman Urea nitrogen [Mass/Vol] 16.0 mg/dL Normal 7.0-18.0 [facility] Comment on above: Performed By: #### C MP #### [facility] [address] [place] [address] Dr. Preeti Hyman Urea nitrogen/Creatinine [Mass ratio] 18.4 mg/mg Normal [facility] Comment on above: Performed By: #### C MP #### [facility] [address] [place] [address] Dr. Preeti Hyman CBC AUTO DIFFon 04-14-2022 BASO # 0.0 103/ul Normal 0.0-0.1 [facility] Comment on above: Performed By: #### C BC #### [facility] [address] [place] [address] Dr. Preeti Hyman Basophils/100 WBC (Bld) 0.2 % Normal 0.2-2.0 [facility] Comment on above: Performed By: #### C BC #### [facility] [address] [place] [address] Dr. Preeti Hyman EO # 0.1 103/ul Normal 0.0-0.7 [facility] Comment on above: Performed By: #### C BC #### [facility] [address] [place] [address] Dr. Preeti Hyman Eosinophils/100 WBC (Bld) 2.2 % Normal 0.9-7.0 [facility] Comment on above: Performed By: #### C BC #### [facility] [address] [place] [address] Dr. Preeti Hyman Erythrocyte distribution width (RBC) [Ratio] 13.4 % Normal 11.0-15.0 [facility] Comment on above: Performed By: #### C BC #### [facility] [address] [place] [address] Dr. Preeti Hyman Hematocrit (Bld) [Volume fraction] 36.3 % Critically low 42.0-54.0 [facility] Comment on above: Performed By: #### C BC #### [facility] [address] [place] [address] Dr. Preeti Hyman Hemoglobin (Bld) [Mass/Vol] 12.1 g/dL Critically low 14.0-18.0 [facility] Comment on above: Performed By: #### C BC #### [facility] [address] [place] [address] Dr. Preeti Hyman IG # 0.01 10e3/ul Normal 0.00-0.03 [facility] Comment on above: Performed By: #### C BC #### [facility] [address] [place] [address] Dr. Preeti Hyman IG % 0.2 % Normal 0.0-0.5 [facility] Comment on above: Performed By: #### C BC #### [facility] [address] [place] [address] Dr. Preeti Hyman LYMPH # 2.0 103/ul Normal 1.2-3.8 [facility] Comment on above: Performed By: #### C BC #### [facility] [address] [place] [address] Dr. Preeti Hyman Lymphocytes/100 WBC (Bld) 49.0 % Normal 20.5-60.0 [facility] Comment on above: Performed By: #### C BC #### [facility] [address] [place] [address] Dr. Preeti Hyman MANUAL DIFF REQ NO Normal [facility] Comment on above: Performed By: #### C BC #### [facility] [address] [place] [address] Dr. Preeti Hyman MCH (RBC) [Entitic mass] 30.6 pg Normal 25.9-34.0 [facility] Comment on above: Performed By: #### C BC #### [facility] [address] [place] [address] Dr. Preeti Hyman MCHC (RBC) [Mass/Vol] 33.3 g/dL Normal 29.9-35.2 [facility] Comment on above: Performed By: #### C BC #### [facility] [address] [place] [address] Dr. Preeti Hyman MCV (RBC) [Entitic vol] 91.7 fL Normal 80.0-94.0 [facility] Comment on above: Performed By: #### C BC #### [facility] [address] [place] [address] Dr. Preeti Hyman MONO # 0.5 103/ul Normal 0.3-0.8 [facility] Comment on above: Performed By: #### C BC #### [facility] [address] [place] [address] Dr. Preeti Hyman Monocytes/100 WBC (Bld) 12.1 % Critically high 1.7-12.0 [facility] Comment on above: Performed By: #### C BC #### [facility] [address] [address] [address] Preeti Hyman NEUT # 1.5 103/ul Normal 1.4-6.5 [facility] Comment on above: Performed By: #### C BC #### [facility] [address] [address] [address] Preeti Hyman Neutrophils/100 WBC (Bld) 36.3 % Critically low 43.0-75.0 [facility] Comment on above: Performed By: #### C BC #### [facility] [address] [place] [address] Dr. Preeti Hyman Platelet mean volume (Bld) [Entitic vol] 10.6 fL Normal 9.5-13.5 [facility] Comment on above: Performed By: #### C BC #### [facility] [address] [address] [address] Preeti Hyman PLT 203 103/ul Normal 150-450 [facility] Comment on above: Performed By: #### C BC #### [facility] [address] [place] [address] Dr. Preeti Hyman RBC 3.96 106/ul Critically low 4.70-6.10 [facility] Comment on above: Performed By: #### C BC #### [facility] [address] [place] [address] Dr. Preeti Hyman WBC 4.1 103/ul Normal 4.0-11.0 [facility] Comment on above: Performed By: #### C BC #### [facility] [address] [place] [address] Dr. Preeti Hyman PROF 14(COMP METB)on 023 Albumin [Mass/Vol] 2.9 g/dL Critically low 3.4-5.0 [facility] Comment on above: Performed By: #### C MP #### [facility] [address] [place] [address] Dr. Preeti Hyman Albumin/Globulin [Mass ratio] 0.8 {ratio} Normal [facility] Comment on above: Performed By: #### C MP #### [facility] [address] [place] [address] Dr. Preeti Hyman ALP [Catalytic activity/Vol] 99 U/L Normal 46-116 [facility] Comment on above: Performed By: #### C MP #### [facility] [address] [place] [address] Dr. Preeti Hyman ALT [Catalytic activity/Vol] 16 U/L Normal 16-63 [facility] Comment on above: Performed By: #### C MP #### [facility] [address] [place] [address] Dr. Preeti Hyman Anion gap [Moles/Vol] 11.2 mmol/L Normal [facility] Comment on above: Performed By: #### C MP #### [facility] [address] [place] [address] Dr. Preeti Hyman AST [Catalytic activity/Vol] 27 U/L Normal 15-37 [facility] Comment on above: Performed By: #### C MP #### [facility] [address] [place] [address] Dr. Preeti Hyman Bilirubin [Mass/Vol] 0.2 mg/dL Normal 0.2-1.0 [facility] Comment on above: Performed By: #### C MP #### [facility] [address] [place] [address] Dr. Preeti Hyman Calcium [Mass/Vol] 8.1 mg/dL Critically low 8.5-10.1 [facility] Comment on above: Performed By: #### C MP #### [facility] [address] [place] [address] Dr. Preeti Hyman Chloride [Moles/Vol] 106 mmol/L Normal 98-107 [facility] Comment on above: Performed By: #### C MP #### [facility] [address] [place] [address] Dr. Preeti Hyman CO2 [Moles/Vol] 26.5 mmol/L Normal 21.0-32.0 [facility] Comment on above: Performed By: #### C MP #### [facility] [address] [place] [address] Dr. Preeti Hyman Creatinine [Mass/Vol] 0.98 mg/dL Normal 0.70-1.30 [facility] Comment on above: Performed By: #### C MP #### [facility] [address] [address] [address] Preeti Hyman EGFR-AF SWAZI >60 Normal >=60 [facility] Comment on above: Performed By: #### C MP #### [facility] [address] [address] [address] Preeti Hyman EGFR-NON AF SWAZI >60 Normal >=60 [facility] Comment on above: Performed By: #### C MP #### [facility] [address] [address] [address] Preeti Hyman Globulin (S) [Mass/Vol] 3.7 g/dL Normal [facility] Comment on above: Performed By: #### C MP #### [facility] [address] [address] [address] Preeti Hyman Glucose [Mass/Vol] 94 mg/dL Normal 74-106 [facility] Comment on above: Performed By: #### C MP #### [facility] [address] [address] [address] Preeti Hyman Potassium [Moles/Vol] 3.7 mmol/L Normal 3.5-5.1 [facility] Comment on above: Performed By: #### C MP #### [facility] [address] [address] [address] Preeti Hyman Protein [Mass/Vol] 6.6 g/dL Normal 6.4-8.2 [facility] Comment on above: Performed By: #### C MP #### [facility] [address] [address] [address] Preeti Hyman Sodium [Moles/Vol] 140 mmol/L Normal 136-145 [facility] Comment on above: Performed By: #### C MP #### [facility] [address] [address] [address] Preeti Hyman Urea nitrogen [Mass/Vol] 12.0 mg/dL Normal 7.0-18.0 [facility] Comment on above: Performed By: #### C MP #### [facility] [address] [address] [address] Preeti Hyman Urea nitrogen/Creatinine [Mass ratio] 12.2 mg/mg Normal [facility] Comment on above: Performed By: #### C MP #### [facility] [address] [address] [address] Preeti Hyman CBC AUTO DIFFon 04-13-2022 BASO # 0.0 103/ul Normal 0.0-0.1 [facility] Comment on above: Performed By: #### M YO #### [facility] [address] [place] [address] Dr. Pretei Hyman Basophils/100 WBC (Bld) 0.5 % Normal 0.2-2.0 [facility] Comment on above: Performed By: #### M YO #### [facility] [address] [place] [address] Dr. Preeti Hyman EO # 0.2 103/ul Normal 0.0-0.7 [facility] Comment on above: Performed By: #### M YO #### [facility] [address] [place] [address] Dr. Preeti Hyman Eosinophils/100 WBC (Bld) 3.9 % Normal 0.9-7.0 [facility] Comment on above: Performed By: #### M YO #### [facility] [address] [place] [address] Dr. Preeti Hyman Erythrocyte distribution width (RBC) [Ratio] 13.6 % Normal 11.0-15.0 [facility] Comment on above: Performed By: #### M YO #### [facility] [address] [place] [address] Dr. Preeti Hyman Hematocrit (Bld) [Volume fraction] 38.5 % Critically low 42.0-54.0 [facility] Comment on above: Performed By: #### M YO #### [facility] [address] [place] [address] Dr. Preeti Hyman Hemoglobin (Bld) [Mass/Vol] 12.8 g/dL Critically low 14.0-18.0 [facility] Comment on above: Performed By: #### M YO #### [facility] [address] [place] [address] Dr. Preeti Hyman IG # 0.01 10e3/ul Normal 0.00-0.03 [facility] Comment on above: Performed By: #### M YO #### [facility] [address] [place] [address] Dr. Preeti Hyman IG % 0.3 % Normal 0.0-0.5 [facility] Comment on above: Performed By: #### M YO #### [facility] [address] [place] [address] Dr. Preeti Hyman LYMPH # 1.7 103/ul Normal 1.2-3.8 [facility] Comment on above: Performed By: #### M YO #### [facility] [address] [place] [address] Dr. Preeti Hyman Lymphocytes/100 WBC (Bld) 43.6 % Normal 20.5-60.0 [facility] Comment on above: Performed By: #### M YO #### [facility] [address] [place] [address] Dr. Preeti Hyman MANUAL DIFF REQ NO Normal [facility] Comment on above: Performed By: #### M YO #### [facility] [address] [place] [address] Dr. Preeti Hyman MCH (RBC) [Entitic mass] 30.8 pg Normal 25.9-34.0 [facility] Comment on above: Performed By: #### M YO #### [facility] [address] [place] [address] Dr. Preeti Hyman MCHC (RBC) [Mass/Vol] 33.2 g/dL Normal 29.9-35.2 [facility] Comment on above: Performed By: #### M YO #### [facility] [address] [place] [address] Dr. Preeti Hyman MCV (RBC) [Entitic vol] 92.5 fL Normal 80.0-94.0 [facility] Comment on above: Performed By: #### M YO #### [facility] [address] [address] [address] Preeti Hyman MONO # 0.7 103/ul Normal 0.3-0.8 [facility] Comment on above: Performed By: #### M YO #### [facility] [address] [address] [address] Preeti Hyman Monocytes/100 WBC (Bld) 17.3 % Critically high 1.7-12.0 [facility] Comment on above: Performed By: #### M YO #### [facility] [address] [address] [address] Preeti Hyman NEUT # 1.3 103/ul Critically low 1.4-6.5 [facility] Comment on above: Performed By: #### M YO #### [facility] [address] [place] [address] Dr. Preeti Hyman Neutrophils/100 WBC (Bld) 34.4 % Critically low 43.0-75.0 [facility] Comment on above: Performed By: #### M YO #### [facility] [address] [place] [address] Dr. Preeti Hyman Platelet mean volume (Bld) [Entitic vol] 10.8 fL Normal 9.5-13.5 [facility] Comment on above: Performed By: #### M YO #### [facility] [address] [place] [address] Dr. Preeti Hyman PLT 192 103/ul Normal 150-450 [facility] Comment on above: Performed By: #### M YO #### [facility] [address] [address] [address] Preeti Hyman RBC 4.16 106/ul Critically low 4.70-6.10 [facility] Comment on above: Performed By: #### M YO #### [facility] [address] [place] [address] Dr. Preeti Hyman WBC 3.8 103/ul Critically low 4.0-11.0 [facility] Comment on above: Performed By: #### M YO #### [facility] [address] [place] [address] Dr. Preeti Hyman MYOGLOBINon 04-13-2022 MONISHA 107 ng/mL Critically high 16-96 [facility] Comment on above: Performed By: #### M YO #### [facility] [address] [place] [address] Dr. Preeti Hyman PROF 14(COMP METB)on 023 Albumin [Mass/Vol] 3.0 g/dL Critically low 3.4-5.0 Th [facility] Comment on above: Performed By: #### C MP #### [facility] [address] [place] [address] Dr. Preeti Hyman Albumin/Globulin [Mass ratio] 0.8 {ratio} Normal [facility] Comment on above: Performed By: #### C MP #### [facility] [address] [place] [address] Dr. Preeti Hyman ALP [Catalytic activity/Vol] 107 U/L Normal 46-116 [facility] Comment on above: Performed By: #### C MP #### [facility] [address] [place] [address] Dr. Preeti Hyman ALT [Catalytic activity/Vol] 17 U/L Normal 16-63 [facility] Comment on above: Performed By: #### C MP #### [facility] [address] [place] [address] Dr. Preeti Hyman Anion gap [Moles/Vol] 11.4 mmol/L Normal [facility] Comment on above: Performed By: #### C MP #### [facility] [address] [place] [address] Dr. Preeti Hyman AST [Catalytic activity/Vol] 28 U/L Normal 15-37 [facility] Comment on above: Performed By: #### C MP #### [facility] [address] [place] [address] Dr. Preeti Hyman Bilirubin [Mass/Vol] 0.2 mg/dL Normal 0.2-1.0 [facility] Comment on above: Performed By: #### C MP #### [facility] [address] [place] [address] Dr. Preeti Hyman Calcium [Mass/Vol] 8.0 mg/dL Critically low 8.5-10.1 Th e [facility] Comment on above: Performed By: #### C MP #### [facility] [address] [address] [address] Preeti Hyman Chloride [Moles/Vol] 106 mmol/L Normal 98-107 [facility] Comment on above: Performed By: #### C MP #### [facility] [address] [address] [address] Preeti Hyman CO2 [Moles/Vol] 27.5 mmol/L Normal 21.0-32.0 [facility] Comment on above: Performed By: #### C MP #### [facility] [address] [place] [address] Dr. Preeti Hyman Creatinine [Mass/Vol] 1.00 mg/dL Normal 0.70-1.30 [facility] Comment on above: Performed By: #### C MP #### [facility] [address] [place] [address] Dr. Preeti Hyman EGFR-AF SWAZI >60 Normal >=60 [facility] Comment on above: Performed By: #### C MP #### [facility] [address] [address] [address] Preeti Hyman EGFR-NON AF SWAZI >60 Normal >=60 [facility] Comment on above: Performed By: #### C MP #### [facility] [address] [address] [address] Preeti Hyman Globulin (S) [Mass/Vol] 4.0 g/dL Normal [facility] Comment on above: Performed By: #### C MP #### [facility] [address] [address] [address] Preeti Hyman Glucose [Mass/Vol] 87 mg/dL Normal 74-106 [facility] Comment on above: Performed By: #### C MP #### [facility] [address] [address] [address] Preeti Hyman Potassium [Moles/Vol] 3.9 mmol/L Normal 3.5-5.1 [facility] Comment on above: Performed By: #### C MP #### [facility] [address] [place] [address] Dr. Preeti Hyman Protein [Mass/Vol] 7.0 g/dL Normal 6.4-8.2 [facility] Comment on above: Performed By: #### C MP #### [facility] [address] [place] [address] Dr. Preeti Hyman Sodium [Moles/Vol] 141 mmol/L Normal 136-145 [facility] Comment on above: Performed By: #### C MP #### [facility] [address] [place] [address] Dr. Preeti Hyman Urea nitrogen [Mass/Vol] 16.0 mg/dL Normal 7.0-18.0 [facility] Comment on above: Performed By: #### C MP #### [facility] [address] [place] [address] Dr. Preeti Hyman Urea nitrogen/Creatinine [Mass ratio] 16.0 mg/mg Normal [facility] Comment on above: Performed By: #### C MP #### [facility] [address] [place] [address] Dr. Preeti Hyman T4on 04-13-2022 T4 [Mass/Vol] 7.20 ug/dL Normal 4.50-12.10 [facility] Comment on above: Performed By: #### T 4 #### [facility] [address] [place] [address] Dr. Preeti Hyman TSHon 04-13-2022 TSH 2.126 uIU/mL Normal 0.358-3.740 [facility] Comment on above: Performed By: #### M YO #### [facility] [address] [place] [address] Dr. Preeti Hyman CARDIAC KALEIGH ADMITon 023 CK [Catalytic activity/Vol] 237 U/L Normal 39-308 [facility] Comment on above: Performed By: #### M YO #### [facility] [address] [place] [address] Dr. Preeti Hyman CK.MB [Mass/Vol] 2.15 ng/mL Normal <=3.60 [facility] Comment on above: Performed By: #### M YO #### [facility] [address] [place] [address] Dr. Preeti Hyman HSTROP 9.8 pg/mL Normal 4.0-76.1 [facility] Comment on above: Result Comment: CUT- OFF POINTS HAVE BEEN ESTABLISHED BASED ON THE FOURTH UNIVERSAL DEFINITIONS OF MYOCARDIAL INFARCTION. THE UPPER REFERENCE LIMIT (URL) OF TROPONIN, DEFINED THE 99TH PERCENTILE OF cTnI DISTRIBUTION IN A REFERENCE POPULATION, HAS BEEN CONFIRMED THE DECISION THRESHOLD FOR DE DIAGNOSIS. Performed By: #### M YO #### [facility] [address] [place] [address] Dr. Preeti Hyman MONISHA 191 ng/mL Critically high 16-96 [facility] Comment on above: Performed By: #### M YO #### [facility] [address] [place] [address] Dr. Preeti Hyman CBC AUTO DIFFon 04-12-2022 BASO # 0.0 103/ul Normal 0.0-0.1 [facility] Comment on above: Performed By: #### C BC #### [facility] [address] [place] [address] Dr. Preeti Hyman Basophils/100 WBC (Bld) 0.2 % Normal 0.2-2.0 [facility] Comment on above: Performed By: #### C BC #### [facility] [address] [place] [address] Dr. Preeti Hyman EO # 0.0 103/ul Normal 0.0-0.7 [facility] Comment on above: Performed By: #### C BC #### [facility] [address] [place] [address] Dr. Preeti Hyman Eosinophils/100 WBC (Bld) 0.5 % Critically low 0.9-7.0 [facility] Comment on above: Performed By: #### C BC #### [facility] [address] [place] [address] Dr. Preeti Hyman Erythrocyte distribution width (RBC) [Ratio] 13.6 % Normal 11.0-15.0 [facility] Comment on above: Performed By: #### C BC #### [facility] [address] [place] [address] Dr. Preeti Hyman Hematocrit (Bld) [Volume fraction] 40.8 % Critically low 42.0-54.0 [facility] Comment on above: Performed By: #### C BC #### [facility] [address] [place] [address] Dr. Preeti Hyman Hemoglobin (Bld) [Mass/Vol] 13.2 g/dL Critically low 14.0-18.0 [facility] Comment on above: Performed By: #### C BC #### [facility] [address] [place] [address] Dr. Preeti Hyman IG # 0.02 10e3/ul Normal 0.00-0.03 [facility] Comment on above: Performed By: #### C BC #### [facility] [address] [place] [address] Dr. Preeti Hyman IG % 0.5 % Normal 0.0-0.5 [facility] Comment on above: Performed By: #### C BC #### [facility] [address] [place] [address] Dr. Preeti Hyman LYMPH # 1.5 103/ul Normal 1.2-3.8 [facility] Comment on above: Performed By: #### C BC #### [facility] [address] [place] [address] Dr. Preeti Hyman Lymphocytes/100 WBC (Bld) 36.1 % Normal 20.5-60.0 [facility] Comment on above: Performed By: #### C BC #### [facility] [address] [place] [address] Dr. Preeti Hyman MANUAL DIFF REQ NO Normal [facility] Comment on above: Performed By: #### C BC #### [facility] [address] [place] [address] Dr. Preeti Hyman MCH (RBC) [Entitic mass] 30.1 pg Normal 25.9-34.0 [facility] Comment on above: Performed By: #### C BC #### [facility] [address] [address] [address] Preeti Hyman MCHC (RBC) [Mass/Vol] 32.4 g/dL Normal 29.9-35.2 [facility] Comment on above: Performed By: #### C BC #### [facility] [address] [address] [address] Preeti Hyman MCV (RBC) [Entitic vol] 92.9 fL Normal 80.0-94.0 [facility] Comment on above: Performed By: #### C BC #### [facility] [address] [address] [address] Preeti Hyman MONO # 1.0 103/ul Critically high 0.3-0.8 [facility] Comment on above: Performed By: #### C BC #### [facility] [address] [address] [address] Preeti Hyman Monocytes/100 WBC (Bld) 23.6 % Critically high 1.7-12.0 [facility] Comment on above: Performed By: #### C BC #### [facility] [address] [address] [address] Preeti Hyman NEUT # 1.6 103/ul Normal 1.4-6.5 [facility] Comment on above: Performed By: #### C BC #### [facility] [address] [address] [address] Preeti Hyman Neutrophils/100 WBC (Bld) 39.1 % Critically low 43.0-75.0 [facility] Comment on above: Performed By: #### C BC #### [facility] [address] [address] [address] Preeti Hyman Platelet mean volume (Bld) [Entitic vol] 10.9 fL Normal 9.5-13.5 [facility] Comment on above: Performed By: #### C BC #### [facility] [address] [address] [address] Preeti Hyman PLT 171 103/ul Normal 150-450 [facility] Comment on above: Performed By: #### C BC #### [facility] [address] [place] [address] Dr. Preeti Hyman RBC 4.39 106/ul Critically low 4.70-6.10 [facility] Comment on above: Performed By: #### C BC #### [facility] [address] [place], [place] [id number] Dr. Preeti Hyman WBC 4.2 103/ul Normal 4.0-11.0 [facility] Comment on above: Performed By: #### C BC #### [facility] [address] [place] [address] Dr. Preeti Hyman Covid-19 PCR ([facility])on 03-31 SARS-CoV-2 (COVID-19) RNA GAVINO+probe Ql (Unsp spec) Detected Abnormal NOT DETECTED [facility] Comment on above: Result Comment: This test is not yet approved or cleared by the [place] FDA. When there are no FDA-approved or cleared tests available, and other criteria are met, FDA can make tests available under an emergency access mechanism called an Emergency Use Authorization (EUA). The EUA for this test is supported by the [place] of Health and Human Service's declaration that [...] used). Performed By: #### M YO #### [facility] [address] [place] [address] Dr. Preeti Hyman ER URINE PROFILEon 3 Bilirubin Ql (U) Negative Normal NEGATIVE [facility] Comment on above: Performed By: #### E RUR #### [facility] [address] [place] [address] Dr. Preeti Hyman Clarity (U) CLEAR Normal CLEAR [facility] Comment on above: Performed By: #### E RUR #### [facility] [address] [place] [address] Dr. Preeti Hyman Color (U) LT. YELLOW Normal YELLOW [facility] Comment on above: Performed By: #### E RUR #### [facility] [address] [place] [address] Dr. Preeti MADERA A micrscopic examination will be performed if indicated. Normal [facility] Comment on above: Performed By: #### E RUR #### [facility] [address] [place] [address] Dr. Preeti Hyman Glucose Ql (U) Negative Normal NEGATIVE [facility] Comment on above: Performed By: #### E RUR #### [facility] [address] [place] [address] Dr. Preeti Hyman Hemoglobin Ql (U) Negative Normal NEGATIVE [facility] Comment on above: Performed By: #### E RUR #### [facility] [address] [place] [address] Dr. Preeti Hyman Ketones Ql (U) Negative Normal NEGATIVE [facility] Comment on above: Performed By: #### E RUR #### [facility] [address] [place] [address] Dr. Preeti Hyman LEUKOCYTES Negative Normal NEGATIVE [facility] Comment on above: Performed By: #### E RUR #### [facility] [address] [place] [address] Dr. Preeti Hyman Nitrite Ql (U) Negative Normal NEGATIVE [facility] Comment on above: Performed By: #### E RUR #### [facility] [address] [place] [address] Dr. Preeti Hyman pH (U) 5.5 [pH] Normal 5-9 [facility] Comment on above: Performed By: #### E RUR #### [facility] [address] [place] [address] Dr. Preeti Hyman SPEC GRAVITY 1.015 Normal 1.005-<=1.025 [facility] Comment on above: Performed By: #### E RUR #### [facility] [address] [place] [address] Dr. Preeti Hyman UA PROTEIN Negative Normal NEGATIVE/ TRACE [facility] Comment on above: Performed By: #### E RUR #### [facility] [address] [place] [address] Dr. Preeti Hyman UR MICRO IND NOT INDICATED Normal [facility] Comment on above: Performed By: #### E RUR #### [facility] [address] [place] [address] Dr. Preeti Hyman Urobilinogen Qn (U) 0.2 {Comfort'U}/dL Normal 0.2 - 1. 0 [facility] Comment on above: Performed By: #### E RUR #### [facility] [address] [place] [address] Dr. Preeti Hyman INFLUENZA A AND B AGon 04-12 INFLUANEGH SEE BELOW Normal [facility] Comment on above: Result Comment: Nega tive for Flu A protein angiten. Infection due to Flu A cannot be ruled out. Flu A angiten in the sample may be below the detection limit of the test. Performed By: #### I NFLUAB #### [facility] [address] [place] [address] Dr. Preeti Hyman INFLUBNEGH SEE BELOW Normal [facility] Comment on above: Result Comment: Nega tive for Flu B protein antigen. Infection due to Flu B cannot be ruled out. Flu B antigen in the sample may be below the detection limit of the test. Performed By: #### I NFLUAB #### [facility] [address] [place] [address] Dr. Preeti yHman INFLUENZA A AG Negative Normal NEGATIVE SEE COMMENT [facility] Comment on above: Performed By: #### I NFLUAB #### [facility] [address] [place] [address] Dr. Preeti Hyman INFLUENZA B AG Negative Normal NEGATIVE SEE COMMENT [facility] Comment on above: Performed By: #### I NFLUAB #### [facility] [address] [place] [address] Dr. Preeti Hyman LIPASEon 04-12-2022 Lipase [Catalytic activity/Vol] 101.0 U/L Normal 73.0-393.0 [facility] Comment on above: Performed By: #### C MP, CMADM, LIPA #### [facility] [address] [address] [address] Preeti Hyman PROF 14(COMP METB)on 023 Albumin [Mass/Vol] 3.3 g/dL Critically low 3.4-5.0 Th [facility] Comment on above: Performed By: #### M YO #### [facility] [address] [place] [address] Dr. Preeti Hyman Albumin/Globulin [Mass ratio] 0.8 {ratio} Normal [facility] Comment on above: Performed By: #### M YO #### [facility] [address] [place] [address] Dr. Preeti Hyman ALP [Catalytic activity/Vol] 114 U/L Normal 46-116 [facility] Comment on above: Performed By: #### M YO #### [facility] [address] [place] [address] Dr. Preeti Hyman ALT [Catalytic activity/Vol] 19 U/L Normal 16-63 [facility] Comment on above: Performed By: #### M YO #### [facility] [address] [place] [address] Dr. Preeti Hyman Anion gap [Moles/Vol] 10.2 mmol/L Normal [facility] Comment on above: Performed By: #### M YO #### [facility] [address] [place] [address] Dr. Preeti Hyman AST [Catalytic activity/Vol] 25 U/L Normal 15-37 [facility] Comment on above: Performed By: #### M YO #### [facility] [address] [place] [address] Dr. Preeti Hyman Bilirubin [Mass/Vol] 0.1 mg/dL Critically low 0.2-1.0 [facility] Comment on above: Performed By: #### M YO #### [facility] [address] [place] [address] Dr. Preeti Hyman Calcium [Mass/Vol] 8.2 mg/dL Critically low 8.5-10.1 Th e [facility] Comment on above: Performed By: #### M YO #### [facility] [address] [address] [address] Preeti Hyman Chloride [Moles/Vol] 103 mmol/L Normal 98-107 [facility] Comment on above: Performed By: #### M YO #### [facility] [address] [address] [address] Preeti Hyman CO2 [Moles/Vol] 29.3 mmol/L Normal 21.0-32.0 [facility] Comment on above: Performed By: #### M YO #### [facility] [address] [address] [address] Preeti Hyman Creatinine [Mass/Vol] 1.24 mg/dL Normal 0.70-1.30 [facility] Comment on above: Performed By: #### M YO #### [facility] [address] [place] [address] Dr. Preeti Hyman EGFR-AF SWAZI >60 Normal >=60 [facility] Comment on above: Performed By: #### M YO #### [facility] [address] [address] [address] Preeti Hyman EGFR-NON AF SWAZI 57 mL/min/1.73m2 Critically low >=60 [facility] Comment on above: Performed By: #### M YO #### [facility] [address] [address] [address] Preeti Hyman Globulin (S) [Mass/Vol] 4.3 g/dL Normal [facility] Comment on above: Performed By: #### M YO #### [facility] [address] [address] [address] Preeti Hyman Glucose [Mass/Vol] 129 mg/dL Critically high 74-106 T [facility] Comment on above: Performed By: #### M YO #### [facility] [address] [address] [address] Preeti Hyman Potassium [Moles/Vol] 4.3 mmol/L Normal 3.5-5.1 [facility] Comment on above: Performed By: #### M YO #### [facility] [address], [place] [address] Dr. Preeti Hyman Protein [Mass/Vol] 7.6 g/dL Normal 6.4-8.2 [facility] Comment on above: Performed By: #### M YO #### [facility] [address], [place] [address] Dr. Preeti Hyman Sodium [Moles/Vol] 139 mmol/L Normal 136-145 [facility] Comment on above: Performed By: #### M YO #### [facility] [address], [place] [address] Dr. Preeti Hyman Urea nitrogen [Mass/Vol] 16.0 mg/dL Normal 7.0-18.0 [facility] Comment on above: Performed By: #### M YO #### [facility] [address] [address] [address] Preeti Hyman Urea nitrogen/Creatinine [Mass ratio] 12.9 mg/mg Normal [facility] Comment on above: Performed By: #### M YO #### [facility] [address], [place] [address] Dr. Preeti Hyman XR CHEST 1 Von [...] by: KOKO HUNTLEY Date: 2022-04-12 15:35 Normal [facility] Encounters Encounter Date Encounter Type Care Provider Facility Start: 07-10-2022 End: 07-10-[address] JONATHAN GIORDANO . Facility: Start: 04-23-2022 Patient encounter procedure David Matos APRN.WELLNESS NURSE RN Work Phone: [facility] Start: 04-23-2022 Progress Note David OWENS RN.WELLNESS NURSE RN Work Phone: [facility] Start: 04-19-2022 Patient encounter procedure David Matos PUBLIC SAFETY DIRECTOR.WELLNESS NURSE RN Work Phone: [facility] Start: 04-19-2022 Progress Note David OWENS RN.WELLNESS NURSE RN Work Phone: [facility] Start: 04-17-2022 Patient encounter procedure Itri Regino Rodney Work Phone: [facility] Start: 04-17-2022 Progress Note Itri A Rodney Work Phone: [facility] Start: 04-12-2022 End: 04-17-2022 Evaluation and management of inpatient DR JONATHAN GIORDANO . Facility: Payers Date Payer Category Payer Medicare UHC MEDICARE UHC MEDICARE ADVANTAGE PPO [id number] 2022-Present [phone] [address] [address] [place] [address] PPO [id number] 2019 Unknown [id number] 1960 Medicare [id number] 1945 Unknown [id number] 1945 Unknown [id number] Social History Date Type Detail [facility] Start: 1945 Sex Assigned At Not on file [facility] History of Present illness Narrative 04-23-2022 David Matos APRN.WELLNESS NURSE RN - 04/23/2022 12:00 AM EST Note Date & Type Note Facility 04-23-2022 History of Presen t illness Narrative [facility] NOTE NAME: JONNY HENNESSY NO.: [id number] DATE OF SERVICE: 04/23/2022 [facility] DATE OF : 1945 REASON FOR VISIT: The patient is a resident of [facility]. This is a skilled visit [...] have been reported since being in the [facility]. The patient states has been [...] normal range. DICTATED BY: JULIA Bates JOB# [id number] cc:[facility] documented in this encounter [facility] History of Present illness Narrative 04-19-2022 David Matos APRN.PETE - 04/19/2022 12:00 AM EST Note Date & Type Note Facility 04-19-2022 History of Presen t illness Narrative [facility] NOTE NAME: JONNY HENNESSY NO.: [id number] DATE OF SERVICE: 04/19/2022 [facility] DATE OF : 1945 REASON FOR VISIT: The patient is a resident of [facility]. This is a skilled visit [...] work performed. DICTATED BY: JULIA Bates/Ozzy JOB# [id number] cc:Sup[facility] Foy documented in this encounter [facility] History of Present illness Narrative 04-17-2022 Itri A Rodney - 04/17/2022 12:00 AM EST Note Date & Type Note Facility 04-17-2022 History of Presen t illness Narrative [facility] NOTE NAME: JONNY HENENSSY NO.: [id number] DATE OF SERVICE: 04/17/2022 [facility] DATE OF : 1945 NEW PATIENT HISTORY AND PHYSICAL HISTORY OF PRESENT ILLNESS: The patient is a 76-year-old male who is admitted to us from [facility] with a diagnosis of acute [...] alcohol abuse. He previously worked in a [employer]. Once again, he has been living with [...] therapy. DICTATED BY: MD ROXANE Pierce/Ozzy JOB# [id number] cc:Supa Foy documented in this encounter [facility] Summary Purpose Family History No Family [...] or prosecute any alcohol or drug abuse patient.[facility] the event this information is protected by the Federal Confidentiality of Alcohol and Drug Abuse Patient Records regulations: The Federal rules restrict any use of the information to criminally investigate or prosecute any alcohol or drug abuse patient.[facility] the event this information is protected by the Federal Confidentiality of Alcohol and Drug Abuse Patient Records regulations: The Federal rules restrict any use of the information to criminally investigate or prosecute any alcohol or drug abuse patient.[facility] (unrecognized sect ion and content) No [...] BE BASED ON THE PRIMARY CLINICAL RECORDS. [employer] provides no warranty or guarantee of the accuracy or completeness of information in this document.
[2023-08-28] MEDS: TRAZODONE HCL 50 MG TABLET PO ×2 (03:24→22:41)
[2023-08-28] MEDS: TAMSULOSIN HCL 0.4 MG CAPSULE 0.400000000000000022 MG PO ×2 (03:24→09:34)
[2023-08-28 04:51] LABS: PCO2 VBG 41.1 mmHg (40.0-52.0); pH VBG 7.398 (7.330-7.430)
[2023-08-28 05:01] LABS: Anion Gap 9.8; BUN Creatinine Ratio 20.9; Calcium 8.1 mg/dL (8.5-10.1); Carbon Dioxide 26.8 mmol/L (21.0-32.0); Chloride 103 mmol/L (98-107); Estimated GFR (African America >60 (>=60); Estimated GFR (Non-African Ame >60 (>=60); Glucose 162 mg/dL (74-106); Potassium 3.6 mmol/L (3.5-5.1); Sodium 136 mmol/L (136-145)
[2023-08-28] MEDS: METHYLPREDNISOLONE SOD SUCC PF 40 MG/ML VIAL IVP ×3 (05:37→21:03)
--- NOTE | 2023-08-28 08:18 | P.HP_ITS ---
HPI H&P: HPI History of Present Illness Chief complaint: sob COPD Narrative: Patient was seen and evaluated in the emergency room secondary to increasing cough and shortness of breath at home. In ER found to have reaccumulation of his left lower lobe pneumonia. Overnight and had significant hypoxia. 88% on room air. Placed on supplemental oxygen with improvement. When I saw patient up on the medical surgical floor he is continued to have labored breathing. Persistent cough throughout the interview. Patient denied f fevers but did have some chills leading up to this. Cough productive of pink sputum. Opioid HPI Opioid Management Most Recent Opioid Data: Last Pain Scale 0 07/22/23 06:31 Last Pain Intensity 3 07/22/23 09:11 Last Pain Assessment 08/28/23 07:51 Last ORT Total Score 0 08/28/23 02:20 Last ORT Risk Category Low Risk 08/28/23 02:20 Review of Systems ROS Status of ROS 10 or more systems reviewed and unremark able except as noted in history and below [facility] Medical History (Updated 08/28/23 @ 02:16 by Nilsa Arzate) COVID ?U07.1 - COVID-19 (ICD-10) Anxiety ?F41.9 - Anxiety disorder, unspecified (ICD-10) Acute exacerbation of chronic obstructive pulmonary disease (COPD) ?J44.1 - Chronic obstructive pulmonary disease with (acute) exacerbation (ICD-10) Acute hypoxemic respiratory failure ?J96.01 - Acute respiratory failure with hypoxia (ICD-10) COPD exacerbation ?J44.1 - Chronic obstructive pulmonary disease with (acute) exacerbation (ICD-10) Community acquired pneumonia ?J18.9 - Pneumonia, unspecified organism (ICD-10) Fracture of left hip requiring operative repair ?S72.002A - Fracture of unspecified part of neck of left femur, initial encounter for closed fracture (ICD-10) Acute hypoxic respiratory failure ?J96.01 - Acute respiratory failure with hypoxia (ICD-10) Aspiration pneumonitis ?J69.0 - Pneumonitis due to inhalation of food and vomit (ICD-10) Acute respiratory distress ?R06.03 - Acute respiratory distress (ICD-10) Aspiration into airway ?T17.908A - Unspecified foreign body in respiratory tract, part unspecified causing other injury, initial encounter (ICD-10) Neuropathy ?G62.9 - Polyneuropathy, unspecified (ICD-10) Peripheral neuropathy ?G62.9 - Polyneuropathy, unspecified (ICD-10) Bilateral edema of lower extremity ?R60.0 - Localized edema (ICD-10) Abrasion of knee, left ?S80.212A - Abrasion, left knee, initial encounter (ICD-10) Closed fracture of left hip ?S72.002A - Fracture of unspecified part of neck of left femur, initial encounter for closed fracture (ICD-10) Surgical History (Updated 12/18/22 @ 06:44 by Nilsa Arzate) Hx of tonsillectomy ?Z90.89 - Acquired absence of other organs (ICD-10) Previous back surgery ?Z98.890 - Other specified postprocedural states (ICD-10) Family History (Updated 12/18/22 @ 06:42 by Nilsa Arzate) Father Family history of hypertension Family history of stroke Social History (Updated 07/22/23 @ 02:14 by Aida Rust) Within the past year, how often did you have a drink containing alcohol: never Score interpretation: A score less than 4 is consistent with normal alcohol consumption. Smoking status: Never smoker Non-prescribed substance use: denies use Previous occupational history: retired Highest level of school completed/degree received: some college, no degree Are you now , , , , never or living with a partner: In a typical week, how many times do you talk on the telephone with family, friends, or neighbors: 3 or more times per week How often do you get together with friends or relatives: 3 or more times per week How often do you attend faith or religion services: 1-3 times per year Little interest or pleasure in doing things: not at all Feeling down, depressed, or hopeless: not at all Feel stressed/tense/nervous/anxious/difficulty sleeping: not at all Life stressors: recent of family or friend Life stressor details: burried wifes ashes yesterday 07/20 Do you think of yourself as: straight/heterosexual Gender Identity: male Meds Home Medications and Allergies Home Medications ?Medication ?Instructions ?Recorded ?Confirmed ?Type albuterol sulfate 2.5 mg/3 mL 2.5 mg inhalation Q6H PRN 04/04/23 08/27/23 History (0.083 %) solution for nebulization shortness of breath or wheezing tamsulosin 0.4 mg capsule 0.4 mg PO QD #30 caps 06/02/23 08/27/23 Rx trazodone 50 mg tablet 50 mg PO QHS #30 tabs 06/02/23 08/27/23 Rx sodium chloride 3 % for 3 ml inhalation TID 08/10/23 08/27/23 History nebulization prednisone 10 mg tablet 40 mg (4 x 10 mg) PO DAILY #32 tabs 08/11/23 08/27/23 Rx Allergies Allergy/AdvReac Type Severity Reaction Status Date / Time No Known Drug Allergies Allergy Verified 08/27/23 23:44 Exam Constitutional Vital Signs, click to edit/add: Last Vital Signs Temp 97.7 F 08/28/23 07:51 Pulse 83 08/28/23 07:52 Resp 20 08/28/23 07:51 BP 123/72 08/28/23 07:51 Pulse Ox 92 L 08/28/23 07:51 O2 Del Method Nasal Cannula 08/28/23 07:51 O2 Flow Rate 2 08/28/23 07:51 Documenting provider has reviewed patient's vital signs: yes Common normals: apparent distress (Moderate respiratory distress with labored breathing) Exam limitations: no altered mental status Chest Common normals: inspection of chest normal Respiratory Common normals: no retractions and no use of accessory muscles; abnormal respiratory effort (Moderate conversational dyspnea with persistent cough) and not clear to ascultation bilaterally Effort & inspection: tachypneic and respiratory distress Auscultation: rhonchi left lower and egophony left lower Cardio Common normals: regular rate and regular rhythm GI Common normals: Normal to inspection, nondistended, normoactive bowel sounds present Results Labs Labs: Short CBC 08/27/23 Range/Units 23:45 WBC 8.8 (4.0-11.0) 10^3/uL Hgb 12.3 L (14.0-18.0) g/dL Hct 39.5 L (42.0-54.0) % Plt Count 289 (150-450) 10^3/uL BMP 08/27/23 08/28/23 23:45 04:38 Sodium 138 136 Potassium 4.0 3.6 Chloride 103 103 Carbon Dioxide 27.9 26.8 BUN 21.0 H 18.0 Creatinine 0.91 0.86 Glucose 99 162 H Calcium 8.6 8.1 L Liver Function 08/27/23 Range/Units 23:45 Total Bilirubin 0.3 (0.2-1.0) mg/dL AST 19 (15-37) U/L ALT 25 (16-63) U/L Alkaline Phosphatase 93 (46-116) U/L Albumin 2.9 L (3.4-5.0) g/dL ABG ABG results: 08/28/23 08/28/23 00:26 04:38 ABG pH 7.376 ABG pCO2 43.8 ABG pO2 69.7 L ABG HCO3 25.6 ABG O2 Saturation 94.9 ABG Base Excess 0.5 VBG pH 7.398 VBG pCO2 41.1 Assessment and Plan Assessment and Plan (1) Acute exacerbation of chronic obstructive pulmonary disease (COPD): Plan Admission findings: Sinus tachycardia, respiratory distress with respiratory rate in the 30s, acute hypoxia with O2 saturation of 88%, improved with supplemental oxygen, secondary to left lower lobe pneumonia resulting in acute exacerbation of COPD-lung exam consistent with acute infection with positive egophony. Start IV antibiotics for the pneumonia, patient has a history of recurrent aspiration pneumonia show will start with Zosyn. Try to obtain sputum culture. Consult to pulmonology. Continue home treatments of saline aerosols and vest treatment, steroids, DuoNebs Status post fall with bruising to right shoulder and head-PT to work with patient. Was just a slip and fall, not syncope. Dysphagia-possible aspiration history-7 workup as an outpatient. IV Protonix for reflux Insomnia-uses trazodone Iron deficiency anemia-diet management Hyperglycemia-secondary to steroids. Monitor daily CODE [id number], documents reviewed in chart Admission criteria: Patient seen and evaluated in the emergency room with the reaccumulation of his left lower lobe pneumonia with hypoxia and acute exacerbation of COPD-acute infection-medically necessary treatment will span 2 midnights.
--- NOTE | 2023-08-28 10:35 | SWNOTE1 ---
SW met with pt to discuss dc needs. Pt lives at home alone. He uses a wheelchair and walker at home to get around. Pt has nearly 24/7 caregiving coming in to the home. He has caregivers [facility] along with his step-daughter Momo and her helping out and also has [facility] coming in, PT/OT/ST and nursing. Pt's plan is to return home at discharge and continue services. Pt does not wear home oxygen, but is requiring 2 liters right now. SW to follow as needed. Important Message from Medicare reviewed and discussed with patient. Pt. verbalized understanding and signed the form. Original given to patient and copy placed in patient?s chart.
--- NOTE | 2023-08-28 10:41 | SWNOTE1 ---
SW sent updates to [facility]. Updates included DNR status, face sheet, ED note, H&P, and OT note.
[2023-08-28] MEDS: PIPERACILLIN SODIUM/TAZOBACTAM 3.375 GM in 0.9 % SODIUM CHLORIDE 50 ML IV ×2 (10:55→21:03)
[2023-08-28] MEDS: 0.9 % SODIUM CHLORIDE 250 ML 10 ML IV (10:56)
[2023-08-28] MEDS: SODIUM CHLORIDE 3% INHALATION 15 ML NEB 3 ML IH ×2 (11:27→16:17)
--- NOTE | 2023-08-28 16:26 | RESP.RT ---
SpO2 96% on 1 LPM NC, placed on room air
[2023-08-29] VITALS (13 sets, daily range): BP systolic 100–119; BP diastolic 54–70; PULSE 80–95; TEMP 36.4–36.9; O2SAT 93–95
[2023-08-29] MEDS: METHYLPREDNISOLONE SOD SUCC PF 40 MG/ML VIAL IVP ×2 (01:23→09:58)
[2023-08-29] MEDS: PIPERACILLIN SODIUM/TAZOBACTAM 3.375 GM in 0.9 % SODIUM CHLORIDE 50 ML IV (04:29)
[2023-08-29] MEDS: SODIUM CHLORIDE 3% INHALATION 15 ML NEB 3 ML IH ×2 (04:50→10:34)
[2023-08-29] MEDS: IPRATROPIUM/ALBUTEROL SULFATE 3 ML AMPUL.NEB IH ×2 (04:50→10:34)
--- NOTE | 2023-08-29 07:56 | P.DS_ITS ---
DS: Providers Provider Date of admission: 08/28/23 08:17 Primary care physician: Tawanda Galvez MD Consults: 08/28/23 08:06 Consult to Pulmonology Routine Consulting Provider: Manuel Chang Reason for consultation: Pt known to him - acute exacerbation copd Has provider been notified: No 08/28/23 08:09 Occupational Therapy Eval and Treat Routine Reason for consultation: Only if needed for Rehab Has provider been notified: No Physical Therapy Eval and Treat Routine Reason for consultation: Eval and Treat Has provider been notified: No DS: Diagnosis Discharge Diagnosis (1) Acute exacerbation of chronic obstructive pulmonary disease (COPD): Plan Admission findings: Sinus tachycardia, respiratory distress with respiratory rate in the 30s, acute hypoxia with O2 saturation of 88%, improved with supplemental oxygen, secondary to left lower lobe pneumonia resulting in acute exacerbation of COPD-lung exam consistent with acute infection with positive egophony. Breathing at the time of discharge Status post fall with bruising to right shoulder and head-PT to work with patient. Improving at the time of discharge Dysphagia-possible aspiration history-7 workup as an outpatient. Stable at the time of discharge Insomnia-stable at the time of discharge Iron deficiency anemia- deteriorated at the time of discharge but will monitor as an outpatient Hyperglycemia-secondary to steroids. Stable at the time of discharge CODE [id number], documents reviewed in chart Admission criteria: Patient seen and evaluated in the emergency room with the reaccumulation of his left lower lobe pneumonia with hypoxia and acute exacerbation of COPD-acute infection-medically necessary treatment will span 2 midnights. ? DS: Summary Hospital Course Hospital Course: Patient was seen and evaluated in the emergency room with increasing cough and shortness of breath. Patient found to have acute exacerbation of COPD secondary to left lower lobe pneumonia reoccurrence with positive egophony on physical examination. Patient was treated with aerosols, steroids, IV antibiotics. The IV antibiotics for to include aspiration pneumonia coverage as he has been having some difficulty swallowing and that workup as an outpatient is ongoing. Day of admission he did have conversational dyspnea. On the day of discharge he longer has conversational dyspnea. His egophony has resolved. His no longer requiring supplemental oxygen. Patient will be ambulated this morning. If improving later this morning he can be discharged home in improved condition. Medication status. Follow-up with me in the office next week. Pt did improve faster than anticipated based on degree of hypoxia and his history of slow to respond to treatment in the past. Status at Discharge Overall status at discharge: patient is not back to baseline Time Spent with Patient Time attestation: Total time spent providing and/or coordinating discharge services: Time spent: greater than 30 minutes Exam Constitutional Vital Signs, click to edit/add: Last Vital Signs Temp 97.6 F 08/29/23 07:26 Pulse 90 08/29/23 07:26 Resp 18 08/29/23 07:26 BP 100/54 08/29/23 07:26 Pulse Ox 93 L 08/29/23 07:26 O2 Del Method Room Air 08/29/23 07:26 O2 Flow Rate 1 08/29/23 04:50 Documenting provider has reviewed patient's vital signs: yes Common normals: no apparent distress (Moderate respiratory distress with labored breathing) Exam limitations: no altered mental status Chest Common normals: inspection of chest normal Respiratory Common normals: normal respiratory effort, no retractions and no use of accessory muscles; not clear to ascultation bilaterally Effort & inspection: tachypneic and respiratory distress Auscultation: rhonchi (Rhonchi left lower lobe persisting but improved aeration) left lower; no egophony Cardio Common normals: regular rate and regular rhythm GI Common normals: Normal to inspection, nondistended, normoactive bowel sounds present Discharge Plan Discharge Disposition: Home, Self-Care Condition: Fair Discharge Medications: New trazodone 100 mg tablet 100 mg PO DAILY Qty: 30 11RF cefdinir 300 mg capsule 600 mg PO DAILY Qty: 20 0RF Rx Instructions: Can open capsule and sprinkle Continued albuterol sulfate 2.5 mg /3 mL (0.083 %) solution for nebulization 2.5 mg inhalation Q6H PRN (Reason: shortness of breath or wheezing) trazodone 50 mg Tablet 50 mg PO QHS Qty: 30 11RF tamsulosin 0.4 mg Capsule 0.4 mg PO QD Qty: 30 11RF sodium chloride 3 % solution for nebulization 3 ml INHALATION TID prednisone 10 mg tablet 40 mg PO DAILY Qty: 32 0RF Rx Instructions: 4/day for 3 days, 3/day for 3 days, 2/day for 3 days, 1/day for 3 days, 1/2 /day for 4 days Print Language: Luxembourgish Solar Installation Manager/Strategic Alliances Manager Instructions: Resume [facility] at discharge, phone number is [phone] Forms: Portal Instructions
[2023-08-29] MEDS: TAMSULOSIN HCL 0.4 MG CAPSULE 0.400000000000000022 MG PO (09:57)
--- NOTE | 2023-08-29 10:08 | SWNOTE1 ---
Pt will be discharged today. JERMAIN sent over CRF, dc summary, and dc med rec to [facility]. Pt will resume his home health services.
--- NOTE | 2023-08-29 11:48 | PM.PLCN ---
History of Present Illness History of Present Illness Consult date: 08/29/23 Chief complaint: sob COPD Narrative: 78yo male presented with dyspnea. Found to be hypoxic. Instigating factor may be aspiration pneumonitis - I originally saw him outpatient 07/30/2023. 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 He was being evaluated for dysphagia, possible esophageal stricture/achalasia. Today he feels well. Near/at baseline. SpO2 94% on RA. Review of Systems ROS Status of ROS 10 or more systems reviewed and unremarkable except as noted in history and below (residual dyspnea, cough.) [facility] Medical History (Updated 08/28/23 @ 02:16 by Nilsa Arzate) COVID ?U07.1 - COVID-19 (ICD-10) Anxiety ?F41.9 - Anxiety disorder, unspecified (ICD-10) Acute exacerbation of chronic obstructive pulmonary disease (COPD) ?J44.1 - Chronic obstructive pulmonary disease with (acute) exacerbation (ICD-10) Acute hypoxemic respiratory failure ?J96.01 - Acute respiratory failure with hypoxia (ICD-10) COPD exacerbation ?J44.1 - Chronic obstructive pulmonary disease with (acute) exacerbation (ICD-10) Community acquired pneumonia ?J18.9 - Pneumonia, unspecified organism (ICD-10) Fracture of left hip requiring operative repair ?S72.002A - Fracture of unspecified part of neck of left femur, initial encounter for closed fracture (ICD-10) Acute hypoxic respiratory failure ?J96.01 - Acute respiratory failure with hypoxia (ICD-10) Aspiration pneumonitis ?J69.0 - Pneumonitis due to inhalation of food and vomit (ICD-10) Acute respiratory distress ?R06.03 - Acute respiratory distress (ICD-10) Aspiration into airway ?T17.908A - Unspecified foreign body in respiratory tract, part unspecified causing other injury, initial encounter (ICD-10) Neuropathy ?G62.9 - Polyneuropathy, unspecified (ICD-10) Peripheral neuropathy ?G62.9 - Polyneuropathy, unspecified (ICD-10) Bilateral edema of lower extremity ?R60.0 - Localized edema (ICD-10) Abrasion of knee, left ?S80.212A - Abrasion, left knee, initial encounter (ICD-10) Closed fracture of left hip ?S72.002A - Fracture of unspecified part of neck of left femur, initial encounter for closed fracture (ICD-10) Surgical History (Updated 12/18/22 @ 06:44 by Nilsa Arzate) Hx of tonsillectomy ?Z90.89 - Acquired absence of other organs (ICD-10) Previous back surgery ?Z98.890 - Other specified postprocedural states (ICD-10) Family History (Updated 12/18/22 @ 06:42 by Nilsa Arzate) Father Family history of hypertension Family history of stroke Social History (Updated 07/22/23 @ 02:14 by Aida Rust) Within the past year, how often did you have a drink containing alcohol: never Score interpretation: A score less than 4 is consistent with normal alcohol consumption. Smoking status: Never smoker Non-prescribed substance use: denies use Previous occupational history: retired Highest level of school completed/degree received: some college, no degree Are you now , , , , never or living with a partner: In a typical week, how many times do you talk on the telephone with family, friends, or neighbors: 3 or more times per week How often do you get together with friends or relatives: 3 or more times per week How often do you attend voodoo or adventism services: 1-3 times per year Little interest or pleasure in doing things: not at all Feeling down, depressed, or hopeless: not at all Feel stressed/tense/nervous/anxious/difficulty sleeping: not at all Life stressors: recent of family or friend Life stressor details: burried wifes ashes yesterday 07/20 Do you think of yourself as: straight/heterosexual Gender Identity: male Meds Home Medications and Allergies Home Medications ?Medication ?Instructions ?Recorded ?Confirmed ?Type albuterol sulfate 2.5 mg/3 mL 2.5 mg inhalation Q6H PRN 04/04/23 08/27/23 History (0.083 %) solution for nebulization shortness of breath or wheezing tamsulosin 0.4 mg capsule 0.4 mg PO QD #30 caps 06/02/23 08/27/23 Rx trazodone 50 mg tablet 50 mg PO QHS #30 tabs 06/02/23 08/27/23 Rx sodium chloride 3 % for 3 ml inhalation TID 08/10/23 08/27/23 History nebulization prednisone 10 mg tablet 40 mg (4 x 10 mg) PO DAILY #32 tabs 08/11/23 08/27/23 Rx cefdinir 300 mg capsule 600 mg (2 x 300 mg) PO DAILY Can 08/29/23 Rx open capsule and sprinkle #20 caps trazodone 100 mg tablet 100 mg PO DAILY #30 tabs 08/29/23 Rx Allergies Allergy/AdvReac Type Severity Reaction Status Date / Time No Known Drug Allergies Allergy Verified 08/27/23 23:44 Exam Constitutional Vital Signs, click to edit/add: Last Vital Signs Temp 97.6 F 08/29/23 07:26 Pulse 83 08/29/23 10:35 Resp 18 08/29/23 07:57 BP 100/54 08/29/23 07:26 Pulse Ox 94 L 08/29/23 10:35 O2 Del Method Room Air 08/29/23 10:35 O2 Flow Rate 1 08/29/23 04:50 Common normals: no apparent distress HENMT Other: Mallampati I. No candidiasis Chest Common normals: inspection of chest normal Respiratory Other: Coarse breath sounds, no wheezes Cardio Other: RRR GI Inspection: normal to inspection Extremity Other: Trace BLE edema Neuro Motor exam: no tremor noted and no fasciculations Psych Common normals: mental status grossly normal Attitude: calm and engaged Results Laboratory Findings ABG, PT/INR, D-dimer: ABG ABG pH 7.376 (7.350-7.450) 08/28/23 00:26 ABG pCO2 43.8 mmHg (35.0-45.0) 08/28/23 00:26 ABG pO2 69.7 mmHg (80.0-100.0) L 08/28/23 00:26 ABG O2 Saturation 94.9 % 08/28/23 00:26 Abnormal lab findings: Abnormal Labs 08/27/23 08/28/23 08/28/23 23:45 00:26 04:38 RBC 4.18 L Hgb 12.3 L Hct 39.5 L MCV 94.5 H [place] # (Auto) 0.9 H ABG pO2 69.7 L BUN 21.0 H Glucose 162 H Calcium 8.1 L Albumin 2.9 L Assessment and Plan Assessment and Plan (1) Aspiration pneumonitis: Assessment and Plan: 1. Aspiration pneumonitis. Recurrent history. Associated with neurogenic amyotrophy, question additional dysphagia associated with esophageal issues -dismotility, achalasia, stricture, etc. Continue outpatient evaluation with GI +/- speech therapy. 2. Acute hypoxic respiratory failure. Secondary to above. Resolved. 3. Elevated right hemidiaphragm. Noted on chest CT 08/06/2023. Will consider sniff test outpatient. 4. Left pleural effusion. Too small for thoracentesis - identified on chest CT 08/06/2023. Etiology unclear. Plan Patient okay for D/C home. He already has an appointment with me on 09/02 which he should keep.
--- NOTE | 2023-09-01 15:47 | CM.DCFOLLOWU ---
08/31- 1st attempt. No answer
== END 2023-08-29 13:49 | disposition home health service (06) | DRG 193 ==
LOC: ER 08-28 01:21 → MS 08-28 02:05
PROVIDERS: Registered Nurse; Admitting Provider Family Medicine; Emergency Provider Emergency Medicine; PCP Family Medicine; Visit Provider Family Medicine
DX: J18.9 Pneumonia, unspecified organism (principal); J96.01 Acute respiratory failure with hypoxia; J44.0 Chronic obstructive pulmonary disease with (acute) lower respiratory infection; J44.1 Chronic obstructive pulmonary disease with (acute) exacerbation; J90 Pleural effusion, not elsewhere classified; Z87.01 Personal history of pneumonia (recurrent); S40.011A Contusion of right shoulder, initial encounter; W01.0XXA Fall on same level from slipping, tripping and stumbling without subsequent striking against object, initial encounter; R13.10 Dysphagia, unspecified; G47.00 Insomnia, unspecified; D50.9 Iron deficiency anemia, unspecified; Z86.16 Personal history of COVID-19; R73.9 Hyperglycemia, unspecified; T38.0X5A Adverse effect of glucocorticoids and synthetic analogues, initial encounter; Z66 Do not resuscitate; F41.9 Anxiety disorder, unspecified; G62.9 Polyneuropathy, unspecified; G54.5 Neuralgic amyotrophy; J98.6 Disorders of diaphragm
CPT/HCPCS: 0202U; 36415; 36600; 71045; 80048; 80053; 82800; 82805; 83605; 83880; 84484; 85025; 87040; 93005; 94640; 94667; 94668; 94761; 96365; 96366; 96367; 96375; 96376; 97161; 97165; 97530; 99285; J2919

== ENCOUNTER 2023-09-04 13:51 | Outpatient (OUT) | payer MEDICARE, SELFPAY ==
--- NOTE | 2023-09-04 13:58 | FL_ITS ---
The [address] [address] Patient Name: LEIGH ANN HENNESSY MRN: [id number] date: 1945 Sex: M Assigned Patient Location: [place] Current Patient Location: [place] Accession/Order Number: [id number] Exam Date: 09/04/2023 14:35 Report Date: 09/04/2023 15:35 At the request of: JONATHAN GIORDANO Procedure: FL modified barium swallow EXAMINATION: FL modified barium swallow HISTORY: Neuropathy G62.9 COMPARISON: No relevant comparison available. TECHNIQUE: A swallowing evaluation was performed with fluoroscopy in the usual manner. Standard level fluoroscopic mode of operation utilized. FINDINGS: ORAL PHASE: Rapid, aggressive deglutition with quick movement of contents into the pharynx. PHARYNGEAL PHASE: Normal swallowing. ASPIRATION: Single episode of aspiration involving thin liquid while drinking with a straw due to rapid spillage of contents over base of tongue while still drinking with a straw. No additional episodes of aspiration or penetration throughout the rest of the study. STRUCTURE: Normal. No visible obstruction, stricture, or dilatation. OTHER: Negative. [place] modified barium swallow IMPRESSION: 1. Single episode aspiration of thin liquid felt to be due to lack of patient focus rather than inability to manage airway. 2. Patient rapidly moves contents into the pharynx, quickly initiating swallowing mechanism, sometimes bordering being ahead of normal coordinated swallowing function. 3. Please see speech therapist's report for further discussion. Electronically authenticated by: MICHELLE PERALTA Date: 09/04/2023 15:35
== END 2023-09-04 13:52 | disposition home or self-care (01) ==
LOC: FL 13:52
PROVIDERS: PCP Family Medicine; Visit Provider Family Medicine
DX: G62.9 Polyneuropathy, unspecified (principal)
CPT/HCPCS: 74230; 92611